=== PATIENT | female | born 1965 | race Caucasian/White ===

== ENCOUNTER 2017-04-07 06:19 | Day surgery (SDC) | payer OTHER ==
--- NOTE | 2017-03-18 07:30 | HP ---
HISTORY AND PHYSICAL: DATE OF PLANNED ADMISSION AND SURGERY: 04/07/17 HISTORY OF PRESENT ILLNESS: Ms. Bender is a 51-year-old white female who has a solitary right kidney with chronic right ureteral obstruction managed by chronic ureteral stent who is admitted for cystoscopy and right ureteral stent exchange. Ms. 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 This resulted in a stricture of her left ureter and she ended up having a chronically obstructed left kidney that became nonfunctioning and required a left nephrectomy. In September 2014, she was noted to have severe right hydronephrosis secondary to distal right ureteral obstruction. She had urgent placement of a right ureteral stent. 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 The patient has been managed with chronic right ureteral stent. The stent had been replaced every 5 to 6 months. The stent was last replaced in August 2016. PAST MEDICAL HISTORY AND SYSTEM REVIEW: She has past history of uterine carcinoma and treated with surgery and radiation therapy and has had no evidence of recurrent disease. She is hypothyroid, on levothyroxine 175 mcg daily. She has chronic back pain, on Cymbalta and gabapentin. She has history of gout, on allopurinol 100 mg daily and colchicine 0.6 mg daily. She has asthma, on Advair inhaler. She has GERD, on Prevacid 40 mg daily. She is a nonsmoker. ALLERGIES: She reports being allergic to PENICILLIN, CIPRO and LATEX. She has tolerated cephalosporin intravenously in the past without any reaction. PHYSICAL EXAMINATION GENERAL: Obese white female who looks her age. VITAL SIGNS: Blood pressure 120/80, pulse of 90. LUNGS: Clear. HEART: Regular and rhythmic. No murmurs. ABDOMEN: Soft. No masses, no tenderness, and no CVA tenderness. IMPRESSION: Chronically obstructed solitary right kidney, managed with right ureteral stent drainage. PLAN: Plan is for cystoscopy and right ureteral stent exchange (a 24 cm 7- Khmer black silicone stent). I discussed the above plans with the patient. All her questions were answered. CC: Dr. Tolliver * [id number]/[facility] #: [id number] [facility]ITALTima
[~2017-04-07 06:19] MED LIST: Buffered Lidocaine 0.9% SYRIN* 5 ML/SYR SYRINGE INTRADERM ONE; Sodium Citrate/Citric Acid* 15 ML UDC PO ONE
[2017-04-07] MEDS ORDERED: Sodium Citrate/Citric Acid* 15 ML UDC ONE (06:56)
[2017-04-07] MEDS ORDERED: cefTRIAXone(*) 2 GM ADDV.VIAL IVPB ONE (06:56)
[2017-04-07] MEDS ORDERED: Buffered Lidocaine 0.9% SYRIN* 5 ML/SYR SYRINGE ONE (06:57)
[2017-04-07] MEDS ORDERED: Iohexol 180 (CONTRAST) 10 ML SDV IV ONE (07:11)
[2017-04-07] MEDS ORDERED: fentaNYL* 50 MCG/ML 2 ML VIAL (100 MCG VIAL) ONE ×2 (07:38→09:35)
[2017-04-07] MEDS ORDERED: Propofol* 10 MG/ML 20 ML BTL IV PUSH ONE (07:40)
[2017-04-07] MEDS ORDERED: Lidocaine 2% PF * 5 ML VIAL ONE (07:40)
[2017-04-07] MEDS ORDERED: fentaNYL* 50 MCG/ML 2 ML VIAL (100 MCG VIAL) IV PRN (08:18)
[2017-04-07] MEDS ORDERED: HYDROcodone/ACETAMIN 5-325 MG* 1 TAB PO PRN (08:18)
[2017-04-07] MEDS ORDERED: Ondansetron INJ* 2 MG/ML VIAL ONE (08:55)
--- NOTE | 2017-04-07 09:19 | RAD ---
INDICATION: Retrograde RIGHT ureteral stent exchange. COMPARISON: September 25, 2016 TECHNIQUE: 35 seconds fluoroscopy. FINDINGS: RIGHT retrograde pyelogram demonstrates moderate calyceal blunting. Original catheter removed with fracture of the catheter and residual segment remaining at the renal pelvis. New RIGHT ureteral stent placed with subsequent decompression of contrast from the collecting system. IMPRESSION: Procedural fluoroscopy. CPT II Codes: 6045F
[2017-04-07 09:29] LABS: Hematocrit 36 % (35-47); Hemoglobin 11.9 g/dl (12.0-16.0); Mean Corpuscular HGB Conc 33 g/dl (31-36); Mean Corpuscular Hemoglobin 32 pg (27-31); Mean Corpuscular Volume 99 fL (80-97); Mean Platelet Volume 7 um3 (7.4-10.4); Red Blood Count 3.67 10^6/ul (4.0-5.4); Red Cell Distribution Width 14 % (10.5-15); White Blood Count 7.9 10^3/ul (3.5-10.8)
[2017-04-07] MEDS ORDERED: HYDROcodone/ACETAMIN 5-325 MG* 1 TAB ONE (09:35)
[2017-04-07] MEDS ORDERED: oxyCODONE/Acetamin 5/325 MG* TAB ONE (09:37)
[2017-04-07 10:50] LABS: BUN/Creatinine Ratio 11.5 (8-20); Calcium 8.7 mg/dL (8.6-10.3); EGFR African American 28.1 (>60); EGFR Non-African American 21.8 (>60); Potassium 4.3 mmol/L (3.5-5.0)
[2017-04-07 10:55] VITALS: BP 148/100
--- NOTE | 2017-04-07 22:30 | OP ---
DATE OF OPERATION: 04/07/17 [facility] DATE OF : 63 SURGEON: Yoandy Moise MD ANESTHESIOLOGIST: Yaniv Medellin MD ANESTHESIA: General. PRE-OP DIAGNOSES: 1. Solitary right kidney. 2. Right ureteral stricture. 3. Status post placement, right ureteral stent. POST-OP DIAGNOSES: 1. Bladder lesion. 2. Stricture and possible, mid to distal right ureter. 3. Right ureteral obstruction. 4. Retained segment of right ureteral stent. OPERATIVE PROCEDURE: 1. Cystoscopy. 2. Right retrograde pyelography. 3. Right ureteroscopy and washings from right ureter. 4. Right retrograde pyelography and placement of right ureteral stent (black silicone, 24 cm, 7-Nauruan). 5. Bladder biopsies. INDICATIONS FOR PROCEDURE: Ms. Bender is a 52-year-old white female who had received radiation therapy in the past for carcinoma of the uterus. She developed a stricture of the distal left ureter that resulted in severe left hydronephrosis and ended up requiring a left nephrectomy at the [facility] in [place], [place]. In September 2014, she was noted to have severe right hydronephrosis due to a mid to distal ureteral obstruction. At that time, she had placement of a right ureteral stent. Workup, including ureteroscopy, CT scans, showed the stricture to be extrinsic due to what was diagnosed as retroperitoneal fibrosis similar to the pathology that resulted in the loss of her left kidney. She had been managed with a right ureteral stent, which had been replaced periodically. She had required a right nephrostomy 2 years ago because of retained stent in her right kidney, and the retained stent was extracted. More recently, the patient has been having increasing urgency and frequency. She denied any gross hematuria. Non contrast CT of the abdomen and pelvis in Aug 2016 showed no new pathology. She is admitted for right ureteral stent exchange. At cystoscopy, the distal limb of the stent was seen coming from the right orifice. The stent was in good position in the right renal pelvis. Over the area of about 2 to 3 cm in the right anterior bladder wall, there was a mucoid material overlying a firm area in the bladder wall. The area felt rather fibrotic and gritty. Right retrograde pyelography showed no hydronephrosis. Upon right ureteroscopy, there was significant degree of edema and irregularity of the mucosa. In the distal third of the ureter, about 4 or 5 cm above the level of the orifice, there was tight stricture of the lumen, with mostly hyperemic fibrotic lining, and no normal mucosa. No papillary lesions seen. There was significant degree of narrowing of the ureteral lumen which prevented the semi rigid ureteroscope from going beyond that level. Retrograde pyelography of the whole length of the ureter was not performed because of concern about loosing the guidewire if it had been pulled out into the distal ureter. When the black silicone stent that was placed in August 2016 was being pulled out over a flexible tip guidewire, it broke in half, and the proximal half was retained in the renal pelvis. It could not be retrieved due to the inability to introduce the ureteroscope beyond the strictured segment of the ureter. DESCRIPTION OF PROCEDURE: After successful general anesthesia, the patient was placed in the lithotomy position and was prepped and draped in the usual manner. Cystoscopy was performed. The bladder was inspected and the findings were noted, namely the lesion in the right anterior bladder wall. The distal limb of the stent was noted in the ureter coming out from the Rt orifice. It was pulled out to the level of the urethral meatus. The guidewire was introduced into the lumen of the stent and the guidewire was successfully introduced all the way into the renal pelvis. The stent was then pulled out keeping the guidewire in place. As mentioned earlier, the stent broke and the proximal half of the stent was retained in the renal pelvis and proximal ureter. With the guidewire in place, ureteroscopy was performed. The ureteroscope was introduced into the distal right ureter. The pathology in the ureter was noted. The ureteroscope could not be introduced beyond the area of pathology to retrieve the retained portion of the stent Because of concern about a malignancy in the ureter, washings were obtained from the ureter at that level. Biopsies could not be obtained because of the fibrotic nature of the lesion. The ureteroscope was then removed keeping the guidewire in place. The guidewire was then fed over the cystoscope. A size 5-Nauruan open-ended catheter was fed on top of the guidewire and positioned in the area of the renal pelvis and the guidewire was removed. The pathology namely the retained portion of the stent was noted in the renal pelvis. Retrograde pyelography was then performed. The guidewire was reintroduced through the lumen of the open-ended catheter and positioned in the area of the renal pelvis. A black silicone stent, 24 cm long , 7- Nauruan was then fed on top of the guidewire and positioned with the proximal end coiling in the renal pelvis and the distal end coiling inside the bladder. There was good drainage of contrast from the kidney and no extravasation. Biopsy forceps was then introduced inside the bladder. Several biopsies were obtained from the lesion in the right anterior bladder wall. The biopsies were sent for pathology. The sites of the biopsies were then fulgurated with the Bugbee electrode. A size 16-Nauruan Nunn catheter was then placed. The patient tolerated the procedure well and left the operating room in good condition. There is concern about the appearance of the lesions in the bladder wall and in the ureter considering that the patient is a smoker. The plan is to obtain a CT of the abdomen and pelvis. Depending upon the result of that workup, we will decide on further evaluation of the pathology in the ureter and on the bladder and then plan for the extraction of the retained portion of the right ureteral stent through a neph. tube. [id number]/[facility] #: [id number] MTDD
== END 2017-04-07 12:39 | disposition home or self-care (01) ==
LOC: OR 06:19
PROVIDERS: ATTEND Urology
DX: N13.1 Hydronephrosis with ureteral stricture, not elsewhere classified (principal); D09.0 Carcinoma in situ of bladder; F17.210 Nicotine dependence, cigarettes, uncomplicated; J44.9 Chronic obstructive pulmonary disease, unspecified; N18.9 Chronic kidney disease, unspecified; E03.9 Hypothyroidism, unspecified; Z90.5 Acquired absence of kidney
CPT/HCPCS: 36415; 74420; 80048; 85025; 86703; 86803; 88112; 88305; 88341; 88342; A9270-GY; C2617; J0696; J2405; J2704; J3010

== ENCOUNTER 2017-04-15 14:35 | Inpatient (IN) | payer OTHER ==
[2017-04-15] MEDS ORDERED: Ondansetron INJ* 2 MG/ML VIAL IV ONE (16:32)
[2017-04-15] MEDS ORDERED: HYDROmorphone* 2 MG/ML 1 ML SYR IV SLOW PU ONE (16:32)
[2017-04-15] MEDS: NS 0.9% 1000 ML* 2,000 ML IV ONE ×2 (16:39→17:50)
[2017-04-15 16:45] LABS: Hematocrit 38 % (35-47); Hemoglobin 12.3 g/dl (12.0-16.0); Mean Corpuscular HGB Conc 33 g/dl (31-36); Mean Corpuscular Hemoglobin 32 pg (27-31); Mean Corpuscular Volume 98 fL (80-97); Mean Platelet Volume 7 um3 (7.4-10.4); Red Blood Count 3.84 10^6/ul (4.0-5.4); Red Cell Distribution Width 14 % (10.5-15); White Blood Count 10.2 10^3/ul (3.5-10.8)
[2017-04-15 17:05] LABS: Albumin 3.9 g/dL (3.2-5.2); BUN/Creatinine Ratio 12.1 (8-20); C Reactive Protein 42.59 mg/L (< 5.00); Calcium 9.5 mg/dL (8.6-10.3); EGFR African American 26.3 (>60); EGFR Non-African American 20.4 (>60); Globulin 4.8 g/dL (2-4); Potassium 4.4 mmol/L (3.5-5.0); Total Bilirubin 0.3 mg/dL (0.2-1.0); Total Protein 8.7 g/dL (6.4-8.9)
[2017-04-15 17:09] LABS: Urine Bacteria Absent (Absent); Urine Bilirubin Negative (Negative); Urine Glucose Negative (Negative); Urine Nitrite Negative (Negative)
[2017-04-15] MEDS ORDERED: cefTRIAXone(*) 1 GM in NS 0.9% 50 ML* 50 ML IVPB ONE (17:57)
--- NOTE | 2017-04-15 18:37 | ED ---
Antonieta Anderson Claudia, scribed for Jose Syed MD on 04/15/17 at 1645 . Complex/Multi-Sys Presentation - HPI Summary HPI Summary: 51 year old female presents to the ED with NV and diffuse abd pain. Pt notes pain starting 5 days ago. Pt notes the pain is an intermittent cycle of pain and no pain. She notes recent Dx of Bladder CA and receives cystoscopy every 3 months with her last one on 04/07. Her pain started after her surgery and then it stopped and then it reoccurred 2 days after her surgery. She notes during surgery the stent broke and it is stuck. She notes that this has happened before and they had to go in and extract it. Pt notes the pain radiates to her back and down her legs. She admits to loss of appetite and weight loss. She denies CP, SOB, but admits to some abdominal distended. Pt states PO intake is an aggravating factor. Pt had a nephrectomy of her left kidney. PMHx of Kidney Stones, Kidney Failure, Kidney Disease. - History Of Current Complaint Chief Complaint: EDGeneral Time Seen by Provider: 04/15/17 16:40 Hx Obtained From: Patient Onset/Duration: Sudden Onset Associated Signs And Symptoms: Positive: Nausea, Vomiting, Abdominal Pain. Negative: SOB, Chest Pain - Allergies/Home Medications Allergies/Adverse Reactions: Allergies Allergy/AdvReac Type Severity Reaction Status Date / Time Latex Allergy Severe ITCHY Rash Verified 04/07/17 07:03 Nitrofurantoin Allergy Severe Nausea And Verified 04/07/17 07:03 Vomiting Ciprofloxacin Allergy Intermediate Nausea And Verified 04/07/17 07:03 Vomiting Penicillins [PCN] Allergy Intermediate Hives Verified 04/07/17 07:03 Clindamycin Allergy Vomiting Verified 04/07/17 07:03 ENVIRONMENTAL Allergy Severe Unknown Uncoded 04/07/17 07:03 Reaction Details PMH/Surg Hx/FS Hx/Imm Hx Previously Healthy: Yes Endocrine/Hematology History: Reports: Hx Diabetes - diet controlled at this time, Hx Thyroid Disease - hypothyroidism Denies: Hx Anticoagulant Therapy Cardiovascular History: Reports: Hx Cardiomegaly, Hx Hypertension - on meds Denies: Hx Pacemaker/ICD, Other Cardiovascular Problems/Disorders Respiratory History: Reports: Hx Asthma - prn inhaler, Hx Sleep Apnea - HAS NOT HAD TESTING YET, Other Respiratory Problems/Disorders - uses nebulizer prn GI History: Reports: Hx Gastroesophageal Reflux Disease - on med, Hx Hiatal Hernia, Other GI Disorders - hiatal hernia, cervical ca History: Reports: Hx Kidney Infection, Hx Kidney Stones, Hx Renal Disease - LEFT KIDNEY REMOVED, Other Problems/Disorders - left nephrectomy 2007, cervical cancer 1999 Musculoskeletal History: Reports: Hx Arthritis - back, neck and knees, Hx Back Problems, Other Musculoskeletal History - gout, on meds Sensory History: Reports: Hx Contacts or Glasses - glasses, Other Sensory Impairments - Psorisis Denies: Hx Hearing Aid Opthamlomology History: Reports: Hx Contacts or Glasses - glasses, Other Sensory Impairments - Psorisis Neurological History: Reports: Hx Headaches - pcp following, Hx Nerve Disease - reports nerve damage in legs, Other Neuro Impairments/Disorders - cva in 1986 from ectopic - reports no residual effects Psychiatric History: Reports: Hx Anxiety - on meds, Hx Depression - on meds, Other Psychiatric Issues/Disorders - hx of etoh abuse Denies: Hx Panic Disorder - Cancer History Cancer Type, Location and Year: cervical Hx Chemotherapy: No Hx Radiation Therapy: Yes - CERVICAL CANCER, 1999 - Surgical History Surgery Procedure, Year, and Place: left nephrectomy 2007 [facility]. left cysto, stents x5 2007. total hysterectomy 1999. ectopic preg 1986- utica. ureteral stents x4 [facility] [place], last one aug 2016. 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 - [facility] [place] Hx Anesthesia Reactions: No - Immunization History Date of Tetanus Vaccine: Unk Date of Influenza Vaccine: None Infectious Disease History: No Infectious Disease History: Denies: History Other Infectious Disease, Traveled Outside the [place] in Last 30 Days - Family History Family History: No FHx of Breast CA - Social History Occupation: Unemployed Alcohol Use: None Substance Use Type: Reports: None Smoking Status (MU): Current Every Day Smoker Type: Cigarettes Amount Used/How Often: 1 ppd for 37 years Length of Time of Smoking/Using Tobacco: 30 yrs Have You Smoked in the Last Year: Yes Review of Systems Constitutional: Negative Eyes: Negative ENT: Negative Cardiovascular: Negative Negative: Chest Pain Negative: Shortness Of Breath Positive: Abdominal Pain, Vomiting, Nausea Genitourinary: Negative Musculoskeletal: Negative Skin: Negative Neurological: Negative Psychological: Normal All Other Systems Reviewed And Are Negative: Yes Physical Exam - Summary Physical Exam Summary: The patient is well-nourished in no acute distress and in no acute pain. The skin is warm and dry and skin color reflects adequate perfusion. HEENT: The head is normocephalic and atraumatic. The pupils are equal and reactive. The conjunctivae are clear and without drainage. Nares are patent and without drainage. Mouth reveals moist mucous membranes and the throat is without erythema and exudate. Neck is supple with full range of motion and non-tender. There are no carotid bruits. There is no neck vein distension. Respiratory: Chest is non-tender. Lungs are clear to auscultation and breath sounds are symmetrical and equal. Cardiovascular: Hear is regular rate and rhythm. There is no murmur or rub auscultated. There is no peripheral edema and pulses are symmetrical and equal. Abdomen: The abdomen is soft with mild diffuse tenderness palpable. No tenderness upon percussion. There are normal bowel sounds heard in all four quadrants and there is no organomegaly palpated. Musculoskeletal: Extremities are non-tender with full range of motion. There is good capillary refill. There is no peripheral edema or calf tenderness elicited. Neurological: Patient is alert and oriented to person, place and time. The patient has symmetrical motor strength in all four extremities. Cranial nerves are grossly intact. Deep tendon reflexes are symmetrical and equal in all four extremities. Psychiatric: The patient has an appropriate affect and does not exhibit any anxiety or depression. Triage Information Reviewed: Yes Vital Signs On Initial Exam: Initial Vitals Temp Pulse Resp BP Pulse Ox 98.2 F 96 22 145/87 96 04/15/17 15:09 04/15/17 15:09 04/15/17 15:09 04/15/17 15:09 04/15/17 15:09 Vital Signs Reviewed: Yes Diagnostics - Vital Signs Vital Signs Temp Pulse Resp BP Pulse Ox 04/15/17 15:29 98.2 F 98 22 145/87 96 04/15/17 15:09 98.2 F 96 22 145/87 96 - Laboratory Lab Results: Lab Results 04/15/17 04/15/17 04/15/17 Range/Units 16:35 16:35 16:35 WBC 10.2 (3.5-10.8) 10^3/ul RBC 3.84 L (4.0-5.4) 10^6/ul Hgb 12.3 (12.0-16.0) g/dl Hct 38 (35-47) % MCV 98 H (80-97) fL MCH 32 H (27-31) pg MCHC 33 (31-36) g/dl RDW 14 (10.5-15) % Plt Count 507 H D (150-450) 10^3/ul MPV 7 L (7.4-10.4) um3 Neut % (Auto) 79.9 (38-83) % Lymph % (Auto) 11.5 L (25-47) % Motley % (Auto) 5.4 (1-9) % Eos % (Auto) 2.5 (0-6) % Baso % (Auto) 0.7 (0-2) % Absolute Neuts (auto) 8.1 H (1.5-7.7) 10^3/ul Absolute Lymphs (auto) 1.2 (1.0-4.8) 10^3/ul Absolute Monos (auto) 0.6 (0-0.8) 10^3/ul Absolute Eos (auto) 0.3 (0-0.6) 10^3/ul Absolute Basos (auto) 0.1 (0-0.2) 10^3/ul Absolute Nucleated RBC 0 10^3/ul Nucleated RBC % 0 Sodium 134 (133-145) mmol/L Potassium 4.4 (3.5-5.0) mmol/L Chloride 105 (101-111) mmol/L Carbon Dioxide 21 L (22-32) mmol/L Anion Gap 8 (2-11) mmol/L BUN 30 H (6-24) mg/dL Creatinine 2.48 H (0.51-0.95) mg/dL Est GFR ( Amer) 26.3 (>60) Est GFR (Non-Af Amer) 20.4 (>60) BUN/Creatinine Ratio 12.1 (8-20) Glucose 110 H (70-100) mg/dL Lactic Acid 0.6 (0.5-2.0) mmol/L Calcium 9.5 (8.6-10.3) mg/dL Total Bilirubin 0.30 (0.2-1.0) mg/dL AST 10 L (13-39) U/L ALT 10 (7-52) U/L Alkaline Phosphatase 100 (34-104) U/L Total Creatine Kinase 78 (10-223) U/L C-Reactive Protein 42.59 H (< 5.00) mg/L Total Protein 8.7 (6.4-8.9) g/dL Albumin 3.9 (3.2-5.2) g/dL Globulin 4.8 H (2-4) g/dL Albumin/Globulin Ratio 0.8 L (1-3) Amylase 37 (29-103) U/L Lipase 32 (11.0-82.0) U/L Urine Color Urine Appearance Urine pH (5-9) Ur Specific [place] (1.010-1.030) Urine Protein (Negative) Urine Ketones (Negative) Urine Blood (Negative) Urine Nitrate (Negative) Urine Bilirubin (Negative) Urine Urobilinogen (Negative) Ur Leukocyte Esterase (Negative) Urine WBC (Auto) (Absent) Urine RBC (Auto) (Absent) Ur Squamous Epith Cells (Absent) Ur Renal Epithelial Cell (Absent) Urine Bacteria (Absent) Urine Glucose (Negative) 04/15/17 Range/Units 16:50 WBC (3.5-10.8) 10^3/ul RBC (4.0-5.4) 10^6/ul Hgb (12.0-16.0) g/dl Hct (35-47) % MCV (80-97) fL MCH (27-31) pg MCHC (31-36) g/dl RDW (10.5-15) % Plt Count (150-450) 10^3/ul MPV (7.4-10.4) um3 Neut % (Auto) (38-83) % Lymph % (Auto) (25-47) % Motley % (Auto) (1-9) % Eos % (Auto) (0-6) % Baso % (Auto) (0-2) % Absolute Neuts (auto) (1.5-7.7) 10^3/ul Absolute Lymphs (auto) (1.0-4.8) 10^3/ul Absolute Monos (auto) (0-0.8) 10^3/ul Absolute Eos (auto) (0-0.6) 10^3/ul Absolute Basos (auto) (0-0.2) 10^3/ul Absolute Nucleated RBC 10^3/ul Nucleated RBC % Sodium (133-145) mmol/L Potassium (3.5-5.0) mmol/L Chloride (101-111) mmol/L Carbon Dioxide (22-32) mmol/L Anion Gap (2-11) mmol/L BUN (6-24) mg/dL Creatinine (0.51-0.95) mg/dL Est GFR ( Amer) (>60) Est GFR (Non-Af Amer) (>60) BUN/Creatinine Ratio (8-20) Glucose (70-100) mg/dL Lactic Acid (0.5-2.0) mmol/L Calcium (8.6-10.3) mg/dL Total Bilirubin (0.2-1.0) mg/dL AST (13-39) U/L ALT (7-52) U/L Alkaline Phosphatase (34-104) U/L Total Creatine Kinase (10-223) U/L C-Reactive Protein (< 5.00) mg/L Total Protein (6.4-8.9) g/dL Albumin (3.2-5.2) g/dL Globulin (2-4) g/dL Albumin/Globulin Ratio (1-3) Amylase (29-103) U/L Lipase (11.0-82.0) U/L Urine Color Yellow Urine Appearance Cloudy Urine pH 6.0 (5-9) Ur Specific [place] 1.016 (1.010-1.030) Urine Protein 2+(100 mg/dl) H (Negative) Urine Ketones Negative (Negative) Urine Blood 2+ H (Negative) Urine Nitrate Negative (Negative) Urine Bilirubin Negative (Negative) Urine Urobilinogen Negative (Negative) Ur Leukocyte Esterase 3+ H (Negative) Urine WBC (Auto) 3+(>20/hpf) H (Absent) Urine RBC (Auto) 3+(>10/hpf) H (Absent) Ur Squamous Epith Cells Present H (Absent) Ur Renal Epithelial Cell Present H (Absent) Urine Bacteria Absent (Absent) Urine Glucose Negative (Negative) Result Diagrams: 04/15/17 16:35 04/15/17 16:35 Lab Statement: Any lab studies that have been ordered have been reviewed, and results considered in the medical decision making process. Re-Evaluation - Re-Evaluation 1 Re-Evaluation Time: 17:56 Comment: Pt is agreeable with the plan to be admitted for IV antibiotics. The hopsitalist has been called. Complex Multi-Symp Course/Dx Assessment/Plan: MDM: After lab work-up and consult with Dr. Moise the pt will be admitted to [facility] by Dr. Philippe. Dr. Moise recommends admit for hydration and UTI. - Diagnoses Differential Diagnoses/HQI/PQRI: Sepsis, Urinary Tract Infection, Other - acute renal failure, dehydration, abdominal pain, obstruction, stent pain Provider Diagnoses: Renal failure, Abdominal pain, UTI (urinary tract infection), Dehydration - Physician Notifications Discussed Care Of Patient With: Discussed care of pt with Dr. Moise whom recommends admit. - He recommends admit for UTI and hydration. Consulted with Dr. Vu Time Discussed With Above Provider: 17:39 - Dr. Vu will admit the pt. 180 Instructed by Provider To: Admit As Inpatient - 180 Discharge - Discharge Plan Condition: Good Disposition: ADMITTED TO [facility] Patient Education Materials: Urinary Tract Infection in Women (ED), Dehydration (ED) Referrals: Gladys Tolliver MD [Primary Care Provider] - The documentation as recorded by the Antonieta fontanez Claudia accurately reflects the service I personally performed and the decisions made by , Jose Syed MD.
[2017-04-15] MEDS ORDERED: Albuterol/Ipratropium NEB.SOL* Albuterol 2.5 MG/Ipratropium 0.5 MG 3 ML INH PRN (18:58)
[2017-04-15] MEDS ORDERED: Cyclobenzaprine TAB* 10 MG PO PRN (18:58)
[2017-04-15] MEDS ORDERED: Nystatin TOP POWDER* 15 GM BTL TOPICAL PRN (18:58)
[2017-04-15] MEDS ORDERED: Mometasone/Formoter 200/5 MDI INH PRN (18:58)
[2017-04-15] MEDS ORDERED: Nystatin CREAM* 15 GM TUBE TOPICAL PRN (18:58)
[2017-04-15] MEDS ORDERED: Morphine INJ* 4 MG/ML 1 ML SYRINGE IV ONE (19:00)
[2017-04-15] MEDS ORDERED: Levothyroxine TAB (NF) 175 MCG TAB (AUTOSUB 100 MCG + 75 MCG TAB) PO SCH (19:00)
--- NOTE | 2017-04-15 20:04 | RAD ---
INDICATION: Right-sided hydronephrosis COMPARISON: CT April 14, 2017 TECHNIQUE: Longitudinal and transverse scans of the right kidney were obtained. FINDINGS: Right kidney: There is mild fullness right renal collecting system appearing similar to the CT. No masses or calculi are seen. The right kidney measures 11.1 x 5.0 x 4.7 cm. IMPRESSION: MILD FULLNESS RIGHT RENAL COLLECTING SYSTEM, UNCHANGED.
[2017-04-15] MEDS: Morphine INJ* 4 MG/ML 1 ML SYRINGE IV PRN (20:40)
[2017-04-15] MEDS: NS 0.9% 1000 ML* 1,000 ML IV SCH (20:40)
[2017-04-15] MEDS: oxyCODONE TAB* 5 MG TAB PO PRN (22:36)
[2017-04-15] MEDS: Heparin VIAL(*) 5000 UNITS/ML VIAL (FIVE THOUSAND) SUBCUT SCH (22:41)
[2017-04-16] MEDS: Morphine INJ* 4 MG/ML 1 ML SYRINGE IV PRN ×5 (00:43→22:48)
[2017-04-16] MEDS: Nicotine Patch Removal NOTE FOLLOW UP SCH ×2 (00:55→23:05)
--- NOTE | 2017-04-16 01:05 | HP ---
SUPERVISING PHYSICIAN ADDENDUM NOW INCLUDED ON THIS REPORT CC: Dr. Tolliver; Dr. Moise* ADMISSION HISTORY AND PHYSICAL: DATE OF ADMISSION: 04/15/17 PRIMARY CARE PROVIDER: Dr. Tolliver. NEUROLOGIST: Dr. Moise. ADMITTING PROVIDER: FIDENCIO Khan. SUPERVISING PHYSICIAN: Dr. Vu.* (DICTATED BY FIDENCIO KHAN) CHIEF COMPLAINT: Abdominal pain. HISTORY OF PRESENT ILLNESS: This is a 51-year-old female with a solitary right kidney, status post left nephrectomy for recurrent hydronephrosis with retroperitoneal fibrosis, which started after radiation therapy for cervical cancer several years ago. She has been seen by Dr. Moise for the last several years for management of her right kidney, which has also been complicated by a distal ureteral stricture associated with retroperitoneal fibrosis and has been managed with ureteral stents replaced every few months. The patient underwent stent replacement with Dr. Moise on 04/07/17. Unfortunately, the stent broke on retrieval and the proximal end is still retained within the ureter. Also at the time of evaluation, cystoscopy demonstrated a thickened bladder wall segment, which biopsy was taken, which demonstrates carcinoma in situ. Ureteral wash does not demonstrate any further malignant cells. The patient states that 1 to 2 days following the procedure, she began to develop right flank pain that got progressively worse associated with occasional nausea and vomiting. She was seen by Dr. Moise with these complaints yesterday, who ordered a CT scan, which did not demonstrate significant obstruction. The patient was reevaluated today in his office with persistent abdominal pain and he referred her to the emergency department for further evaluation. Dr. Moise spoke with another urologist I believe in [place] who did not recommend transfer at this time. In addition to her abdominal pain, nausea, and vomiting, the patient has been complaining of intermittent fevers as high as 101.6 degrees Fahrenheit and associated hot flashes at home. No associated diarrhea. Her abdominal pain is now diffuse, but worse in the right flank area and seems to come in waves. HOME MEDICATIONS: 1. DuoNebs inhaled q.6 hours as needed for shortness of breath. 2. Allopurinol 200 mg p.o. daily. 3. Cetirizine 10 mg p.o. daily. 4. Colchicine 0.6 mg p.o. daily as needed for gout flare. 5. Flexeril 10 mg p.o. t.i.d. as needed for back pain and spasm. 6. Cymbalta 60 mg p.o. daily. 7. Advair 1 puff inhaled daily. 8. Levothyroxine 175 mcg daily with the exception of Sundays, when she takes 262.5 mcg. 9. Nicotine patch 21 mg transdermal daily. 10. Nystatin cream applied topically daily as needed. 11. Oxybutynin 5 mg p.o. daily. 12. Oxycodone 15 mg p.o. q.6 hours as needed for pain. 13. Protonix 40 mg p.o. daily. PAST MEDICAL HISTORY: 1. History of cervical cancer, status post radiation. 2. Hypothyroidism. 3. Chronic back pain. 4. Gout. 5. COPD. 6. GERD. PAST SURGICAL HISTORY: 1. Left nephrectomy for recurrent hydronephrosis and distal ureteral stent or distal ureteral stricture. 2. Hysterectomy. SOCIAL HISTORY: The patient lives at home with her fiance, her son, her sister and [id number]. She is disabled, receives [employer] income. She has a 15-pack- year smoking history. She continues to smoke half a pack of cigarettes daily and denies regular alcohol consumption. REVIEW OF SYSTEMS: As noted above in HPI. All other systems reviewed and considered negative. LABORATORY EVALUATION: CBC shows a white blood cell count of 10,200, hemoglobin of 12.3 g/dL, and a platelet count of 507,000. Comprehensive metabolic panel shows sodium of 134, potassium of 4.4, BUN 30, creatinine 2.48, random glucose of 110. Transaminases and total bilirubin within normal limits. Normal lactic acid at 0.6. CRP moderately elevated at 42.5. Lipase normal at 32. Urinalysis shows 2+ blood, 3+ leuk esterase, and 3+ white blood cells. IMAGING: CT completed yesterday, 04/14/17, shows no significant hydronephrosis. There is a double-J stent catheter present within the right kidney and collecting system and a retained portion of second catheter in the proximal right collecting system. There is mild dilatation of the right calyces , which is unchanged from prior and some mild thickening of the superior wall of the bladder. PHYSICAL EXAMINATION GENERAL: This is a morbidly obese, middle-aged female in no acute distress lying in the hospital stretcher. VITAL SIGNS: Temperature 98.2 degrees Fahrenheit, pulse 96 beats per minute, respiratory rate 22 per minute, oxygen saturation 96% on room air, and blood pressure 145/87 mmHg. HEENT: Head is normocephalic, atraumatic. Very poor dentition with no teeth present on the top, and mucous membranes are moderately dry. RESPIRATORY: Lungs are clear to auscultation without wheezes, crackles or rhonchi. CARDIOVASCULAR: Heart has a regular rate and rhythm without murmurs, rubs, or gallops. ABDOMEN: Abdomen is soft. There is tenderness to palpation in the right flank region. Bowel sounds are present, but quiet. EXTREMITIES: No significant lower extremity edema appreciated. ASSESSMENT AND PLAN: This is a 51-year-old female with a remote history of cervical cancer, status post radiation therapy resulting in retroperitoneal fibrosis causing distal ureteral strictures inducing recurrent hydronephrosis, now status post left nephrectomy with the right kidney being managed with chronic ureteral stents, as well as hypothyroidism, chronic back pain, gout, chronic obstructive pulmonary disease, gastroesophageal reflux disease, and morbid obesity. The patient presents with complaints of abdominal pain following stent replacement, which was complicated by a proximal portion of the stent being retained. 1. Flank pain - the patient's pain is likely due to pyelonephritis with evidence of urinary tract infection on . No significant fever or leukocytosis on initial presentation. CT scan from yesterday showed no hydronephrosis, but due to her high risk and elevated creatinine, we will repeat a renal ultrasound to evaluate for hydro. We will otherwise empirically treat with ceftriaxone with urine and blood cultures pending at this time. 2. Chronic right hydronephrosis - the patient to be managed with Dr. Moise. Stent replacement on 04/07/17 was complicated by retention of the proximal portion of stent as it broke during retrieval. As there is evidence of infection at this time, retrieval will certainly be postponed. Dr. Moise is consulting at this time. We will discuss with him further what his surgical plans are. Per CT yesterday, there was no evidence of obstruction. 3. Acute on chronic kidney injury - As there is no evidence of obstruction on CT yesterday, but with pending renal ultrasound, assume that her acute kidney injury is at least partially due to dehydration as she has been nauseous and vomiting without significant oral intake in several days now. We will plan to rehydrate her, monitor her renal function closely, and avoid nephrotoxic agents. 4. Hypothyroidism - plan to continue current doses of levothyroxine. 5. Chronic back pain - continue her hydrocodone. 6. Gout - without evidence of current exacerbation. 7. Chronic obstructive pulmonary disease - without current exacerbation with plans to continue her current inhaled medications. 8. Gastroesophageal reflux disease - we will continue her PPI. 9. Remote history of cervical cancer, status post radiation therapy complicated by retroperitoneal fibrosis. 10. Code status. The patient is a full code. 11. DVT prophylaxis with subcu heparin. 12. Healthcare proxy is her daughter Jeanie Reynolds. DISPOSITION: The patient is being admitted to inpatient status with anticipated length of stay to be greater than 2 midnights. FIDENCIO KHAN ADDENDUM: Mrs. Bender is a 51-year-old female status post nephrectomy due to recurrent ureteral obstruction with multiple stents placement in the past who has had very similar problem in the remaining kidney. Patient had just her stent replaced by Dr. Moise last week. Apparently, part of the previous stent is still present in her ureter. She presents complaining of abdominal pain. Her urinalysis is positive for most likely UTI. She is going to be admitted to the hospital for further urology management and antibiotic treatment of patient's UTI. RAQUEL VU MD [id number]/CPS #: [id number]/CPS #: [id number] CJ
--- NOTE | 2017-04-16 01:14 | HP ---
ADDENDUM:* HISTORY AND PHYSICAL: Mrs. Bender is a 51-year-old female status post nephrectomy due to recurrent ureteral obstruction with multiple stents placement in the past who has had very similar problem in the remaining kidney. Patient had just her stent replaced by Dr. Moise last week. Apparently, part of the previous stent is still present in her ureter. She presents complaining of abdominal pain. Her urinalysis is positive for most likely UTI. She is going to be admitted to the hospital for further urology management and antibiotic treatment of patient's UTI. [id number]/CPS #: [id number] CJ
[2017-04-16 05:36] LABS: Hematocrit 33 % (35-47); Hemoglobin 10.6 g/dl (12.0-16.0); Mean Corpuscular HGB Conc 32 g/dl (31-36); Mean Corpuscular Hemoglobin 32 pg (27-31); Mean Corpuscular Volume 101 fL (80-97); Mean Platelet Volume 7 um3 (7.4-10.4); Red Cell Distribution Width 14 % (10.5-15); White Blood Count 7.1 10^3/ul (3.5-10.8)
[2017-04-16 05:47] LABS: BUN/Creatinine Ratio 11.6 (8-20); Calcium 8.6 mg/dL (8.6-10.3); EGFR African American 28.2 (>60); EGFR Non-African American 21.9 (>60); Potassium 4.1 mmol/L (3.5-5.0)
[2017-04-16] MEDS: Omeprazole CAP* 20 MG PO SCH (05:51)
[2017-04-16] MEDS: Levothyroxine TAB* 100 MCG TAB PO SCH (05:52)
[2017-04-16] MEDS: Levothyroxine TAB* 75 MCG TAB PO SCH (05:52)
[2017-04-16] MEDS: Heparin VIAL(*) 5000 UNITS/ML VIAL (FIVE THOUSAND) SUBCUT SCH ×3 (05:59→21:39)
[2017-04-16] MEDS: Ondansetron INJ* 2 MG/ML VIAL IV PRN ×2 (06:38→18:38)
[2017-04-16] MEDS: NS 0.9% 1000 ML* 1,000 ML IV SCH (06:39)
[2017-04-16] MEDS: Nicotine PATCH 14 MG/24 HR* PATCH TRANSDERM SCH (08:22)
[2017-04-16] MEDS: DULoxetine DR CAP* 60 MG CAP.DR PO SCH (08:23)
[2017-04-16] MEDS: Cetirizine* 10 MG TAB PO SCH (08:23)
[2017-04-16] MEDS: Allopurinol TAB* 100 MG PO SCH (08:23)
[2017-04-16] MEDS: Oxybutynin XL TAB* 5 MG PO SCH (08:23)
[2017-04-16] MEDS: oxyCODONE TAB* 5 MG TAB PO PRN ×3 (08:35→21:34)
--- NOTE | 2017-04-16 11:10 | PN ---
Subjective Date of Service: 04/16/17 Interval History: This is 51 yo female with recurrent hydronephrosis due to ureteral stricture that has been managed by Dr Moise with chronic ureteral stents changed [id number]. She was admitted yesterday with complaints of abdominal pain following stent exchange that was complicated by a portion of the stent breaking during extraction with evidence of UTI. This am she reports that she is still having abd pain. Occasional nausea. No further vomiting. Objective Active Medications: Albuterol/Ipratropium (Duoneb (Albuterol 2.5 Mg/Ipratropium 0.5 Mg)) 1 neb INH Q6H PRN PRN Reason: SHORTNESS OF BREATH Allopurinol (Zyloprim Tab*) 200 mg PO DAILY [facility] Last Admin: 04/16/17 08:23 Dose: 200 mg Cetirizine HCl (Zyrtec*) 10 mg PO DAILY [facility] PRN Reason: Protocol Last Admin: 04/16/17 08:23 Dose: 10 mg Cyclobenzaprine HCl (Flexeril Tab*) 10 mg PO TID PRN PRN Reason: PAIN Duloxetine HCl (Cymbalta Cap*) 60 mg PO QAM [facility] Last Admin: 04/16/17 08:23 Dose: 60 mg Heparin Sodium (Porcine) (Heparin Vial(*)) 5,000 units SUBCUT Q8HR [facility] Last Admin: 04/16/17 05:59 Dose: 5,000 units Sodium Chloride (Ns 0.9% 1000 Ml*) 1,000 mls @ 100 mls/hr IV PER RATE [facility] Last Admin: 04/16/17 06:39 Dose: 100 mls/hr Ceftriaxone Sodium 1,000 mg/ (Sodium Chloride) 50 mls @ 200 mls/hr IVPB Q24H [facility] Levothyroxine Sodium (Synthroid Tab*) 100 mcg PO MoTuWeThFrSa@0600 [facility] Last Admin: 04/16/17 05:52 Dose: 100 mcg Levothyroxine Sodium (Synthroid Tab*) 75 mcg PO MoTuWeThFrSa@0600 [facility] Last Admin: 04/16/17 05:52 Dose: 75 mcg Mometasone Furoate/Formoterol Fumar (Dulera 200/5 Mdi*) 1 puff INH QAM PRN; Protocol PRN Reason: SOB/WHEEZING Morphine Sulfate (Morphine Inj (Syringe)*) 4 mg IV Q4H PRN PRN Reason: PAIN Last Admin: 04/16/17 06:25 Dose: 4 mg Nicotine (Nicotine Patch 14 Mg/24 Hr*) 1 patch TRANSDERM Q24HR [facility] Last Admin: 04/16/17 08:22 Dose: 1 patch Nystatin (Nystatin Cream*) 1 applic TOPICAL BID PRN PRN Reason: RASH Nystatin (Nystatin Top Powder*) 1 applic TOPICAL BID PRN PRN Reason: RASH Omeprazole (Prilosec Cap*) 20 mg PO DAILY@0730 [facility] Last Admin: 04/16/17 05:51 Dose: 20 mg Ondansetron HCl (Zofran Inj*) 4 mg IV Q4H PRN PRN Reason: NAUSEA/VOMITING Last Admin: 04/16/17 06:38 Dose: 4 mg Oxybutynin Chloride (Ditropan Xl Tab*) 5 mg PO DAILY [facility] Last Admin: 04/16/17 08:23 Dose: 5 mg Oxycodone HCl (Roxycodone Tab*) 15 mg PO Q6H PRN PRN Reason: PAIN Last Admin: 04/16/17 08:35 Dose: 15 mg Pharmacy Profile Note (Nicotine Patch Removal Note*) 1 note FOLLOW UP 2100 [facility] Last Admin: 04/16/17 00:55 Dose: Not Given Vital Signs: Temp Pulse Resp BP Pulse Ox 98.2 F 83 16 107/70 100 04/16/17 04:13 04/16/17 04:13 04/16/17 08:35 04/16/17 04:13 04/16/17 04:13 Appearance: Mildly ill appearing in NAD Respiratory: Symmetrical Chest Expansion and Respiratory Effort, Clear to Auscultation Cardiovascular: NL Sounds; No Murmurs; No JVD, RRR Abdominal: - - soft, BS present, TTP in epigastric and R lateral abdominal pain Extremities: No Edema Neurological: Alert and Oriented x 3 Result Diagrams: 04/16/17 04:50 04/16/17 04:50 Additional Lab and Data: . Diagnostic Imaging: Renal US - mild fullness of R collecting system, no change from prior Assess/Plan/Problems-Billing Assessment: This is a 51 yo female with remote h/o cervical CA s/p radiation treatment, hypothyroidism, chronic back pain, gout, COPD, GERD who presented with abdominal pain after ureteral stent replacement complicated by the stent breaking during retrieval. - Patient Problems (1) UTI (urinary tract infection) Comment: Cont ceftriaxone Urine and blood cultures pending Recent ureteral replacement, concern for possible infected stent/pyelonephritis Nunn in place, cont at this time (2) Abdominal pain Comment: Spoke in detail with Dr Moise He does not believe that her pain is related to her kidney or bladder but suggested that extravasation of urine along her ureter may be a cause of her pain, will plan on fluroscopic cystoscopy to eval further Gallstones also noted on CT, no transaminitis or elevated Tbili, will obtain GB US to eval further Consider surgery consult if studies are negative without improvement in symptoms (3) CKD (chronic kidney disease) stage 3, GFR 30-59 ml/min Comment: Worsening renal function recognized ~1 week ago No hydro noted on US May be atleast partially related to prerenal causes as patient reports poor oral intake and multiple episodes of vomiting recently (4) COPD (chronic obstructive pulmonary disease) Comment: No acute exacerbation Cont home inhaled therapy (5) Chronic back pain Comment: Cont home medications (6) Hypothyroidism Comment: Cont levothyroxine (7) GERD (gastroesophageal reflux disease) Comment: Cont PPI (8) Hx of gout (9) Full code status (10) DVT prophylaxis Comment: SQ heparin Status and Disposition: Inpatient. Anticipate dc in 1-2 days
--- NOTE | 2017-04-16 11:25 | CONS ---
CONSULTATION DATE OF CONSULT/DICTATION: 04/16/2017. HISTORY OF PRESENT ILLNESS: Ms. Bender is a 51-year-old, white female whom I have been following since September 2014 because of right ureteral obstruction. Ms. Bender's history goes back to about 15 years ago when she developed uterine carcinoma and had a hysterectomy followed by radiation therapy. She was treated then by Dr Cummnigs in [place]. She did well and there was no evidence of recurrent disease. She developed left ureteral obstruction and at that time she was followed and treated at [facility]. She was noted to have a stricture of her left ureter, and ultimately lost her left renal function and ended up having a left nephrectomy at [facility] in 2009. There was no evidence of any malignancy that was reported. I saw her in the emergency room in September 2014 with acute renal failure, severe right hydronephrosis, and distal ureteral obstruction. At that time she had an emergency cystoscopy which showed a normal bladder wall. She had a right ureteroscopy which showed a stricture of the distal right ureter. There was no evidence of any intrinsic ureteral lesions and the obstruction seemed to be extrinsic. She had an urgent placement of a right ureteral stent with significant improvement in her renal function. The patient was then extensively worked up for possible malignancy of her pelvis causing the ureteral obstruction. She was seen by Oncology and worked up by Dr. Elizondo and also was seen by Gynecology. No pathology was noted to explain the ureteral obstruction. The obstruction seemed to be similar to what she had on the left side and was felt to be secondary to pelvic retroperitoneal fibrosis, possibly induced by radiation therapy. She did very well with the stent drainage. The stent has been replaced periodically every 6 months. Exactly two years ago, while the stent was being replaced, it migrated into the renal pelvis. At that time I attempted to perform a ureteroscopy to retrieve the stent, but there was dense fibrosis and obstruction of the distal ureter about 5 cm above the UVJ. The ureteroscope could not be introduced beyond the level of the stricture to retrieve the stent. The patient ended up being referred to [facility] where she was evaluated by Dr. Mcghee. He placed a right nephrostomy tube and the migrated stent was retrieved. She has been doing well except for recurrent uti's and recently developed increasing urinary incontinence, having to wear protective pads. She continued to be maintained on a stent drainage. On 04/07/2017, she was taken to the operating room for elective right ureteral stent exchange. At cystoscopy, the right anterior bladder wall was noted to be markedly hyperemic and was suspicious for either a superficial tumor or an infection. She had several biopsies of the bladder lesion . While the stent was being replaced, and being pulled out over a guidewire, it broke in half at the level of the ureteral stricture, and the proximal half of the stent was retained in the renal pelvis and proximal ureter. I performed a semi rigid ureteroscopy to retrieve the retained stent. Again dense fibrosis of the ureteral lumen was encountered with obstruction and significant hyperemic changes of that segment of the ureter, about 4 or 5 cm above the level of the orifice. This is the same level where the obstruction was noted two years ago. Again, the ureteroscope could not be introduced due to the dense fibrosis. Because of the degree of reaction, I could not do a biopsy; however, washings were obtained from the right ureter at that level. A 7 [place] stent was then placed, draining her kidney. The patient did well afterwards and was discharged home. The cytology on the right ureteral washings were negative for malignancy. The biopsies from the bladder wall showed severe inflammation, mucosal changes consistent with carcinoma in situ. The dense gritty tissue in the bladder wall that was biopsied was not malignant and showed only fibrosis. Following her discharge, the patient has been complaining of on and off abdominal pain. It was, however, manageable. She had a non-contrast CT of the abdomen and pelvis on 04/15/2017. The study showed no right hydronephrosis , the retained stent was noted in the renal pelvis and proximal ureter, the other stent noted in good position. There seemed to be also reactive changes around the ureter and thickening of the anterior bladder wall. There was, however, no acute changes and no fluid collection to suggest urinoma. She had cholelithiasis. The appearance of this CT was very similar to what was noted on the CT of August 2016. Arrangements were being made for a consultation again with Dr. Mcghee at [facility] to perform placement of right nephrostomy tube to extract the retained stent and also to attempt a biopsy of the ureteral pathology going through an antegrade approach. There will also need to reevaluate the bladder pathology. The patient presented to my office yesterday complaining of severe anterior abdominal pain. There was no flank pain. No fever or chills. She was referred to the emergency room where she had a renal ultrasound which continued to show mild fullness of the right collecting system, but no obstruction. Her urine was positive for infection. She was not febrile and her white count was normal. She was a bit anemic. Her serum and creatinine, which has gone up to 2.9, went down to 2.4. The patient was admitted for IV fluids, IV antibiotics and pain control, and for re- evaluation. She had a Nunn catheter placed. She has been making a good amount of urine. I re-evaluated her this morning. She has remained afebrile. Her abdominal pain is persistent, but is improved. PHYSICAL EXAM: She has no CVA tenderness. She feels bloated. There is no guarding, no rigidity of her anterior abdomen. She described the pain as being anterior, periumbilical. She continues to have good urine output and her urine is clear. Her serum and creatinine this morning is down to 2.4. IMPRESSION: I am not sure if the abdominal pain is related to her renal pathology or related to retroperitoneal pathology that is causing the ureteral obstruction and the bladder findings. PLAN/RECOMMENDATIONS: 1- Will obtain a cystogram, to evaluate the bladder and with the presence of the stent, there would be reflux into the ureter, and can check for possible extravasation. 2- If the study does not show extravasation, and if she continues to be in pain , would obtain a General Surgery and or a GI consult to have their opinion regarding her diffuse abdominal pain. She would still need to be transferred to [facility] (Dr Mcghee, Urology Dep't) for the above described work-up and retrieval of the retained portion of the stent. I discussed her condition with her urologist at [facility], Dr. Mcghee. I will be following her with you. Thank you. [id number]/[facility] #: [id number] CJ
--- NOTE | 2017-04-16 14:55 | RAD ---
INDICATION: Back pain following recent RIGHT ureteral stent exchange with fracture of the previous stent with retention of the stent fragment at the renal collecting system. Request for retrograde pyelogram via cystogram and RIGHT ureteral stent due to chronic renal insufficiency precluding an antegrade pyelogram. COMPARISON: April 15, 2017 renal ultrasound and April 14, 2017 CT. April 07, 2017 retrograde pyelogram at time of stent exchange. TECHNIQUE: 0.3 minutes fluoroscopy. Procedure and findings: The urinary bladder was filled retrograde through a Nunn catheter with a total volume of 300 mL Cystografin contrast under gravity. Maximum distended volume of the urinary bladder estimated at only 100 mL with most of the contrast leaking out around the urinary catheter through the urethra. Contrast extending retrograde to the RIGHT intrarenal collecting system through the intact ureteral stent with the patient in Trendelenburg position. Fragment of previous stent noted looped at the intrarenal collecting system and pelvis. Only mild calyceal blunting demonstrated. Patient position change to reverse Trendelenburg. Subsequent decompression of the intrarenal collecting system through the ureteral stent. No definitive contrast visualized outside of the ureteral stent. No extravasation of contrast from the RIGHT ureter evident. IMPRESSION: Cystogram and RIGHT retrograde pyelogram performed through a RIGHT ureteral stent. No contrast extravasation from the RIGHT ureter demonstrated. Presence of the stent decreases sensitivity for detection of a ureteral perforation. Nonetheless the April 14, 2017 CT exam demonstrates only mild inflammatory stranding surrounding the ureteral stent containing RIGHT ureter without evidence for urinoma or infiltrative collection of fluid to suggest ureteral leak. CPT II Codes: 6045F
[2017-04-16] MEDS: cefTRIAXone VIAL(*) 1,000 MG in NS 0.9% 50 ML* 50 ML IVPB SCH (18:27)
[2017-04-16] MEDS: Al Hydrox/Mg Hydrox/Simet LIQ* 30 ML UDC PO PRN (18:38)
--- NOTE | 2017-04-16 18:59 | RAD ---
INDICATION: Abdominal pain. Cholelithiasis. COMPARISON: CT April 14, 2017 TECHNIQUE: Longitudinal and transverse scans of the right upper quadrant were obtained. Doppler interrogation of the hepatic and portal venous system was performed. FINDINGS: Liver: There is hepatomegaly with hepatic steatosis. There are no masses . The liver measures 19.3 cm in cephalocaudal dimension. Vessels: There is normal hepatic and portal venous flow. Bile ducts: There is no evidence of intrahepatic or extrahepatic ductal dilatation. The common duct measures 0.4 cm. Gallbladder: There is biliary sludge in addition to multiple small gallstones. Cholelithiasis. No thickening of the gallbladder wall or pericholecystic fluid. Pancreas: Not evaluated due to bowel gas. Right kidney: The right kidney is normal in size and echogenicity. There are no masses or calculi. There is minor fullness of the right renal collecting system as also identified on the CT.. The right kidney measures 12.1 x 4.8 x 5.1 cm. IVC and aorta: The aorta and superior vena cava appear normal. Fluid: There is no ascites. Other: None. IMPRESSION: Cholelithiasis. Caliectasis right kidney, unchanged Hepatic steatosis with hepatomegaly
[2017-04-17] MEDS: NS 0.9% 1000 ML* 1,000 ML IV SCH ×3 (02:44→21:12)
[2017-04-17] MEDS: Morphine INJ* 4 MG/ML 1 ML SYRINGE IV PRN ×5 (02:50→23:19)
[2017-04-17 05:38] LABS: Hematocrit 31 % (35-47); Mean Corpuscular HGB Conc 33 g/dl (31-36); Mean Corpuscular Hemoglobin 33 pg (27-31); Mean Corpuscular Volume 100 fL (80-97); Mean Platelet Volume 7 um3 (7.4-10.4); Red Blood Count 3.06 10^6/ul (4.0-5.4); Red Cell Distribution Width 14 % (10.5-15); White Blood Count 5.8 10^3/ul (3.5-10.8)
[2017-04-17] MEDS: Levothyroxine TAB* 100 MCG TAB PO SCH (05:45)
[2017-04-17] MEDS: Heparin VIAL(*) 5000 UNITS/ML VIAL (FIVE THOUSAND) SUBCUT SCH ×3 (05:45→21:15)
[2017-04-17] MEDS: Levothyroxine TAB* 75 MCG TAB PO SCH (05:45)
[2017-04-17 05:50] LABS: C Reactive Protein 85.78 mg/L (< 5.00); Calcium 8.3 mg/dL (8.6-10.3); EGFR African American 28.8 (>60); EGFR Non-African American 22.4 (>60); Globulin 3.8 g/dL (2-4); Potassium 4.3 mmol/L (3.5-5.0); Total Bilirubin 0.2 mg/dL (0.2-1.0); Total Protein 6.8 g/dL (6.4-8.9)
[2017-04-17] MEDS: oxyCODONE TAB* 5 MG TAB PO PRN (05:51)
[2017-04-17] MEDS: Omeprazole CAP* 20 MG PO SCH (05:51)
[2017-04-17 06:36] LABS: BUN/Creatinine Ratio 8.3 (8-20)
[2017-04-17] MEDS: Al Hydrox/Mg Hydrox/Simet LIQ* 30 ML UDC PO PRN (08:16)
[2017-04-17] MEDS: Ondansetron INJ* 2 MG/ML VIAL IV PRN ×2 (08:22→21:14)
[2017-04-17] MEDS: DULoxetine DR CAP* 60 MG CAP.DR PO SCH (08:23)
[2017-04-17] MEDS: Allopurinol TAB* 100 MG PO SCH (08:23)
[2017-04-17] MEDS: Oxybutynin XL TAB* 5 MG PO SCH (08:23)
[2017-04-17] MEDS: Nicotine PATCH 14 MG/24 HR* PATCH TRANSDERM SCH (08:23)
[2017-04-17] MEDS: Cetirizine* 10 MG TAB PO SCH (08:23)
[2017-04-17] MEDS ORDERED: Pantoprazole IV* 40 MG IV ONE (09:00)
--- NOTE | 2017-04-17 11:40 | RAD ---
INDICATION: Abdominal pain of uncertain etiology. Recent RIGHT ureteral stent exchange with fragment of previous stent remaining at the RIGHT renal pelvis. COMPARISON: April 16, 2017 RIGHT upper quadrant ultrasound, cystogram, April 14, 2017 CT. TECHNIQUE: Multidetector CT images were obtained from the lung bases to the ischial tuberosities. Oral contrast administered. Assessment of the visceral limited without IV contrast. REPORT: Mild bibasilar subsegmental atelectasis. Negative for cardiomegaly or pericardial effusion. 18 cm cephalocaudal liver is decreased in density consistent with fatty infiltration with focal sparing at the gallbladder fossa. No suspicious focal hepatic lesions or biliary dilatation. Cholelithiasis corresponding with the ultrasound finding without additional CT abnormality of the gallbladder. Moderately atrophic pancreas without suspicious finding. Unremarkable spleen. Enteric contrast extends to the proximal jejunum. There is dilatation of the jejunal bowel loops measuring up to 3.6 cm diameter with air-fluid levels. There is fecalization of the chyme within the distal ileum and a narrow transition zone is visualized at the far distal ileum along the RIGHT pelvic sidewall anterior and lateral to the recently instrumented ureter. The terminal ileum extending to the ileocecal valve is decompressed. Mild perienteric inflammatory stranding at the level of the distended ileal bowel loops. No perienteric abscess or free air evident. Minimal nonloculated free fluid greatest in the perihepatic region. Small fat-containing umbilical hernia without inflammatory change. Normal adrenal glands. RIGHT ureteral stent in place and additional stent fragment at the level of the renal pelvis. Negative for hydronephrosis or perinephric stranding. Negative for ureteral dilatation. Mild periureteral stranding. Post LEFT nephrectomy without suspicious finding at the post nephrectomy space. The urinary bladder is decompressed. No residual contrast evident at the RIGHT intrarenal collecting system or urinary bladder from the cystogram performed one day prior. Post hysterectomy. Unremarkable adnexal regions. Normal size range bilateral inguinal lymph nodes. 1.2 cm short axis diameter mildly enlarged anterior periaortic lymph node below level of the renal vessels is unchanged. Negative for aortoiliac aneurysm. Largely decompressed IVC indicating lower volume state. Polyarticular degenerative arthropathy. 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 No suspicious focal osseous lesions evident. No retroperitoneal or superficial soft tissue hematoma or other loculated fluid collection evident. Chang images saved on the [facility] PACS. IMPRESSION: High-grade partial versus complete distal small bowel obstruction likely due to adhesion along the RIGHT pelvic sidewall is new compared with the April 14, 2017 exam.
--- NOTE | 2017-04-17 11:46 | PN ---
Subjective Date of Service: 04/17/17 Interval History: Patient's abdominal pain has become progressively worse overnight and patient is severely nauseated with occasional vomiting. Her upper abdomen has become distended. No cough or SOB. Objective Active Medications: Al Hydrox/Mg Hydrox/Simethicone (Maalox Plus*) 30 ml PO Q6H PRN PRN Reason: HEARTBURN Last Admin: 04/17/17 08:16 Dose: 30 ml Albuterol/Ipratropium (Duoneb (Albuterol 2.5 Mg/Ipratropium 0.5 Mg)) 1 neb INH Q6H PRN PRN Reason: SHORTNESS OF BREATH Allopurinol (Zyloprim Tab*) 200 mg PO DAILY [facility] Last Admin: 04/17/17 08:23 Dose: 200 mg Cetirizine HCl (Zyrtec*) 10 mg PO DAILY [facility] PRN Reason: Protocol Last Admin: 04/17/17 08:23 Dose: 10 mg Cyclobenzaprine HCl (Flexeril Tab*) 10 mg PO TID PRN PRN Reason: PAIN Duloxetine HCl (Cymbalta Cap*) 60 mg PO QAM [facility] Last Admin: 04/17/17 08:23 Dose: 60 mg Heparin Sodium (Porcine) (Heparin Vial(*)) 5,000 units SUBCUT Q8HR [facility] Last Admin: 04/17/17 05:45 Dose: 5,000 units Sodium Chloride (Ns 0.9% 1000 Ml*) 1,000 mls @ 100 mls/hr IV PER RATE [facility] Last Admin: 04/17/17 02:44 Dose: 100 mls/hr Ceftriaxone Sodium 1,000 mg/ (Sodium Chloride) 50 mls @ 200 mls/hr IVPB Q24H [facility] Last Admin: 04/16/17 18:27 Dose: 200 mls/hr Levothyroxine Sodium (Synthroid Tab*) 100 mcg PO [id number] [facility] Last Admin: 04/17/17 05:45 Dose: 100 mcg Levothyroxine Sodium (Synthroid Tab*) 75 mcg PO [id number] [facility] Last Admin: 04/17/17 05:45 Dose: 75 mcg Mometasone Furoate/Formoterol Fumar (Dulera 200/5 Mdi*) 1 puff INH QAM PRN; Protocol PRN Reason: SOB/WHEEZING Morphine Sulfate (Morphine Inj (Syringe)*) 4 mg IV Q2H PRN PRN Reason: PAIN Nicotine (Nicotine Patch 14 Mg/24 Hr*) 1 patch TRANSDERM Q24HR [facility] Last Admin: 04/17/17 08:23 Dose: 1 patch Nystatin (Nystatin Cream*) 1 applic TOPICAL BID PRN PRN Reason: RASH Nystatin (Nystatin Top Powder*) 1 applic TOPICAL BID PRN PRN Reason: RASH Omeprazole (Prilosec Cap*) 20 mg PO DAILY@0730 [facility] Last Admin: 04/17/17 05:51 Dose: 20 mg Ondansetron HCl (Zofran Inj*) 4 mg IV Q4H PRN PRN Reason: NAUSEA/VOMITING Last Admin: 04/17/17 08:22 Dose: 4 mg Oxybutynin Chloride (Ditropan Xl Tab*) 5 mg PO DAILY [facility] Last Admin: 04/17/17 08:23 Dose: 5 mg Oxycodone HCl (Roxycodone Tab*) 15 mg PO Q6H PRN PRN Reason: PAIN Last Admin: 04/17/17 05:51 Dose: 15 mg Pharmacy Profile Note (Nicotine Patch Removal Note*) 1 note FOLLOW UP 2100 [facility] Last Admin: 04/16/17 23:05 Dose: 1 note Prochlorperazine Edisylate (Compazine Inj*) 5 mg IV Q6H PRN PRN Reason: NAUSEA/VOMITING Vital Signs: Temp Pulse Resp BP Pulse Ox 98.3 F 79 16 103/48 98 04/17/17 07:40 04/17/17 07:40 04/17/17 09:23 04/17/17 07:40 04/17/17 07:40 Oxygen Devices in Use Now: Nasal Cannula Appearance: Ill appearing female who is quite lethargic but in NAD Respiratory: Symmetrical Chest Expansion and Respiratory Effort, Clear to Auscultation Cardiovascular: NL Sounds; No Murmurs; No JVD, RRR Abdominal: - - distended, upper abd is firm, BS are present, TTP along upper abdomen Extremities: No Edema Skin: No Rash or Ulcers Result Diagrams: 04/17/17 05:03 04/17/17 05:03 Additional Lab and Data: . Microbiology and Other Data: Microbiology 04/15/17 19:04 Aerobic Blood Culture - Preliminary Blood Venous No Growth Day 1 Anaerobic Blood Culture - Preliminary No Growth Day 1 Diagnostic Imaging: Renal US - mild fullness of R collecting system, no change from prior GB US - sludge and multiple stones present, no wall thickening, CBD 4mm CT abd/pelvis - no formal reading yet, per my review it looks like the stomach and proximal small bowel is quite distended, no clear transition point, question partial proximal small bowel obstruction Assess/Plan/Problems-Billing Assessment: This is a 51 yo female with remote h/o cervical CA s/p radiation treatment, hypothyroidism, chronic back pain, gout, COPD, GERD who presented with abdominal pain after ureteral stent replacement complicated by the stent breaking during retrieval. - Patient Problems (1) Abdominal pain Comment: Possible partial SBO Patient's pain has gotten progressively worse, now with distention and severe nausea, CT has not been formally read but shows a distended stomach and proximal small bowel Requested NG placement and suction to decompress her stomach for symptomatic relief Requested surgery consultation and spoke with Dr Giordano about the case Urine cx shows little growth and XR cystogram shows no extravasation of urine making this less likely to be related to her recent ureteral stent exchange GB US shows cholelithiasis with sludge, but no cholelithiasis or CBD dilitation (2) UTI (urinary tract infection) Comment: Urine cx only growing 10K colonies of proteus making UTI, pyelo/infected stent much less likely Nunn still in place, cont at this time per urology (3) CKD (chronic kidney disease) stage 3, GFR 30-59 ml/min Comment: Improving with IVF Worsening renal function recognized ~1 week ago No hydro noted on US May be atleast partially related to prerenal causes as patient reports poor oral intake and multiple episodes of vomiting recently (4) COPD (chronic obstructive pulmonary disease) Comment: No acute exacerbation Cont home inhaled therapy (5) Chronic back pain Comment: Cont home medications (6) Hypothyroidism Comment: Cont levothyroxine (7) GERD (gastroesophageal reflux disease) Comment: Cont PPI (8) Hx of gout (9) Full code status (10) DVT prophylaxis Comment: SQ heparin Status and Disposition: Inpatient.
--- NOTE | 2017-04-17 13:05 | RAD ---
Indication: Pyelonephritis. High-grade partial versus complete small bowel obstruction. NG tube placement. Comparison: CT abdomen of the same date. October 11, 2015 chest radiograph. Technique: Upright AP 1220 hours Report: The nasogastric tube extends to the stomach reaching at least the gastric body with conspicuity of the tip limited due to body habitus. Mild bibasilar subsegmental atelectasis. Upper normal heart size. Unremarkable central pulmonary vasculature and mediastinal contours. Gallbladder fossa level surgical clips. IMPRESSION: The nasogastric tube extends to the stomach reaching at least the gastric body with conspicuity of the tip limited due to body habitus.
--- NOTE | 2017-04-17 14:24 | PN ---
Progress Note - Progress Note Date of Service: 04/17/17 SOAP: Subjective: [This is a 51 yo morbidly obese white female with likely small bowel obstruction , post left nephrectomy, Right kidney with retained ureter stent due to stricture associated with retroperitoneal fibrosis, GERD, COPD, History of cervical CA, hypothyroidism, gout, and chronic back pain with continued abdominal pain and nausea. Last BM was approx 4 days ago and patient reports her pain has lessoned since NG tube was placed but still having diffuse pain and nausea for which she is still vomiting a minimal amount of brown/green liquids even with NG in place. Per staff, 2000cc removed from NG tube with suction thus far. She admits to some SOB and cough but nothing increasingly out of the ordinary given her COPD. Denies chest pain, palpitations, dizziness, flank pain, or urinary sx. Active Medications: Al Hydrox/Mg Hydrox/Simethicone (Maalox Plus*) 30 ml PO Q6H PRN PRN Reason: HEARTBURN Last Admin: 04/17/17 08:16 Dose: 30 ml Albuterol/Ipratropium (Duoneb (Albuterol 2.5 Mg/Ipratropium 0.5 Mg)) 1 neb INH Q6H PRN PRN Reason: SHORTNESS OF BREATH Allopurinol (Zyloprim Tab*) 200 mg PO DAILY [facility] Last Admin: 04/17/17 08:23 Dose: 200 mg Cetirizine HCl (Zyrtec*) 10 mg PO DAILY [facility] PRN Reason: Protocol Last Admin: 04/17/17 08:23 Dose: 10 mg Cyclobenzaprine HCl (Flexeril Tab*) 10 mg PO TID PRN PRN Reason: PAIN Duloxetine HCl (Cymbalta Cap*) 60 mg PO QAM [facility] Last Admin: 04/17/17 08:23 Dose: 60 mg Heparin Sodium (Porcine) (Heparin Vial(*)) 5,000 units SUBCUT Q8HR [facility] Last Admin: 04/17/17 14:35 Dose: 5,000 units Sodium Chloride (Ns 0.9% 1000 Ml*) 1,000 mls @ 100 mls/hr IV PER RATE [facility] Last Admin: 04/17/17 02:44 Dose: 100 mls/hr Ceftriaxone Sodium 1,000 mg/ (Sodium Chloride) 50 mls @ 200 mls/hr IVPB Q24H [facility] Last Admin: 04/16/17 18:27 Dose: 200 mls/hr Levothyroxine Sodium (Synthroid Tab*) 100 mcg PO [id number]@0600 [facility] Last Admin: 04/17/17 05:45 Dose: 100 mcg Levothyroxine Sodium (Synthroid Tab*) 75 mcg PO [id number] [facility] Last Admin: 04/17/17 05:45 Dose: 75 mcg Mometasone Furoate/Formoterol Fumar (Dulera 200/5 Mdi*) 1 puff INH QAM PRN; Protocol PRN Reason: SOB/WHEEZING Morphine Sulfate (Morphine Inj (Syringe)*) 4 mg IV Q2H PRN PRN Reason: PAIN Last Admin: 04/17/17 14:33 Dose: 4 mg Nicotine (Nicotine Patch 14 Mg/24 Hr*) 1 patch TRANSDERM Q24HR [facility] Last Admin: 04/17/17 08:23 Dose: 1 patch Nystatin (Nystatin Cream*) 1 applic TOPICAL BID PRN PRN Reason: RASH Nystatin (Nystatin Top Powder*) 1 applic TOPICAL BID PRN PRN Reason: RASH Omeprazole (Prilosec Cap*) 20 mg PO DAILY@0730 [facility] Last Admin: 04/17/17 05:51 Dose: 20 mg Ondansetron HCl (Zofran Inj*) 4 mg IV Q4H PRN PRN Reason: NAUSEA/VOMITING Last Admin: 04/17/17 08:22 Dose: 4 mg Oxybutynin Chloride (Ditropan Xl Tab*) 5 mg PO DAILY [facility] Last Admin: 04/17/17 08:23 Dose: 5 mg Oxycodone HCl (Roxycodone Tab*) 15 mg PO Q6H PRN PRN Reason: PAIN Last Admin: 04/17/17 05:51 Dose: 15 mg Pharmacy Profile Note (Nicotine Patch Removal Note*) 1 note FOLLOW UP 2100 [facility] Last Admin: 04/16/17 23:05 Dose: 1 note Prochlorperazine Edisylate (Compazine Inj*) 5 mg IV Q6H PRN PRN Reason: NAUSEA/VOMITING Last Admin: 04/17/17 14:33 Dose: 5 mg Allergies Allergy/AdvReac Type Severity Reaction Status Date / Time Latex Allergy Severe ITCHY Rash Verified 04/07/17 07:03 Nitrofurantoin Allergy Severe Nausea And Verified 04/07/17 07:03 Vomiting Ciprofloxacin Allergy Intermediate Nausea And Verified 04/07/17 07:03 Vomiting Penicillins [PCN] Allergy Intermediate Hives Verified 04/07/17 07:03 Clindamycin Allergy Vomiting Verified 04/07/17 07:03 ENVIRONMENTAL Allergy Severe Unknown Uncoded 04/07/17 07:03 Reaction Details Objective: Vital Signs Temp Pulse Resp BP Pulse Ox 98.2 F 78 19 116/60 96 04/17/17 11:26 04/17/17 11:26 04/17/17 14:33 04/17/17 11:26 04/17/17 11:26 General: Patient is a morbidly obese white female laying on her back, dry heaving throughout exam, with NG in place in NAD. Heart: RRR no murmurs, rubs, or gallops Lungs: Chest is symmetric with no crackles, wheezes, or rhonchi appreciated. Abdomen: Abdomen is obese and moderately distended, Bowel sounds are hypoactive diffusely and light palpation illicits defuse pain. Deep palpation was not performed. Extremities: No edema. DP 2+ bilaterally, PT unable to be palpated. WBC 5.8 10^3/ul (3.5-10.8) 04/17/17 05:03 RBC 3.06 10^6/ul (4.0-5.4) L 04/17/17 05:03 Hgb 10.0 g/dl (12.0-16.0) L 04/17/17 05:03 Hct 31 % (35-47) L 04/17/17 05:03 MCV 100 fL (80-97) H 04/17/17 05:03 MCH 33 pg (27-31) H 04/17/17 05:03 MCHC 33 g/dl (31-36) 04/17/17 05:03 RDW 14 % (10.5-15) 04/17/17 05:03 Plt Count 371 10^3/ul (150-450) 04/17/17 05:03 MPV 7 um3 (7.4-10.4) L 04/17/17 05:03 Neut % (Auto) 72.4 % (38-83) 04/17/17 05:03 Lymph % (Auto) 15.0 % (25-47) L 04/17/17 05:03 [place] % (Auto) 9.9 % (1-9) H 04/17/17 05:03 Eos % (Auto) 2.4 % (0-6) 04/17/17 05:03 Baso % (Auto) 0.3 % (0-2) 04/17/17 05:03 Absolute Neuts (auto) 4.2 10^3/ul (1.5-7.7) 04/17/17 05:03 Absolute Lymphs (auto) 0.9 10^3/ul (1.0-4.8) L 04/17/17 05:03 Absolute Monos (auto) 0.6 10^3/ul (0-0.8) 04/17/17 05:03 Absolute Eos (auto) 0.1 10^3/ul (0-0.6) 04/17/17 05:03 Absolute Basos (auto) 0 10^3/ul (0-0.2) 04/17/17 05:03 Absolute Nucleated RBC 0 10^3/ul 04/17/17 05:03 Nucleated RBC % 0.1 04/17/17 05:03 Sodium 137 mmol/L (133-145) 04/17/17 05:03 Potassium 4.3 mmol/L (3.5-5.0) 04/17/17 05:03 Chloride 107 mmol/L (101-111) 04/17/17 05:03 Carbon Dioxide 26 mmol/L (22-32) 04/17/17 05:03 Anion Gap 4 mmol/L (2-11) 04/17/17 05:03 BUN 19 mg/dL (6-24) 04/17/17 05:03 Creatinine 2.29 mg/dL (0.51-0.95) H 04/17/17 05:03 Est GFR ( Amer) 28.8 (>60) 04/17/17 05:03 Est GFR (Non-Af Amer) 22.4 (>60) 04/17/17 05:03 BUN/Creatinine Ratio 8.3 (8-20) 04/17/17 05:03 Glucose 99 mg/dL (70-100) 04/17/17 05:03 Lactic Acid 0.9 mmol/L (0.5-2.0) 04/16/17 04:50 Calcium 8.3 mg/dL (8.6-10.3) L 04/17/17 05:03 Total Bilirubin 0.20 mg/dL (0.2-1.0) 04/17/17 05:03 AST 10 U/L (13-39) L 04/17/17 05:03 ALT 7 U/L (7-52) 04/17/17 05:03 Alkaline Phosphatase 84 U/L (34-104) 04/17/17 05:03 Total Creatine Kinase 78 U/L (10-223) 04/15/17 16:35 C-Reactive Protein 85.78 mg/L (< 5.00) H 04/17/17 05:03 Total Protein 6.8 g/dL (6.4-8.9) 04/17/17 05:03 Albumin 3.0 g/dL (3.2-5.2) L 04/17/17 05:03 Globulin 3.8 g/dL (2-4) 04/17/17 05:03 Albumin/Globulin Ratio 0.8 (1-3) L 04/17/17 05:03 Amylase 37 U/L (29-103) 04/15/17 16:35 Lipase 32 U/L (11.0-82.0) 04/15/17 16:35 Urine Color Yellow 04/15/17 16:50 Urine Appearance Cloudy 04/15/17 16:50 Urine pH 6.0 (5-9) 04/15/17 16:50 Ur Specific [place] 1.016 (1.010-1.030) 04/15/17 16:50 Urine Protein 2+(100 mg/dl) (Negative) H 04/15/17 16:50 Urine Ketones Negative (Negative) 04/15/17 16:50 Urine Blood 2+ (Negative) H 04/15/17 16:50 Urine Nitrate Negative (Negative) 04/15/17 16:50 Urine Bilirubin Negative (Negative) 04/15/17 16:50 Urine Urobilinogen Negative (Negative) 04/15/17 16:50 Ur Leukocyte Esterase 3+ (Negative) H 04/15/17 16:50 Urine WBC (Auto) 3+(>20/hpf) (Absent) H 04/15/17 16:50 Urine RBC (Auto) 3+(>10/hpf) (Absent) H 04/15/17 16:50 Ur Squamous Epith Cells Present (Absent) H 04/15/17 16:50 Ur Renal Epithelial Cell Present (Absent) H 04/15/17 16:50 Urine Bacteria Absent (Absent) 04/15/17 16:50 Urine Glucose Negative (Negative) 04/15/17 16:50 Diagnostics: CT abdomen/pelvis: Yields partial/complete distal small bowel obstruction likely due to adhesion along the right pelvic side wall. Assessment/Plan: This is a 51 yo morbidly obese white female with likely small bowel obstruction , post left nephrectomy, Right kidney with retained ureter stent due to stricture associated with retroperitoneal fibrosis, GERD, COPD, History of cervical CA, hypothyroidism, gout, and chronic back pain 1) Abdominal pain secondary to partial/complete distal SBO: CT results yield SBO and patient has been initially treated with NG tube with suction with consultation to surgery for possible intervention. It seems less likely that abdominal pain is due to most recent ureter stent and instead likely to her obstruction. Patient is to remain NPO at this time. Pain is managed with Morphine. 2) UTI: Urine culture shows little growth so maintain diaz in place. Diaz back demonstrated 200 cc clear yellow urine when examined patient. 3) CKD: Improving BUN and GFR, continue with IVF. It is likely a prerenal cause as patient likely dehydrate from vomiting and poor oral intake. Patient remains NPO at this time with continue clear fluids. 4) COPD: No acute exacerbation continue Dulera and Duonebs. 5) Chronic Back pain: Continue pain medications. 6) Hypothyroid: Cont Synthroid. 7) GERD: Cont Protonix. 8) Gout: cont allopurinol. 9) Code status: Full code 10) DVT Prophylaxis: Cont Heparin. Status: Patient is inpatient.
[2017-04-17] MEDS: PROCHLORPERAZINE INJ 5 MG/ML 2 ML VIAL IV PRN (14:33)
--- NOTE | 2017-04-17 15:51 | PN ---
Progress Note - Progress Note Date of Service: 04/17/17 Note: \ Brief Surgical Note (full consult dictated): S/O: hx reviewed as well as labs and both recent CT scans. Pt was examined. Pt somewhat improved at present after draining over 2 L since NG was placed. A/P: SBO, high grade. Bowel rest and NG decompression may help, but based on recent hx and today's CT, it seems most likely that patient will require surgery. No urgency at present. Will d/w Dr. Giordano, who will also see patient.
[2017-04-17] MEDS ORDERED: Furosemide IV* 10 MG/ML 2 ML VIAL (20 MG) IV SLOW PU ONE (15:54)
--- NOTE | 2017-04-17 16:02 | PN ---
Hospitalist Progress Note Called to patient's room as she had desaturated in to the 60s and appeared cyanotic. Patient had lowered the HOB flat. O2 applied, HOB elevated and saturation improved. Crackles noted at lung bases. Orders given to hold IV fluids, give 20mg of IV Lasix. CXR from this am performed to confirm NG placement had a mild congested appearance. Patient remains NPO with a high volume of outpt from her NG tube. Will plan to resume her IVF in ~3 hrs at a lower rate of 60ml/h. Instructions given to maintain HOB 30 deg or higher and incentive spirometer ordered. Patient denied known h/o MITCHEL, but it is suspected.
[2017-04-17] MEDS: cefTRIAXone VIAL(*) 1,000 MG in NS 0.9% 50 ML* 50 ML IVPB SCH (18:14)
[2017-04-17] MEDS: Nicotine Patch Removal NOTE FOLLOW UP SCH (20:56)
--- NOTE | 2017-04-17 20:56 | CONS ---
CC: Dr. Gladys Tolliver; Dr. Yoandy Moise * SURGICAL CONSULT NOTE: DATE OF CONSULT: 04/17/17 ATTENDING SURGEON: Dr. Ze Giordano (DICTATED BY FIDENCIO BRITTON) CHIEF COMPLAINT: Abdominal pain with vomiting. HISTORY OF PRESENT ILLNESS: This is a 51-year-old female admitted on 04/15/17 with abdominal pain. She has a history of right ureteral stenosis for which she has chronic indwelling ureteral stents. She had undergone a routine stent replacement on 04/07/17 which was somewhat complicated by the fact that the distal portion of the previous stent broke and remained the proximal portion of the stent in the ureter and renal pelvis. A new stent was placed and subsequent CT scan shows no evidence of obstruction. However beginning the day or two after the stent replacement, she began to notice abdominal pain and pressure. Initially, this seemed to be in the right flank but then moved to the right upper quadrant, pain persisted and she was sent for CT scan by Dr. Moise on 04/14/17 (see separate report); that report again indicates no obstruction of the right renal system nor any evidence of bowel obstruction. The patient is admitted for ongoing pain on 04/15/17 and since then pain has persisted, has been colicky in nature, located primarily in the right upper quadrant but at times diffuse. It has been associated with nausea and multiple episodes of vomiting. The patient also reports the following changes in bowel function. Initially after stent replacement, she had no stool activity for couple of days, then experienced severe diarrhea for few days, then back to a normal pattern. She states that she has passed neither bowel movement nor flatus since her admission on 04/15/17. She had also had associated fevers at home up to 101.6. She then relatively afebrile since admission. An NG tube was placed earlier today which has already drained in excessive to 2000 mL of bilious fluid. The patient has had previous surgery and radiation therapy to the pelvis (see below). At the present time, she has going complaints of pain, although the pressure in the abdomen is improved since the NG tube was placed. PAST MEDICAL HISTORY: Cervical cancer for which she underwent hysterectomy in 1999 followed by radiation therapy. 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 She underwent left nephrectomy for either or combination of the above reasons in 2007 at [facility]. This was done as laparoscopic assisted procedure. She is morbidly obese. She has COPD. She is treated for hypothyroidism. She has chronic back pain related to degenerative disk disease. She also has degenerative joint disease in multiple other joints. She is treated for gout, GERD and depression. She is noted on recent cystoscopy to have a biopsy showing carcinoma in situ, though it is felt that may be related to inflammatory changes. PAST SURGICAL HISTORY: Include laparoscopic-assisted left nephrectomy in 2007, hysterectomy in 1999. She also underwent surgery for an ectopic many years ago and excision of a benign left facial tumor. No reported surgical or anesthesia complications. CURRENT MEDICATIONS: List was reviewed and includes: 1. Advair p.r.n. 2. Colchicine p.r.n. 3. Pantoprazole once daily. 4. Duloxetine once daily. 5. Nystatin cream and/or powder p.r.n. 6. Oxycodone 15 mg every 6 hours p.r.n. (typically uses twice daily) for back pain. 7. Cetirizine 10 mg daily. 8. Levothyroxine daily. 9. Allopurinol daily. 10. Nicotine patch at present. 11. DuoNeb nebulizer p.r.n. 12. Cyclobenzaprine once daily. DRUG ALLERGIES: Include PENICILLIN (hives and GI side effects), ERYTHROMYCIN and CIPRO (each cause GI side effects only). The patient is currently receiving ceftriaxone without any problems. FAMILY HISTORY: As per the history and physical. SOCIAL HISTORY: The patient is a current smoker, one-half pack per day but is trying to quit. Remainder of social history per her admission history and physical. PHYSICAL EXAM: Height 5 feet 4 inches, weight 239 pounds, BMI 41, temperature 98.3, blood pressure 103/48, pulse 79, respirations 16, saturation 98% on 2 L. General: Well-nourished, morbidly obese female in no acute distress with an nasogastric tube in place as well as nasal oxygen. Skin is warm and dry. No suspicious rashes or lesions. HEENT: Pupils equal, round and reactive, EOMs intact. No conjunctival pallor. Oropharynx: Mucous membranes dry. Teeth in fair to poor repair. Neck: No lymphadenopathy, thyromegaly or masses. Heart: Regular rate and rhythm. No murmurs noted. Lungs: Clear to auscultation. Abdomen: Obese, distended, tympanitic. Bowel sounds absent, multiple well healed surgical scars particularly in the lower abdomen, soft, without guarding or rebound. Though she is diffusely tender with tenderness not well localized. No palpable masses or organomegaly, though exam is limited by body habitus and abdominal distention. She does have some yeast appearing rash under the abdominal pannus, but no open areas. Extremities: No edema. Neurological: Grossly intact. DIAGNOSTIC STUDIES/LAB DATA: Of note, white blood cell count is 5800, hemoglobin 10, hematocrit 31. Creatinine currently 2.3, down from peak during this admission 2.7 versus her usual baseline around 1.6. Most recent lactic acid was normal at 0.9. CRP is 86, up from previous of 43. Amylase and lipase are normal. CT scan on 04/17/17 was compared with that from 04/14/17. She does have gallstones. She has dilatation of the jejunum with apparent transition zone in the pelvis and notable segment of decompressed distal ileum. The right ureteral stent is apparent as well as the fragment of the previous stent. She is noted to have severe right hip arthritis. A previous ultrasound on 04/14/17 did confirm the presence of gallstones but without gallbladder wall thickening or pericholecystic fluid. IMPRESSION: Small bowel obstruction. This appears high-grade and they require surgical intervention. The patient understands this, though at the present time there is no urgency for surgical intervention. Until then, IV hydration, bowel rest and nasogastric tube decompression are recommended. The case was discussed with Dr. Giordano who will also see and examine the patient. FIDENCIO BRITTON [id number]/[facility] #: [id number] CJ
[2017-04-18] MEDS: Morphine INJ* 4 MG/ML 1 ML SYRINGE IV PRN ×5 (03:24→21:36)
[2017-04-18] MEDS: Ondansetron INJ* 2 MG/ML VIAL IV PRN ×2 (05:40→19:36)
[2017-04-18] MEDS: Levothyroxine TAB* 75 MCG TAB PO SCH (05:40)
[2017-04-18] MEDS: Levothyroxine TAB* 100 MCG TAB PO SCH (05:40)
[2017-04-18] MEDS: Heparin VIAL(*) 5000 UNITS/ML VIAL (FIVE THOUSAND) SUBCUT SCH ×3 (05:40→23:47)
[2017-04-18] MEDS ORDERED: Pantoprazole IV* 40 MG IV SCH (09:00)
--- NOTE | 2017-04-18 09:09 | PN ---
Progress Note - Progress Note Date of Service: 04/18/17 Note: Discusssed Ms. Bender's case with Dr. Moise who is familiar with her. Her complex urologic history may be contributing to her current SBO. Therefore the recommendation is to manage her high risk situation at a tertiary care center. Redd
[2017-04-18] MEDS: Allopurinol TAB* 100 MG PO SCH (10:26)
[2017-04-18] MEDS: Cetirizine* 10 MG TAB PO SCH (10:26)
[2017-04-18] MEDS: DULoxetine DR CAP* 60 MG CAP.DR PO SCH (10:26)
[2017-04-18] MEDS: Oxybutynin XL TAB* 5 MG PO SCH (10:27)
[2017-04-18] MEDS: Nicotine PATCH 14 MG/24 HR* PATCH TRANSDERM SCH (10:27)
[2017-04-18] MEDS: Omeprazole CAP* 20 MG PO SCH (10:28)
[2017-04-18 10:35] LABS: Hematocrit 31 % (35-47); Hemoglobin 10.1 g/dl (12.0-16.0); Mean Corpuscular HGB Conc 32 g/dl (31-36); Mean Corpuscular Hemoglobin 32 pg (27-31); Mean Corpuscular Volume 98 fL (80-97); Mean Platelet Volume 7 um3 (7.4-10.4); Red Blood Count 3.16 10^6/ul (4.0-5.4); Red Cell Distribution Width 14 % (10.5-15); White Blood Count 6.8 10^3/ul (3.5-10.8)
--- NOTE | 2017-04-18 10:44 | PN ---
Subjective Date of Service: 04/18/17 Interval History: Patient reports improved pain and nausea. Occasional cough and SOB associated with coughing fits. She is having some bleeding from her nose and is frustrated that she can't drink anything. No BM or flatus. Objective Active Medications: Al Hydrox/Mg Hydrox/Simethicone (Maalox Plus*) 30 ml PO Q6H PRN PRN Reason: HEARTBURN Last Admin: 04/17/17 08:16 Dose: 30 ml Albuterol/Ipratropium (Duoneb (Albuterol 2.5 Mg/Ipratropium 0.5 Mg)) 1 neb INH Q6H PRN PRN Reason: SHORTNESS OF BREATH Allopurinol (Zyloprim Tab*) 200 mg PO DAILY [facility] Last Admin: 04/18/17 10:26 Dose: Not Given Cetirizine HCl (Zyrtec*) 10 mg PO DAILY [facility] PRN Reason: Protocol Last Admin: 04/18/17 10:26 Dose: Not Given Cyclobenzaprine HCl (Flexeril Tab*) 10 mg PO TID PRN PRN Reason: PAIN Last Admin: 04/17/17 23:23 Dose: 10 mg Duloxetine HCl (Cymbalta Cap*) 60 mg PO QAM [facility] Last Admin: 04/18/17 10:26 Dose: Not Given Heparin Sodium (Porcine) (Heparin Vial(*)) 5,000 units SUBCUT Q8HR [facility] Last Admin: 04/18/17 05:40 Dose: 5,000 units Ceftriaxone Sodium 1,000 mg/ (Sodium Chloride) 50 mls @ 200 mls/hr IVPB Q24H [facility] Last Admin: 04/17/17 18:14 Dose: 200 mls/hr Sodium Chloride (Ns 0.9% 1000 Ml*) 1,000 mls @ 60 mls/hr IV PER RATE [facility] Last Admin: 04/17/17 21:12 Dose: 60 mls/hr Levothyroxine Sodium (Synthroid Tab*) 100 mcg PO [id number]@0600 [facility] Levothyroxine Sodium (Synthroid Tab*) 75 mcg PO [id number]@0600 [facility] Mometasone Furoate/Formoterol Fumar (Dulera 200/5 Mdi*) 1 puff INH QAM PRN; Protocol PRN Reason: SOB/WHEEZING Morphine Sulfate (Morphine Inj (Syringe)*) 4 mg IV Q2H PRN PRN Reason: PAIN Last Admin: 04/18/17 10:07 Dose: 4 mg Nicotine (Nicotine Patch 14 Mg/24 Hr*) 1 patch TRANSDERM Q24HR [facility] Last Admin: 04/18/17 10:27 Dose: 1 patch Nystatin (Nystatin Cream*) 1 applic TOPICAL BID PRN PRN Reason: RASH Nystatin (Nystatin Top Powder*) 1 applic TOPICAL BID PRN PRN Reason: RASH Last Admin: 04/17/17 22:00 Dose: 1 applic Ondansetron HCl (Zofran Inj*) 4 mg IV Q4H PRN PRN Reason: NAUSEA/VOMITING Last Admin: 04/18/17 05:40 Dose: 4 mg Oxybutynin Chloride (Ditropan Xl Tab*) 5 mg PO DAILY [facility] Last Admin: 04/18/17 10:27 Dose: Not Given Oxycodone HCl (Roxycodone Tab*) 15 mg PO Q6H PRN PRN Reason: PAIN Last Admin: 04/17/17 05:51 Dose: 15 mg Pantoprazole Sodium (Protonix Iv*) 40 mg IV DAILY [facility] Last Admin: 04/18/17 10:27 Dose: 40 mg Pharmacy Profile Note (Nicotine Patch Removal Note*) 1 note FOLLOW UP 2100 [facility] Last Admin: 04/17/17 20:56 Dose: 1 note Prochlorperazine Edisylate (Compazine Inj*) 5 mg IV Q6H PRN PRN Reason: NAUSEA/VOMITING Last Admin: 04/17/17 14:33 Dose: 5 mg Vital Signs: Temp Pulse Resp BP Pulse Ox 97.9 F 91 12 149/69 97 04/18/17 03:25 04/18/17 03:25 04/18/17 10:07 04/18/17 03:25 04/18/17 03:25 Appearance: Patient appears much improved, in NAD. Accompanied by family Ears/Nose/Mouth/Throat: - - NG tube in place Respiratory: Symmetrical Chest Expansion and Respiratory Effort, Clear to Auscultation Cardiovascular: NL Sounds; No Murmurs; No JVD, RRR Abdominal: - - slightly distended and mild TTP, bowel sounds present but quiet Extremities: No Edema Skin: No Rash or Ulcers Neurological: Alert and Oriented x 3 Result Diagrams: 04/18/17 10:15 04/17/17 05:03 Additional Lab and Data: . Microbiology and Other Data: Microbiology 04/15/17 19:04 Aerobic Blood Culture - Preliminary Blood Venous No Growth Day 1 Anaerobic Blood Culture - Preliminary No Growth Day 1 Diagnostic Imaging: Renal US - mild fullness of R collecting system, no change from prior GB US - sludge and multiple stones present, no wall thickening, CBD 4mm CT abd/pelvis - no formal reading yet, per my review it looks like the stomach and proximal small bowel is quite distended, no clear transition point, question partial proximal small bowel obstruction Assess/Plan/Problems-Billing Assessment: This is a 51 yo female with remote h/o cervical CA s/p radiation treatment, hypothyroidism, chronic back pain, gout, COPD, GERD who presented with abdominal pain after ureteral stent replacement complicated by the stent breaking during retrieval. - Patient Problems (1) Abdominal pain Comment: High grade distal SBO with transition point near the R lateral pelvis Symptomatic improvement with NG tube in place and a large volume of output Surgery team feels that this will not resolve without intervention and due to multiple complicating factors would be better managed at a tertiary care center She has previously received care at [email or web address]] and is familiar with urologist, Dr Mcghee, there Patient is in agreement with plan for transfer, will work to find an accepting physician (2) UTI (urinary tract infection) Comment: Urine cx only growing 10K colonies of proteus making UTI, pyelo/infected stent much less likely Nunn still in place, cont at this time per urology (3) CKD (chronic kidney disease) stage 3, GFR 30-59 ml/min Comment: Improving with IVF Worsening renal function recognized ~1 week ago No hydro noted on US Patient became slightly fluid overloaded yesterday and fluid was interrupted, received dose of Lasix and fluid eventually resumed at lower rate (4) COPD (chronic obstructive pulmonary disease) Comment: No acute exacerbation Cont home inhaled therapy (5) Chronic back pain Comment: Cont home medications (6) Hypothyroidism Comment: Cont levothyroxine (7) GERD (gastroesophageal reflux disease) Comment: Cont PPI (8) Hx of gout (9) Full code status (10) DVT prophylaxis Comment: SQ heparin Status and Disposition: Inpatient. Pending possible transfer to [facility]
[2017-04-18 10:48] LABS: BUN/Creatinine Ratio 7.2 (8-20); Calcium 8.6 mg/dL (8.6-10.3); EGFR African American 27.7 (>60); EGFR Non-African American 21.5 (>60)
--- NOTE | 2017-04-18 10:55 | PN ---
Progress Note - Progress Note Date of Service: 04/18/17 SOAP: Subjective: This is a 51 yo morbidly obese white female with likely small bowel obstruction and Right kidney with retained ureter stent due to stricture associated with retroperitoneal fibrosis currently in need of surgery pending transfer to [facility]. She is receiving bowel rest with NG tube in place with total of 4L off tube, 1400 mL during the overnight. 100 mL currently off tube this morning that appears to be slowing. Patient still reports she is spitting up acid that is refluxing. She feels nauseas like she needs to vomit. She reports cramps and pain in the abdomen and persistent [place]. Denies SOB, flank pain, dizziness, chest pain, palpitations, cough, and reports not sleeping well overnight. VS remain WNL without additional oxygen desaturation with HOB elevated and nasal cannula. Active medications: Al Hydrox/Mg Hydrox/Simethicone (Maalox Plus*) 30 ml PO Q6H PRN PRN Reason: HEARTBURN Last Admin: 04/17/17 08:16 Dose: 30 ml Albuterol/Ipratropium (Duoneb (Albuterol 2.5 Mg/Ipratropium 0.5 Mg)) 1 neb INH Q6H PRN PRN Reason: SHORTNESS OF BREATH Allopurinol (Zyloprim Tab*) 200 mg PO DAILY [facility] Last Admin: 04/18/17 10:26 Dose: Not Given Cetirizine HCl (Zyrtec*) 10 mg PO DAILY [facility] PRN Reason: Protocol Last Admin: 04/18/17 10:26 Dose: Not Given Cyclobenzaprine HCl (Flexeril Tab*) 10 mg PO TID PRN PRN Reason: PAIN Last Admin: 04/17/17 23:23 Dose: 10 mg Duloxetine HCl (Cymbalta Cap*) 60 mg PO QAM [facility] Last Admin: 04/18/17 10:26 Dose: Not Given Heparin Sodium (Porcine) (Heparin Vial(*)) 5,000 units SUBCUT Q8HR [facility] Last Admin: 04/18/17 05:40 Dose: 5,000 units Ceftriaxone Sodium 1,000 mg/ (Sodium Chloride) 50 mls @ 200 mls/hr IVPB Q24H [facility] Last Admin: 04/17/17 18:14 Dose: 200 mls/hr Sodium Chloride (Ns 0.9% 1000 Ml*) 1,000 mls @ 60 mls/hr IV PER RATE [facility] Last Admin: 04/17/17 21:12 Dose: 60 mls/hr Levothyroxine Sodium (Synthroid Tab*) 100 mcg PO [id number]@0600 [facility] Levothyroxine Sodium (Synthroid Tab*) 75 mcg PO MoTuWeThFrSa@0600 [facility] Mometasone Furoate/Formoterol Fumar (Dulera 200/5 Mdi*) 1 puff INH QAM PRN; Protocol PRN Reason: SOB/WHEEZING Morphine Sulfate (Morphine Inj (Syringe)*) 4 mg IV Q2H PRN PRN Reason: PAIN Last Admin: 04/18/17 10:07 Dose: 4 mg Nicotine (Nicotine Patch 14 Mg/24 Hr*) 1 patch TRANSDERM Q24HR [facility] Last Admin: 04/18/17 10:27 Dose: 1 patch Nystatin (Nystatin Cream*) 1 applic TOPICAL BID PRN PRN Reason: RASH Nystatin (Nystatin Top Powder*) 1 applic TOPICAL BID PRN PRN Reason: RASH Last Admin: 04/17/17 22:00 Dose: 1 applic Ondansetron HCl (Zofran Inj*) 4 mg IV Q4H PRN PRN Reason: NAUSEA/VOMITING Last Admin: 04/18/17 05:40 Dose: 4 mg Oxybutynin Chloride (Ditropan Xl Tab*) 5 mg PO DAILY [facility] Last Admin: 04/18/17 10:27 Dose: Not Given Oxycodone HCl (Roxycodone Tab*) 15 mg PO Q6H PRN PRN Reason: PAIN Last Admin: 04/17/17 05:51 Dose: 15 mg Pantoprazole Sodium (Protonix Iv*) 40 mg IV DAILY [facility] Last Admin: 04/18/17 10:27 Dose: 40 mg Pharmacy Profile Note (Nicotine Patch Removal Note*) 1 note FOLLOW UP 2100 [facility] Last Admin: 04/17/17 20:56 Dose: 1 note Prochlorperazine Edisylate (Compazine Inj*) 5 mg IV Q6H PRN PRN Reason: NAUSEA/VOMITING Last Admin: 04/17/17 14:33 Dose: 5 mg Allergies Allergy/AdvReac Type Severity Reaction Status Date / Time Latex Allergy Severe ITCHY Rash Verified 04/07/17 07:03 Nitrofurantoin Allergy Severe Nausea And Verified 04/07/17 07:03 Vomiting Ciprofloxacin Allergy Intermediate Nausea And Verified 04/07/17 07:03 Vomiting Penicillins [PCN] Allergy Intermediate Hives Verified 04/07/17 07:03 Clindamycin Allergy Vomiting Verified 04/07/17 07:03 ENVIRONMENTAL Allergy Severe Unknown Uncoded 04/07/17 07:03 Reaction Details Objective: Vital Signs Temp Pulse Resp BP Pulse Ox 97.9 F 91 12 149/69 97 04/18/17 03:25 04/18/17 03:25 04/18/17 10:07 04/18/17 03:25 04/18/17 03:25 General: Patient is a morbidly obese white female laying on her back with NG in place in NAD. Heart: RRR no murmurs, rubs, or gallops Lungs: Chest is symmetric with no crackles, wheezes, or rhonchi appreciated. Abdomen: Abdomen is obese and moderately distended, Bowel sounds are hypoactive diffusely. Palpation not performed due to nausea and abdominal pain. Extremities: No edema. DP 2+ bilaterally, PT unable to be palpated. Lab Values: WBC 6.8 10^3/ul (3.5-10.8) 04/18/17 10:15 RBC 3.16 10^6/ul (4.0-5.4) L 04/18/17 10:15 Hgb 10.1 g/dl (12.0-16.0) L 04/18/17 10:15 Hct 31 % (35-47) L 04/18/17 10:15 MCV 98 fL (80-97) H 04/18/17 10:15 MCH 32 pg (27-31) H 04/18/17 10:15 MCHC 32 g/dl (31-36) 04/18/17 10:15 RDW 14 % (10.5-15) 04/18/17 10:15 Plt Count 383 10^3/ul (150-450) 04/18/17 10:15 MPV 7 um3 (7.4-10.4) L 04/18/17 10:15 Neut % (Auto) 79.8 % (38-83) 04/18/17 10:15 Lymph % (Auto) 8.6 % (25-47) L 04/18/17 10:15 Brooke % (Auto) 10.7 % (1-9) H 04/18/17 10:15 Eos % (Auto) 0.6 % (0-6) 04/18/17 10:15 Baso % (Auto) 0.3 % (0-2) 04/18/17 10:15 Absolute Neuts (auto) 5.4 10^3/ul (1.5-7.7) 04/18/17 10:15 Absolute Lymphs (auto) 0.6 10^3/ul (1.0-4.8) L 04/18/17 10:15 Absolute Monos (auto) 0.7 10^3/ul (0-0.8) 04/18/17 10:15 Absolute Eos (auto) 0 10^3/ul (0-0.6) 04/18/17 10:15 Absolute Basos (auto) 0 10^3/ul (0-0.2) 04/18/17 10:15 Absolute Nucleated RBC 0 10^3/ul 04/18/17 10:15 Nucleated RBC % 0 04/18/17 10:15 Sodium 136 mmol/L (133-145) 04/18/17 10:15 Potassium 4.0 mmol/L (3.5-5.0) 04/18/17 10:15 Chloride 102 mmol/L (101-111) 04/18/17 10:15 Carbon Dioxide 29 mmol/L (22-32) 04/18/17 10:15 Anion Gap 5 mmol/L (2-11) 04/18/17 10:15 BUN 17 mg/dL (6-24) 04/18/17 10:15 Creatinine 2.37 mg/dL (0.51-0.95) H 04/18/17 10:15 Est GFR ( Amer) 27.7 (>60) 04/18/17 10:15 Est GFR (Non-Af Amer) 21.5 (>60) 04/18/17 10:15 BUN/Creatinine Ratio 7.2 (8-20) L 04/18/17 10:15 Glucose 109 mg/dL (70-100) H 04/18/17 10:15 Lactic Acid 0.9 mmol/L (0.5-2.0) 04/16/17 04:50 Calcium 8.6 mg/dL (8.6-10.3) 04/18/17 10:15 Total Bilirubin 0.20 mg/dL (0.2-1.0) 04/17/17 05:03 AST 10 U/L (13-39) L 04/17/17 05:03 ALT 7 U/L (7-52) 04/17/17 05:03 Alkaline Phosphatase 84 U/L (34-104) 04/17/17 05:03 Total Creatine Kinase 78 U/L (10-223) 04/15/17 16:35 C-Reactive Protein 85.78 mg/L (< 5.00) H 04/17/17 05:03 Total Protein 6.8 g/dL (6.4-8.9) 04/17/17 05:03 Albumin 3.0 g/dL (3.2-5.2) L 04/17/17 05:03 Globulin 3.8 g/dL (2-4) 04/17/17 05:03 Albumin/Globulin Ratio 0.8 (1-3) L 04/17/17 05:03 Amylase 37 U/L (29-103) 04/15/17 16:35 Lipase 32 U/L (11.0-82.0) 04/15/17 16:35 Urine Color Yellow 04/15/17 16:50 Urine Appearance Cloudy 04/15/17 16:50 Urine pH 6.0 (5-9) 04/15/17 16:50 Ur Specific [place] 1.016 (1.010-1.030) 04/15/17 16:50 Urine Protein 2+(100 mg/dl) (Negative) H 04/15/17 16:50 Urine Ketones Negative (Negative) 04/15/17 16:50 Urine Blood 2+ (Negative) H 04/15/17 16:50 Urine Nitrate Negative (Negative) 04/15/17 16:50 Urine Bilirubin Negative (Negative) 04/15/17 16:50 Urine Urobilinogen Negative (Negative) 04/15/17 16:50 Ur Leukocyte Esterase 3+ (Negative) H 04/15/17 16:50 Urine WBC (Auto) 3+(>20/hpf) (Absent) H 04/15/17 16:50 Urine RBC (Auto) 3+(>10/hpf) (Absent) H 04/15/17 16:50 Ur Squamous Epith Cells Present (Absent) H 04/15/17 16:50 Ur Renal Epithelial Cell Present (Absent) H 04/15/17 16:50 Urine Bacteria Absent (Absent) 04/15/17 16:50 Urine Glucose Negative (Negative) 04/15/17 16:50 Diagnostics: CT abdomen/pelvis: Yields partial/complete distal small bowel obstruction likely due to adhesion along the right pelvic side wall. Assessment/Plan: This is a 51 yo morbidly obese white female with likely small bowel obstruction , post left nephrectomy, Right kidney with retained ureter stent due to stricture associated with retroperitoneal fibrosis, GERD, COPD, History of cervical CA, hypothyroidism, gout, and chronic back pain 1) Abdominal pain secondary to partial/complete distal SBO: CT results yield SBO and patient has been initially treated with continued NG tube with suction. It seems less likely that abdominal pain is due to most recent ureter stent and instead likely to her obstruction but given complications of her urinary surgical history, patient in pending transfer to [facility] for [facility]. Patient is to remain NPO at this time. Pain is managed with Morphine. 2) UTI: Urine culture shows little growth so maintain diaz in place. 3) CKD: Improving BUN and GFR, continue with IVF. It is likely a prerenal cause as patient likely dehydrate from vomiting and poor oral intake. Patient remains NPO at this time. She received lasix yesterday after fluid overload but SOB has since improved. 4) COPD: No acute exacerbation continue Dulera and Duonebs. 5) Chronic Back pain: Continue pain medications. 6) Hypothyroid: Cont Synthroid. 7) GERD: Cont Protonix. 8) Gout: cont allopurinol. 9) Code status: Full code 10) DVT Prophylaxis: Cont Heparin. Status: Patient is inpatient.
[2017-04-18 12:51] LABS: Magnesium 1.8 mg/dL (1.9-2.7)
[2017-04-18] MEDS ORDERED: Magnesium Sulfate 2 GM IV* 2 GM/50 ML BAG IVPB ONE (14:00)
[2017-04-18] MEDS: cefTRIAXone VIAL(*) 1,000 MG in NS 0.9% 50 ML* 50 ML IVPB SCH (18:05)
--- NOTE | 2017-04-18 19:44 | DS ---
CC: Dr. Tolliver; Dr. Moise * DISCHARGE SUMMARY: DATE OF ADMISSION: 04/15/17 DATE OF DISCHARGE: 04/18/17 LOCATION OF TRANSFER: [facility]. ACCEPTING PHYSICIAN: General surgeon, Dr. Melendez. PRIMARY CARE PROVIDER: Dr. Tolliver. PRIMARY UROLOGIST: Dr. Moise. CONSULTING SURGEONS: Dr. Giordano and Dr. Dennise Garduno. TRANSFERRING PROVIDER: FIDENCIO Khan. SUPERVISING PHYSICIAN: Dr. Kavon Pinto.* (DICTATED BY FIDENCIO KAHN) PRIMARY TRANSFER DIAGNOSES: 1. High-grade small bowel obstruction with transition point in the right lateral pelvis. 2. Suspected urinary tract infection, but less than 10,000 colonies of proteus growing on culture, so less likely. SECONDARY DISCHARGE DIAGNOSES: 1. Solitary right kidney, status post left nephrectomy. 2. Chronic kidney disease, stage 3 to 4, with GFR of 21 at that time of transfer. 3. Chronic obstructive pulmonary disease, without acute exacerbation. 4. Morbid obesity, with a BMI of 41. 5. Chronic back pain with opiate tolerance. 6. Hypothyroidism. 7. Gastroesophageal reflux disease. 8. History of gout. MEDICATIONS: Active medications at that time of transfer: 1. DuoNeb, 1 neb inhaled q.6 hours as needed for shortness of breath. 2. Heparin 5000 units subcu q.8 hours. 3. Dulera 200/5, one puff inhaled daily. 4. Morphine 4 mg IV q.2 hours as needed for pain. 5. Normal saline at 60 mL per hour. 6. Nicotine patch 14 mg daily. 7. Nystatin cream applied topically twice daily as needed for rash. 8. Zofran 4 mg IV q.4 hours as needed for nausea. 9. Protonix 40 mg IV daily. 10. Compazine 5 mg IV q.6 hours as needed for nausea and vomiting. 11. Ceftriaxone 1 g IV daily. Home medications: 1. DuoNeb, 1 neb inhaled q.6 hours as needed for shortness of breath. 2. Allopurinol 200 mg p.o. daily. 3. Zyrtec 10 mg p.o. daily. 4. Colchicine 0.6 mg p.o. daily. 5. Flexeril 10 mg p.o. t.i.d. as needed for back pain or spasm. 6 Cymbalta 60 mg p.o. daily. 7. Advair 115/21 HFA, 1 puff inhaled daily. 8. Levothyroxine 175 mcg p.o. daily, with the exception of Sundays when she takes 262 mcg. 9. Nicotine patch 20 mg applied transdermally daily. 10. Nystatin cream applied topically twice daily as needed. 11. Oxybutynin extended release 5 mg p.o. daily. 12. Oxycodone 15 mg p.o. q.6 hours as needed for back pain. 13. Protonix 40 mg p.o. daily. HOSPITAL IMAGIN. Renal ultrasound shows mild fullness of the right renal collecting system, but unchanged from prior exam. 2. Cystogram and right retrograde pyelogram demonstrates no extravasation of contrast from the right collecting systems. 3. Gallbladder ultrasound shows cholelithiasis without thickening of the gallbladder wall and a normal appearing common bile duct measuring at [address] of the abdomen and pelvis from 04/17/17 shows a high-grade partial versus complete distal small bowel obstruction likely due to adhesion along the right pelvic right side wall, which is new when compared to CT from 04/14/17. 5. Chest x-ray, 04/17/17, shows NG tube extending into the stomach. LABORATORY DATA: Most recent lab results: CBC from 04/18/17, shows a white blood cell count of 6800, hemoglobin of 10.1 g /dL, and a platelet count of 383,000. Basic metabolic panel shows sodium of 136 mmol/L, potassium 4.0, BUN of 17, creatinine of 2.37, estimated GFR of 21.5, magnesium of 1.8. HOSPITAL COURSE: This is a 51-year-old female with morbid obesity, hypothyroidism, chronic back pain, COPD, GERD, history of gout, and a remote history of cervical cancer with a solitary right kidney, as well as stage 3 to 4 chronic kidney disease, who presented with complaints of abdominal pain. The patient has a chronic ureteral obstruction which has been managed by Dr. Moise for the last several years, with replacement of termite control servicer ureteral stents about every 6 months. She underwent stent replacement on 04/07/17, which was complicated by a portion of the stent breaking during the retrieval process. Unfortunately, the proximal end of the stent was unable to be retrieved at that time and was left in place and a new stent was placed. The patient reports that about 2 days after the procedure she began to develop right flank pain. The right flank pain slowly progressed to a more generalized pain, with occasional nausea and vomiting, but no associated diarrhea. She was seen by Dr. Moise in his office on 04/13/17, at which point a CT scan was ordered and demonstrated no acute pathology, specifically no evidence of bowel obstruction or hydronephrosis. The patient was reexamined the following day and reported increasing abdominal pain at which point she was referred to the emergency department for further evaluation. In regards to the patient's history of a solitary kidney, she has history of cervical cancer for which she had a hysterectomy several years ago, followed by radiation to her pelvis. 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 The patient eventually lost function of the left kidney and subsequently underwent a left nephrectomy. About 3 to 4 years ago, she was seen in the hospital with kidney failure and was noted to have right hydronephrosis at that time due to ureteral obstruction. The patient underwent extensive workup at that time under the care of Dr. Moise and it seemed that the obstruction was external and related to her retroperitoneal fibrosis. The patient has been managed since that time with recurrent ureteral stents that are replaced about every [address] Moise. When patient reached the emergency department, she was afebrile, but certainly appeared uncomfortable. She had no leukocytosis, but a thrombocytosis, with a platelet count of 507,000. Her renal function was noted to be worse than usual , but slightly improved compared to labs from about a week ago. As of a year ago, her baseline creatinine was about 1.5, and when checked on 04/07/17, her creatinine was 2.3. At that time of the admission it was at 2.48, with an estimated GFR of 20.4. CRP was also moderately elevated at 42.5. Her urinalysis was suggestive of possible infection, with positive leuk esterase and white blood cells, as well as the presence of blood. Renal ultrasound was done at the time of admission and reference was made to the CT scan that was performed on 04/14/17, which showed no pathology. Her renal ultrasound at that time of admission showed no hydro. The patient was subsequently admitted with concern for a right pyelonephritis and subsequent infected ureteral stent. She was empirically started on ceftriaxone. She continued to have significant abdominal pain, which unfortunately became worse rather than improving following admission and she subsequently developed worsening nausea and vomiting, with associated abdominal distention. A repeat CT scan of the abdomen and pelvis was performed, which demonstrated a small bowel obstruction, which was thought to be very high-grade partial obstruction or a complete obstruction with a transition point in the distal small bowel along the right pelvic margin, near the area recently manipulated with the right ureteral stent. The patient had an NG tube placed for symptomatic relief and there was a large volume of return. The patient put out almost 4 L in the first 24 hours of the NG tube in place. After approximately 24 to 36 hours of the NG tube in place, the patient felt better in terms of abdominal pain and nausea, but did not pass any flatus or have a bowel movement. The patient was evaluated by our general surgical team who suggested monitoring for a period of 24 hours, but after which if she did not improve, surgical intervention was recommended. Because of the complexity of her recent surgical course as well as her known retroperitoneal fibrosis and solitary kidney, recommendation was to consider transfer to a tertiary center. The patient has previously received care with Dr. Mcghee at [facility] when she required retrieval of a broken stent in the past. Dr. Moise has been in touch with Dr. Mcghee in regards to this case, who was prepared to be involved for urological support. DISPOSITION AND FOLLOWUP PLAN: The patient is being transferred to [facility] with accepting general surgeon, Dr. Melendez. The patient is in agreement with the current plan and is stable at the time of transfer. FIDENCIO KHAN [id number]/[facility] #: [id number] [facility]
[2017-04-18] MEDS: NS 0.9% 1000 ML* 1,000 ML IV SCH (19:48)
[2017-04-18 21:27] VITALS: BP 117/57
[2017-04-18] MEDS: PROCHLORPERAZINE INJ 5 MG/ML 2 ML VIAL IV PRN (21:36)
[2017-04-18] MEDS: Nicotine Patch Removal NOTE FOLLOW UP SCH (23:47)
[2017-04-19] MEDS ORDERED: Levothyroxine TAB* 75 MCG TAB PO SCH (06:00)
[2017-04-19] MEDS ORDERED: Levothyroxine TAB* 100 MCG TAB PO SCH (06:00)
== END 2017-04-18 21:16 | disposition short-term general hospital (02) | DRG 247 ==
LOC: ED 14:35 → MED 18:25
PROVIDERS: ADMIT Internal Medicine; ATTEND Internal Medicine
PROC: BT1D1ZZ Fluoroscopy of Right Kidney, Ureter and Bladder using Low Osmolar Contrast (ICD-10-PCS; principal; 2017-04-16)
PROC: 0D9670Z Drainage of Stomach with Drainage Device, Via Natural or Artificial Opening (ICD-10-PCS; 2017-04-17)
DX: K56.69 Other intestinal obstruction (principal); N17.9 Acute kidney failure, unspecified; E11.22 Type 2 diabetes mellitus with diabetic chronic kidney disease; N18.4 Chronic kidney disease, stage 4 (severe); Z68.41 Body mass index [BMI] 40.0-44.9, adult; I12.9 Hypertensive chronic kidney disease with stage 1 through stage 4 chronic kidney disease, or unspecified chronic kidney disease; D47.3 Essential (hemorrhagic) thrombocythemia; T19.8XXA Foreign body in other parts of genitourinary tract, initial encounter; F32.9 Major depressive disorder, single episode, unspecified; J44.9 Chronic obstructive pulmonary disease, unspecified; K21.9 Gastro-esophageal reflux disease without esophagitis; E03.9 Hypothyroidism, unspecified; G47.30 Sleep apnea, unspecified; M47.9 Spondylosis, unspecified; M17.0 Bilateral primary osteoarthritis of knee; F41.9 Anxiety disorder, unspecified; F17.210 Nicotine dependence, cigarettes, uncomplicated; E86.0 Dehydration; D09.0 Carcinoma in situ of bladder; E66.01 Morbid (severe) obesity due to excess calories; K80.20 Calculus of gallbladder without cholecystitis without obstruction; M16.11 Unilateral primary osteoarthritis, right hip; N13.5 Crossing vessel and stricture of ureter without hydronephrosis; R04.0 Epistaxis; G89.29 Other chronic pain; Z96.0 Presence of urogenital implants; D64.9 Anemia, unspecified; Z90.5 Acquired absence of kidney; Z88.1 Allergy status to other antibiotic agents; Z88.8 Allergy status to other drugs, medicaments and biological substances; Z85.820 Personal history of malignant melanoma of skin; Z85.41 Personal history of malignant neoplasm of cervix uteri; Z92.3 Personal history of irradiation; Z87.442 Personal history of urinary calculi; Z91.09 Other allergy status, other than to drugs and biological substances; Z88.0 Allergy status to penicillin; Z91.040 Latex allergy status; Z56.0 Unemployment, unspecified; Z18.89 Other specified retained foreign body fragments
CPT/HCPCS: 36415; 51600; 71010; 74176; 74430; 76705; 76775; 80048; 80053; 81003; 81015; 82150; 82550; 83605; 83690; 83735; 85025; 86140; 87040; 87077; 87086; 87186; A9270-GY; J0696; J0780; J1170; J1644; J1940; J2270; J2405

== ENCOUNTER 2017-09-08 09:33 | Inpatient (IN) | payer OTHER ==
--- NOTE | 2017-09-06 09:59 | HP ---
CC: Dr. Gladys Tolliver HISTORY AND PHYSICAL: DATE OF PLANNED ADMISSION AND SURGERY: 09/08/17 HISTORY OF PRESENT ILLNESS: Ms. Bender is a 52-year-old white female who is admitted for cystoscopy and right ureteral stent exchange. Ms. Bender has a complicated urological history. In 2009, she had undergone a left nephrectomy at the [facility] because of a severe hydronephrosis, non functioning kidney caused by stricture of the left ureter. 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 Patient then developed a stricture of the right ureter and I have been managing it with ureteral stent drainage and periodic ureteral stent exchange. She was extensively worked up for the cause of the stricture and no pathology was noted , except retroperitoneal fibrosis which is most likely secondary to the radiation therapy of the pelvis. In March 2017, she underwent a cystoscopy for her stent exchange. The stent broke when being pulled it out over a guidewire and she had a retained proximal portion of the stent in the right kidney. Cystoscopy showed a suspicious lesion in the right anterior bladder wall. . Right ureteroscopy could not go beyond the level of the stricture and patient was managed with placement of another stent achieving good drainage of the kidney. Biopsies of the bladder lesion were suspicious for malignancy. Following the procedure patient was admitted with abdominal pain, partial bowel obstruction or delayed ileus, that ended up resolving spontaneously. Patient was then referred to [facility] to retrieve the retained stent. She underwent placement of a right percutaneous nephrostomy tube, had removal of the retained stent with replacement of her draining stent. Antegrade uteroscopy was performed and there was no evidence of any tumor in the strictured portion of the ureter. She then underwent transurethral resection of the bladder lesion, which showed it to be a high-grade transitional cell carcinoma with squamous metaplasia, but no evidence of invasion of the tumor in the muscle. Patient has been followed in my office and she has been treated with instillations of intravesical BCG. The treatments could not be completed because of urinary incontinence and failure to retain the BCG treatments. To help complete the treatments, the patient was placed on Vesicare, a diaz catheter was placed, BCG treatment were given and the patient kept supine for 2 hours in the office to help retain the treatments. In spite of that, she would leak around the Diaz and only retain a portion of the instilled BCG solution. Only 3 or 4 of the BCG treatments could be given, and only incompletely. She also has been having recurrent episodes of urinary tract infections and her most recent urine culture grew 3 organisms, E. coli, proteus, and VRE enterococcus that is resistant to most antibiotics with the exception of linezolid. Recent blood work showed a serum creatinine of 2.9. Renal ultrasound in the office showed [id number] right hydronephrosis. Past medical history: She is a chronic smoker. She has a history of COPD and asthma on inhalers. She has chronic back pain on flexeril, Cymbalta, and PRN oxycodone. She has history of hyperuricemia, on allopurinol and PRN Colchicine. She is hypothyroid on replacement, and has GERD on Protonix. Doses are in medications reconciliation sheet. ALLERGIES: She reports being allergic to PENICILLIN, CIPRO, and LATEX. PHYSICAL EXAMINATION GENERAL: She is moderately overweight white female, who is not febrile and who is otherwise healthy looking. VITAL SIGNS: Blood pressure 150/90, pulse of 100. LUNGS: Clear. HEART: Regular and rhythmic. No murmurs. ABDOMEN: Moderately obese. She has mild right CVA tenderness. The rest of the abdominal exam is normal. Pelvic exam deferred to be done under anesthesia.. IMPRESSION: 1. Solitary right kidney, status post left nephrectomy due to ureteral stricture, with poor renal function, and a Cr of 2.9. 2. Right ureteral stricture, managed by chronic stent drainage. 3. 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 4. Resistant urinary tract infections. PLAN: 1. The plan is for cystoscopy and replacement of the right ureteral stent, which is probably colonized with bacteria and has been in place for 4 months. Hopefully the new stent will improve her renal drainage and improve her renal function. 2. Possible bladder biopsies to evaluate her response to the treatment. 3. Treatment of the urinary tract infection. I will be consulting the hospitalist to decide on additional antibiotic treatment for her VRE. 4. The patient will be given IV linezolid and Rocephin preoperatively for prophylaxis. [id number]/[facility] #: [id number] [facility]
[~2017-09-08 09:33] MED LIST changes: +Famotidine IV* 10 MG/ML 2 ML (20 mg) IV ONE; +Linezolid 600 MG IVPREMIX(*) 600 MG/300 ML BAG IVPB ONE; +Metoclopramide TAB* 10 MG PO ONE; -Sodium Citrate/Citric Acid* 15 ML UDC PO ONE
[2017-09-08] MEDS ORDERED: Famotidine IV* 10 MG/ML 2 ML (20 mg) ONE (09:41)
[2017-09-08] MEDS ORDERED: Buffered Lidocaine 0.9% SYRIN* 5 ML/SYR SYRINGE ONE (09:41)
[2017-09-08] MEDS ORDERED: Metoclopramide TAB* 10 MG ONE (09:41)
[2017-09-08] MEDS ORDERED: cefTRIAXone(*) 1 GM ADVAN ONE (09:42)
[2017-09-08] MEDS ORDERED: Lidocaine 2% PF * 5 ML VIAL ONE (10:18)
[2017-09-08] MEDS ORDERED: Dexamethasone IV* 4 MG/ML 1 ML (4 MG) ONE (10:18)
[2017-09-08] MEDS ORDERED: Ondansetron INJ* 2 MG/ML VIAL ONE (10:18)
[2017-09-08] MEDS ORDERED: fentaNYL* 50 MCG/ML 2 ML VIAL (100 MCG VIAL) ONE ×3 (10:18→13:52)
[2017-09-08] MEDS ORDERED: Propofol* 10 MG/ML 20 ML BTL IV PUSH ONE (10:18)
[2017-09-08] MEDS ORDERED: Midazolam* 1 MG/ML 5 ML VIAL (5 MG) ONE (10:19)
[2017-09-08] MEDS ORDERED: KETAMINE HCL* 50 MG/ML 10 ML VIAL ONE (10:19)
[2017-09-08] MEDS ORDERED: Iohexol 180 (CONTRAST) 10 ML SDV IV ONE (11:02)
[2017-09-08] MEDS ORDERED: Ondansetron INJ* 2 MG/ML VIAL IV PRN ×2 (11:58→12:59)
[2017-09-08] MEDS ORDERED: Labetalol IV* 5 MG/ML 20 ML VIAL ONE (12:31)
[2017-09-08] MEDS ORDERED: Acetaminophen TAB* 325 MG PO PRN (12:59)
[2017-09-08] MEDS ORDERED: Albuterol/Ipratropium NEB.SOL* Albuterol 2.5 MG/Ipratropium 0.5 MG 3 ML INH PRN (12:59)
[2017-09-08] MEDS ORDERED: oxyCODONE/Acetamin 5/325 MG* TAB ONE (13:07)
[2017-09-08] MEDS: fentaNYL* 50 MCG/ML 2 ML VIAL (100 MCG VIAL) IV PRN ×4 (13:12→14:19)
[2017-09-08] MEDS: oxyCODONE/Acetamin 5/325 MG* TAB PO PRN ×2 (13:15→13:16)
[2017-09-08 13:21] LABS: Hematocrit 35 % (35-47); Hemoglobin 11.5 g/dl (12.0-16.0); Mean Corpuscular HGB Conc 33 g/dl (31-36); Mean Corpuscular Hemoglobin 33 pg (27-31); Mean Corpuscular Volume 100 fL (80-97); Mean Platelet Volume 7 um3 (7.4-10.4); Red Blood Count 3.54 10^6/ul (4.0-5.4); Red Cell Distribution Width 14 % (10.5-15); White Blood Count 5.4 10^3/ul (3.5-10.8)
--- NOTE | 2017-09-08 13:24 | RAD ---
INDICATION: Right retrograde examination with stent insertion COMPARISON: None FINDINGS: 14 seconds of fluoroscopy were provided for the urology department. Fluoroscopic spot imaging of the abdomen were obtained for operative control and show a retrograde examination the right, and placement of a right ureteral stent in expected position. The final image shows drainage of contrast in the collecting system . CPT II Codes: 6045F (fluoro time doc)
[2017-09-08 13:26] LABS: Add Diff/Slide Review? Slide Review Added; Comments Flag Yes
[2017-09-08 13:36] LABS: BUN/Creatinine Ratio 11.4 (8-20); C Reactive Protein 43.16 mg/L (< 5.00); Calcium 8.9 mg/dL (8.6-10.3); EGFR African American 27.7 (>60); EGFR Non-African American 21.5 (>60)
[2017-09-08 13:37] LABS: Potassium 5.6 mmol/L (3.5-5.0)
[2017-09-08] MEDS ORDERED: Heparin VIAL(*) 5000 UNITS/ML VIAL (FIVE THOUSAND) SUBCUT SCH ×2 (14:00→16:16)
[2017-09-08] MEDS ORDERED: Sodium Polystyrene ORAL.SOL* 15 GM/60 ML BTL PO ONE (15:27)
[2017-09-08] MEDS: Mometasone/Formoter 200/5 MDI INH SCH (16:16)
[2017-09-08] MEDS: Heparin VIAL(*) 5000 UNITS/ML VIAL (FIVE THOUSAND) SUBCUT SCH (16:27)
[2017-09-08] MEDS: NS 0.9% 1000 ML* 1,000 ML IV SCH (17:57)
--- NOTE | 2017-09-08 19:43 | CONS ---
CC: Dr. Moise; Dr. Tolliver * CONSULTATION REPORT: DATE OF CONSULTATION: 09/08/17 REQUESTING PHYSICIAN: Dr. Moise. PRIMARY CARE PROVIDER: Dr. Tolliver. REASON FOR CONSULTATION: Input regarding antibiotic therapy for multidrug resistant urinary tract infection. HISTORY OF PRESENT ILLNESS: Ms. Bender is a 52-year-old female who is here today for cystoscopy and right ureteral stent exchange with Dr. Moise. The patient has a complex urological history that includes a left nephrectomy secondary to a nonfunctioning kidney that was caused by a left ureteral stricture. Subsequently, she developed stricture on the right ureter and Dr. Moise has been managing it with ureteral stent drainage and periodic stent exchange. This past March, when she was undergoing a stent exchange, the stent broke off and the patient retained a proximal part of the stent in the right kidney. Cystoscopy showed a suspicious lesion and an additional stent was placed and good drainage was achieved. Biopsy of the bladder was suspicious for malignancy. After that procedure, the patient was admitted for an ileus that resolved on its own. Subsequently, the patient was transferred to [facility] to retrieve the retained stent. She had a nephrostomy tube placed and the retained stent removed with replacement of the draining stent. There, she had transurethral resection of the bladder lesion which showed to be high-grade transitional cell carcinoma. She has continued to be followed by Dr. Moise and has been getting instillations of intravesical BCG. Unfortunately, it has been difficult for her to complete the treatments because of urinary incontinence. Her creatinine has been gradually rising and recent renal ultrasound shows mild to moderate right hydronephrosis. Baseline creatinine is now 2.5 to 2.9. The patient has had recurrent episodes of urinary tract infections. Her most recent urine culture was from 08/29/17, which grew E. coli, proteus mirabilis and VRE. At that time, the patient was placed on Keflex. This past week, starting on Friday, the patient developed high fevers up to 103 , these were accompanied by chills, sweats, as well as vomiting. At this time, Dr. Moise extended the patient's course of Keflex. The patient does not have a chronic indwelling catheter. The patient also was complaining of burning while urinating and frequency. She denies any presence of blood, but she continues to have urinary incontinence. Today, the patient is here for cystoscopy and right ureteral stent exchange. Hospitalists were asked to assist with recommendations for antibiotic coverage. PAST MEDICAL HISTORY: Complex urological history as outlined above: 1. Left nephrectomy. 2. Right ureteral stricture. 3. Multiple urinary tract infections. Other past medical history: 1. COPD. 2. Asthma. 3. Back pain. 4. Hyperuricemia, on allopurinol. 5. Hypothyroidism. 6. GERD. HOME MEDICATIONS: Include: 1. Senna 2 tablets oral daily. 2. Protonix 40 mg oral in the morning. 3. Oxycodone 15 mg oral every 6 hours as needed. 4. Dulera 1 puff inhaled every morning daily. 5. Synthroid 170 mcg daily except for 188 mcg oral on Sundays. 6. Toviaz 8 mg oral daily. 7. Cymbalta 60 mg oral daily. 8. Flexeril 10 mg oral twice daily. 9. Zyrtec 20 mg oral daily. 10. Keflex 500 mg oral 4 times daily. 11. Allopurinol 200 mg oral daily. 12. DuoNeb, 1 neb inhaled every 6 hours as needed. ALLERGIES: Include PENICILLIN, CIPRO, LATEX, CLINDAMYCIN, and MACRODANTIN. FAMILY HISTORY: The patient's sister has a history of diabetes. Mother has a history of ovarian cancer. SOCIAL HISTORY: The patient continues to smoke half a pack a day. Denies any alcohol or drug use. She is not working. Her sister, Em Diallo, would be the surrogate decision maker in the event the patient cannot make decisions for herself. The patient does state that she is and has children. REVIEW OF SYSTEMS: I performed a 14-point review of systems; all the pertinent positives and negatives are mentioned in the history of present illness. The remaining review of systems are negative. PHYSICAL EXAM: Vital Signs: Temperature 97.3, heart rate 85, respiratory rate 18, blood pressure , oxygen saturation 94%. Appearance: The patient is alert, pleasant, appeared to be in no apparent distress. Head, Eyes, Ears, Nose and Throat: Normocephalic/atraumatic. Pupils were equal and reactive to light. Extraocular movements are intact. Neck: Supple. There was no lymphadenopathy noted. Respiratory: There was no accessory muscle. Lungs were clear to auscultation. Cardiovascular: S1 and S2 were crisp. There were no murmurs, rubs, or gallops heard. Abdomen was soft, nontender, and nondistended. There were bowel sounds x4. Extremities: There was no lower extremity edema. DP and PT pulses were 2+ and symmetric. Musculoskeletal: No clubbing or cyanosis noted. The patient exhibited equal strength in all extremities. Skin: There were no rashes or abnormalities seen. Neuro: Cranial nerves II through XII are intact. The patient moves all extremities. Lower extremities were intact to light touch. Psych: The patient is alert and oriented x3. LABORATORY DATA: From 09/05/17, sodium 135, potassium 4.1, chloride 105, CO2 22 , BUN 30, creatinine 1.1, glucose 82. White blood cell count 5.2, hemoglobin 11.8, hematocrit 35, platelet count 341,000. Last urinalysis was from March 2017. Urine culture from 08/29/17 shows greater than 100,000 E. coli sensitive to all cephalosporins, 10,000 to 25,000 proteus mirabilis sensitive to Keflex, 75,000 to 100,000 of VRE sensitive to linezolid. IMPRESSION: This is a 52-year-old female with past medical history significant for right ureteral stricture and history of multiple urinary tract infections who is here today for right ureteral stent exchange. Hospitalists were asked to assist with antibiotic therapy. ASSESSMENT AND PLAN: 1. Multidrug resistant urinary tract infection, possibly secondary to infected ureteral stent. The patient is going to the operative room for cystoscopy with stent exchange. The patient has been on Keflex and E. coli and the proteus mirabilis are sensitive to the Keflex. She does have 100,000 VRE and is receiving IV linezolid in the PACU. Plan is to review antibiotic therapy with Infectious Disease to tailor further antibiotic therapy. Labs are pending for today including CRP. This will help us determine whether or not this is VRE colonization of her stent or an active VRE urinary tract infection. Most likely , the patient will be able to be discharged home on continued Keflex and oral linezolid. Repeat creatinine is also pending. Repeat urinalysis and urine culture is being sent. 2. Chronic obstructive pulmonary disease. Home inhalers and bronchodilators will continue. 3. Gastroesophageal reflux disease. Protonix will continue. 4. Gout. Allopurinol will continue. 5. Hypothyroidism. Synthroid will continue. 6. DVT prophylaxis. The patient has SCDs. 7. Code status is full. Further recommendations pending clinical course. Reviewed by YOKASTA VAIL NP 09/09/2017 [id number]/[facility] #: [id number] [facility]
[2017-09-08] MEDS: Docusate CAP* 100 MG PO SCH (21:50)
[2017-09-08] MEDS: Cyclobenzaprine TAB* 10 MG PO SCH (21:50)
[2017-09-08] MEDS: Cephalexin CAP* 500 MG PO SCH (21:50)
[2017-09-08] MEDS: oxyCODONE TAB* 5 MG TAB PO PRN (21:51)
[2017-09-08] MEDS: Linezolid 600 MG IVPREMIX(*) 600 MG/300 ML BAG IVPB SCH (21:59)
[2017-09-09] MEDS: Heparin VIAL(*) 5000 UNITS/ML VIAL (FIVE THOUSAND) SUBCUT SCH ×3 (00:46→16:42)
[2017-09-09] MEDS: NS 0.9% 1000 ML* 1,000 ML IV SCH (04:59)
[2017-09-09 05:10] LABS: Hematocrit 29 % (35-47); Hemoglobin 9.6 g/dl (12.0-16.0); Mean Corpuscular HGB Conc 33 g/dl (31-36); Mean Corpuscular Hemoglobin 33 pg (27-31); Mean Corpuscular Volume 99 fL (80-97); Mean Platelet Volume 8 um3 (7.4-10.4); Red Blood Count 2.89 10^6/ul (4.0-5.4); Red Cell Distribution Width 15 % (10.5-15); White Blood Count 9.4 10^3/ul (3.5-10.8)
[2017-09-09 05:32] LABS: BUN/Creatinine Ratio 9.3 (8-20); Calcium 7.7 mg/dL (8.6-10.3); EGFR African American 25.1 (>60); EGFR Non-African American 19.5 (>60); Potassium 4.8 mmol/L (3.5-5.0)
[2017-09-09] MEDS: Levothyroxine TAB* 175 MCG TAB PO SCH (06:37)
--- NOTE | 2017-09-09 08:21 | OP ---
CC: Dr. Gladys Tolliver * DATE OF OPERATION: 09/08/17 - ROOM #340 DATE OF : 63 SURGEON: Yoandy Moise MD. ANESTHESIOLOGIST: Dr. Hasmukh Kim. ANESTHESIA: General. PRE-OP DIAGNOSES: 1. Solitary right kidney. 2. Right ureteral stricture. 3. Status post placement, right ureteral stent. 4. Urinary tract infection. 5. Bladder tumor. POST-OP DIAGNOSES: 1. Solitary right kidney. 2. Right ureteral stricture. 3. Status post placement, right ureteral stent. 4. Urinary tract infection. 5. Bladder tumor. OPERATIVE PROCEDURE: 1. Cystoscopy. 2. Right retrograde pyelography. 3. Right ureteral stent exchange (Black silicone, 24 cm, 7-Ethiopian). 4. Bladder biopsy (right anterior bladder wall). INDICATION FOR PROCEDURE: Mrs. Bender is a 52-year-old white female who has a solitary right kidney with a right ureteral stricture, managed by chronic stent drainage. 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 She had her stent replaced 4 months ago. She has been treated with intravesical BCG for her bladder tumor; however, the treatments have been suboptimal as she keeps on leaking the treatment around her Nunn catheter even when she is in the supine position and on anticholinergics. She was recently noted to have urinary tract infection and one of the organism she grew is a VRE with resistance to almost all antibiotics, with the exception of linezolid. Her serum creatinine was recently elevated at 2.7. Patient is taken to the operating room for the above procedure and to change the stent to try to improve the renal function. PATHOLOGY: At cystoscopy, the bladder mucosa showed hyperemia consistent with cystitis. There was a suspicious mass in the right anterior bladder wall at the site of her original tumor. The lesion was firm and gritty. It measured about 2 cm in diameter. The distal limb of the stent was coming from the left orifice. Upon left retrograde pyelography, there was no hydronephrosis noted. Upon replacement of the stent, there was significant degree of resistance in the distal ureter about 6 cm above the level of the orifice at the site of the stricture. DESCRIPTION OF PROCEDURE: After successful general anesthesia, the patient was placed in the lithotomy position and was prepped and draped for cystoscopy. Pelvic examination was performed and there were no masses felt in the base of the bladder. Cystoscopy was then performed and the bladder was carefully inspected and the above findings were noted. Because of the previous problems we had replacing her stent, the stent exchange technique was modified. A Glidewire was introduced into the right ureteral orifice alongside of the ureteral stent and positioned by fluoroscopy into the renal pelvis. Keeping the Glidewire in place, the distal limb of the stent was pulled to the level of the urethral meatus. A flexible tip guidewire was then introduced through the lumen of the stent; however, it could not be introduced beyond its mid length due to obstruction of the lumen of the stent. The stent was then removed with the guidewire, keeping the Glidewire in place. An open-ended catheter was then fed on top of the Glidewire and positioned in the renal pelvis. Retrograde pyelography was performed. A guidewire was then introduced through the lumen of the open-ended catheter and positioned in the renal pelvis. A black silicone stent, 24 cm long, 7-Ethiopian, was then fed on top of the guidewire and positioned with the proximal end coiling in the renal pelvis and the distal end coiling inside the bladder. There was good drainage of contrast from the kidney and no extravasation. Attention was then directed to the bladder lesion. Using the rigid biopsy forceps, the above-described lesion was partially excised. Excision included the muscle. Minimal degree of fat was noted at the site of the biopsy, but no gross perforation seen. The site of the biopsy was then fulgurated with coagulation current. There was good hemostasis achieved. The cystoscope was removed and size 18- Ethiopian Nunn catheter was passed inside the bladder and the balloon inflated with 15 cc of water. Patient tolerated the procedure well and left the operating room in good condition. I had discussed the patient's condition with the hospitalist service for management of her resistant urinary tract infection. She will be admitted for IV antibiotics treatment. She will also be kept on catheter drainage to help the healing of the site of the biopsy. Decision on additional treatment regarding her bladder tumor will depend upon the pathology report. [id number] #: [id number] MTDD
[2017-09-09] MEDS: FESOTERODINE 8 MG PO SCH (08:35)
[2017-09-09] MEDS: Mometasone/Formoter 200/5 MDI INH SCH (08:59)
[2017-09-09] MEDS ORDERED: Influenza VAC *QUAD* 2017-18* 0.5 ML SYRINGE IM ONE (09:00)
--- NOTE | 2017-09-09 09:00 | PN ---
Subjective Date of Service: 09/09/17 Interval History: Pt feels well. Co chronic u. bladder spasms. Objective Active Medications: Acetaminophen (Tylenol Tab*) 650 mg PO Q4H PRN PRN Reason: PAIN Albuterol/Ipratropium (Duoneb (Albuterol 2.5 Mg/Ipratropium 0.5 Mg)) 1 neb INH Q6H PRN PRN Reason: SHORTNESS OF BREATH Allopurinol (Zyloprim Tab*) 200 mg PO DAILY [facility] Cephalexin HCl (Keflex Cap*) 500 mg PO QID [facility] Last Admin: 09/08/17 21:50 Dose: 500 mg Cetirizine HCl (Zyrtec*) 20 mg PO DAILY [facility] Cyclobenzaprine HCl (Flexeril Tab*) 10 mg PO BID [facility] Last Admin: 09/08/17 21:50 Dose: 10 mg Docusate Sodium (Colace Cap*) 100 mg PO BID [facility] Last Admin: 09/08/17 21:50 Dose: 100 mg Duloxetine HCl (Cymbalta Cap*) 60 mg PO QAM [facility] Fesoterodine Fumarate (Toviaz (Nf)) 8 mg PO DAILY [facility] Last Admin: 09/09/17 08:35 Dose: Not Given Heparin Sodium (Porcine) (Heparin Vial(*)) 5,000 units SUBCUT 0000,0800,1600 [facility] Last Admin: 09/09/17 00:46 Dose: 5,000 units Linezolid (Zyvox 600 Mg Ivpremix(*)) 600 mg in 300 mls @ 300 mls/hr IVPB Q12H [facility] Last Admin: 09/08/17 21:59 Dose: 300 mls/hr Influenza Virus Vaccine (Fluarix *Quad* 2017-18*) 0.5 ml IM .ONCE ONE Stop: 09/09/17 09:01 Levothyroxine Sodium (Synthroid Tab*) 175 mcg PO MoTuWeThFrSa@0600 [facility] Last Admin: 09/09/17 06:37 Dose: 175 mcg Levothyroxine Sodium (Synthroid Tab*) 88 mcg PO Nunez@0600 [facility] Levothyroxine Sodium (Synthroid Tab*) 100 mcg PO Nunez@0600 [facility] Mometasone Furoate/Formoterol Fumar (Dulera 200/5 Mdi*) 1 puff INH QAM [facility] Last Admin: 09/08/17 16:16 Dose: 1 puff Omeprazole (Prilosec Cap*) 20 mg PO QAM@0730 [facility] Ondansetron HCl (Zofran Inj*) 4 mg IV Q6H PRN PRN Reason: NAUSEA Oxycodone HCl (Roxycodone Tab*) 15 mg PO Q6H PRN PRN Reason: PAIN Last Admin: 09/08/17 21:51 Dose: 15 mg Senna (Senokot Tab*) 2 tab PO DAILY [facility] Vital Signs 09/08/17 09/08/17 09/08/17 09:46 12:47 12:55 Temperature 97.3 F 99.1 F Pulse Rate 85 93 78 Respiratory 18 12 13 Rate Blood Pressure 117/49 145/100 140/83 (mmHg) O2 Sat by Pulse 94 99 99 Oximetry 09/08/17 09/08/17 09/08/17 13:00 13:12 13:15 Temperature Pulse Rate 76 73 Respiratory 14 18 13 Rate Blood Pressure 114/78 124/74 (mmHg) O2 Sat by Pulse 97 97 Oximetry 09/08/17 09/08/17 09/08/17 13:16 13:26 13:40 Temperature Pulse Rate 72 Respiratory 18 17 13 Rate Blood Pressure 104/61 (mmHg) O2 Sat by Pulse 97 Oximetry 09/08/17 09/08/17 09/08/17 13:55 13:58 14:17 Temperature 99.0 F Pulse Rate 79 79 Respiratory 20 15 15 Rate Blood Pressure 107/61 109/94 (mmHg) O2 Sat by Pulse 98 95 Oximetry 09/08/17 09/08/17 09/08/17 14:19 14:52 15:19 Temperature 98.2 F 98.2 F Pulse Rate 73 73 Respiratory 18 14 14 Rate Blood Pressure 106/56 106/56 (mmHg) O2 Sat by Pulse 97 97 Oximetry 09/08/17 09/08/17 09/08/17 15:28 15:39 16:00 Temperature 97.9 F Pulse Rate 72 Respiratory 16 20 Rate Blood Pressure 116/62 (mmHg) O2 Sat by Pulse 92 96 Oximetry 09/08/17 09/08/17 09/08/17 16:51 19:03 19:37 Temperature 97.7 F 98.0 F Pulse Rate 83 71 Respiratory 16 18 18 Rate Blood Pressure 110/58 107/54 (mmHg) O2 Sat by Pulse 96 94 Oximetry 09/08/17 09/08/17 09/08/17 20:48 21:50 21:51 Temperature 97.9 F Pulse Rate 72 Respiratory 20 18 18 Rate Blood Pressure 110/59 (mmHg) O2 Sat by Pulse 96 Oximetry 09/09/17 09/09/17 09/09/17 00:00 02:11 03:56 Temperature 97.6 F 97.7 F Pulse Rate 73 67 Respiratory 20 18 Rate Blood Pressure 102/57 98/39 (mmHg) O2 Sat by Pulse 96 96 98 Oximetry 09/09/17 08:30 Temperature Pulse Rate Respiratory 18 Rate Blood Pressure (mmHg) O2 Sat by Pulse Oximetry Oxygen Devices in Use Now: None Appearance: 52 yo F in nAD, AAOx3 Eyes: No Scleral Icterus, PERRLA Ears/Nose/Mouth/Throat: NL Teeth, Lips, Gums, Mucous Membranes Moist Neck: NL Appearance and Movements; NL JVP, Trachea Midline Respiratory: Symmetrical Chest Expansion and Respiratory Effort, Clear to Auscultation Cardiovascular: NL Sounds; No Murmurs; No JVD, RRR Abdominal: No Hepatosplenomegaly, - - mild suprapubic tenderness Lymphatic: No Cervical Adenopathy Extremities: No Edema, No Clubbing, Cyanosis Skin: No Rash or Ulcers, No Nodules or Sclerosis Neurological: Alert and Oriented x 3, NL Muscle Strength and Tone Result Diagrams: 09/09/17 04:53 09/09/17 04:53 Assess/Plan/Problems-Billing Assessment: his is a 51 yo morbidly obese white female s/p post left nephrectomy, Right kidney with ureter stent due to stricture associated with retroperitoneal fibrosis, GERD, COPD, History of cervical CA, hypothyroidism, gout, and chronic back pain, now with recent dx with invasive transitional bladder cell ca (with unsuccessful BCG tx) with E.coli/VRE UTI presents s/p stent replacement by Dr. Moise - Patient Problems (1) Ureteral Stent Exchange Comment: doing well, willl monitor one more day. Nunn to be left in place at d/ c (2) UTI (urinary tract infection) Comment: Urine cx from 08/29/17 reviewed: E. coli/VRE/proteus. Pt's symptoms resolved after tx with Keflex only making colonization with VRE likely. D/w DR. Luz who recommended f/u on 09/08/17 cx, but for now to tx with Keflex only Pt should go home on at least 10 days of Ceftin (will try to arrrnage meds to bed due to h/o poor compliance) (3) CKD (chronic kidney disease) stage 3, GFR 30-59 ml/min Comment: with worsening of rorsening renal function cont to monitor , recheck BMP in AM (4) COPD (chronic obstructive pulmonary disease) Status: Acute Comment: No acute exacerbation Cont home inhaled therapy (5) Hypothyroidism Current Visit: No Comment: Cont levothyroxine, will recheck TSH (6) DVT prophylaxis Comment: SQ heparin (7) Anemia Comment: mild worsening of chronic, suspect due to hemodliution Status and Disposition: OBV will changed to inpatient, pt will require at least one more day of hospital stay
[2017-09-09] MEDS: oxyCODONE TAB* 5 MG TAB PO PRN ×2 (09:08→16:41)
[2017-09-09] MEDS: DULoxetine DR CAP* 60 MG CAP.DR PO SCH (09:08)
[2017-09-09] MEDS: Allopurinol TAB* 100 MG PO SCH (09:08)
[2017-09-09] MEDS: Cetirizine* 10 MG TAB PO SCH (09:08)
[2017-09-09] MEDS: Cephalexin CAP* 500 MG PO SCH ×4 (09:08→22:16)
[2017-09-09] MEDS: Docusate CAP* 100 MG PO SCH ×2 (09:08→21:13)
[2017-09-09] MEDS: Cyclobenzaprine TAB* 10 MG PO SCH ×2 (09:08→22:15)
[2017-09-09] MEDS: Omeprazole CAP* 20 MG PO SCH (09:22)
[2017-09-09] MEDS: Senna TAB PO SCH (09:22)
[2017-09-09] MEDS: Linezolid 600 MG IVPREMIX(*) 600 MG/300 ML BAG IVPB SCH ×2 (09:23→22:15)
[2017-09-10] MEDS: Heparin VIAL(*) 5000 UNITS/ML VIAL (FIVE THOUSAND) SUBCUT SCH ×2 (00:13→07:51)
[2017-09-10] MEDS: oxyCODONE TAB* 5 MG TAB PO PRN (00:13)
[2017-09-10 05:31] LABS: Hematocrit 31 % (35-47); Hemoglobin 9.7 g/dl (12.0-16.0); Mean Corpuscular HGB Conc 32 g/dl (31-36); Mean Corpuscular Hemoglobin 32 pg (27-31); Mean Corpuscular Volume 100 fL (80-97); Mean Platelet Volume 7 um3 (7.4-10.4); Red Blood Count 3.05 10^6/ul (4.0-5.4); Red Cell Distribution Width 14 % (10.5-15); White Blood Count 6.5 10^3/ul (3.5-10.8)
[2017-09-10 05:44] LABS: BUN/Creatinine Ratio 8.5 (8-20); Calcium 7.8 mg/dL (8.6-10.3); EGFR African American 23.5 (>60); EGFR Non-African American 18.3 (>60); Potassium 4.8 mmol/L (3.5-5.0)
[2017-09-10 06:00] LABS: TSH (Thyroid Stimulating Horm) 17.58 mcIU/mL (0.34-5.60)
[2017-09-10] MEDS: Levothyroxine TAB* 175 MCG TAB PO SCH (06:26)
[2017-09-10] MEDS: Omeprazole CAP* 20 MG PO SCH (07:48)
--- NOTE | 2017-09-10 08:57 | PN ---
Subjective Date of Service: 09/10/17 Interval History: Pt feels well, badder spasm resolved. Objective Active Medications: Acetaminophen (Tylenol Tab*) 650 mg PO Q4H PRN PRN Reason: PAIN Albuterol/Ipratropium (Duoneb (Albuterol 2.5 Mg/Ipratropium 0.5 Mg)) 1 neb INH Q6H PRN PRN Reason: SHORTNESS OF BREATH Allopurinol (Zyloprim Tab*) 200 mg PO DAILY [facility] Last Admin: 09/09/17 09:08 Dose: 200 mg Cephalexin HCl (Keflex Cap*) 500 mg PO BID [facility] Cetirizine HCl (Zyrtec*) 20 mg PO DAILY [facility] Last Admin: 09/09/17 09:08 Dose: 20 mg Cyclobenzaprine HCl (Flexeril Tab*) 10 mg PO BID [facility] Last Admin: 09/09/17 22:15 Dose: 10 mg Docusate Sodium (Colace Cap*) 100 mg PO BID [facility] Last Admin: 09/09/17 21:13 Dose: Not Given Duloxetine HCl (Cymbalta Cap*) 60 mg PO QAM [facility] Last Admin: 09/09/17 09:08 Dose: 60 mg Fesoterodine Fumarate (Toviaz (Nf)) 8 mg PO DAILY [facility] Last Admin: 09/09/17 08:35 Dose: Not Given Heparin Sodium (Porcine) (Heparin Vial(*)) 5,000 units SUBCUT 0000,0800,1600 [facility] Last Admin: 09/10/17 07:51 Dose: 5,000 units Levothyroxine Sodium (Synthroid Tab*) 175 mcg PO MoTuWeThFrSa@0600 [facility] Last Admin: 09/10/17 06:26 Dose: 175 mcg Levothyroxine Sodium (Synthroid Tab*) 88 mcg PO Nunez@0600 [facility] Levothyroxine Sodium (Synthroid Tab*) 100 mcg PO Nunez@0600 [facility] Mometasone Furoate/Formoterol Fumar (Dulera 200/5 Mdi*) 1 puff INH QAM [facility] Last Admin: 09/09/17 08:59 Dose: 1 puff Nystatin (Nystatin Top Powder*) 1 applic TOPICAL BID [facility] Omeprazole (Prilosec Cap*) 20 mg PO QAM@0730 [facility] Last Admin: 09/10/17 07:48 Dose: 20 mg Ondansetron HCl (Zofran Inj*) 4 mg IV Q6H PRN PRN Reason: NAUSEA Oxycodone HCl (Roxycodone Tab*) 15 mg PO Q6H PRN PRN Reason: PAIN Last Admin: 09/10/17 00:13 Dose: 15 mg Pneumococcal Polyvalent Vaccine (Pneumococcal Vac 23-Polyvalent*) 0.5 ml IM .ONCE ONE Stop: 09/10/17 09:01 Senna (Senokot Tab*) 2 tab PO DAILY [facility] Last Admin: 09/09/17 09:22 Dose: 2 tab Vital Signs 09/09/17 09/09/17 09/09/17 09:00 09:08 11:22 Temperature Pulse Rate Respiratory 16 16 16 Rate Blood Pressure (mmHg) O2 Sat by Pulse Oximetry 09/09/17 09/09/17 09/09/17 14:19 15:32 16:41 Temperature 98.2 F 97.9 F Pulse Rate 75 73 Respiratory 16 18 16 Rate Blood Pressure 137/75 117/64 (mmHg) O2 Sat by Pulse 96 92 Oximetry 09/09/17 09/09/17 09/09/17 19:17 20:00 22:15 Temperature 97.7 F Pulse Rate 79 Respiratory 18 18 18 Rate Blood Pressure 126/64 (mmHg) O2 Sat by Pulse 96 Oximetry 09/09/17 09/10/17 09/10/17 23:32 00:13 00:16 Temperature 98.6 F Pulse Rate 73 Respiratory 16 18 16 Rate Blood Pressure 97/56 (mmHg) O2 Sat by Pulse 96 Oximetry 09/10/17 09/10/17 09/10/17 03:35 04:18 07:44 Temperature 98.1 F 98.5 F Pulse Rate 79 68 Respiratory 17 18 16 Rate Blood Pressure 104/63 106/51 (mmHg) O2 Sat by Pulse 100 99 Oximetry 09/10/17 08:00 Temperature Pulse Rate 66 Respiratory 16 Rate Blood Pressure 110/70 (mmHg) O2 Sat by Pulse Oximetry Oxygen Devices in Use Now: None Appearance: 52 yo f in nAD, aAOx3 Eyes: No Scleral Icterus, PERRLA Ears/Nose/Mouth/Throat: NL Teeth, Lips, Gums, Mucous Membranes Moist Neck: NL Appearance and Movements; NL JVP, Trachea Midline Respiratory: Symmetrical Chest Expansion and Respiratory Effort, Clear to Auscultation Cardiovascular: NL Sounds; No Murmurs; No JVD, RRR Abdominal: NL Sounds; No Tenderness; No Distention Lymphatic: No Cervical Adenopathy Extremities: No Edema, No Clubbing, Cyanosis Skin: No Rash or Ulcers, No Nodules or Sclerosis Neurological: Alert and Oriented x 3, NL Muscle Strength and Tone Result Diagrams: 09/10/17 05:03 09/10/17 05:03 Microbiology and Other Data: Microbiology 09/08/17 14:20 Urine Culture - Final Urine Assess/Plan/Problems-Billing Assessment: his is a 51 yo morbidly obese white female s/p post left nephrectomy, Right kidney with ureter stent due to stricture associated with retroperitoneal fibrosis, GERD, COPD, History of cervical CA, hypothyroidism, gout, and chronic back pain, now with recent dx with invasive transitional bladder cell ca (with unsuccessful BCG tx) with E.coli/VRE UTI presents s/p stent replacement by Dr. Moise - Patient Problems (1) Ureteral Stent Exchange Comment: doing well,may be able to go home today. Nunn to be left in place at d /c (2) UTI (urinary tract infection) Comment: Urine cx from 08/29/17 reviewed: E. coli/VRE/proteus. Urine cx from 09/08/17 shows no pathogens growing Pt's symptoms resolved after tx with Keflex only making colonization with VRE likely. Pt should go home on at least 10 days of Ceftin (will try to arrrnage meds to bed due to h/o poor compliance) (3) CKD (chronic kidney disease) stage 3, GFR 30-59 ml/min Comment: with worsening of rorsening renal function check FeNa, needs close f/u after discharge since creat is still raising (4) COPD (chronic obstructive pulmonary disease) Status: Acute Comment: No acute exacerbation Cont home inhaled therapy (5) Hypothyroidism Current Visit: No Comment: Cont levothyroxine, TSH at 17, will d/c one time a week dose of 88 mcq and stay with 175 mcg daily (6) DVT prophylaxis Comment: SQ heparin (7) Anemia Comment: mild worsening of chronic, suspect due to hemodliution Status and Disposition: likely home today, will d/w urology
[2017-09-10] MEDS ORDERED: Cephalexin CAP* 500 MG PO SCH (09:00)
[2017-09-10] MEDS ORDERED: Pneumococcal *Vac Polyvalent 0.5 ML VIAL IM ONE (09:00)
[2017-09-10] MEDS ORDERED: Nystatin TOP POWDER* 15 GM BTL TOPICAL SCH (09:00)
[2017-09-10] MEDS: Docusate CAP* 100 MG PO SCH (10:10)
[2017-09-10] MEDS: Mometasone/Formoter 200/5 MDI INH SCH (10:17)
[2017-09-10] MEDS: Allopurinol TAB* 100 MG PO SCH (10:22)
[2017-09-10] MEDS: Senna TAB PO SCH (10:23)
[2017-09-10] MEDS: Cetirizine* 10 MG TAB PO SCH (10:23)
[2017-09-10] MEDS: DULoxetine DR CAP* 60 MG CAP.DR PO SCH (10:23)
[2017-09-10] MEDS: Cyclobenzaprine TAB* 10 MG PO SCH (10:24)
[2017-09-10] MEDS: FESOTERODINE 8 MG PO SCH (10:38)
[2017-09-10 12:45] VITALS: BP 114/63
--- NOTE | 2017-09-11 03:55 | DS ---
ADDENDUM NOW INCLUDED ON THIS REPORT CC: Dr. Moise; Dr. Tolliver * DISCHARGE SUMMARY: DATE OF ADMISSION: 09/08/17 DATE OF DISCHARGE: 09/10/17 DISCHARGE DIAGNOSES: 1. Acute renal failure and chronic renal insufficiency, stage 3, likely due to acute tubular necrosis. It is possible that it occurred due to infection and urinary tract infection. 2. Status post ureteral stent exchange by Dr. Moise, on 09/08/17. 3. Likely urinary tract infection. SECONDARY DIAGNOSES: 1. History of left nephrectomy at [facility] due to severe hydronephrosis and non-functioning kidney caused by stricture of the left ureter. The stricture was benign, and was felt due to retroperitoneal fibrosis and radiation therapy for carcinoma of the uterus several years earlier. 2. History of uterine cancer. 3. History of multiple problems with strictures of the right ureter, status post stent exchange multiple times in the past. The patient has most recent stent exchange performed by Dr. Moise during this hospital stay on 09/08/17. 4. History of high-grade transitional cell carcinoma of the bladder current BCG treatment. 5. History of multiple recent urinary tract infections. 6. History of chronic obstructive pulmonary disease. 7. History of chronic kidney disease, stage 3. 8. History of chronic back pain. 9. History of hyperuricemia, on allopurinol. 10. Hypothyroidism. 11. History of gastroesophageal reflux disease. 12. History of medical noncompliance. MEDICATIONS: At discharge include: 1. DuoNeb nebulizers on a p.r.n. basis. 2. Allopurinol 200 mg daily. 3. Ceftin 500 mg b.i.d. for 10 days total. 4. Cetirizine 20 mg daily. 5. Flexeril 10 mg b.i.d. p.r.n. 6. Cymbalta 60 mg daily. 7. Toviaz 8 mg daily. 8. Synthroid 175 mcg daily. Please note that the dose was changed and increased from 175 mcg daily, and apart from 1 day of the week when the patient was on 88 mcg daily changed to even 175 mcg daily, every day. 9. Dulera 200/5 one inhalation b.i.d. 10. Oxycodone 15 mg on a p.r.n. basis. 11. Protonix 40 mg daily. 12. Senna 2 tablets daily. At discharge, the patient is recommended to follow up with Dr. Moise, on Friday, which is 09/16/17 at 8 a.m. at his office. The patient is also recommended to follow up with Dr. Gladys Tolliver in 4 to 7 days. The patient has scheduled basic metabolic panel to be drawn, on 09/12/17 , with the report to be sent to Dr. Weinberg and Dr. Tolliver for further evaluation. HOSPITALIZATION COURSE: Arjun Bender is a 52-year-old female with history of status post one-sided nephrectomy and recurrent strictures of the remaining left ureter with multiple ureteral stents placed and replaced, who was noted to have UTI with 3 different bacteria on 08/29/17. One of them was VRE. The patient was treated with Keflex only and recommended to come to the hospital when she became febrile a week prior to her current admission. She did not come to the hospital for evaluation, but stayed at home and actually her fever defervesced and she got better. On 09/08/17, she came in for a scheduled stent replacement with Dr. Moise. Post stent replacement, she stayed for a couple of days for observation. She was treated with cephalosporins and linezolid. It was noted that the patient's repeat urine culture did not show any significant pathogens, but it was recommended for the patient to continue Ceftin for another 10 days. The case was comanaged with Dr. Moise from Urology. Despite the patient being on no nephrotoxic agents, her creatinine slowly continued to worsen from 2.36 prior to the stent replacement to 2.72 on the day of discharge. Nevertheless, the increase is very slow and the patient does have history of creatinine up to 3 in the past. Due to that, the patient was recommended to have a basic metabolic panel drawn in a couple of days after discharge. Please also note that fractional excretion of sodium was calculated and indicated at the value of 2.8, which is indicative of possibility of ATN. Once again, it is possible that the patient had suffered from ATN a week prior to her admission when she had urinary tract infection and reported fever of 103. Please note, the patient's TSH level was 17. The patient has a history of medical noncompliance. The patient's Synthroid dose was increased and recommended TSH to be reevaluated in 4 to 6 weeks. Meds-to-Bed are going to be arranged for this patient for Ceftin and Synthroid so she can take them at home. It was also stressed to the patient to continue following up with the urologist in regards to her renal insufficiency as well as bladder cancer and follow up with her primary care provider. Please also note, the patient is being discharged with Nunn catheter in place and that will likely be discontinued at Dr. Moise's office on 09/16/17. Please note that this is a short summary of the patient's hospital stay. Please refer to further medical records for details. TIME SPENT: Approximately 45 minutes was spent on the patient's discharge. ADDENDUM: Please note that the patient's outpatient doses of Synthroid were incorrect and in fact patient used to take 175 mcg of Synthroid daily all the days of the week apart from one when she was at 188 mcg. Due to that her TSH was above 17, detected during her hospital stay. Her Synthroid dose is going to be increased to 200 mcg daily. Her Synthroid prescription is going to be filled by the hospital pharmacy. [id number]/CPS #: [id number]/CPS #: [id number] CJ
--- NOTE | 2017-09-11 04:55 | DS ---
*ADDENDUM: Please note that the patient's outpatient doses of Synthroid were incorrect and in fact patient used to take 175 mcg of Synthroid daily all the days of the week apart from one when she was at 188 mcg. Due to that her TSH was above 17, detected during her hospital stay. Her Synthroid dose is going to be increased to 200 mcg daily. Her Synthroid prescription is going to be filled by the hospital pharmacy. [id number]/[facility] #: [id number] MTDD
[2017-09-14] MEDS ORDERED: Levothyroxine TAB* 100 MCG TAB PO SCH (06:00)
[2017-09-14] MEDS ORDERED: Levothyroxine TAB* 88 MCG TAB PO SCH (06:00)
== END 2017-09-10 13:15 | disposition home or self-care (01) | DRG 443 ==
LOC: OR 09:33 → SSU 14:50 → OBSVTOIN 09-09 09:03
PROVIDERS: ADMIT Urology; ATTEND Internal Medicine
PROC: 0TP98DZ Removal of Intraluminal Device from Ureter, Via Natural or Artificial Opening Endoscopic (ICD-10-PCS; 2017-09-08)
PROC: 0T768DZ Dilation of Right Ureter with Intraluminal Device, Via Natural or Artificial Opening Endoscopic (ICD-10-PCS; 2017-09-08)
PROC: 0TBB8ZX Excision of Bladder, Via Natural or Artificial Opening Endoscopic, Diagnostic (ICD-10-PCS; 2017-09-08)
PROC: BT1DYZZ Fluoroscopy of Right Kidney, Ureter and Bladder using Other Contrast (ICD-10-PCS; principal; 2017-09-08 10:45)
DX: N17.0 Acute kidney failure with tubular necrosis (principal); N39.0 Urinary tract infection, site not specified; C67.9 Malignant neoplasm of bladder, unspecified; N13.5 Crossing vessel and stricture of ureter without hydronephrosis; B96.20 Unspecified Escherichia coli [E. coli] as the cause of diseases classified elsewhere; B96.4 Proteus (mirabilis) (morganii) as the cause of diseases classified elsewhere; B95.2 Enterococcus as the cause of diseases classified elsewhere; N18.3 Chronic kidney disease, stage 3 (moderate); J44.9 Chronic obstructive pulmonary disease, unspecified; M54.9 Dorsalgia, unspecified; E79.0 Hyperuricemia without signs of inflammatory arthritis and tophaceous disease; E03.9 Hypothyroidism, unspecified; K21.9 Gastro-esophageal reflux disease without esophagitis; F17.210 Nicotine dependence, cigarettes, uncomplicated; R32 Unspecified urinary incontinence; D64.89 Other specified anemias; Z16.24 Resistance to multiple antibiotics; Z87.440 Personal history of urinary (tract) infections; Z85.42 Personal history of malignant neoplasm of other parts of uterus; Z91.14 Patient's other noncompliance with medication regimen; Z90.5 Acquired absence of kidney; Z91.040 Latex allergy status; Z79.891 Long term (current) use of opiate analgesic; Z79.899 Other long term (current) drug therapy; Z88.1 Allergy status to other antibiotic agents; Z88.0 Allergy status to penicillin; Z83.3 Family history of diabetes mellitus; Z80.41 Family history of malignant neoplasm of ovary
CPT/HCPCS: 36415; 74420; 80048; 82570; 84300; 84443; 85025; 86140; 87086; 88305; 90686; 90732; 94640; A9270-GY; C1876; G0378; J0696; J1100; J1644; J2020; J2250; J2405; J2704; J3010

== ENCOUNTER 2018-04-21 19:07 | Emergency (ER) | payer OTHER ==
[2018-04-21] MEDS ORDERED: NS 0.9% 1000 ML* 1,000 ML IV ONE ×2 (22:50→23:57)
[2018-04-21] MEDS ORDERED: Metoclopramide IV* 5 MG/ML 2 ML VIAL IV SLOW PU ONE (22:52)
[2018-04-21] MEDS: HYDROmorphone INJ* 2 MG/ML CARPUJECT SYRINGE IV SLOW PU PRN (23:07)
[2018-04-21 23:27] LABS: INR 1.38 (0.77-1.02)
[2018-04-21 23:34] LABS: ABS Basophils 0.1 10^3/ul (0-0.2); ABS Eosinophils 0 10^3/ul (0-0.6); ABS Lymphocytes 0.9 10^3/ul (1.0-4.8); ABS Monocytes 1.1 10^3/ul (0-0.8); ABS Nucleated RBC 0 10^3/ul; Eosinophil % 0.3 % (0-6); Hematocrit 25 % (35-47); Hemoglobin 8.2 g/dl (12.0-16.0); Mean Corpuscular HGB Conc 32 g/dl (31-36); Mean Corpuscular Hemoglobin 29 pg (27-31); Mean Corpuscular Volume 91 fL (80-97); Mean Platelet Volume 7.1 um3 (7.4-10.4); Nucleated Red Blood Cells % 0.1; Platelet Count 787 10^3/ul (150-450); Red Blood Count 2.78 10^6/ul (4.00-5.40); Red Cell Distribution Width 18 % (10.5-15); White Blood Count 15.2 10^3/ul (3.5-10.8)
[2018-04-21 23:37] LABS: EGFR Non-African American 13.8 (>60)
[2018-04-21] MEDS ORDERED: Vancomycin(*) 1,000 MG in NS 0.9% 250 ML* 250 ML IVPB ONE (23:58)
[2018-04-21] MEDS ORDERED: cefTRIAXone(*) 1 GM in NS 0.9% 50 ML* 50 ML IVPB ONE (23:58)
[2018-04-22] LABS: Urine Appearance Turbid; Urine Blood 2+ (Negative); Urine Color Amber; Urine Ketones Negative (Negative); Urine Protein 2+(100 mg/dL) (Negative); Urine Specific Gravity 1.015 (1.010-1.030); Urine Urobilinogen Positive (Negative)
[2018-04-22] MEDS ORDERED: NS 0.9% 250 ML* 250 ML ONE (01:56)
[2018-04-22] MEDS ORDERED: Vancomycin(*) 1,000 MG in NS 0.9% 250 ML* 250 ML IVPB ONE (02:00)
[2018-04-22] MEDS ORDERED: metroNIDAZOLE IV 500 MG/100ML* 500 MG/100 ML BAG IVPB ONE (02:15)
--- NOTE | 2018-04-22 04:42 | HP ---
H&P (Free Text) History and Physical: PCP: Preethi Tolliver MD Date/Time: 04/22/2018 0340 CC: "infection in my back" HPI: Mrs Bender is a 52YO obese female HX cervical CA s/p radioTX complicated by retroperitoneal fibrosis compromising the L kidney resulting in nephrectomy and dysfunction of the L kidney managed by Alexander Moise MD urology via recurrent stenting - one of which broke during retrieval with the proximal tip retained in the L renal pelvis, COPD, hypothyroidism, gout, chronic LBP, & GERD. 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 Of note, she is an extremely unreliable historian, as in I asked her if she had any symptoms now not present 6 weeks ago and she was insistent that she only had back and BLE pain, but later stated she has been unable to walk for the past 5-6 days 2nd BLE weakness and pain. She had family present, but they were no better informed. Records from [facility] will be requested. Despite admitting that her operative surgeon called repetitively attempting to have her come for follow up , she stated that she, "didn't feel like it or think it necessary" and only followed up with her PCP now, being informed promptly she needed to come to the ED for admission. PMedHx cervical CA s/p radioTX complicated by : retroperitoneal fibrosis resulting in : compromised L kidney & L nephrectomy : L ureteral stricture & hydronephrosis managed by Alexander Moise w/ stenting - one of which broke during extraction leaving a tip in the R renal pelvis COPD hypothyroidism gout chronic LBP GERD Ambulatory Orders DULoxetine DR CAP* [Cymbalta CAP*] 60 mg PO QAM 10/03/14 Pantoprazole TAB (NF) [Protonix TAB (NF)] 40 mg PO QAM 10/03/14 Albuterol/Ipratropium NEB.GREGORY* [Duoneb (Albuterol 2.5 MG/Ipratropium 0.5 MG)] 1 neb INH Q6H PRN 04/15/17 Allopurinol TAB* [Zyloprim 100 MG TAB*] 200 mg PO DAILY 04/15/17 Cetirizine* [ZyrTEC 10 MG TAB*] 20 mg PO DAILY 04/15/17 Cyclobenzaprine TAB* [Flexeril 10 MG TAB*] 10 mg PO BID 04/15/17 Oxycodone TAB(NF) [Oxycodone HCl 10 MG] 15 mg PO Q6H PRN MDD 60 mg 04/15/17 Mometasone/Formoter 200/5 MDI* [Dulera 200/5 MDI*] 1 puff INH QAM PRN #0 ea Senna TAB* [Senokot TAB*] 2 tab PO DAILY 09/05/17 Levothyroxine TAB* [Synthroid TAB*] 175 mcg PO DAILY #30 tab 09/10/17 Ascorbic Acid [Vitamin C] 500 mg PO DAILY 04/22/18 Colchicine [Mitigare] 0.3 mg PO DAILY 04/22/18 Docusate Sodium [Col-Rite] 200 mg PO DAILY 04/22/18 Ergocalciferol (Vitamin D2) [Vitamin D2] 50,000 unit PO WEEKLY 04/22/18 Ferrous Sulfate 325 mg PO DAILY 04/22/18 Fluticasone/Vilanterol MDI(NF) [Breo Ellipta MDI 100/25(NF)] 1 puff INH DAILY Ondansetron [Zofran Odt] 4 - 8 mg PO Q8HR PRN 04/22/18 Vitamin B-12 1,000 mcg PO DAILY 04/22/18 Allergies latex Allergy (Verified 04/21/18 19:17) Rash Penicillins Allergy (Verified 04/21/18 19:17) Hives ciprofloxacin Adverse Reaction (Verified 04/21/18 23:15) Nausea And Vomiting clindamycin Adverse Reaction (Verified 04/21/18 23:15) Vomiting nitrofurantoin Adverse Reaction (Verified 04/21/18 23:15) Nausea And Vomiting ENVIRONMENTAL Allergy (Uncoded 04/21/18 23:15) Unknown Reaction Details SWELLING OF EYES -SPRING TIME POLLEN, FRESH GRASS PSurgHx unknown bladder surgery leaving her with a urostomy in february of this year L nephrectomy 2nd retropertoneal fibrosis & failure recurrent R ureteral stenting 2nd stricture hysterectomy SocHx: 1/2 PPD w/ ~15PYHX, no alcohol or recreational drugs; disabled; lives with family; full code status FamHx: Mother: passed at 53 2nd ovarian CA w/ HX SLE; Father: passed at 57 2nd unknown cause ROS: as above, otherwise reviewed and all were negative vitals: Vital Signs Temp 37.6 C 04/21/18 21:12 Pulse 97 04/22/18 03:00 Resp 15 04/21/18 23:07 BP 103/58 04/22/18 02:54 Pulse Ox 96 04/22/18 03:00 Constitutional: NAD, normally developed, obese white female HEENM: atraumatic; sclera/conjunctiva: anicteric/clear; hearing: clinically intact; oropharynx: clear, mucosa moist Neck: soft tissue: non-tender; thyroid: normal Pulmonary: end-expiratory upper airway wheeze, fair to good aeration, no accessory muscle use CV: RR/RR, normal S1S2, no carotid bruit, no jugular venous distention, 2+ B DP/ PT, no edema Abdominal: soft, non-distended, non-tender, no rebound/guarding/rigidity, normoactive bowel sounds, no hepatosplenomegaly or masses, no costovertebral angle tenderness Musculoskeletal: general: tenderness palpating the pelvis, no midline spinal tenderness; can wiggle toes B, cannot lift either leg from the bed appearing to be mainly 2nd pain Integumental: normal appearance and texture of exposed skin Psychiatric orientation: AA&O to PP, only loosely to situation due to baseline cognitive ability affect: calm mood: cooperative eye contact: fair content: unreliable primarily 2nd a paucity of informational details regarding her history responses: mildly slowed insight: poor Testing: Lab Results 04/21/18 04/21/18 04/21/18 Range/Units 23:06 23:06 23:07 WBC 15.2 H (3.5-10.8) 10^3/ul RBC 2.78 L (4.00-5.40) 10^6/ul Hgb 8.2 L (12.0-16.0) g/dl Hct 25 L (35-47) % MCV 91 (80-97) fL MCH 29 (27-31) pg MCHC 32 (31-36) g/dl RDW 18 H (10.5-15) % Plt Count 787 H (150-450) 10^3/ul MPV 7.1 L (7.4-10.4) um3 Neut % (Auto) 85.4 H (38-83) % Lymph % (Auto) 6.0 L (25-47) % [place] % (Auto) 7.5 H (0-7) % Eos % (Auto) 0.3 (0-6) % Baso % (Auto) 0.8 (0-2) % Absolute Neuts (auto) 13.0 H (1.5-7.7) 10^3/ul Absolute Lymphs (auto) 0.9 L (1.0-4.8) 10^3/ul Absolute Monos (auto) 1.1 H (0-0.8) 10^3/ul Absolute Eos (auto) 0 (0-0.6) 10^3/ul Absolute Basos (auto) 0.1 (0-0.2) 10^3/ul Absolute Nucleated RBC 0 10^3/ul Nucleated RBC % 0.1 INR (Anticoag Therapy) (0.77-1.02) APTT (26.0-36.3) seconds Sodium 126 L (135-145) mmol/L Potassium 3.6 (3.5-5.0) mmol/L Chloride 98 L (101-111) mmol/L Carbon Dioxide 18 L (22-32) mmol/L Anion Gap 10 (2-11) mmol/L BUN 43 H (6-24) mg/dL Creatinine 3.48 H (0.51-0.95) mg/dL Est GFR ( Amer) 16.6 (>60) Est GFR (Non-Af Amer) 13.8 (>60) BUN/Creatinine Ratio 12.4 (8-20) Glucose 104 H (70-100) mg/dL Lactic Acid 0.5 (0.5-2.0) mmol/L Calcium 9.6 (8.6-10.3) mg/dL Magnesium 2.0 (1.9-2.7) mg/dL Total Bilirubin 1.00 (0.2-1.0) mg/dL AST 18 (13-39) U/L ALT 14 (7-52) U/L Alkaline Phosphatase 188 H (34-104) U/L C-Reactive Protein 384.93 H (<8.01) mg/L Total Protein 8.9 (6.4-8.9) g/dL Albumin 3.0 L (3.2-5.2) g/dL Globulin 5.9 H (2-4) g/dL Albumin/Globulin Ratio 0.5 L (1-3) Amylase 24 L (29-103) U/L Lipase 22 (11.0-82.0) U/L Urine Color Urine Appearance Urine pH (5-9) Ur Specific [place] (1.010-1.030) Urine Protein (Negative) Urine Ketones (Negative) Urine Blood (Negative) Urine Nitrate (Negative) Urine Bilirubin (Negative) Urine Urobilinogen (Negative) Ur Leukocyte Esterase (Negative) Urine WBC (Auto) (Absent) Urine RBC (Auto) (Absent) Urine Bacteria (Absent) Urine Glucose (Negative) 04/21/18 04/21/18 04/22/18 Range/Units 23:07 23:30 02:32 WBC (3.5-10.8) 10^3/ul RBC (4.00-5.40) 10^6/ul Hgb (12.0-16.0) g/dl Hct (35-47) % MCV (80-97) fL MCH (27-31) pg MCHC (31-36) g/dl RDW (10.5-15) % Plt Count (150-450) 10^3/ul MPV (7.4-10.4) um3 Neut % (Auto) (38-83) % Lymph % (Auto) (25-47) % [place] % (Auto) (0-7) % Eos % (Auto) (0-6) % Baso % (Auto) (0-2) % Absolute Neuts (auto) (1.5-7.7) 10^3/ul Absolute Lymphs (auto) (1.0-4.8) 10^3/ul Absolute Monos (auto) (0-0.8) 10^3/ul Absolute Eos (auto) (0-0.6) 10^3/ul Absolute Basos (auto) (0-0.2) 10^3/ul Absolute Nucleated RBC 10^3/ul Nucleated RBC % INR (Anticoag Therapy) 1.38 H (0.77-1.02) APTT 29.0 (26.0-36.3) seconds Sodium (135-145) mmol/L Potassium (3.5-5.0) mmol/L Chloride (101-111) mmol/L Carbon Dioxide (22-32) mmol/L Anion Gap (2-11) mmol/L BUN (6-24) mg/dL Creatinine (0.51-0.95) mg/dL Est GFR ( Amer) (>60) Est GFR (Non-Af Amer) (>60) BUN/Creatinine Ratio (8-20) Glucose (70-100) mg/dL Lactic Acid 0.5 (0.5-2.0) mmol/L Calcium (8.6-10.3) mg/dL Magnesium (1.9-2.7) mg/dL Total Bilirubin (0.2-1.0) mg/dL AST (13-39) U/L ALT (7-52) U/L Alkaline Phosphatase (34-104) U/L C-Reactive Protein (<8.01) mg/L Total Protein (6.4-8.9) g/dL Albumin (3.2-5.2) g/dL Globulin (2-4) g/dL Albumin/Globulin Ratio (1-3) Amylase (29-103) U/L Lipase (11.0-82.0) U/L Urine Color Carly Urine Appearance Turbid Urine pH 7.0 (5-9) Ur Specific [place] 1.015 (1.010-1.030) Urine Protein 2+(100 mg/dl) A (Negative) Urine Ketones Negative (Negative) Urine Blood 2+ A (Negative) Urine Nitrate Negative (Negative) Urine Bilirubin Negative (Negative) Urine Urobilinogen Positive A (Negative) Ur Leukocyte Esterase 3+ A (Negative) Urine WBC (Auto) 3+(>20/hpf) A (Absent) Urine RBC (Auto) 3+(>10/hpf) A (Absent) Urine Bacteria 1+ A (Absent) Urine Glucose Negative (Negative) CT abd/pel, personally reviewed: FINDINGS: Patient has had left nephrectomy, cystectomy, and ileal conduit for the right kidney. There are erosive/ destructive changes of the symphysis pubis associated with edematous adjacent soft tissue containing gas bubbles. This is highly suspicious for osteomyelitis with associated soft tissue infection. (The possibility of underlying or associated bony metastatic disease should be considered as well) The gas bubbles and inflammation are both anterior and posterior to the pubis and stent slightly into the left peritoneum Impression: DIAGNOSIS & PLAN Primary Secondary Admission Rational: DVTp: Code Status: HCP:
--- NOTE | 2018-04-22 04:54 | CONSULT ---
Consult Consult: PCP: Preethi Tolliver MD Date/Time: 04/22/2018 3384 CC: "infection in my back" HPI: Mrs Bender is a 52YO obese female HX cervical CA s/p radioTX complicated by retroperitoneal fibrosis compromising the L kidney resulting in nephrectomy and dysfunction of the L kidney managed by Alexander Moise MD urology via recurrent stenting - one of which broke during retrieval with the proximal tip retained in the L renal pelvis, COPD, hypothyroidism, gout, chronic LBP, & GERD. 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 Of note, she is an extremely unreliable historian, as in I asked her if she had any symptoms now not present 6 weeks ago and she was insistent that she only had back and BLE pain, but later stated she has been unable to walk for the past 5-6 days 2nd BLE weakness and pain. She had family present, but they were no better informed. Records from [facility] will be requested. Despite admitting that her operative surgeon called repetitively attempting to have her come for follow up , she stated that she, "didn't feel like it or think it necessary" and only followed up with her PCP now, being informed promptly she needed to come to the ED for admission. PMedHx cervical CA s/p radioTX complicated by : retroperitoneal fibrosis resulting in : compromised L kidney & L nephrectomy : R ureteral stricture & hydronephrosis managed by Alexander Moise w/ stenting - one of which broke during extraction leaving a tip in the R renal pelvis transitional cell CA of bladder, high grade COPD hypothyroidism gout chronic LBP GERD Ambulatory Orders DULoxetine DR CAP* [Cymbalta CAP*] 60 mg PO QAM 10/03/14 Pantoprazole TAB (NF) [Protonix TAB (NF)] 40 mg PO QAM 10/03/14 Albuterol/Ipratropium NEB.GREGORY* [Duoneb (Albuterol 2.5 MG/Ipratropium 0.5 MG)] 1 neb INH Q6H PRN 04/15/17 Allopurinol TAB* [Zyloprim 100 MG TAB*] 200 mg PO DAILY 04/15/17 Cetirizine* [ZyrTEC 10 MG TAB*] 20 mg PO DAILY 04/15/17 Cyclobenzaprine TAB* [Flexeril 10 MG TAB*] 10 mg PO BID 04/15/17 Oxycodone TAB(NF) [Oxycodone HCl 10 MG] 15 mg PO Q6H PRN MDD 60 mg 04/15/17 Mometasone/Formoter 200/5 MDI* [Dulera 200/5 MDI*] 1 puff INH QAM PRN #0 ea Senna TAB* [Senokot TAB*] 2 tab PO DAILY 09/05/17 Levothyroxine TAB* [Synthroid TAB*] 175 mcg PO DAILY #30 tab 09/10/17 Ascorbic Acid [Vitamin C] 500 mg PO DAILY 04/22/18 Colchicine [Mitigare] 0.3 mg PO DAILY 04/22/18 Docusate Sodium [Col-Rite] 200 mg PO DAILY 04/22/18 Ergocalciferol (Vitamin D2) [Vitamin D2] 50,000 unit PO WEEKLY 04/22/18 Ferrous Sulfate 325 mg PO DAILY 04/22/18 Fluticasone/Vilanterol MDI(NF) [Breo Ellipta MDI 100/25(NF)] 1 puff INH DAILY Ondansetron [Zofran Odt] 4 - 8 mg PO Q8HR PRN 04/22/18 Vitamin B-12 1,000 mcg PO DAILY 04/22/18 Allergies latex Allergy (Verified 04/21/18 19:17) Rash Penicillins Allergy (Verified 04/21/18 19:17) Hives ciprofloxacin Adverse Reaction (Verified 04/21/18 23:15) Nausea And Vomiting clindamycin Adverse Reaction (Verified 04/21/18 23:15) Vomiting nitrofurantoin Adverse Reaction (Verified 04/21/18 23:15) Nausea And Vomiting ENVIRONMENTAL Allergy (Uncoded 04/21/18 23:15) Unknown Reaction Details SWELLING OF EYES -SPRING TIME POLLEN, FRESH GRASS PSurgHx unknown bladder surgery leaving her with a urostomy in february of this year L nephrectomy 2nd retropertoneal fibrosis & failure recurrent R ureteral stenting 2nd stricture hysterectomy cystectomy ileal conduit SocHx: 1/2 PPD w/ ~15PYHX, no alcohol or recreational drugs; disabled; lives with family; full code status FamHx: Mother: passed at 53 2nd ovarian CA w/ HX SLE; Father: passed at 57 2nd unknown cause ROS: as above, otherwise reviewed and all were negative vitals: Vital Signs Temp 37.6 C 04/21/18 21:12 Pulse 97 04/22/18 03:00 Resp 15 04/21/18 23:07 BP 103/58 04/22/18 02:54 Pulse Ox 96 04/22/18 03:00 Constitutional: NAD, normally developed, obese white female HEENM: atraumatic; sclera/conjunctiva: anicteric/clear; hearing: clinically intact; oropharynx: clear, mucosa moist Neck: soft tissue: non-tender; thyroid: normal Pulmonary: end-expiratory upper airway wheeze, fair to good aeration, no accessory muscle use CV: RR/RR, normal S1S2, no carotid bruit, no jugular venous distention, 2+ B DP/ PT, no edema Abdominal: soft, non-distended, non-tender, no rebound/guarding/rigidity, normoactive bowel sounds, no hepatosplenomegaly or masses, no costovertebral angle tenderness Musculoskeletal: general: tenderness palpating the pelvis, no midline spinal tenderness; can wiggle toes B, cannot lift either leg from the bed appearing to be mainly 2nd pain Integumental: normal appearance and texture of exposed skin Psychiatric orientation: AA&O to PP, only loosely to situation due to baseline cognitive ability affect: calm mood: cooperative eye contact: fair content: unreliable primarily 2nd a paucity of informational details regarding her history responses: mildly slowed insight: poor Testing: Lab Results 04/21/18 04/21/18 04/21/18 Range/Units 23:06 23:06 23:07 WBC 15.2 H (3.5-10.8) 10^3/ul RBC 2.78 L (4.00-5.40) 10^6/ul Hgb 8.2 L (12.0-16.0) g/dl Hct 25 L (35-47) % MCV 91 (80-97) fL MCH 29 (27-31) pg MCHC 32 (31-36) g/dl RDW 18 H (10.5-15) % Plt Count 787 H (150-450) 10^3/ul MPV 7.1 L (7.4-10.4) um3 Neut % (Auto) 85.4 H (38-83) % Lymph % (Auto) 6.0 L (25-47) % [place] % (Auto) 7.5 H (0-7) % Eos % (Auto) 0.3 (0-6) % Baso % (Auto) 0.8 (0-2) % Absolute Neuts (auto) 13.0 H (1.5-7.7) 10^3/ul Absolute Lymphs (auto) 0.9 L (1.0-4.8) 10^3/ul Absolute Monos (auto) 1.1 H (0-0.8) 10^3/ul Absolute Eos (auto) 0 (0-0.6) 10^3/ul Absolute Basos (auto) 0.1 (0-0.2) 10^3/ul Absolute Nucleated RBC 0 10^3/ul Nucleated RBC % 0.1 INR (Anticoag Therapy) (0.77-1.02) APTT (26.0-36.3) seconds Sodium 126 L (135-145) mmol/L Potassium 3.6 (3.5-5.0) mmol/L Chloride 98 L (101-111) mmol/L Carbon Dioxide 18 L (22-32) mmol/L Anion Gap 10 (2-11) mmol/L BUN 43 H (6-24) mg/dL Creatinine 3.48 H (0.51-0.95) mg/dL Est GFR ( Amer) 16.6 (>60) Est GFR (Non-Af Amer) 13.8 (>60) BUN/Creatinine Ratio 12.4 (8-20) Glucose 104 H (70-100) mg/dL Lactic Acid 0.5 (0.5-2.0) mmol/L Calcium 9.6 (8.6-10.3) mg/dL Magnesium 2.0 (1.9-2.7) mg/dL Total Bilirubin 1.00 (0.2-1.0) mg/dL AST 18 (13-39) U/L ALT 14 (7-52) U/L Alkaline Phosphatase 188 H (34-104) U/L C-Reactive Protein 384.93 H (<8.01) mg/L Total Protein 8.9 (6.4-8.9) g/dL Albumin 3.0 L (3.2-5.2) g/dL Globulin 5.9 H (2-4) g/dL Albumin/Globulin Ratio 0.5 L (1-3) Amylase 24 L (29-103) U/L Lipase 22 (11.0-82.0) U/L Urine Color Urine Appearance Urine pH (5-9) Ur Specific [place] (1.010-1.030) Urine Protein (Negative) Urine Ketones (Negative) Urine Blood (Negative) Urine Nitrate (Negative) Urine Bilirubin (Negative) Urine Urobilinogen (Negative) Ur Leukocyte Esterase (Negative) Urine WBC (Auto) (Absent) Urine RBC (Auto) (Absent) Urine Bacteria (Absent) Urine Glucose (Negative) 04/21/18 04/21/18 04/22/18 Range/Units 23:07 23:30 02:32 WBC (3.5-10.8) 10^3/ul RBC (4.00-5.40) 10^6/ul Hgb (12.0-16.0) g/dl Hct (35-47) % MCV (80-97) fL MCH (27-31) pg MCHC (31-36) g/dl RDW (10.5-15) % Plt Count (150-450) 10^3/ul MPV (7.4-10.4) um3 Neut % (Auto) (38-83) % Lymph % (Auto) (25-47) % [place] % (Auto) (0-7) % Eos % (Auto) (0-6) % Baso % (Auto) (0-2) % Absolute Neuts (auto) (1.5-7.7) 10^3/ul Absolute Lymphs (auto) (1.0-4.8) 10^3/ul Absolute Monos (auto) (0-0.8) 10^3/ul Absolute Eos (auto) (0-0.6) 10^3/ul Absolute Basos (auto) (0-0.2) 10^3/ul Absolute Nucleated RBC 10^3/ul Nucleated RBC % INR (Anticoag Therapy) 1.38 H (0.77-1.02) APTT 29.0 (26.0-36.3) seconds Sodium (135-145) mmol/L Potassium (3.5-5.0) mmol/L Chloride (101-111) mmol/L Carbon Dioxide (22-32) mmol/L Anion Gap (2-11) mmol/L BUN (6-24) mg/dL Creatinine (0.51-0.95) mg/dL Est GFR ( Amer) (>60) Est GFR (Non-Af Amer) (>60) BUN/Creatinine Ratio (8-20) Glucose (70-100) mg/dL Lactic Acid 0.5 (0.5-2.0) mmol/L Calcium (8.6-10.3) mg/dL Magnesium (1.9-2.7) mg/dL Total Bilirubin (0.2-1.0) mg/dL AST (13-39) U/L ALT (7-52) U/L Alkaline Phosphatase (34-104) U/L C-Reactive Protein (<8.01) mg/L Total Protein (6.4-8.9) g/dL Albumin (3.2-5.2) g/dL Globulin (2-4) g/dL Albumin/Globulin Ratio (1-3) Amylase (29-103) U/L Lipase (11.0-82.0) U/L Urine Color Carly Urine Appearance Turbid Urine pH 7.0 (5-9) Ur Specific [place] 1.015 (1.010-1.030) Urine Protein 2+(100 mg/dl) A (Negative) Urine Ketones Negative (Negative) Urine Blood 2+ A (Negative) Urine Nitrate Negative (Negative) Urine Bilirubin Negative (Negative) Urine Urobilinogen Positive A (Negative) Ur Leukocyte Esterase 3+ A (Negative) Urine WBC (Auto) 3+(>20/hpf) A (Absent) Urine RBC (Auto) 3+(>10/hpf) A (Absent) Urine Bacteria 1+ A (Absent) Urine Glucose Negative (Negative) CT abd/pel, personally reviewed: FINDINGS: Patient has had left nephrectomy, cystectomy, and ileal conduit for the right kidney. There are erosive/ destructive changes of the symphysis pubis associated with edematous adjacent soft tissue containing gas bubbles. This is highly suspicious for osteomyelitis with associated soft tissue infection. (The possibility of underlying or associated bony metastatic disease should be considered as well) The gas bubbles and inflammation are both anterior and posterior to the pubis and stent slightly into the left peritoneum. 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 There is also some wall thickening fo the right renal pelvis and proximal ureter with mild fatty stranding. There could be associated urinary tract infection as well. No bowel obstruction. Borderline fatty liver. Spleen is borderline enlarged. Previously as well. Normal pancreas. Normal adrenal glands. No obvious gallbladder abnormalities. No free fluid. MRI L-spine, personally reviewed: FINDINGS: The lumbar vertebrae are normally aligned. No fracture or destructive bone lesion. Degenerative changes. At L2-3, there is disc bulging slightly indenting the canal. At L3-4, there is a disc bulging and posterior element hypertrophy resulting in moderate to moderately severe canal stenosis. At L5-S1, there is disc bulging and posterior element hypertrophy mildly narrowing the foramina, but not narrowing the canal. Fatty filum terminale incidentally noted. Please note that the degenerative changes described have increased to some degree compared to the 2013 scans. MRI T-spine, personally reviewed: FINDINGS: The thoracic vertebrae are normally aligned. No fracture or destructive bone lesion. No significant disc, bony, or ligamentous abnormality seen in any thoracic level. No thoracic canal or foraminal stenosis. No abnormalities of the thoracic cord are identified. Limited sagittal localizers of the cervical spine demonstrate slight reversal of the cervical lordosis and mild C3-4, C4-5, and C5-6 disc protrusions. This indents the canal. No obvious abnormalities of the cervical cord although the cervical portion of the scan is low resolution and for localization purposes only. 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 The case was reviewed with Alexander Weinberg MD urology who advised NO admission until an MRI of the pelvis can be obtained and her primary urologist, Alexander Moise MD, is able to evaluate her in the AM and determine her final dispositions. In the interval she will be kept in the ED, given appropriate IVFs & IV ABX with corresponding microbiological work up. 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 : IV vancomycin, ceftriaxone, & metronidazole : IVFs : blood & urine CXs : pain control : MRI pelvis in AM : Alexander Moise MD urology to be called in AM to evaluate in ED and determine disposition : consider general surgery & infectious disease consults in AM, pending disposition : supportive care TUNDE : IVFs, trend hypoNatremia : IVFS, trend Secondary HX cervical CA s/p radioTX complicated by - retroperitoneal fibrosis resulting in - L nephrectomy - R ureteral stricture & chronic hydronephrosis managed via recurrent stenting - retained fractured R ureteral stent in R renal pelvis : no acute issues COPD : continue albuterol/ipratropium & mometasone/formoterol hypothyroidism : continue levothyroxine gout : continue allopurinol & colchicine chronic LBP : continue duloxetine, cyclobenzaprine, oxycodone GERD : continue pantoprazole Admission Rational: will need inpatient, here vs higher level of care to be determined by Alexander Moise MD urology DVTp: SCDs & heparin SQ Code Status: full HCP: sisterEm
[2018-04-22] MEDS ORDERED: NS 0.9% 1000 ML* 1,000 ML IV SCH ×2 (05:00→05:45)
[2018-04-22] MEDS: HYDROmorphone INJ* 2 MG/ML CARPUJECT SYRINGE IV SLOW PU PRN (05:03)
[2018-04-22] MEDS ORDERED: Acetaminophen TAB* 325 MG PO PRN (05:28)
[2018-04-22] MEDS ORDERED: HYDROmorphone INJ* 2 MG/ML CARPUJECT SYRINGE IV PRN (05:28)
[2018-04-22] MEDS ORDERED: Albuterol/Ipratropium NEB.SOL* Albuterol 2.5 MG/Ipratropium 0.5 MG 3 ML INH PRN (05:42)
[2018-04-22] MEDS ORDERED: Ondansetron ODT TAB* 4 MG PO PRN (05:42)
[2018-04-22] MEDS ORDERED: Mometasone/Formoter 200/5 MDI INH PRN (05:42)
[2018-04-22] MEDS ORDERED: oxyCODONE TAB* 5 MG TAB PO PRN (05:42)
[2018-04-22] MEDS ORDERED: Vancomycin per Pharmacy* NOTE FOLLOW UP SCH (06:00)
[2018-04-22 06:37] LABS: Hematocrit 23 % (35-47); Hemoglobin 7.1 g/dl (12.0-16.0); Mean Corpuscular HGB Conc 31 g/dl (31-36); Mean Corpuscular Hemoglobin 29 pg (27-31); Mean Corpuscular Volume 92 fL (80-97); Mean Platelet Volume 7.1 um3 (7.4-10.4); Platelet Count 695 10^3/ul (150-450); Red Blood Count 2.47 10^6/ul (4.00-5.40); Red Cell Distribution Width 18 % (10.5-15); White Blood Count 13.5 10^3/ul (3.5-10.8)
[2018-04-22 06:39] LABS: INR 1.36 (0.77-1.02)
--- NOTE | 2018-04-22 06:54 | ED ---
Lowell Anderson Jacob, scribed for Keith Skinner MD on 04/22/18 at 0452 . Lower Extremity - HPI Summary HPI Summary: Pt is a 52 y/o female w/ c/o BLE pain onsetting 3 weeks ago, notedly in the hip and pelvis. Pt states that she was seen by her PCP 5 days ago and was referred to ED. She also notes acute on chronic back pain with symptoms worsening since onset. Reports taking 30 mg of prescribed oxycodone which has not improved sx. Pt reports green vaginal discharge w/ itching and burning. She claims that she has not been able to walk for five days whereas previously she used a walker. Notes that her last bowel movement was six days ago and that has been eating very little. She notes a Hx of back pain and states she had a cystectomy and left nephrectomy in 2007 d/t bladder cancer. Pt also reports having a surgery in [place] for her cancer on 01/22/18 and discharged on 01/26. She was meant to follow up w/ surgeon but, "Did not feel like it". - History of Current Complaint Chief Complaint: DANIELAExtreSofia Stated Complaint: BILAT LEG PAIN Time Seen by Provider: 04/21/18 22:10 Hx Obtained From: Patient Hx Last Menstrual Period: 1999 Onset/Duration: Worse Since - 3 weeks ago Severity Currently: Severe Pain Intensity: 8 Pain Scale Used: 0-10 Numeric - 8/10 Location: Is Discrete @ - Bilateral LE (notedly hips and pelvis) and back Associated Signs And Symptoms: Positive: Other - back, pelvic and hip pain, green vaginal discharge Aggravating Factor(s): Nothing Alleviating Factor(s): Nothing Able to Bear Weight: No - pt states she has not walked in 5 days - Allergies/Home Medications Allergies/Adverse Reactions: Allergies Allergy/AdvReac Type Severity Reaction Status Date / Time latex Allergy Rash Verified 04/21/18 19:17 Penicillins Allergy Hives Verified 04/21/18 19:17 ciprofloxacin AdvReac Nausea And Verified 04/21/18 23:15 Vomiting clindamycin AdvReac Vomiting Verified 04/21/18 23:15 nitrofurantoin AdvReac Nausea And Verified 04/21/18 23:15 Vomiting ENVIRONMENTAL Allergy Unknown Uncoded 04/21/18 23:15 Reaction Details Home Medications: Home Medications Ascorbic Acid [Vitamin C] 500 mg PO DAILY 04/22/18 [History Confirmed 04/22/18] Colchicine [Mitigare] 0.3 mg PO DAILY 04/22/18 [History Confirmed 04/22/18] Docusate Sodium [Col-Rite] 200 mg PO DAILY 04/22/18 [History Confirmed 04/22/18] Ergocalciferol (Vitamin D2) [Vitamin D2] 50,000 unit PO WEEKLY 04/22/18 [ History Confirmed 04/22/18] Ferrous Sulfate 325 mg PO DAILY 04/22/18 [History Confirmed 04/22/18] Fluticasone/Vilanterol MDI(NF) [Breo Ellipta MDI 100/25(NF)] 1 puff INH DAILY [History Confirmed 04/22/18] Ondansetron [Zofran Odt] 4 - 8 mg PO Q8HR PRN 04/22/18 [History Confirmed ] Vitamin B-12 1,000 mcg PO DAILY 04/22/18 [History Confirmed 04/22/18] PMH/Surg Hx/FS Hx/Imm Hx Endocrine/Hematology History: Reports: Hx Diabetes - diet controlled at this time, Hx Thyroid Disease - hypothyroidism Denies: Hx Anticoagulant Therapy Cardiovascular History: Reports: Hx Cardiomegaly, Hx Hypertension - AT TIMES USUALLY WHEN ANXIOUS NOT ON MEDS Denies: Hx Pacemaker/ICD, Other Cardiovascular Problems/Disorders Respiratory History: Reports: Hx Asthma - prn inhaler, Hx Sleep Apnea - suspected, not confirmed, Other Respiratory Problems/Disorders - uses nebulizer prn GI History: Reports: Hx Gastroesophageal Reflux Disease, Hx Hiatal Hernia, Hx Obstructive Bowel - 04/18/17, Other GI Disorders - hiatal hernia, cervical ca History: Reports: Hx Kidney Infection, Hx Kidney Stones, Hx Renal Disease - LEFT KIDNEY REMOVED, Other Problems/Disorders - Nephrectomy, stents Musculoskeletal History: Reports: Hx Arthritis - back, neck and knees, Hx Back Problems, Other Musculoskeletal History - gout, on meds, disc disease, spinal stenosis Sensory History: Reports: Hx Contacts or Glasses - glasses, Other Sensory Impairments - Psorisis Denies: Hx Hearing Aid Opthamlomology History: Reports: Hx Contacts or Glasses - glasses, Other Sensory Impairments - Psorisis Neurological History: Reports: Hx Headaches - pcp following, Hx Nerve Disease - reports nerve damage in legs, Other Neuro Impairments/Disorders - 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 left cysto, stents x5 2007. [place]. ectopic preg 1986- [facility]. ureteral stents x4 [facility] [place], last one aug 2016. [place] [facility] 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 - [facility] [place] Hx Anesthesia Reactions: No - Immunization History Date of Tetanus Vaccine: Unk Date of Influenza Vaccine: None Infectious Disease History: No Infectious Disease History: Denies: History Other Infectious Disease, Traveled Outside the [place] in Last 30 Days - Family History Known Family History: Negative: Other - breast cancer Family History: No FHx of Breast CA - Social History Alcohol Use: None Substance Use Type: Reports: None Smoking Status (MU): Current Every Day Smoker Type: Cigarettes Amount Used/How Often: 1 ppd for 37 years; 1/4PPD Length of Time of Smoking/Using Tobacco: 30+ yrs Have You Smoked in the Last Year: Yes Review of Systems Negative: Fever Positive: burning, discharge - green discharge, other - Pruritis Positive: Other - back pain, bilateral LE (hip and pelvis) All Other Systems Reviewed And Are Negative: Yes Physical Exam - Summary Physical Exam Summary: VITAL SIGNS: Reviewed. GENERAL: Patient is a well-developed and nourished female who is lying comfortable in the stretcher. Patient is not in any acute respiratory distress. HEAD AND FACE: No signs of trauma. No ecchymosis, hematomas or skull depressions. No sinus tenderness. EYES: PERRLA, EOMI x 2, No injected conjunctiva, no nystagmus. EARS: Hearing grossly intact. Ear canals and tympanic membranes are within normal limits. MOUTH: Oropharynx within normal limits. NECK: Supple, trachea is midline, no adenopathy, no JVD, no carotid bruit, no c- spine tenderness, neck with full ROM. CHEST: Symmetric, no tenderness at palpation LUNGS: Clear to auscultation bilaterally. No wheezing or crackles. CVS: Regular rate and rhythm, S1 and S2 present, no murmurs or gallops appreciated. ABDOMEN: Soft. No signs of distention. No rebound no guarding, and no masses palpated. Bowel sounds are normal. Atrial conduit on right side w/ urine in bag. Tenderness, erythema, and small edema over pelvic area and around vaginal area w/ no open sores, no gangrene. EXTREMITIES: No cyanosis or clubbing. NEURO: Alert and oriented x 3. No acute neurological deficits. Speech is normal and follows commands. Lower extremity neuro/motor exam has 0/5 strength, cannot move lower extremities. Senses intact. SKIN: Dry and warm Triage Information Reviewed: Yes Vital Signs On Initial Exam: Initial Vitals Temp Pulse Resp BP Pulse Ox 99.1 F 106 18 104/57 94 04/21/18 19:11 04/21/18 19:11 04/21/18 19:11 04/21/18 19:11 04/21/18 19:11 Vital Signs Reviewed: Yes Diagnostics - Vital Signs Vital Signs Temp Pulse Resp BP Pulse Ox 04/21/18 23:23 100 102/66 90 04/21/18 23:13 100 92 04/21/18 23:07 15 04/21/18 22:55 100 93 04/21/18 22:53 101 107/64 93 04/21/18 21:12 99.7 F 107 18 130/59 97 04/21/18 19:11 99.1 F 106 18 104/57 94 - Laboratory Lab Results: Lab Results 04/21/18 04/21/18 04/21/18 Range/Units 23:06 23:06 23:07 WBC 15.2 H (3.5-10.8) 10^3/ul RBC 2.78 L (4.00-5.40) 10^6/ul Hgb 8.2 L (12.0-16.0) g/dl Hct 25 L (35-47) % MCV 91 (80-97) fL MCH 29 (27-31) pg MCHC 32 (31-36) g/dl RDW 18 H (10.5-15) % Plt Count 787 H (150-450) 10^3/ul MPV 7.1 L (7.4-10.4) um3 Neut % (Auto) 85.4 H (38-83) % Lymph % (Auto) 6.0 L (25-47) % Pennington % (Auto) 7.5 H (0-7) % Eos % (Auto) 0.3 (0-6) % Baso % (Auto) 0.8 (0-2) % Absolute Neuts (auto) 13.0 H (1.5-7.7) 10^3/ul Absolute Lymphs (auto) 0.9 L (1.0-4.8) 10^3/ul Absolute Monos (auto) 1.1 H (0-0.8) 10^3/ul Absolute Eos (auto) 0 (0-0.6) 10^3/ul Absolute Basos (auto) 0.1 (0-0.2) 10^3/ul Absolute Nucleated RBC 0 10^3/ul Nucleated RBC % 0.1 INR (Anticoag Therapy) (0.77-1.02) APTT (26.0-36.3) seconds Sodium 126 L (135-145) mmol/L Potassium 3.6 (3.5-5.0) mmol/L Chloride 98 L (101-111) mmol/L Carbon Dioxide 18 L (22-32) mmol/L Anion Gap 10 (2-11) mmol/L BUN 43 H (6-24) mg/dL Creatinine 3.48 H (0.51-0.95) mg/dL Est GFR ( Amer) 16.6 (>60) Est GFR (Non-Af Amer) 13.8 (>60) BUN/Creatinine Ratio 12.4 (8-20) Glucose 104 H (70-100) mg/dL Lactic Acid 0.5 (0.5-2.0) mmol/L Calcium 9.6 (8.6-10.3) mg/dL Magnesium 2.0 (1.9-2.7) mg/dL Total Bilirubin 1.00 (0.2-1.0) mg/dL AST 18 (13-39) U/L ALT 14 (7-52) U/L Alkaline Phosphatase 188 H (34-104) U/L C-Reactive Protein 384.93 H (<8.01) mg/L Total Protein 8.9 (6.4-8.9) g/dL Albumin 3.0 L (3.2-5.2) g/dL Globulin 5.9 H (2-4) g/dL Albumin/Globulin Ratio 0.5 L (1-3) Amylase 24 L (29-103) U/L Lipase 22 (11.0-82.0) U/L 06//18 Range/Units 23:07 WBC (3.5-10.8) 10^3/ul RBC (4.00-5.40) 10^6/ul Hgb (12.0-16.0) g/dl Hct (35-47) % MCV (80-97) fL MCH (27-31) pg MCHC (31-36) g/dl RDW (10.5-15) % Plt Count (150-450) 10^3/ul MPV (7.4-10.4) um3 Neut % (Auto) (38-83) % Lymph % (Auto) (25-47) % Pennington % (Auto) (0-7) % Eos % (Auto) (0-6) % Baso % (Auto) (0-2) % Absolute Neuts (auto) (1.5-7.7) 10^3/ul Absolute Lymphs (auto) (1.0-4.8) 10^3/ul Absolute Monos (auto) (0-0.8) 10^3/ul Absolute Eos (auto) (0-0.6) 10^3/ul Absolute Basos (auto) (0-0.2) 10^3/ul Absolute Nucleated RBC 10^3/ul Nucleated RBC % INR (Anticoag Therapy) 1.38 H (0.77-1.02) APTT 29.0 (26.0-36.3) seconds Sodium (135-145) mmol/L Potassium (3.5-5.0) mmol/L Chloride (101-111) mmol/L Carbon Dioxide (22-32) mmol/L Anion Gap (2-11) mmol/L BUN (6-24) mg/dL Creatinine (0.51-0.95) mg/dL Est GFR ( Amer) (>60) Est GFR (Non-Af Amer) (>60) BUN/Creatinine Ratio (8-20) Glucose (70-100) mg/dL Lactic Acid (0.5-2.0) mmol/L Calcium (8.6-10.3) mg/dL Magnesium (1.9-2.7) mg/dL Total Bilirubin (0.2-1.0) mg/dL AST (13-39) U/L ALT (7-52) U/L Alkaline Phosphatase (34-104) U/L C-Reactive Protein (<8.01) mg/L Total Protein (6.4-8.9) g/dL Albumin (3.2-5.2) g/dL Globulin (2-4) g/dL Albumin/Globulin Ratio (1-3) Amylase (29-103) U/L Lipase (11.0-82.0) U/L Result Diagrams: 04/21/18 23:07 04/21/18 23:06 Lab Statement: Any lab studies that have been ordered have been reviewed, and results considered in the medical decision making process. - Radiology MRI Lumbar Spine Xray Interpretation: Positive (See Comments) Radiology Interpretation Completed By: Radiologist - The lumbar vertebrae are normally aligned. No fracture or destructive bone lesions. Degenerative changes : at L2-3, there is disc bulging slightly indenting the canal. At L3-4, there is disc bulging and posterior element hypertrophy moderately narrowing the canal. At L4-5, there is disc bulging and posterior element hypertrophy resulting in moderate to moderately severe canal stenosis. At L5-S1, there is disc bulging and posterior element hypertrophy mildly narrowing the foramina but not narrowing the canal. Fatty filum terminale incidentally noted. The degenerative changes described have increased to some degree compared to the 2013 scans. ED physician reviewed this report. Pending official report. MRI Thoracic Spine Xray Interpretation: No Acute Changes - The thoracic vertebrae are normally aligned. No fracture or destructive bone lesion. No significant disc bony or ligamentous abnormality seen in any thoracic level. No thoracic canal or foraminal stenosis. No abnormalities of the thoracic cord are identified. Limited sagittal localizers of the cervical spine demonstrate slight reversal of the cervical lordosis and mild C3-4, C4-5, C5-6 disc protrusions. This indents the canal. No obvious abnormalities of the cervical cord although the cervical portion of the scan is low resolution and for localization purposes only. ED physician reviewed this report. Pending official report. Radiology Interpretation Completed By: Radiologist - CT CT Abd/Pel CT Interpretation: Positive (See Comments) - Patient has had left nephrectomy, cystectomy, and ileal conduit for the right kidney. There are erosive/ destructive changes of the symphysis pubis associated with edematous adjacent soft tissue containing gas bubbles. This is highly suspcious for osteomyelitis with associated soft tissue infection. (The possibility of underlying or associated bony metastatic disease should be considered as well). The gas bubbles and inflammation are both anterior and psoterior to the pubis and stent slightly into the left perineum. Therefore, this needs to be monitored for the developmnent of Fernanda's gangrene. There is also some wall thickening of the right renal pelvis and proximal ureter with mild fatty stranding. There could be associated urinary tract infection as well. No bowel obstruction. Borderline fatty liver. Spleen is borderline enlarged. Previously as well. Normal pancreas. Normal adrenal glands. No obvious gallbaldder abnormalities. No free fluid. ED phsyicain reviewed this report. Pending official report. CT Interpretation Completed By: Radiologist Re-Evaluation - Re-Evaluation Second Eval Re-Evaluation Time: 02:06 Comment: Examination of pelvic and vaginal area. Diffuse erythema over both regions. Lower Extremity Course/Dx - Course Assessment/Plan: Pt is a 52 y/o female w/ c/o BLE pain onsetting 3 weeks ago, notedly in the hip and pelvis. Pt states that she was seen by her PCP 5 days ago and was referred to ED. She also notes acute on chronic back pain with symptoms worsening since onset. Reports taking 30 mg of prescribed oxycodone which has not improved sx. Pt reports green vaginal discharge w/ itching and burning. She claims that she has not been able to walk for five days whereas previously she used a walker. Notes that her last bowel movement was six days ago and that has been eating very little. She notes a Hx of back pain and states she had a cystectomy and left nephrectomy in 2007 d/t bladder cancer. Pt also reports having a surgery in [place] for her cancer on 01/22/18 and discharged on 01/26. She was meant to follow up w/ surgeon but, "Did not feel like it". PE motor/neuro was 0/5 on the lower extremities, sensory intact. MRI L-spine, T-spine, and CT abd/pel received w/ impressions above. Bloodwork and UA received, WBC 15.2, INR 1.38, Lactic Acid 0.5, CRP 384.93. Urine and blood cultures were sent. During a re-evaluation, pt was re-examined. PE revealed diffuse erythema over pelvic and vaginal area. Jia (nurse) was present. During ED course, she received 1 dose of hydromorphone 1 mg IV slow push, metronidazole iv 500 mg/100 ml (flagyl 500 mg ivpb), and vancomycin, 1000 mg, metoclopramide 10 mg iv slow push, ceftriaxone, [address] Baxter was consulted at 0230 and accepts pt for admission. Pt was diagnosed w/ pelvic cellulitis/osteomyelitis. [place] [facility] [place] - Diagnoses Provider Diagnoses: Pelvic cellulitis in female, Osteomyelitis - Physician Notifications Discussed Care Of Patient With: Cal Pinedo Time Discussed With Above Provider: 02:30 Instructed by Provider To: Other - accepts pt for admission - Critical Care Time Critical Care Time: 30-74 min - 50 minutes Discharge - Sign-Out/Discharge Documenting (check all that apply): Discharge/Admit/Transfer - admit - Discharge Plan Condition: Critical Disposition: ADMITTED TO [facility] Referrals: Gladys Tolliver MD [Primary Care Provider] - The documentation as recorded by the Lowell fontanez Jacob accurately reflects the service I personally performed and the decisions made by , Keith Skinner MD.
[2018-04-22 07:09] LABS: EGFR Non-African American 13.7 (>60)
--- NOTE | 2018-04-22 07:58 | RAD ---
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 FINDINGS: Unless otherwise specified comparisons below reference the September 08, 2013 MRI of the lumbar spine. The spinal cord terminates at the L1 level. There are no intrinsic abnormalities of the visualized cord. The lower thoracic and lumbar vertebrae are normally aligned. Vertebral body height is adequately maintained. There is bright T1 and T2 weighted signal at the articulating endplates of L5 and S1 consistent with type II Modic change. At the lower lumbar spine there is loss of T2 bright fluid signal as well as loss of intervertebral disc height. Axial view images: Less otherwise specified below there is no significant central canal stenosis or neural foraminal stenosis. T12-L1:There is no significant central canal or neural foraminal stenoses. L1-L2: There is no significant central canal or neural foraminal stenoses. L2-L3: There is broad-based disc protrusion combining with facet arthropathy and thickening of the ligamentum flavum to cause a mild degree of central canal stenosis and very mild bilateral neural foraminal stenosis. L3-L4: Broad-based disc protrusion extending into the left more than right neural foramen combines with facet arthropathy and thickening of ligamentum flavum to cause moderate central canal stenosis and mild bilateral neural foraminal stenosis L4-L5: Broad-based disc protrusion combining with facet arthropathy and thickening of ligamentum flavum to cause moderate central canal stenosis and moderate bilateral neural foraminal stenosis. The appearance looks worse when compared to the previous MRI of the lumbar spine. L5-S1: Right base disc protrusion combining with facet arthropathy and thickening of ligamentum flavum combine to cause moderate central canal stenosis and mild bilateral neural foraminal stenosis. This appearance is similar to the previous MRI. IMPRESSION: Multilevel degenerative disc disease as described above causing various degrees of central canal or neural foraminal stenoses. At some levels the appearance is worse when compared to the September 08, 2013 MRI of the lumbar spine.
--- NOTE | 2018-04-22 08:07 | RAD ---
INDICATION: Chronic leg pain and back spasm. 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 FINDINGS: The localizer images depict straightening of the normal cervical lordosis with disc protrusion at C3/C4, C4/C5 and C5/C6 that appears to be abutting and compressing the cervical spinal cord. The spinal cord terminates at the L1 level. There are no intrinsic abnormalities of the visualized cord. The thoracic are normally aligned. Vertebral body height is adequately maintained and bony signal is within normal limits. On the sagittal view images there is mild loss of fluid signal at the mid-level thoracic spine and mild multilevel intervertebral disc height loss. Axial view images: Less otherwise specified below there is no significant central canal stenosis or neural foraminal stenosis. There is no pathologic appearing central canal or neural foraminal stenosis at any level. IMPRESSION: 1. On the localizer images there are degenerative changes of the cervical spine including straightening of the normal cervical lordosis and intervertebral disc protrusion from C3 to C6 abutting the ventral spinal cord. 2. There are mild degenerative changes of the thoracic spine intervertebral discs.
--- NOTE | 2018-04-22 08:16 | RAD ---
Indication: Abdominal pain. CT of the abdomen and pelvis was performed without oral or IV contrast administration. Coronal and sagittal reconstructed images were obtained. Comparison is made with previous exam dated April 17, 2017. The lung bases demonstrate no pleural fluid, nodules or masses. Heart is of normal size without evidence of pericardial effusion. Liver is normal in size. No focal lesions or intrahepatic duct dilatation is noted. The gallbladder demonstrates no calcified gallstones. No pericholecystic fluid or wall thickening is identified. The spleen is normal in size. No adrenal masses are noted. Right hydronephrosis and hydroureter is noted likely due to reflux. Presumed ileal conduit is noted. Ileal pouch is noted in the right lower quadrant. The patient status post cystectomy. There is erosive and destructive changes of the pubic symphysis with adjacent flocculent air. This is suspicious for osteomyelitis at the pubic symphysis. The air appears to extend into the left perineum suspicion for Fourniers gangrene should BE considered. IMPRESSION: Patient is status post left nephrectomy with cystectomy. There is destructive and erosive changes at the pubic symphysis with flocculent air anteriorly extending into the left perineum. 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 Mild right hydronephrosis which may be a function of reflux from ileal conduit.
[2018-04-22] MEDS ORDERED: Senna TAB PO SCH (09:00)
[2018-04-22] MEDS ORDERED: Allopurinol TAB* 100 MG PO SCH (09:00)
[2018-04-22] MEDS ORDERED: COLCHICINE 0.3 MG PO SCH (09:00)
[2018-04-22] MEDS ORDERED: Omeprazole CAP* 20 MG PO SCH (09:00)
[2018-04-22] MEDS ORDERED: Cyclobenzaprine TAB* 10 MG PO SCH (09:00)
[2018-04-22] MEDS ORDERED: Docusate CAP* 100 MG PO SCH ×2 (09:00)
[2018-04-22] MEDS ORDERED: Levothyroxine TAB* 175 MCG TAB PO SCH (09:00)
[2018-04-22] MEDS ORDERED: DULoxetine DR CAP* 60 MG CAP.DR PO SCH (09:00)
--- NOTE | 2018-04-22 10:26 | ED ---
Vipin Anderson Tiffany, scribed for Marco Russo on 04/22/18 at 1007 . Course/Dx - Course Course Of Treatment: 52 y/o F presenting to [facility] complains of BLE pain that began three weeks ago. Original disposition plan was to admit patient to Dr. Pinedo, hospitalist, at [facility]. Upon consultation with Dr. Moise, urology, Dr. Pinedo advised that patient should be admitted to facility with higher level of care. At 09:54, spoke to [facility] and requested an ICU bed. Transfer Center will call back with Dr. Mcghee. At 10:13, patient was accepted to Dr. Sierra at [facility]. 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
[2018-04-22 11:38] VITALS: BP 98/59
[2018-04-22] MEDS ORDERED: metroNIDAZOLE IV 500 MG/100ML* 100 ML IVPB SCH (12:00)
[2018-04-22] MEDS ORDERED: cefTRIAXone VIAL(*) 1,000 MG in NS 0.9% 50 ML* 50 ML IVPB SCH (12:00)
[2018-04-22] MEDS ORDERED: Heparin VIAL(*) 5000 UNITS/ML VIAL (FIVE THOUSAND) SUBCUT SCH (14:00)
[2018-04-23] MEDS ORDERED: Vancomycin Random Level* NOTE FOLLOW UP ONE (06:00)
== END 2018-04-22 11:20 | disposition short-term general hospital (02) ==
LOC: ED 19:07
DX: N76.89 Other specified inflammation of vagina and vulva (principal); N73.2 Unspecified parametritis and pelvic cellulitis; M86.9 Osteomyelitis, unspecified; M25.552 Pain in left hip; M25.551 Pain in right hip; Z88.0 Allergy status to penicillin; E11.9 Type 2 diabetes mellitus without complications; F17.210 Nicotine dependence, cigarettes, uncomplicated
CPT/HCPCS: 36415; 72146; 72148; 74176; 80048; 80053; 81003; 81015; 82150; 83605; 83690; 83735; 84134; 85025; 85027; 85610; 85730; 86140; 87040; 87086; 96374; 99285; J0696; J1170; J2765; J3370; J3490

== ENCOUNTER 2018-06-15 00:17 | Inpatient (IN) | payer OTHER ==
[2018-06-15] MEDS ORDERED: Lactated Ringers 1000 ml Bag*IV.FLUID IV ONE (00:49)
[2018-06-15] MEDS ORDERED: Acetaminophen TAB* 325 MG PO ONE (00:50)
[2018-06-15 01:11] LABS: ABS Basophils 0 10^3/ul (0-0.2); ABS Eosinophils 0 10^3/ul (0-0.6); ABS Lymphocytes 0.3 10^3/ul (1.0-4.8); ABS Monocytes 0.7 10^3/ul (0-0.8); ABS Neutrophils 9.9 10^3/ul (1.5-7.7); ABS Nucleated RBC 0 10^3/ul; Eosinophil % 0.3 % (0-6); Hematocrit 29 % (35-47); Hemoglobin 9.4 g/dl (12.0-16.0); Lymphocyte % 3.1 % (25-47); Mean Corpuscular HGB Conc 33 g/dl (31-36); Mean Corpuscular Hemoglobin 32 pg (27-31); Mean Corpuscular Volume 97 fL (80-97); Mean Platelet Volume 6.7 um3 (7.4-10.4); Nucleated Red Blood Cells % 0; Platelet Count 359 10^3/ul (150-450); Red Blood Count 2.99 10^6/ul (4.00-5.40); Red Cell Distribution Width 18 % (10.5-15)
--- NOTE | 2018-06-15 01:11 | ED ---
HPI Febrile Illness - HPI Summary HPI Summary: This is Elvin fontanez documenting for attending physician Jas Abrams MD. This patient is a 53 year old F BIBA to [facility] with a chief complaint of a fever of 102 F that began earlier today. The patient rates the pain 8/10 in severity. Patient reports vomiting, blood in her catheter bag, and diarrhea. Patient denies cough, SOB, and ABD pain. She is on IV abx currently and just received a dose tonight for a infection in the stomach. She has been on this and living in a fdc for 7 weeks. Hx of bladder cancer and sees urology in [place]. Pt is not on chemo. - History of Current Complaint Chief Complaint: EDFever Time Seen by Provider: 06/15/18 00:51 Hx Obtained From: Patient Hx Last Menstrual Period: 1999 Onset/Duration: Started Hours Ago, Still Present Timing: Constant Temperature: 102 F Initial Severity: Moderate Current Severity: Moderate Pain Intensity: 8 Pain Scale Used: 0-10 Numeric Associated Signs and Symptoms: Other: - vomiting and blood in catheter bag - Additional Pertinent History Primary Care Physician: LOLITA - Allergy/Home Medications Allergies/Adverse Reactions: Allergies Allergy/AdvReac Type Severity Reaction Status Date / Time latex Allergy Rash Verified 04/21/18 19:17 Penicillins Allergy Hives Verified 04/21/18 19:17 ciprofloxacin AdvReac Nausea And Verified 04/21/18 23:15 Vomiting clindamycin AdvReac Vomiting Verified 04/21/18 23:15 nitrofurantoin AdvReac Nausea And Verified 04/21/18 23:15 Vomiting ENVIRONMENTAL Allergy Unknown Uncoded 04/21/18 23:15 Reaction Details Home Medications: Home Medications Albuterol HFA INHALER* [Ventolin HFA Inhaler*] 2 puff INH Q6H PRN 06/15/18 [ History Confirmed 06/15/18] Calcium Carbonate [Calcium] 500 mg PO DAILY PRN 06/15/18 [History Confirmed ] Fluticasone-Salmeterol 100-50* [Advair Diskus 100-50*] 2 puff INH DAILY [History Confirmed 06/15/18] Gabapentin 300 mg PO TID 06/15/18 [History Confirmed 06/15/18] Heparin FLUSH(*) 1 ml IV SEE INSTRUCTIONS 06/15/18 [History Confirmed 06/15/18] Levothyroxine TAB* [Synthroid TAB*] 200 mcg PO DAILY 06/15/18 [History Confirmed 06/15/18] Loratadine 10 mg PO DAILY 06/15/18 [History Confirmed 06/15/18] Nicotine PATCH 21 MG/24 HR* 21 mg TRANSDERM DAILY 06/15/18 [History Confirmed ] Phenytoin Sodium Extended 100 mg PO TID 06/15/18 [History Confirmed 06/15/18] Vnphmwcumfuv-Diju-Gblnsvze,Iso [Zosyn 2.25 gm/50 ml Galaxy Bag] 2.25 gm IV TID 06/15/18 [History Confirmed 06/15/18] PMH/Surg Hx/FS Hx/Imm Hx Endocrine/Hematology History: Reports: Hx Diabetes - diet controlled at this time, Hx Thyroid Disease - hypothyroidism Denies: Hx Anticoagulant Therapy Cardiovascular History: Reports: Hx Cardiomegaly, Hx Hypertension - AT TIMES USUALLY WHEN ANXIOUS NOT ON MEDS Denies: Hx Pacemaker/ICD, Other Cardiovascular Problems/Disorders Respiratory History: Reports: Hx Asthma - prn inhaler, Hx Sleep Apnea - suspected, not confirmed, Other Respiratory Problems/Disorders - uses nebulizer prn GI History: Reports: Hx Gastroesophageal Reflux Disease, Hx Hiatal Hernia, Hx Obstructive Bowel - 04/18/17, Other GI Disorders - hiatal hernia, cervical ca History: Reports: Hx Kidney Infection, Hx Kidney Stones, Hx Renal Disease - LEFT KIDNEY REMOVED, Other Problems/Disorders - Nephrectomy, stents Musculoskeletal History: Reports: Hx Arthritis - back, neck and knees, Hx Back Problems, Other Musculoskeletal History - gout, on meds, disc disease, spinal stenosis Sensory History: Reports: Hx Contacts or Glasses - glasses, Other Sensory Impairments - Psorisis Denies: Hx Hearing Aid Opthamlomology History: Reports: Hx Contacts or Glasses - glasses, Other Sensory Impairments - Psorisis Neurological History: Reports: Hx Headaches - pcp following, Hx Nerve Disease - reports nerve damage in legs, Other Neuro Impairments/Disorders - 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 left cysto, stents x5 2007. [place]. ectopic preg 1986- [facility]. [place]4 [facility] [place] aug 2016. 2017 URETERAL STENT [facility] [place]. 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 [facility] [place]x Anesthesia Reactions: No - Immunization History Date of Tetanus Vaccine: Unk Date of Influenza Vaccine: None Infectious Disease History: No Infectious Disease History: Denies: History Other Infectious Disease, Traveled Outside the [place] in Last 30 Days - Family History Known Family History: Negative: Seizure Disorder, Other - breast cancer Family History: No FHx of Breast CA - Social History Alcohol Use: None Substance Use Type: Reports: None Smoking Status (MU): Current Every Day Smoker Type: Cigarettes Amount Used/How Often: 1 ppd for 37 years; 1/4PPD Length of Time of Smoking/Using Tobacco: 30+ yrs Have You Smoked in the Last Year: Yes Review of Systems Positive: Fever Negative: Shortness Of Breath, Cough Positive: Vomiting, Diarrhea. Negative: Abdominal Pain Genitourinary: Other - blood in cath bag All Other Systems Reviewed And Are Negative: Yes Physical Exam - Summary Physical Exam Summary: Appearance: ill appearing Skin: hot and diaphoretic, PICC line in the upper right chest, graph scars on bilateral anterior thighs Head/face: normal Eyes: EOMI, BRENDA ENT: normal Neck: supple, non-tender Respiratory: CTA, breath sounds present Cardiovascular: tachy but regular, pulses symmetrical, good radial pulses Abdomen: non-tender, soft Bowel Sounds: present Musculoskeletal: normal, strength/ROM intact, no LE edema Neuro: normal, sensory motor intact, A&Ox3 Triage Information Reviewed: Yes Vital Signs On Initial Exam: Initial Vitals Temp Pulse Resp BP Pulse Ox 104.3 F 105 24 78/48 96 06/15/18 00:36 06/15/18 00:36 06/15/18 00:36 06/15/18 00:36 06/15/18 00:36 Vital Signs Reviewed: Yes Diagnostics - Vital Signs Vital Signs Temp Pulse Resp BP Pulse Ox 06/15/18 00:36 104.3 F 105 24 78/48 96 - Laboratory Result Diagrams: 06/15/18 01:01 06/15/18 01:01 Lab Statement: Any lab studies that have been ordered have been reviewed, and results considered in the medical decision making process. - Radiology CXR Radiology Interpretation Completed By: ED Physician - infiltrate in the right base. Pending official report - EKG 0118 Cardiac Rate: NL EKG Rhythm: Sinus Rhythm - at [address] Segment: Normal EKG Interpretation: normal axis. PAC's Re-Evaluation - Re-Evaluation First Eval Re-Evaluation Time: 01:39 Change: Unchanged Comment: Pt declined transfer. Second Eval Re-Evaluation Time: 03:06 Change: Improved Comment: Post IV fluid assessment: strong pulses, brisk capillary refill, HR is in the 80s, BP is 96 systolic Course/Dx - Course Course Of Treatment: Patient presents with high fever and multiple comorbidities to include complicated postoperative course from bladder cancer. She is currently on IV Zosyn for an intra-abdominal infection. She has developed fever on top of that with new infiltrate in the right base. Her urine is also dirty appearing but this is from ileal conduit and likely always looks like this. Her blood pressures have maintained over 90 systolic. Her mental status is normal and her capillary refill has been normal throughout her stay. She did receive cefepime and vancomycin given her nosocomial exposure. A stool sent for C. difficile though she has not had increased stooling lately. Discussed the case with the hospitalist who will admit for further. - Febrile Illness Differential Diagnoses: Abscess, Bacteremia, Endocarditis, Neoplasm, Pneumonia, Other: - Infected central line, urinary tract infection - Diagnoses Provider Diagnoses: Severe sepsis, Right lower lobe pneumonia, History of bladder cancer, CKD ( chronic kidney disease) stage 3, GFR 30-59 ml/min - Provider Notifications Discussed Care Of Patient With: Cal Pinedo Time Discussed With Above Provider: 01:42 Instructed by Provider To: Admit As Inpatient - Critical Care Time Critical Care Time: 30-74 min - CCT is EXCLUSIVE of separately billable procedures Discharge - Sign-Out/Discharge Documenting (check all that apply): Patient Departure - admitted - Discharge Plan Condition: Guarded Disposition: ADMITTED TO [facility] Referrals: Debbie rodgers,[place] [facility] [Primary Care Provider] - - Billing Disposition and Condition Condition: GUARDED Disposition: Admitted to [facility] Attestation Statement Scribe Attestation: This is Elvin fontanez documenting for attending physician Jas Abrams MD. User Type: Provider with Scribe Provider Attestation: The documentation recorded by the scribe accurately reflects the service I personally performed and the decisions made by me.
[2018-06-15] MEDS ORDERED: Cefepime(*) 2 GM in NS 0.9% 50 ML* 50 ML IVPB ONE (01:16)
[2018-06-15 01:20] LABS: INR 1.07 (0.77-1.02)
[2018-06-15 01:29] LABS: EGFR Non-African American 19.1 (>60)
[2018-06-15] MEDS ORDERED: NS 0.9% 50 ML* 50 ML ONE (01:30)
[2018-06-15] MEDS ORDERED: HYDROmorphone INJ* 2 MG/ML CARPUJECT SYRINGE IV SLOW PU ONE (01:55)
[2018-06-15] MEDS ORDERED: Vancomycin(*) 1,250 MG IV x ONCE IVPB ONE ×2 (02:00)
[2018-06-15] MEDS ORDERED: Vancomycin(*) 1,000 MG VIAL IVPB SCH (02:00)
[2018-06-15 03:48] LABS: Urine Appearance Cloudy; Urine Blood 3+ (Negative); Urine Color Yellow; Urine Ketones Negative (Negative); Urine Protein 1+(30 mg/dL) (Negative); Urine Red Blood Cell 3+(>10/hpf) (Absent); Urine Specific Gravity 1.011 (1.010-1.030); Urine Urobilinogen Negative (Negative); Urine White Blood Cell 3+(>20/hpf) (Absent)
[2018-06-15] MEDS ORDERED: Acetaminophen SUPP* 650 MG SUPP PR PRN (05:11)
[2018-06-15] MEDS ORDERED: LORazepam INJ* 2 MG/ML 1 ML VIAL IV PRN (05:11)
[2018-06-15] MEDS ORDERED: HYDROmorphone INJ* 1 MG/ML CARPUJECT SYRINGE IV PRN (05:12)
[2018-06-15] MEDS ORDERED: Albuterol HFA INHALER* 8 gm MDI INH PRN (05:14)
--- NOTE | 2018-06-15 05:14 | HP ---
H&P (Free Text) History and Physical: PCP: NAZARIO Lewis MD Date/Time: 06/15/2018 0415 CC: fever, malaise HPI: Mrs Bender is a 53YO female poor historian HX bladder CA s/p cystectomy, DM2, hypothyroidism, asthma, GERD, L nephrectomy who reports a 1 month history of intermittent rapid onset chills, malaise, N/V, rigors, and fever which recurred again last night prompting her presentation for evaluation. 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 She has seen a small amount of blood from her urostomy over the past couple of days and has had some dark green diarrhea. She initially denies any abdominal pain, but was found to be diffusely moderately tender upon exam. She has had a cough productive of scant phlegm over the past few days. When asked how much she smokes, stated she quit. When asked when she quit she was very evasive, but ultimately stated her last cigarette was 2 days ago. PMedHx bladder CA s/p cystectomy w/ urostomy (Aug 2017) DM2 hypothyroidism HTN asthma GERD hiatal hernia SBO cervical CA (1999) urolithiasis L nephrectomy 2nd recurrent hydronephrosis ? ureteral stricture generalized OA gout psoriasis anxiety/depression Ambulatory Orders DULoxetine CAP* [Cymbalta CAP*] 60 mg PO QAM 10/03/14 Pantoprazole TAB (NF) [Protonix TAB (NF)] 40 mg PO QAM 10/03/14 Allopurinol TAB* [Zyloprim 100 MG TAB*] 200 mg PO DAILY 04/15/17 Oxycodone TAB(NF) [Oxycodone HCl 10 MG] 5 mg PO Q4H PRN MDD 60 mg 04/15/17 Senna TAB* [Senokot TAB*] 2 tab PO DAILY 09/05/17 Colchicine [Mitigare] 0.3 mg PO DAILY PRN 04/22/18 Docusate Sodium [Col-Rite] 200 mg PO DAILY 04/22/18 Ergocalciferol (Vitamin D2) [Vitamin D2] 50,000 unit PO WEEKLY 04/22/18 Ferrous Sulfate 325 mg PO DAILY 04/22/18 Ondansetron [Zofran Odt] 4 - 8 mg PO Q8HR PRN 04/22/18 Vitamin B-12 1,000 mcg PO DAILY 04/22/18 Albuterol HFA INHALER* [Ventolin HFA Inhaler*] 2 puff INH Q6H PRN 06/15/18 Calcium Carbonate [Calcium] 500 mg PO DAILY PRN 06/15/18 Fluticasone-Salmeterol 100-50* [Advair Diskus 100-50*] 2 puff INH DAILY Gabapentin 300 mg PO TID 06/15/18 Heparin FLUSH(*) 1 ml IV SEE INSTRUCTIONS 06/15/18 Levothyroxine TAB* [Synthroid TAB*] 200 mcg PO DAILY 06/15/18 Loratadine 10 mg PO DAILY 06/15/18 Nicotine PATCH 21 MG/24 HR* 21 mg TRANSDERM DAILY 06/15/18 Phenytoin Sodium Extended 100 mg PO TID 06/15/18 Yravfdetcjpm-Dtgv-Ufgvkrna,Iso [Zosyn 2.25 gm/50 ml Galaxy Bag] 2.25 gm IV TID 06/15/18 Allergies latex Allergy (Verified 04/21/18 19:17) Rash Penicillins Allergy (Verified 04/21/18 19:17) Hives ciprofloxacin Adverse Reaction (Verified 04/21/18 23:15) Nausea And Vomiting clindamycin Adverse Reaction (Verified 04/21/18 23:15) Vomiting nitrofurantoin Adverse Reaction (Verified 04/21/18 23:15) Nausea And Vomiting ENVIRONMENTAL Allergy (Uncoded 04/21/18 23:15) Unknown Reaction Details SWELLING OF EYES -SPRING TIME POLLEN, FRESH [place]ASS PSurgHx cystectomy w/ urostomy L nephrectomy numerous ureteral stents hysterectomy ectopic excision L salivary gland mass excision SocHx: 1/2PPD quit 2 days ago with ~35PYHX, rare alcohol, denies recreational drugs; currently at [employer], on SSI disability; full code status FamHx: Mother: passed at age 53 2nd ovarian CA; Father passed in his 60s 2nd CAD ROS: as above, otherwise reviewed and all were negative vitals: Vital Signs Temp 40.2 C 06/15/18 00:36 Pulse 85 06/15/18 04:24 Resp 24 06/15/18 04:24 BP 84/50 06/15/18 04:24 Pulse Ox 98 06/15/18 04:24 Intake & Output 06/14/18 06/14/18 06/15/18 11:59 23:59 11:59 Intake Total 5080 Balance 5080 Weight 84.822 kg Intake: IV Fluids 2540 IVPB 2540 Constitutional: NAD, normally developed, obese white female HEENM: atraumatic; sclera/conjunctiva: anicteric/clear; hearing: clinically intact; oropharynx: clear, mucosa tacky Neck: soft tissue: non-tender, no nuchal rigidity; thyroid: normal Pulmonary: mildly coarse R basilar crackle, clear L, good aeration, no accessory muscle use CV: RR/RR, normal S1S2, no carotid bruit, no jugular venous distention, 2+ B DP/ PT, no edema Abdominal: RLQ urostomy draining yellow urine; soft, non-distended, diffusely moderately tender, no rebound/guarding/rigidity, normoactive bowel sounds, no hepatosplenomegaly or masses, no costovertebral angle tenderness Musculoskeletal: general: grossly intact, non-tender Integumental: no rash or open wounds Psychiatric orientation: AA&O to PPS affect: calm mood: cooperative eye contact: fair to good content: unreliable 2nd poor understanding of her medical conditions responses: timely insight: fair to poor Testing: Lab Results 06/15/18 06/15/18 06/15/18 Range/Units 01:01 01:01 01:01 WBC 11.0 H (3.5-10.8) 10^3/ul RBC 2.99 L (4.00-5.40) 10^6/ul Hgb 9.4 L (12.0-16.0) g/dl Hct 29 L (35-47) % MCV 97 (80-97) fL MCH 32 H (27-31) pg MCHC 33 (31-36) g/dl RDW 18 H (10.5-15) % Plt Count 359 (150-450) 10^3/ul MPV 6.7 L (7.4-10.4) um3 Neut % (Auto) 90.0 H (38-83) % Lymph % (Auto) 3.1 L (25-47) % [place] % (Auto) 6.4 (0-7) % Eos % (Auto) 0.3 (0-6) % Baso % (Auto) 0.2 (0-2) % Absolute Neuts (auto) 9.9 H (1.5-7.7) 10^3/ul Absolute Lymphs (auto) 0.3 L (1.0-4.8) 10^3/ul Absolute Monos (auto) 0.7 (0-0.8) 10^3/ul Absolute Eos (auto) 0 (0-0.6) 10^3/ul Absolute Basos (auto) 0 (0-0.2) 10^3/ul Absolute Nucleated RBC 0 10^3/ul Nucleated RBC % 0 INR (Anticoag Therapy) 1.07 H (0.77-1.02) APTT 30.3 (26.0-36.3) seconds Sodium 131 L (135-145) mmol/L Potassium 4.6 (3.5-5.0) mmol/L Chloride 107 (101-111) mmol/L Carbon Dioxide 15 L (22-32) mmol/L Anion Gap 9 (2-11) mmol/L BUN 39 H (6-24) mg/dL Creatinine 2.61 H (0.51-0.95) mg/dL Est GFR ( Amer) 23.1 (>60) Est GFR (Non-Af Amer) 19.1 (>60) BUN/Creatinine Ratio 14.9 (8-20) Glucose 102 H (70-100) mg/dL Lactic Acid (0.5-2.0) mmol/L Calcium 8.3 L (8.6-10.3) mg/dL Total Bilirubin 0.40 (0.2-1.0) mg/dL AST 29 (13-39) U/L ALT 16 (7-52) U/L Alkaline Phosphatase 234 H (34-104) U/L Troponin I 0.02 (<0.04) ng/mL Total Protein 7.3 (6.4-8.9) g/dL Albumin 3.0 L (3.2-5.2) g/dL Globulin 4.3 H (2-4) g/dL Albumin/Globulin Ratio 0.7 L (1-3) Lipase 49 (11.0-82.0) U/L Urine Color Urine Appearance Urine pH (5-9) Ur Specific [place] (1.010-1.030) Urine Protein (Negative) Urine Ketones (Negative) Urine Blood (Negative) Urine Nitrate (Negative) Urine Bilirubin (Negative) Urine Urobilinogen (Negative) Ur Leukocyte Esterase (Negative) Urine WBC (Auto) (Absent) Urine RBC (Auto) (Absent) Urine Bacteria (Absent) Urine Yeast (Absent) Urine Glucose (Negative) 06/15/18 06/15/18 Range/Units 01:01 03:32 WBC (3.5-10.8) 10^3/ul RBC (4.00-5.40) 10^6/ul Hgb (12.0-16.0) g/dl Hct (35-47) % MCV (80-97) fL MCH (27-31) pg MCHC (31-36) g/dl RDW (10.5-15) % Plt Count (150-450) 10^3/ul MPV (7.4-10.4) um3 Neut % (Auto) (38-83) % Lymph % (Auto) (25-47) % [place] % (Auto) (0-7) % Eos % (Auto) (0-6) % Baso % (Auto) (0-2) % Absolute Neuts (auto) (1.5-7.7) 10^3/ul Absolute Lymphs (auto) (1.0-4.8) 10^3/ul Absolute Monos (auto) (0-0.8) 10^3/ul Absolute Eos (auto) (0-0.6) 10^3/ul Absolute Basos (auto) (0-0.2) 10^3/ul Absolute Nucleated RBC 10^3/ul Nucleated RBC % INR (Anticoag Therapy) (0.77-1.02) APTT (26.0-36.3) seconds Sodium (135-145) mmol/L Potassium (3.5-5.0) mmol/L Chloride (101-111) mmol/L Carbon Dioxide (22-32) mmol/L Anion Gap (2-11) mmol/L BUN (6-24) mg/dL Creatinine (0.51-0.95) mg/dL Est GFR ( Amer) (>60) Est GFR (Non-Af Amer) (>60) BUN/Creatinine Ratio (8-20) Glucose (70-100) mg/dL Lactic Acid 2.2 H* (0.5-2.0) mmol/L Calcium (8.6-10.3) mg/dL Total Bilirubin (0.2-1.0) mg/dL AST (13-39) U/L ALT (7-52) U/L Alkaline Phosphatase (34-104) U/L Troponin I (<0.04) ng/mL Total Protein (6.4-8.9) g/dL Albumin (3.2-5.2) g/dL Globulin (2-4) g/dL Albumin/Globulin Ratio (1-3) Lipase (11.0-82.0) U/L Urine Color Yellow Urine Appearance Cloudy Urine pH 6.0 (5-9) Ur Specific [place] 1.011 (1.010-1.030) Urine Protein 1+(30 mg/dl) A (Negative) Urine Ketones Negative (Negative) Urine Blood 3+ A (Negative) Urine Nitrate Negative (Negative) Urine Bilirubin Negative (Negative) Urine Urobilinogen Negative (Negative) Ur Leukocyte Esterase Negative (Negative) Urine WBC (Auto) 3+(>20/hpf) A (Absent) Urine RBC (Auto) 3+(>10/hpf) A (Absent) Urine Bacteria Absent (Absent) Urine Yeast Present A (Absent) Urine Glucose Negative (Negative) ECG, personally reviewed: NSR rate 98, no ischemia CXR, personally reviewed: small R basilar infiltrate vs atelectasis CT abd/pel WO: IMPRESSION: 1. No acute findings. The patient is status post right-sided ureteral ileostomy. There were loops of bowel located in the peristomal hernia and these loops of bowel do not appear to be incarcerated. No bowel obstruction. 2. The left adrenal nodule was noted on the prior CT study of 04/22/2018 and does not appear to have significantly changed. 3. Enlarging lymph nodes located in the left periaortic area adjacent to the surgical clips. This is worrisome for the possibility of recurrent tumor. Workup and followup per institutional guidelines. Impression: 53F with complex HX outlined above presents with severe sepsis 2nd RLL pneumonia vs intra-abdominal process DIAGNOSIS & PLAN Primary severe sepsis 2nd RLL pneumonia vs intra-abdominal process : 30cc/kg IVF resuscitation : IV vancomycin & cefepime initiated in ED : blood, sputum, & urine CXs : obtain CTA abd/pel WO (renal FX prohibits use of contrast) : ICU monitoring, admission on hold until CT abd/pel WO reported : supportive care bladder CA s/p cystectomy w/ urostomy (Aug 2017) : new lymphademopathy requiring further work up as per CT Secondary DM2 : A1c 5.01 April 2018 : Q4H glucometry & correctional lispro until cleared for PO intake hypothyroidism : IV levothyroxine at 1/2 PO dose until cleared for PO intake HTN : currently hypotensive, not on anti-hypertensives asthma : continue albuterol & fluticasone/salmeterol GERD : IV pantoprazole LBP w/ L sciatic : hold gabapentin until cleared for PO intake s/p L nephrectomy CKD stg 4 : avoid nephrotoxic agents, periodic monitoring gout : hold allopurinol until cleared for PO intake anxiety/depression : hold duloxetine until cleared for PO intake Admission Rational: Inpatient as without the above interventions the risk of impending adverse outcome is unacceptably high; inappropriate for the outpatient setting DVTp: SCDs & heparin SQ Code Status: full HCP: Em beasley [place] Critical Care time: 115minutes with >50% spent at the bedside obtaining a history, performing the examination, advising of diagnosis & treatment options along with risks/benefits/reasoning; remainder spent discussing with ER MD, reviewing labs and radiology exams
[2018-06-15] MEDS ORDERED: NS 0.9% 1000 ML* 1,000 ML IV SCH (05:15)
[2018-06-15] MEDS ORDERED: Levothyroxine INJ* 100 MCG in D5W 250 ML BAG* 250 ML IV SCH (06:00)
[2018-06-15] MEDS ORDERED: Vancomycin per Pharmacy* NOTE FOLLOW UP SCH (06:00)
--- NOTE | 2018-06-15 06:34 | RAD ---
EXAM: CT Abdomen and Pelvis Without Intravenous Contrast CLINICAL HISTORY: 53 years old, female; Pain; Abdominal pain; Generalized; Additional info: Abdominal pain, fever TECHNIQUE: Axial computed tomography images of the abdomen and pelvis without intravenous contrast. Coronal and sagittal reformatted images were created and reviewed. COMPARISON: A/P WO CT ABD/PEL W/O 2018-04-22 01:31 FINDINGS: Lung bases: Lung bases are slightly degraded by motion artifact. Linear opacities in the lung bases which may rep some areas of atelectasis and/or scarring. Mediastinum: Small hiatal hernia. ABDOMEN: Liver: The liver is of normal size. No focal hepatic lesion. Gallbladder and bile ducts: Gallbladder is distended. No calcified gallstone. No ductal dilation. Pancreas: The pancreas is normal in appearance. No dilatation pancreatic duct. Spleen: The spleen is of normal size and appearance. Adrenals: Left adrenal nodule. This measures 1.4 cm in AP length and width. It has a central density of 26 Hounsfield units. The right adrenal gland is normal in appearance. Kidneys and ureters:The right kidney is normal in size. Moderate dilatation of the right pyelocalyceal system. The patient is status post ureteral ileostomy. The left kidney has been resected. Since the prior CT study of 04/22/2018 the degree of right-sided hydronephrosis has not significantly changed. The stoma is located in the right lower quadrant. Peristomal hernia in which loops of bowel is seen within the hernia. No evidence of incarceration. No bowel destruction. On the prior CT study there were loops of small bowel within the peristomal hernia which were not dilated. Stomach and bowel: No bowel obstruction. No mucosal thickening. PELVIS: Appendix: No findings to suggest acute appendicitis. Bladder: The bladder has been resected. Postsurgical changes in the area of the symphysis pubis. No stones. Reproductive: Unremarkable as visualized. ABDOMEN and PELVIS: Intraperitoneal space: Unremarkable. No free air. No significant fluid collection. Bones/joints: No acute fracture. No dislocation. Soft tissues: See above. Vasculature: Atheromatous changes involving the abdominal aorta and iliac arteries. No aneurysmal dilatation. Lymph nodes: Lymph node next to the right adrenal gland. This lymph node measures 1.2 cm in AP length and 1.4 cm in width. Other smaller lymph nodes are noted in the periaortic and pericaval region. Enlarging lymph node located next to a surgical clip best seen on series 2 image 32. On the previous exam no lymph node measures 4 mm in AP length and 3 mm in width. In today's exam the nodule measures 1 cm in AP length and 8 mm in width. IMPRESSION: 1. No acute findings. The patient is status post right-sided ureteral ileostomy. There were loops of bowel located in the peristomal hernia and these loops of bowel do not appear to be incarcerated. No bowel obstruction. 2. The left adrenal nodule was noted on the prior CT study of 04/22/2018 and does not appear to have significantly changed. 3. Enlarging lymph nodes located in the left periaortic area adjacent to the surgical clips. This is worrisome for the possibility of recurrent tumor. Workup and followup per institutional guidelines. Final read addendum: There is hepatomegaly. The liver measures 21 cm in long axis. R2
[2018-06-15] MEDS ORDERED: HYDROmorphone INJ* 1 MG/ML CARPUJECT SYRINGE ONE (06:35)
--- NOTE | 2018-06-15 07:25 | RAD ---
HISTORY: sepsis COMPARISONS: April 17, 2017 VIEWS: 1: frontal portable view of the chest at 12:56 AM FINDINGS: LINES AND TUBES: A right-sided venous catheter is noted with the tip overlying the cavoatrial junction. CARDIOMEDIASTINAL SILHOUETTE: The cardiomediastinal silhouette is normal for portable technique. PLEURA: The costophrenic angles are sharp. No pleural abnormalities are noted. LUNG PARENCHYMA: There is mild vascular crowding with patchy alveolar opacification of the right lung base. ABDOMEN: The upper abdomen is clear. There is no subphrenic gas. BONES AND SOFT TISSUES: No bone or soft tissue abnormalities are noted. IMPRESSION: RIGHT BASILAR ATELECTASIS. R0
[2018-06-15 07:27] LABS: ABS Basophils 0 10^3/ul (0-0.2); ABS Eosinophils 0.1 10^3/ul (0-0.6); ABS Lymphocytes 0.6 10^3/ul (1.0-4.8); ABS Monocytes 0.8 10^3/ul (0-0.8); ABS Neutrophils 9.8 10^3/ul (1.5-7.7); ABS Nucleated RBC 0 10^3/ul; Eosinophil % 0.5 % (0-6); Hematocrit 25 % (35-47); Hemoglobin 8.3 g/dl (12.0-16.0); Lymphocyte % 5.7 % (25-47); Mean Corpuscular HGB Conc 33 g/dl (31-36); Mean Corpuscular Hemoglobin 32 pg (27-31); Mean Corpuscular Volume 98 fL (80-97); Nucleated Red Blood Cells % 0; Platelet Count 298 10^3/ul (150-450); Red Blood Count 2.58 10^6/ul (4.00-5.40); Red Cell Distribution Width 19 % (10.5-15); White Blood Count 11.3 10^3/ul (3.5-10.8)
[2018-06-15 07:37] LABS: EGFR Non-African American 19.4 (>60)
[2018-06-15] MEDS: Ondansetron ODT TAB* 4 MG PO PRN (08:46)
[2018-06-15] MEDS ORDERED: Nicotine PATCH 21 MG/24 HR* PATCH TRANSDERM SCH (09:00)
[2018-06-15] MEDS: Insulin LISPRO* 1 UNITS UNIT SUBCUT SCH ×5 (09:05→21:10)
[2018-06-15] MEDS ORDERED: Fosphenytoin(*) 100 MG/2 ML VIAL IV SLOW PU SCH (10:00)
[2018-06-15] MEDS: Levothyroxine INJ* 100 MCG/5 ML VIAL IV SCH (10:03)
[2018-06-15] MEDS: Pantoprazole IV* 40 MG IV SCH (10:05)
[2018-06-15] MEDS: HYDROmorphone INJ* 0.5 MG/0.5 ML SYRINGE IV PRN (10:13)
[2018-06-15] MEDS: Mometasone/Formoter 100/5 MDI INH SCH ×2 (10:44→20:57)
--- NOTE | 2018-06-15 13:27 | PN ---
Progress Note - Progress Note Date of Service: 06/15/18 Note: Blood cultures growing a gram-negative khushi from one bottle (out of 4) -Patient is currently afebrile, and there is no evience of septic shock. ? contaminant vs low-level bacteremia. Patient is currently on cefepime Is PCN-allergic), which should be adequate for most gram-negatives.
--- NOTE | 2018-06-15 14:06 | PN ---
Date of Service: 06/15/18 Critical Care Services: 53 y/o female with Hx bladder CA (s/p bladder removal with ureteroileostomy) admitted with fever but no evidence of septic shock - Rx vancomycin, levofloxacin, and cefepime. One blood culture positive for gram-negative rods. Vital Signs: Temp Pulse Resp BP SpO2 FiO2 97.9 F 88 16 86/52 95 94 Physical Exam: Gen:Alert, oriented, appears comfortable HEENT:No facial asymmetry Lungs:clear Extremities:warm. No cyanosis or edema. Fluid Balance (Past 24 Hours): 06/15/18 06/16/18 06:59 06:59 Intake Total 5080 250 Output Total 375 Balance 5080 -125 Weight 200 lb 9.93 oz 200 lb 9.93 oz Intake: IV Fluids 2540 IVPB 2540 Oral 250 Output: Urine 250 Urostomy 125 Labs: 06/15/18 06/15/18 06/15/18 01:01 01:01 01:01 WBC 11.0 H RBC 2.99 L Hgb 9.4 L Hct 29 L MCV 97 MCH 32 H MCHC 33 RDW 18 H Plt Count 359 MPV 6.7 L Neut % (Auto) 90.0 H Lymph % (Auto) 3.1 L [place] % (Auto) 6.4 Eos % (Auto) 0.3 Baso % (Auto) 0.2 Absolute Neuts (auto) 9.9 H Absolute Lymphs (auto) 0.3 L Absolute Monos (auto) 0.7 Absolute Eos (auto) 0 Absolute Basos (auto) 0 Absolute Nucleated RBC 0 Nucleated RBC % 0 INR (Anticoag Therapy) 1.07 H APTT 30.3 Sodium 131 L Potassium 4.6 Chloride 107 Carbon Dioxide 15 L Anion Gap 9 BUN 39 H Creatinine 2.61 H Est GFR ( Amer) 23.1 Est GFR (Non-Af Amer) 19.1 BUN/Creatinine Ratio 14.9 Glucose 102 H POC Glucose (mg/dL) Lactic Acid Calcium 8.3 L Total Bilirubin 0.40 AST 29 ALT 16 Alkaline Phosphatase 234 H Troponin I 0.02 Total Protein 7.3 Albumin 3.0 L Globulin 4.3 H Albumin/Globulin Ratio 0.7 L Lipase 49 Urine Color Urine Appearance Urine pH Ur Specific [place] Urine Protein Urine Ketones Urine Blood Urine Nitrate Urine Bilirubin Urine Urobilinogen Ur Leukocyte Esterase Urine WBC (Auto) Urine RBC (Auto) Urine Bacteria Urine Yeast Urine Glucose 06/15/18 06/15/18 06/15/18 01:01 03:32 04:42 WBC RBC Hgb Hct MCV MCH MCHC RDW Plt Count MPV Neut % (Auto) Lymph % (Auto) [place] % (Auto) Eos % (Auto) Baso % (Auto) Absolute Neuts (auto) Absolute Lymphs (auto) Absolute Monos (auto) Absolute Eos (auto) Absolute Basos (auto) Absolute Nucleated RBC Nucleated RBC % INR (Anticoag Therapy) APTT Sodium Potassium Chloride Carbon Dioxide Anion Gap BUN Creatinine Est GFR ( Amer) Est GFR (Non-Af Amer) BUN/Creatinine Ratio Glucose POC Glucose (mg/dL) Lactic Acid 2.2 H* 1.6 Calcium Total Bilirubin AST ALT Alkaline Phosphatase Troponin I Total Protein Albumin Globulin Albumin/Globulin Ratio Lipase Urine Color Yellow Urine Appearance Cloudy Urine pH 6.0 Ur Specific [place] 1.011 Urine Protein 1+(30 mg/dl) A Urine Ketones Negative Urine Blood 3+ A Urine Nitrate Negative Urine Bilirubin Negative Urine Urobilinogen Negative Ur Leukocyte Esterase Negative Urine WBC (Auto) 3+(>20/hpf) A Urine RBC (Auto) 3+(>10/hpf) A Urine Bacteria Absent Urine Yeast Present A Urine Glucose Negative 06/15/18 06/15/18 06/15/18 07:12 07:12 07:12 WBC 11.3 H RBC 2.58 L Hgb 8.3 L Hct 25 L MCV 98 H MCH 32 H MCHC 33 RDW 19 H Plt Count 298 MPV 7.0 L Neut % (Auto) 86.7 H Lymph % (Auto) 5.7 L [place] % (Auto) 6.7 Eos % (Auto) 0.5 Baso % (Auto) 0.4 Absolute Neuts (auto) 9.8 H Absolute Lymphs (auto) 0.6 L Absolute Monos (auto) 0.8 Absolute Eos (auto) 0.1 Absolute Basos (auto) 0 Absolute Nucleated RBC 0 Nucleated RBC % 0 INR (Anticoag Therapy) APTT Sodium 133 L Potassium 5.2 H Chloride 108 Carbon Dioxide 20 L Anion Gap 5 BUN 40 H Creatinine 2.57 H Est GFR ( Amer) 23.5 Est GFR (Non-Af Amer) 19.4 BUN/Creatinine Ratio 15.6 Glucose 91 POC Glucose (mg/dL) Lactic Acid 1.1 Calcium 7.8 L Total Bilirubin AST ALT Alkaline Phosphatase Troponin I Total Protein Albumin Globulin Albumin/Globulin Ratio Lipase Urine Color Urine Appearance Urine pH Ur Specific [place] Urine Protein Urine Ketones Urine Blood Urine Nitrate Urine Bilirubin Urine Urobilinogen Ur Leukocyte Esterase Urine WBC (Auto) Urine RBC (Auto) Urine Bacteria Urine Yeast Urine Glucose Studies: CXR: No infiltrates Nutrition: Oral diet (consistent carb diet) Impression: Fever - Probably from a urinary tract infection (upper tract) although positive blood culture could be a contaminant. Patient has low BP but is mentating normally, is warm peripherally, and lactate is normal - therefore no evidence for septic shock. Patient has renal dysfunction, but this is apparently a chronic problem. Plan: Continue all antibiotics for now pending final culture results (can probably d/ c the vancomycin if no evidence for gram-positive infection). Pressors not necessary.
[2018-06-15] MEDS: Fosphenytoin(*) 100 MG in NS 0.9% 50 ML* 50 ML IVPB SCH (18:00)
[2018-06-15] MEDS ORDERED: Nicotine Patch Removal NOTE PATCH OFF SCH (21:00)
[2018-06-16] MEDS ORDERED: Cefepime(*) 1 GM in NS 0.9% 50 ML* 50 ML IVPB ONE (02:00)
[2018-06-16] MEDS: Insulin LISPRO* 1 UNITS UNIT SUBCUT SCH ×6 (02:07→22:05)
[2018-06-16] MEDS: HYDROmorphone INJ* 0.5 MG/0.5 ML SYRINGE IV PRN (02:46)
[2018-06-16] MEDS ORDERED: Cefepime 1 GM in Dextrose(*) 1 GM/50 ML BAG IV ONE (03:00)
[2018-06-16] MEDS: Acetaminophen TAB* 325 MG PO PRN (03:00)
[2018-06-16] MEDS: Fosphenytoin(*) 100 MG in NS 0.9% 50 ML* 50 ML IVPB SCH ×3 (03:28→18:06)
[2018-06-16 05:36] LABS: Hematocrit 25 % (35-47); Mean Corpuscular HGB Conc 33 g/dl (31-36); Mean Corpuscular Hemoglobin 32 pg (27-31); Mean Corpuscular Volume 99 fL (80-97); Mean Platelet Volume 7.3 um3 (7.4-10.4); Platelet Count 295 10^3/ul (150-450); Red Blood Count 2.49 10^6/ul (4.00-5.40); Red Cell Distribution Width 19 % (10.5-15); White Blood Count 7.8 10^3/ul (3.5-10.8)
[2018-06-16] MEDS ORDERED: NS 0.9% 1000 ML* 1,000 ML IV ONE (05:45)
[2018-06-16 05:54] LABS: EGFR Non-African American 20.4 (>60)
[2018-06-16] MEDS ORDERED: Vancomycin(*) 1,000 MG in NS 0.9% 250 ML* 250 ML IVPB SCH (06:00)
[2018-06-16] MEDS ORDERED: NS 0.9% 500 ML* 500 ML IV ONE (06:45)
--- NOTE | 2018-06-16 06:51 | PN ---
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 Pt reported to be lethargic, hypotensive with SBPs in 70s, and appeared symptomatic despite initial impression gram neg bacteremia is just contamination given only 1 culture bottle was positive for gram neg bacteremia. However, pt appears to be clinically septic at this time. Will give another 500 cc bolus NS and start Levophed at 5 mics/min to titrate to MAP >/= 65. Objective Active Medications: Acetaminophen (Tylenol Tab*) 650 mg PO Q6H PRN PRN Reason: FEVER/PAIN Last Admin: 06/16/18 03:00 Dose: 650 mg Albuterol (Ventolin Hfa Inhaler*) 2 puff INH Q6H PRN PRN Reason: SOB/WHEEZING Heparin Sodium (Porcine) (Heparin Vial(*)) 5,000 units SUBCUT Q8HR [facility] Heparin Sodium (Porcine) (Heparin Flush Picc/Ml/Cvc(*)) 1 - 3 ml FLUSH 0600, 1800 [facility]; Protocol Last Admin: 06/15/18 19:15 Dose: 2 ml Hydromorphone HCl (Dilaudid Inj*) 0.5 mg IV Q2H PRN PRN Reason: PAIN Last Admin: 06/15/18 10:13 Dose: 0.5 mg Vancomycin HCl 1,000 mg/ (Sodium Chloride) 250 mls @ 166.667 mls/hr IVPB Q24H [facility] Fosphenytoin Sodium 100 mg/ (Sodium Chloride) 52 mls @ 104 mls/hr IVPB Q8H [facility] Last Admin: 06/16/18 03:28 Dose: 104 mls/hr Sodium Chloride (Ns 0.9% 500 Ml*) 500 mls @ 0 mls/hr IV ONCE ONE Stop: 06/16/18 06:46 Norepinephrine Bitartrate (Levophed 16 Mcg/Ml Premix Bag*) 4,000 mcg in 250 mls @ 18.75 mls/hr IV .INITIAL RATE [facility]IN; Protocol Insulin Human Lispro (Humalog*) 0 units SUBCUT Q4H [facility]; Protocol Last Admin: 06/16/18 05:26 Dose: 3 unit Levothyroxine Sodium (Synthroid Inj*) 100 mcg IV Q24H [facility] Last Admin: 06/15/18 10:03 Dose: 100 mcg Lorazepam (Ativan Inj*) 0.5 mg IV BEDTIME PRN PRN Reason: SLEEP Mometasone Furoate/Formoterol Fumar (Dulera 100/5 Mdi*) 2 puff INH BID [facility] Last Admin: 06/15/18 20:57 Dose: 2 puff Ondansetron HCl (Zofran Odt Tab*) 4 mg PO Q6H PRN PRN Reason: n/v Last Admin: 06/15/18 08:46 Dose: 4 mg Pantoprazole Sodium (Protonix Iv*) 40 mg IV DAILY [facility] Last Admin: 06/15/18 10:05 Dose: 40 mg Pharmacy Consult (Vancomycin Per Pharmacy*) 1 note FOLLOW UP .VANC PER PHARMACY [facility] Pharmacy Profile Note (Vancomycin Trough Check) 1 note FOLLOW UP 0600 ONE Stop: 06/18/18 06:01 Vital Signs - 8 hr 06/15/18 06/15/18 06/16/18 23:00 23:15 01:01 Temperature 96.9 F Pulse Rate 72 Respiratory 14 18 Rate Blood Pressure 85/47 90/40 (mmHg) O2 Sat by Pulse 98 Oximetry 06/16/18 03:06 Temperature 97.8 F Pulse Rate 72 Respiratory 14 Rate Blood Pressure 91/50 (mmHg) O2 Sat by Pulse 96 Oximetry Oxygen Devices in Use Now: None Result Diagrams: 06/16/18 05:30 06/16/18 05:30 Microbiology and Other Data: Microbiology 06/15/18 02:10 Aerobic Blood Culture - Preliminary Blood Venous No Growth Day 1 Anaerobic Blood Culture - Preliminary 06/15/18 01:01 Aerobic Blood Culture - Preliminary Blood Venous No Growth Day 1 Anaerobic Blood Culture - Preliminary No Growth Day 1 06/15/18 13:15 Legionella Urinary Antigen - Final Urine Negative Legionella Antigen Streptococcus pneumoniae Ag Screen - Final Negative S. pneumo Antigen 06/15/18 08:45 Nasal Screen MRSA (PCR) - Final Nasal Mrsa Not Detected 06/15/18 02:30 Stool Gross Appearance - Final Stool C. difficile DNA Amplification - Final 027 Presumptive NEGATIVE Toxigenic C.diff NEGATIVE Assess/Plan/Problems-Billing Assessment:
[2018-06-16] MEDS ORDERED: Norepinephrine 16MCG/ML IVPRE* 4,000 MCG/250 ML BAG IV SCH (07:00)
[2018-06-16] MEDS ORDERED: Norepinephrine VIAL* 1 MG/ML 4 ML VIAL ONE (07:03)
[2018-06-16] MEDS: Heparin VIAL(*) 5000 UNITS/ML VIAL (FIVE THOUSAND) SUBCUT SCH ×3 (07:59→22:05)
[2018-06-16] MEDS: Pantoprazole IV* 40 MG IV SCH (07:59)
[2018-06-16] MEDS: Mometasone/Formoter 100/5 MDI INH SCH ×2 (09:12→19:44)
[2018-06-16] MEDS: Levothyroxine INJ* 100 MCG/5 ML VIAL IV SCH (10:46)
[2018-06-16] MEDS: NOREPINEPHRINE IV SCH ×2 (12:23→23:29)
[2018-06-16] MEDS: NS IV SCH ×2 (12:23→23:29)
--- NOTE | 2018-06-16 20:19 | PN ---
Date of Service: 06/16/18 Critical Care Services: Patient admitted here yestreday with fever, thought secondary to urinary tract infection - had low BP but no evidence of circulatory shock. Sent to floor but returned this AM because of low BP, which was apparently symptomatic. On arrival to ICU, patient was alert, afebrile, and in no distress. Vital Signs: Temp Pulse Resp BP SpO2 FiO2 99.0 F 70 14 127/68 94 94 Physical Exam: Gen:Alert, oriented, appears comfortable. Lungs:Clear Abdomen:No tenderness Extremities:No cyanosis or edema. Fluid Balance (Past 24 Hours): 06/16/18 06:59 Intake Total 610 Output Total 2625 Balance -2014 Weight 195 lb Intake: IV Fluids NS (0.9%) IVPB ABX - VANCOMYCIN Medicated IV Fosphenytoin Oral 610 Output: Urine 1450 Urostomy 1175 Other: # Bowel Movements 0 Estimated Stool Amount Labs: 06/15/18 06/16/18 06/16/18 21:08 01:10 05:26 WBC RBC Hgb Hct MCV MCH MCHC RDW Plt Count MPV Sodium Potassium Chloride Carbon Dioxide Anion Gap BUN Creatinine Est GFR ( Amer) Est GFR (Non-Af Amer) BUN/Creatinine Ratio Glucose POC Glucose (mg/dL) 145 H 99 184 H Lactic Acid Calcium Cortisol 06/16/18 06/16/18 06/16/18 05:30 05:30 09:13 WBC 7.8 RBC 2.49 L Hgb 8.0 L Hct 25 L MCV 99 H MCH 32 H MCHC 33 RDW 19 H Plt Count 295 MPV 7.3 L Sodium 137 Potassium 4.1 Chloride 113 H Carbon Dioxide 18 L Anion Gap 6 BUN 40 H Creatinine 2.46 H Est GFR ( Amer) 24.7 Est GFR (Non-Af Amer) 20.4 BUN/Creatinine Ratio 16.3 Glucose 189 H POC Glucose (mg/dL) 100 Lactic Acid Calcium 8.1 L Cortisol 06/16/18 06/16/18 06/16/18 09:20 12:47 15:10 WBC RBC Hgb Hct MCV MCH MCHC RDW Plt Count MPV Sodium Potassium Chloride Carbon Dioxide Anion Gap BUN Creatinine Est GFR ( Amer) Est GFR (Non-Af Amer) BUN/Creatinine Ratio Glucose POC Glucose (mg/dL) 148 H Lactic Acid 1.0 Calcium Cortisol 8.97 06/16/18 16:54 WBC RBC Hgb Hct MCV MCH MCHC RDW Plt Count MPV Sodium Potassium Chloride Carbon Dioxide Anion Gap BUN Creatinine Est GFR ( Amer) Est GFR (Non-Af Amer) BUN/Creatinine Ratio Glucose POC Glucose (mg/dL) 142 H Lactic Acid Calcium Cortisol Studies: Blood Culutures (x 2) growing Enterobacter cloacae Nutrition: Oral diet Impression: 1. Gram-negative septicemia - should be adequately covered with cefepime. Urinary tract is most likely origin. 2. Low cortisol in setting of stress is highly suggestive of adrenal insufficiency (as a cause of the labile BP). Plan: 1. Continue cefepime 2. Repeat random serum cortisol.
[2018-06-17] MEDS: Cefepime 1 GM in Dextrose(*) 1 GM/50 ML BAG IV SCH (01:18)
[2018-06-17] MEDS: Insulin LISPRO* 1 UNITS UNIT SUBCUT SCH ×5 (01:42→20:16)
[2018-06-17] MEDS: Fosphenytoin(*) 100 MG in NS 0.9% 50 ML* 50 ML IVPB SCH ×3 (02:03→18:33)
[2018-06-17] MEDS: Heparin VIAL(*) 5000 UNITS/ML VIAL (FIVE THOUSAND) SUBCUT SCH ×3 (06:13→21:31)
[2018-06-17 06:44] LABS: Hematocrit 25 % (35-47); Mean Corpuscular HGB Conc 33 g/dl (31-36); Mean Corpuscular Hemoglobin 32 pg (27-31); Mean Corpuscular Volume 98 fL (80-97); Mean Platelet Volume 7.5 um3 (7.4-10.4); Platelet Count 288 10^3/ul (150-450); Red Cell Distribution Width 19 % (10.5-15); White Blood Count 5.8 10^3/ul (3.5-10.8)
[2018-06-17 07:07] LABS: EGFR Non-African American 27.4 (>60)
[2018-06-17] MEDS: HYDROmorphone INJ* 0.5 MG/0.5 ML SYRINGE IV PRN ×5 (08:04→23:27)
[2018-06-17] MEDS: Mometasone/Formoter 100/5 MDI INH SCH ×2 (09:02→19:49)
[2018-06-17] MEDS: Levothyroxine INJ* 100 MCG/5 ML VIAL IV SCH (09:46)
[2018-06-17] MEDS: Pantoprazole IV* 40 MG IV SCH (09:46)
[2018-06-17] MEDS: Nystatin TOP POWDER* 15 GM BTL TOPICAL SCH ×2 (11:26→21:31)
[2018-06-17] MEDS: NOREPINEPHRINE IV SCH ×2 (11:55→21:31)
[2018-06-17] MEDS: NS IV SCH ×2 (11:55→21:31)
[2018-06-17] MEDS: Ondansetron ODT TAB* 4 MG PO PRN (11:56)
--- NOTE | 2018-06-17 13:45 | PN ---
Date of Service: 06/17/18 Critical Care Services: Doing well clinically - has been afebrile (on cefepime) but BP remains labile - repeat cortisol is low (< 10) indicating probable adrenal insufficiency. Vital Signs: Temp Pulse Resp BP SpO2 FiO2 98.7 F 62 15 106/52 97 94 Physical Exam: Gen:Alert, oriented, comfortable Lungs:Clear Abdomen:Soft, nontender Extremities: No cyanosis or edema. Fluid Balance (Past 24 Hours): 06/17/18 06:59 Intake Total 2288 Output Total 2850 Balance -562 Weight 197 lb Intake: IV Fluids 373 NS (0.9%) 373 IVPB 188 ABX - VANCOMYCIN 188 Medicated IV 167 Fosphenytoin 167 Oral 1560 Output: Urine [place] 1000 Urostomy 1850 Emesis Other: # Bowel Movements Estimated Stool Amount Medium Labs: 06/16/18 06/16/18 06/16/18 15:10 16:54 21:49 WBC RBC Hgb Hct MCV MCH MCHC RDW Plt Count MPV Sodium Potassium Chloride Carbon Dioxide Anion Gap BUN Creatinine Est GFR ( Amer) Est GFR (Non-Af Amer) BUN/Creatinine Ratio Glucose POC Glucose (mg/dL) 142 H 132 H Calcium Cortisol 8.97 06/17/18 06/17/18 06/17/18 01:40 06:20 06:20 WBC 5.8 RBC 2.50 L Hgb 8.0 L Hct 25 L MCV 98 H MCH 32 H MCHC 33 RDW 19 H Plt Count 288 MPV 7.5 Sodium 139 Potassium 4.6 Chloride 117 H Carbon Dioxide 19 L Anion Gap 3 BUN 29 H Creatinine 1.91 H Est GFR ( Amer) 33.1 Est GFR (Non-Af Amer) 27.4 BUN/Creatinine Ratio 15.2 Glucose 87 POC Glucose (mg/dL) 120 H Calcium 8.4 L Cortisol 9.60 06/17/18 06/17/18 06:23 12:27 WBC RBC Hgb Hct MCV MCH MCHC RDW Plt Count MPV Sodium Potassium Chloride Carbon Dioxide Anion Gap BUN Creatinine Est GFR ( Amer) Est GFR (Non-Af Amer) BUN/Creatinine Ratio Glucose POC Glucose (mg/dL) 89 91 Calcium Cortisol Studies: None Nutrition: Oral diet Impression: Gram-negative septicemia appears under control. Patient probably has adrenal insufficiency as cause of labile BP Plan: 1. Hydrocortisone - 100 mg iV q8h 2. Continue the cefepime.
[2018-06-17] MEDS: Hydrocortisone INJ* 100 MG VIAL IV SCH ×2 (14:24→21:31)
[2018-06-17] MEDS: Acetaminophen TAB* 325 MG PO PRN (16:11)
[2018-06-18] MEDS: Fosphenytoin(*) 100 MG in NS 0.9% 50 ML* 50 ML IVPB SCH (05:18)
[2018-06-18] MEDS: Cefepime 1 GM in Dextrose(*) 1 GM/50 ML BAG IV SCH (05:18)
[2018-06-18] MEDS: Heparin VIAL(*) 5000 UNITS/ML VIAL (FIVE THOUSAND) SUBCUT SCH ×3 (05:42→21:22)
[2018-06-18] MEDS: HYDROmorphone INJ* 0.5 MG/0.5 ML SYRINGE IV PRN ×2 (05:43→07:36)
[2018-06-18] MEDS: Hydrocortisone INJ* 100 MG VIAL IV SCH ×2 (05:43→17:30)
[2018-06-18] MEDS ORDERED: Vancomycin Trough Check NOTE FOLLOW UP ONE (06:00)
[2018-06-18 06:26] LABS: Hematocrit 27 % (35-47); Hemoglobin 8.7 g/dl (12.0-16.0); Mean Corpuscular HGB Conc 33 g/dl (31-36); Mean Corpuscular Hemoglobin 32 pg (27-31); Mean Corpuscular Volume 98 fL (80-97); Mean Platelet Volume 7.5 um3 (7.4-10.4); Platelet Count 323 10^3/ul (150-450); Red Cell Distribution Width 19 % (10.5-15)
[2018-06-18 06:42] LABS: EGFR Non-African American 26.9 (>60)
[2018-06-18] MEDS: Mometasone/Formoter 100/5 MDI INH SCH ×2 (07:34→19:57)
[2018-06-18] MEDS: Ondansetron ODT TAB* 4 MG PO PRN (07:35)
[2018-06-18] MEDS: Nystatin TOP POWDER* 15 GM BTL TOPICAL SCH ×2 (08:35→21:25)
[2018-06-18] MEDS: Insulin LISPRO* 1 UNITS UNIT SUBCUT SCH ×4 (08:37→21:22)
[2018-06-18] MEDS ORDERED: Ergocalciferol CAP* 50000 UNIT PO SCH (09:00)
[2018-06-18] MEDS: DULoxetine DR CAP* 60 MG CAP.DR PO SCH (10:44)
[2018-06-18] MEDS: Allopurinol TAB* 100 MG PO SCH (10:44)
[2018-06-18] MEDS: Phenytoin CAP(*) 100 MG CAP.ER PO SCH ×3 (10:45→21:20)
[2018-06-18] MEDS: Gabapentin CAP(*) 300 MG PO SCH ×3 (10:45→21:21)
[2018-06-18] MEDS: Levothyroxine TAB* 100 MCG TAB PO SCH (10:45)
--- NOTE | 2018-06-18 11:19 | PN ---
Date of Service: 06/18/18 Critical Care Services: Overall is doing well. No specific complaints this AM. Major problems include: 1. Enterobacter septicemia - presumably from urinary tract - is on cefepime ( which organism is sensitive to). 2. Renal insufficiency - has one kidney. Creatinine has dropped from mid 2s to 1.9. 3. Adrenal insufficiency - two random cortisols were low, so started hydrocortisone yesterday (stress doses of 100 mg TID) 4. Low BP - Has had systolic blood pressures of 90-110 while awake and down to 50 when asleep, but patient tolerates these pressures, and there has been no evidence of circulatory shock. Adrenal insufficiency may be partly responsible for the low BPs. 5. Pelvic osteomyelitis (?) - was on Zosyn in [place] for Rx of pelvic osteomyelitis (possible d/c in early June), but this was temporarily stopped here (has Hx of PCN allergy - reported as a rash). The Enterobacter is resistant to penicillins (but pipericillin not tested) Vital Signs: Temp Pulse Resp BP SpO2 FiO2 98.2 F 55 16 100/53 95 94 Physical Exam: Gen:Alert, oriented, and appears comfortable Lungs:Clear Abdomen:Nontender. Ureteroileostomy draining appropriately. Extremities:No cyanosis or edema. Fluid Balance (Past 24 Hours): 06/17/18 06/18/18 06:59 06:59 Intake Total 2288 2278.7 Output Total 2850 2700 Balance -562 -421.3 Weight 197 lb 195 lb Intake: IV Fluids 373 174.2 NS (0.9%) 373 109.7 fosphenytoin 64.5 IVPB 188 50 ABX - VANCOMYCIN 188 NS (0.9%) 50 Medicated IV 167 174.5 Fosphenytoin 167 174.5 Oral 1560 1880 Output: Urine [place] 1000 Urostomy 1850 1900 Emesis 800 Other: # Bowel Movements 0 Estimated Stool Amount Medium Labs: 06/17/18 06/17/18 06/17/18 09:46 12:27 16:58 WBC RBC Hgb Hct MCV MCH MCHC RDW Plt Count MPV Sodium Potassium Chloride Carbon Dioxide Anion Gap BUN Creatinine Est GFR ( Amer) Est GFR (Non-Af Amer) BUN/Creatinine Ratio Glucose POC Glucose (mg/dL) 134 H 91 134 H Calcium 06/17/18 06/18/18 06/18/18 20:08 06:02 06:02 WBC 7.0 Hgb 8.7 Hct 27 MCV 98 Plt Count 323 Sodium 136 Potassium 5.5 H Chloride 111 Carbon Dioxide 21 L Anion Gap 4 BUN 27 Creatinine 1.94 Glucose 112 POC Glucose (mg/dL) 160 H Calcium 8.8 NOTE: Will repeat the potassium. Studies: None Nutrition: Diabetic diet Impression: 1. Septicemia responding to antibiotic Rx (with cefepime) 2. Renal function improving 3. Adrenal insufficiency - Rx IV hydrocortisone 4. Continues with low BP, but this is a chronic problem, and is not indicative of circulatory shock. Plan: 1. Seven days of IV antibiotic for gram-negative septicemia. 2. Reduce hydrocortisone dose to 200 mg daily. 3. Check ESR as an indication of activity of the osteomyelitis. ?? May not have to restart Zosyn if ESR is normal. 4. Repeat serum potassium. 5. Transfer out of ICU, and emphasize the benign nature of the low BP in this patient.
[2018-06-18] MEDS: CMCS Pantoprazole TAB (NF) 40 MG TAB PO SCH (11:31)
[2018-06-18] MEDS: NS IV SCH (11:53)
[2018-06-18] MEDS: NOREPINEPHRINE IV SCH (11:53)
[2018-06-18] MEDS ORDERED: Sodium Polystyrene ORAL.SOL* 15 GM/60 ML BTL PO SCH (12:00)
[2018-06-18 12:36] LABS: EGFR Non-African American 28.9 (>60)
[2018-06-18 14:27] LABS: EGFR Non-African American 29.3 (>60)
[2018-06-19] MEDS: Cefepime 1 GM in Dextrose(*) 1 GM/50 ML BAG IV SCH (01:36)
[2018-06-19] MEDS: Levothyroxine TAB* 100 MCG TAB PO SCH (05:21)
[2018-06-19] MEDS: Hydrocortisone INJ* 100 MG VIAL IV SCH (05:25)
[2018-06-19] MEDS: Heparin VIAL(*) 5000 UNITS/ML VIAL (FIVE THOUSAND) SUBCUT SCH ×3 (05:25→22:10)
[2018-06-19 06:04] LABS: Hematocrit 27 % (35-47); Hemoglobin 8.8 g/dl (12.0-16.0); Mean Corpuscular HGB Conc 33 g/dl (31-36); Mean Corpuscular Hemoglobin 32 pg (27-31); Mean Corpuscular Volume 97 fL (80-97); Mean Platelet Volume 7.5 um3 (7.4-10.4); Platelet Count 349 10^3/ul (150-450); Red Cell Distribution Width 19 % (10.5-15); White Blood Count 6.8 10^3/ul (3.5-10.8)
[2018-06-19 06:21] LABS: EGFR Non-African American 29.3 (>60)
[2018-06-19] MEDS: Mometasone/Formoter 100/5 MDI INH SCH ×2 (07:58→19:53)
[2018-06-19] MEDS: Insulin LISPRO* 1 UNITS UNIT SUBCUT SCH ×4 (08:32→22:10)
[2018-06-19] MEDS: CMCS Pantoprazole TAB (NF) 40 MG TAB PO SCH (10:21)
[2018-06-19] MEDS: Nystatin TOP POWDER* 15 GM BTL TOPICAL SCH ×2 (10:21→22:10)
[2018-06-19] MEDS: Phenytoin CAP(*) 100 MG CAP.ER PO SCH ×3 (10:22→22:08)
[2018-06-19] MEDS: Gabapentin CAP(*) 300 MG PO SCH ×3 (10:22→22:09)
[2018-06-19] MEDS: Allopurinol TAB* 100 MG PO SCH (10:23)
[2018-06-19] MEDS: DULoxetine DR CAP* 60 MG CAP.DR PO SCH (11:01)
--- NOTE | 2018-06-19 11:43 | PN ---
Subjective Date of Service: 06/19/18 Interval History: Pt feels fine, no pain, no fevers, showered today Objective Active Medications: Albuterol (Ventolin Hfa Inhaler*) 2 puff INH Q6H PRN PRN Reason: SOB/WHEEZING Allopurinol (Zyloprim Tab*) 200 mg PO DAILY [facility] Last Admin: 06/19/18 10:23 Dose: 200 mg Duloxetine HCl (Cymbalta Cap*) 60 mg PO QAM [facility] Last Admin: 06/19/18 11:01 Dose: 60 mg Ergocalciferol (Drisdol Cap*) 50,000 unit PO WEEKLY [facility] Last Admin: 06/19/18 10:21 Dose: 50,000 unit Gabapentin (Neurontin Cap(*)) 300 mg PO TID [facility] Last Admin: 06/19/18 10:22 Dose: 300 mg Heparin Sodium (Porcine) (Heparin Vial(*)) 5,000 units SUBCUT Q8HR [facility] Last Admin: 06/19/18 05:25 Dose: 5,000 units Heparin Sodium (Porcine) (Heparin Flush Picc/Ml/Cvc(*)) 1 - 3 ml FLUSH 0600, 1800 [facility]; Protocol Last Admin: 06/19/18 05:25 Dose: 2 ml Hydrocortisone Sodium Succinate (Solu-Cortef*) 100 mg IV Q12H [facility] Last Admin: 06/19/18 05:25 Dose: 100 mg Hydromorphone HCl (Dilaudid Inj*) 0.5 mg IV Q2H PRN PRN Reason: PAIN Last Admin: 06/18/18 07:36 Dose: 0.5 mg Cefepime HCl (Maxipime 1 Gm In Dextrose Duplex (*)) 1 gm in 50 mls @ 100 mls/ hr IV Q24H [facility] Last Admin: 06/19/18 01:36 Dose: 100 mls/hr Insulin Human Lispro (Humalog*) 0 units SUBCUT ACHS [facility]; Protocol Last Admin: 06/19/18 08:32 Dose: Not Given Levothyroxine Sodium (Synthroid Tab*) 200 mcg PO 0600 [facility] Last Admin: 06/19/18 05:21 Dose: 200 mcg Lorazepam (Ativan Inj*) 0.5 mg IV BEDTIME PRN PRN Reason: SLEEP Mometasone Furoate/Formoterol Fumar (Dulera 100/5 Mdi*) 2 puff INH BID [facility] Last Admin: 06/19/18 07:58 Dose: 2 puff Nystatin (Nystatin Top Powder*) 1 applic TOPICAL BID [facility] Last Admin: 06/19/18 10:21 Dose: 1 applic Ondansetron HCl (Zofran Odt Tab*) 4 mg PO Q6H PRN PRN Reason: n/v Last Admin: 06/18/18 07:35 Dose: 4 mg Pantoprazole Sodium (Protonix Tab (Nf)) 40 mg PO QAM [facility] Last Admin: 06/19/18 10:21 Dose: 40 mg Phenytoin Sodium (Dilantin Cap(*)) 100 mg PO TID [facility] Last Admin: 06/19/18 10:22 Dose: 100 mg Vital Signs - 8 hr 06/19/18 06/19/18 06/19/18 03:36 07:58 10:22 Temperature 97.6 F Pulse Rate 51 54 Respiratory 16 16 16 Rate Blood Pressure 107/64 (mmHg) O2 Sat by Pulse 97 98 Oximetry Oxygen Devices in Use Now: None Appearance: 53 yo f in nAD, aAOx3 Eyes: No Scleral Icterus, PERRLA Ears/Nose/Mouth/Throat: NL Teeth, Lips, Gums, Mucous Membranes Moist Neck: NL Appearance and Movements; NL JVP, Trachea Midline Respiratory: Symmetrical Chest Expansion and Respiratory Effort, Clear to Auscultation Cardiovascular: NL Sounds; No Murmurs; No JVD, RRR Abdominal: NL Sounds; No Tenderness; No Distention, - - R urostomy in place draining straw urine Lymphatic: No Cervical Adenopathy Extremities: No Clubbing, Cyanosis Skin: No Rash or Ulcers, No Nodules or Sclerosis, - - suprapubic incision healed , no evidence of infection Neurological: Alert and Oriented x 3, NL Muscle Strength and Tone Result Diagrams: 06/19/18 05:40 06/19/18 05:40 Microbiology and Other Data: Microbiology 06/15/18 02:10 Aerobic Blood Culture - Preliminary Blood Venous No Growth Day 1 Anaerobic Blood Culture - Preliminary 06/15/18 01:01 Aerobic Blood Culture - Preliminary Blood Venous No Growth Day 1 Anaerobic Blood Culture - Preliminary No Growth Day 1 06/15/18 13:15 Legionella Urinary Antigen - Final Urine Negative Legionella Antigen Streptococcus pneumoniae Ag Screen - Final Negative S. pneumo Antigen 06/15/18 08:45 Nasal Screen MRSA (PCR) - Final Nasal Mrsa Not Detected 06/15/18 02:30 Stool Gross Appearance - Final Stool C. 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) , s/p cystectomy and ileal conduit and urostomy placement in 02/2018,who had severe sepsis and enterobacter bacteremia, off pressors, transferred out of ICU on 06/18/18 Hospitalized at [facility]: Pt was hospitalized from 04/22/18 to 05/11/18 at [facility] for Fernanda's gangrene, 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 D/c to [facility] STR CX from wound at [facility] : E. Faecium, Citrobacter Koseri, Pseudomonas , coag + Staph - Patient Problems (1) Sepsis Comment: severe, with septic shock requiring pressors. s/p transfer out of ICU. Blood cx + Enterobacter cloacae. cont Cefepime. ID consult pending. Pt has h/o Fernanda's gangrene and symphysis pubis osteomyelitis-will obtain MRI pelvis (2) CKD (chronic kidney disease) stage 3, GFR 30-59 ml/min Comment: TUNDE due to sepsis resolved, creat back to baseline (3) Hypothyroidism Comment: Cont home dose levothyroxine (4) History of COPD Comment: not in exacerbation (5) History of nephrectomy Comment: on Left (6) Hx of gout Comment: cont allopurinol (7) Adrenal insufficiency Comment: dx with low cortisol levels when in hypotension in ICU, cont tapering down, switch from Solu cortef IV to PO Prednisone today (8) H/O tonic-clonic seizures Comment: on chronic dilantin-cont (9) Anemia Comment: mild worsening of chronic, suspect due to hemodliution ho vit B12 deff.Cont supplementation (10) DVT prophylaxis Comment: SQ heparin
--- NOTE | 2018-06-19 15:51 | RAD ---
Indication: Osteomyelitis of the pubic symphysis. Image Sequences: Axial T1, T2 fat sat, coronal T1, T2 fat sat, STIR, and axial STIR images were obtained. No dilated loops of bowel are noted. There is some minimal presacral edema noted. There is increased signal at the pubic symphysis with bone marrow edema in the inferior pubic rami and superior pubic rami bilaterally. There is diastases of the pubic symphysis with soft tissue edema noted. No drainable fluid collection is identified. There is fragmentation of the pubic symphysis. IMPRESSION: There is diastases of the pubic symphysis with bone marrow edema. Underlying osteomyelitis is not excluded.
--- NOTE | 2018-06-19 23:39 | CONS ---
CONSULTATION REPORT: DATE OF CONSULT: 06/19/18 REQUESTING PHYSICIAN: Dr. Vu. CONSULTING SERVICE: Infectious Disease. REASON FOR CONSULT: Enterobacter bacteremia. IMPRESSION: 1. Admitted with fever and rigors, found to have sepsis, and Enterobacter cloacae in 2 of 4 blood culture bottles. This is in the setting of a Groshong catheter, which I believe is infected. 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 Enterobacter was not isolated according to the records we have from [facility] in the pelvis. That area has been less and less painful and the surgical incisions related to repair that injury and infection are intact. Her urinalysis in the setting of an ileal conduit showed some blood and white cells, no leukocyte esterase or nitrites, and the urine culture was negative. She does not have other prosthetic material present. 2. Pelvic osteomyelitis, status post resection of component of the pelvis and cartilage, on Zosyn therapy for what looks to be coag-negative Staph and Pseudomonas infection. 3. History of bladder cancer, status post cystectomy and urostomy in August 2017. 4. Fernanda's gangrene, status post flap reconstruction of the abdominal musculature. 5. Type 2 diabetes. 6. History of cervical cancer. 7. History of small bowel obstruction. 8. Allergy to PENICILLIN that caused hives, had been tolerating Zosyn while at [facility] [place]. RECOMMENDATIONS: Continue cefepime. We will increase that to 2 g IV every 24 hours, which is dosed for her GFR of approximately 25. I discussed with her that the options for her Groshong catheter are to treat through it, which is an option given that the gram-negative is not particularly resistant at this point. There is some risk that after finishing antibiotics, the infection may relapse and the alternative would be to remove the catheter and see if we could place the PICC or midline for the duration of the IV antibiotics here and while we will try to work out what her long-term needs are for central access. She prefers to keep her current catheter to try to treat through it. HISTORY OF PRESENT ILLNESS: This is a 53-year-old woman who has had multiple surgeries and hospitalizations in the last few months including cystectomy and urostomy in August 2017, subsequent Fernanda's gangrene of the abdomen requiring debridement and reconstruction of the abdominal musculature from bilateral thigh flaps. She was then found to have a pelvic osteomyelitis and treated at [facility] with debridement of the pelvis and was discharged on long course of Zosyn which she had been tolerating well and having it half-way here. On the 06/14/18, she was unable to stay warm and was having drenching sweats and came to hospital later that afternoon. She was febrile to 40.2 degrees. She had blood pressure in the 70s requiring pressors and IV fluid resuscitation. She has a baseline creatinine in the high 1s. The creatinine was 2.5 when she arrived, down to 1.8 now, she is on pressors. She is subsequently found to have Enterobacter in 2 of 4 initial blood culture bottles. Urinalysis showed blood and white cells, but urine culture was negative. CT of the abdomen and pelvis showed no acute finding. The chest x- ray showed no infiltrates. She is continued on cefepime. She is feeling like her usual self. Again, the fevers are resolved. She is up and around the unit. She had an MRI of her pelvis, which is pending. She does not have any particular pain in that area and all of her surgical incisions are intact without redness or drainage she notes. She has a right chest Groshong catheter placed for her home IV antibiotics. A PICC line had been avoided that sounds like in the setting of future needs for AV fistula and/or difficulty placing a PICC. She does note that the last time the fever came on was shortly after an an infusion through the Groshong catheter. PAST MEDICAL HISTORY: 1. Bladder cancer, status post cystectomy and urostomy in August 2017. 2. 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 3. History of chronic kidney disease. 4. Left nephrectomy for severe hydronephrosis due to left ureteral stricture. 5. Uterine cancer, treated with radiation, complicated by retroperitoneal fibrosis. 6. Right ureteral stricture with a history of ureteral stent, apparently gone now. 7. COPD. 8. Chronic low back pain. 9. Hyperuricemia. 10. Hypothyroidism. 11. Gastroesophageal reflux disease. 12. Hypertension. 13. Hiatal hernia. 14. Small bowel obstruction with cervical cancer in 1999. 15. Psoriasis. 16. Anxiety. 17. Depression. 18. Status post treatment for ectopic . 19. Status post hysterectomy. 20. Status post left salivary mass excision. MEDICATIONS: 1. Albuterol. 2. Allopurinol. 3. Cefepime 1 g IV every 24 hours. 4. Vitamin B12. 5. Docusate. 6. Duloxetine. 7. Ergocalciferol. 8. Ferrous sulfate. 9. Gabapentin. 10. Heparin flush through her Groshong catheter. 11. Heparin subcutaneous injection. 12. Dilaudid. 13. Levothyroxine. 14. Nystatin topical. 15. Pantoprazole. 16. Oxycodone as needed. 17. Phenytoin. 18. Prednisone 60 mg a day. ALLERGIES: LATEX, PENICILLIN caused hives, CIPRO caused nausea and vomiting, CLINDAMYCIN caused vomiting, and MACRODANTIN caused nausea. FAMILY HISTORY: No recurrent infections. SOCIAL HISTORY: She has been in nursing facility, otherwise lives in [place]. Has spent some time in hospital in [place]. No sick contacts. REVIEW OF SYSTEMS: All negative except as noted above in the history of present illness. PHYSICAL EXAM: Vital Signs: Temperature 36.6, heart rate 58, respiratory rate 18, blood pressure 109/69, oxygen saturation 99% on room air. In general, she is awake, not in distress. Neurologic: She is oriented x3. Follows all commands. Moves all of her extremities. HEENT: There is no conjunctival hemorrhage. Oropharynx without lesions. Neck is supple without mass. Lymph Nodes: There is no cervical, supraclavicular, inguinal, axillary, or epitrochlear lymphadenopathy. Heart is regular rate and rhythm without murmurs, rubs, or gallops. Lungs are clear to auscultation bilaterally. Abdomen: Soft , nontender, and nondistended. There are bowel sounds present. There is a right lower quadrant ostomy with clear urine. The surgical incisions on her abdomen are well healed as it does on her bilateral thighs. Skin: There is no rash or splinter hemorrhage. Musculoskeletal: No spine tenderness. There is a right chest tunneled catheter. LABORATORY DATA: White blood cell count 6.8, hemoglobin 8.8, platelets 349. Creatinine 1.8. Please see impressions and recommendations as outlined above, which I have discussed with Dr. Vu. Thanks for asking me to see Ms. Bender in consultation. [id number] #: [id number] [facility]
[2018-06-20] MEDS: Levothyroxine TAB* 100 MCG TAB PO SCH (06:02)
[2018-06-20] MEDS: Heparin VIAL(*) 5000 UNITS/ML VIAL (FIVE THOUSAND) SUBCUT SCH ×3 (06:03→22:10)
[2018-06-20] MEDS: Cefepime 2 GM in Dextrose(*) 2 GM/50 ML BAG IV SCH (06:17)
[2018-06-20] MEDS: Mometasone/Formoter 100/5 MDI INH SCH ×2 (07:57→20:41)
[2018-06-20] MEDS ORDERED: predniSONE TAB* 20 MG PO SCH (09:00)
[2018-06-20] MEDS: Insulin LISPRO* 1 UNITS UNIT SUBCUT SCH ×4 (09:23→20:55)
[2018-06-20] MEDS: Allopurinol TAB* 100 MG PO SCH (09:35)
[2018-06-20] MEDS: Cyanocobalamin TAB* 500 MCG PO SCH (09:36)
[2018-06-20] MEDS: Ferrous Sulfate TAB* 325 MG PO SCH (09:36)
[2018-06-20] MEDS: Docusate CAP* 100 MG PO SCH (09:36)
[2018-06-20] MEDS: DULoxetine DR CAP* 60 MG CAP.DR PO SCH (09:36)
[2018-06-20] MEDS: Gabapentin CAP(*) 300 MG PO SCH ×3 (09:36→20:55)
[2018-06-20] MEDS: Nystatin TOP POWDER* 15 GM BTL TOPICAL SCH ×2 (09:37→20:56)
[2018-06-20] MEDS: Phenytoin CAP(*) 100 MG CAP.ER PO SCH ×3 (09:37→20:55)
[2018-06-20] MEDS: CMCS Pantoprazole TAB (NF) 40 MG TAB PO SCH (09:37)
--- NOTE | 2018-06-20 13:18 | PN ---
Subjective Date of Service: 06/20/18 Interval History: Pt has no news complaints. feels stronger every day. Urine out of urostomy bag clear, straw colored Objective Active Medications: Albuterol (Ventolin Hfa Inhaler*) 2 puff INH Q6H PRN PRN Reason: SOB/WHEEZING Allopurinol (Zyloprim Tab*) 200 mg PO DAILY [facility] Last Admin: 06/20/18 09:35 Dose: 200 mg Cyanocobalamin (Vitamin B12 Tab*) 1,000 mcg PO DAILY [facility] Last Admin: 06/20/18 09:36 Dose: 1,000 mcg Docusate Sodium (Colace Cap*) 200 mg PO DAILY [facility] Last Admin: 06/20/18 09:36 Dose: Not Given Duloxetine HCl (Cymbalta Cap*) 60 mg PO QAM [facility] Last Admin: 06/20/18 09:36 Dose: 60 mg Ergocalciferol (Drisdol Cap*) 50,000 unit PO WEEKLY [facility] Last Admin: 06/19/18 10:21 Dose: 50,000 unit Ferrous Sulfate (Ferrous Sulfate Tab*) 325 mg PO DAILY [facility] Last Admin: 06/20/18 09:36 Dose: 325 mg Gabapentin (Neurontin Cap(*)) 300 mg PO TID [facility] Last Admin: 06/20/18 09:36 Dose: 300 mg Heparin Sodium (Porcine) (Heparin Vial(*)) 5,000 units SUBCUT Q8HR [facility] Last Admin: 06/20/18 06:03 Dose: 5,000 units Heparin Sodium (Porcine) (Heparin Flush Picc/Ml/Cvc(*)) 1 - 3 ml FLUSH 0600, 1800 [facility]; Protocol Last Admin: 06/20/18 07:13 Dose: 2 ml Hydromorphone HCl (Dilaudid Inj*) 0.5 mg IV Q2H PRN PRN Reason: PAIN Last Admin: 06/18/18 07:36 Dose: 0.5 mg Cefepime HCl (Maxipime 2 Gm In Dextrose Duplex (*)) 2 gm in 50 mls @ 100 mls/ hr IV Q24H [facility] Last Admin: 06/20/18 06:17 Dose: 100 mls/hr Insulin Human Lispro (Humalog*) 0 units SUBCUT ACHS [facility]; Protocol Last Admin: 06/20/18 12:05 Dose: 2 unit Levothyroxine Sodium (Synthroid Tab*) 200 mcg PO 0600 [facility] Last Admin: 06/20/18 06:02 Dose: 200 mcg Lorazepam (Ativan Inj*) 0.5 mg IV BEDTIME PRN PRN Reason: SLEEP Mometasone Furoate/Formoterol Fumar (Dulera 100/5 Mdi*) 2 puff INH BID [facility] Last Admin: 06/20/18 07:57 Dose: 2 puff Nystatin (Nystatin Top Powder*) 1 applic TOPICAL BID [facility] Last Admin: 06/20/18 09:37 Dose: 1 applic Ondansetron HCl (Zofran Odt Tab*) 4 mg PO Q6H PRN PRN Reason: n/v Last Admin: 06/18/18 07:35 Dose: 4 mg Oxycodone HCl (Roxycodone Tab*) 5 mg PO Q4H PRN PRN Reason: PAIN Pantoprazole Sodium (Protonix Tab (Nf)) 40 mg PO QAM [facility] Last Admin: 06/20/18 09:37 Dose: 40 mg Phenytoin Sodium (Dilantin Cap(*)) 100 mg PO TID [facility] Last Admin: 06/20/18 09:37 Dose: 100 mg Prednisone (Deltasone Tab*) 60 mg PO DAILY [facility] Last Admin: 06/20/18 09:37 Dose: 60 mg Vital Signs - 8 hr 06/20/18 06/20/18 06/20/18 07:36 07:57 08:00 Temperature 98.1 F Pulse Rate 62 61 Respiratory 20 16 20 Rate Blood Pressure 126/69 (mmHg) O2 Sat by Pulse 99 98 99 Oximetry 06/20/18 06/20/18 06/20/18 09:36 11:43 12:19 Temperature 98.3 F Pulse Rate 71 Respiratory 16 16 Rate Blood Pressure 124/67 (mmHg) O2 Sat by Pulse 97 Oximetry Oxygen Devices in Use Now: None Appearance: 53 yo F in nAD, aAOx3 Eyes: No Scleral Icterus, PERRLA Ears/Nose/Mouth/Throat: NL Teeth, Lips, Gums, Mucous Membranes Moist Neck: NL Appearance and Movements; NL JVP, Trachea Midline Respiratory: Symmetrical Chest Expansion and Respiratory Effort, Clear to Auscultation Cardiovascular: NL Sounds; No Murmurs; No JVD Abdominal: NL Sounds; No Tenderness; No Distention, - - urostomy in RLQ, abd soft, NT Lymphatic: No Cervical Adenopathy Extremities: No Edema Skin: No Nodules or Sclerosis, - - suprapubic incision healed well, no evidence of skin infection Neurological: Alert and Oriented x 3, NL Muscle Strength and Tone Result Diagrams: 06/19/18 05:40 06/19/18 05:40 Microbiology and Other Data: Microbiology 06/15/18 02:10 Aerobic Blood Culture - Preliminary Blood Venous No Growth Day 1 Anaerobic Blood Culture - Preliminary 06/15/18 01:01 Aerobic Blood Culture - Preliminary Blood Venous No Growth Day 1 Anaerobic Blood Culture - Preliminary No Growth Day 1 06/15/18 13:15 Legionella Urinary Antigen - Final Urine Negative Legionella Antigen Streptococcus pneumoniae Ag Screen - Final Negative S. pneumo Antigen 06/15/18 08:45 Nasal Screen MRSA (PCR) - Final Nasal Mrsa Not Detected 06/15/18 02:30 Stool Gross Appearance - Final Stool C. 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) , s/p cystectomy and ileal conduit and urostomy placement in 02/2018,who had severe sepsis and enterobacter bacteremia, off pressors, transferred out of ICU on 06/18/18 Hospitalized at [facility]: Pt was hospitalized from 04/22/18 to 05/11/18 at [facility] for Fernanda's gangrene, 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 D/c to [facility] STR CX from wound at [facility] : E. Faecium, Citrobacter Koseri, Pseudomonas , coag + Staph - Patient Problems (1) Sepsis Comment: severe, with septic shock requiring pressors. s/p transfer out of ICU. Blood cx + Enterobacter cloacae. cont Cefepime. Appreciate ID consult. Susanne subcu IV port infection will require longer IV antibiotic tx. Pt has h/o Fernanda's gangrene and symphysis pubis osteomyelitis-MRI pelvis shows BM edema (post surgery in 05/13- possibly related) (2) CKD (chronic kidney disease) stage 3, GFR 30-59 ml/min Comment: TUNDE due to sepsis resolved, creat back to baseline (3) Hypothyroidism Comment: Cont home dose levothyroxine (4) History of COPD Comment: not in exacerbation (5) History of nephrectomy Comment: on Left (6) Hx of gout Comment: cont allopurinol (7) Adrenal insufficiency Comment: dx with low cortisol levels when in hypotension in ICU, cont tapering down prednisone (8) H/O tonic-clonic seizures Comment: on chronic dilantin-cont (9) Anemia Comment: mild worsening of chronic, suspect due to hemodliution ho vit B12 deff.Cont supplementation (10) DVT prophylaxis Comment: SQ heparin
[2018-06-21] MEDS: Heparin VIAL(*) 5000 UNITS/ML VIAL (FIVE THOUSAND) SUBCUT SCH ×3 (06:35→21:43)
[2018-06-21] MEDS: Cefepime 2 GM in Dextrose(*) 2 GM/50 ML BAG IV SCH (06:35)
[2018-06-21] MEDS: Levothyroxine TAB* 100 MCG TAB PO SCH (06:35)
[2018-06-21] MEDS: Nystatin TOP POWDER* 15 GM BTL TOPICAL SCH ×2 (07:31→21:45)
[2018-06-21] MEDS: Insulin LISPRO* 1 UNITS UNIT SUBCUT SCH ×4 (07:54→21:44)
[2018-06-21] MEDS: DULoxetine DR CAP* 60 MG CAP.DR PO SCH (07:55)
[2018-06-21] MEDS: Allopurinol TAB* 100 MG PO SCH (07:55)
[2018-06-21] MEDS: CMCS Pantoprazole TAB (NF) 40 MG TAB PO SCH (07:56)
[2018-06-21] MEDS: Gabapentin CAP(*) 300 MG PO SCH ×3 (07:56→21:44)
[2018-06-21] MEDS: Cyanocobalamin TAB* 500 MCG PO SCH (07:56)
[2018-06-21] MEDS: predniSONE TAB* 20 MG PO SCH (07:56)
[2018-06-21] MEDS: Ferrous Sulfate TAB* 325 MG PO SCH (07:57)
[2018-06-21] MEDS: Docusate CAP* 100 MG PO SCH (07:57)
[2018-06-21] MEDS: Phenytoin CAP(*) 100 MG CAP.ER PO SCH ×3 (07:57→21:45)
[2018-06-21] MEDS: Mometasone/Formoter 100/5 MDI INH SCH ×2 (08:36→19:42)
--- NOTE | 2018-06-21 13:15 | PN ---
Subjective Date of Service: 06/21/18 Interval History: Pt seen and examined. Meds and labs reviewed. CC: N/A ROS: Denied SULLIVAN/dizziness, F/C, N/V, CP, SOB, increased cough, sputum production , abd pain, diarrhea, constipation, dysuria, myalgias, arthralgias, throat pain , and new skin lesions. The rest of the 14 point ROS are unremarkable. PHYSICAL EXAM: GEN APPEARANCE: Awake, not in acute distress HEENT: NC/AT, PERRLA, moist oral mucosa, (-) throat erythema NECK: Soft, supple, (-) cervical LAD, (-)JVD HEART: S1S2 WNL, RRR, No MRG CHEST: CTA, BL, GAE, No W/R/R ABD: Soft, ND/NT, NABS 4x Q EXT: No C/C/E SKIN: Warm to touch PSYCH: No active psychosis, hallucinations, depression, SI/HI Objective Active Medications: Albuterol (Ventolin Hfa Inhaler*) 2 puff INH Q6H PRN PRN Reason: SOB/WHEEZING Allopurinol (Zyloprim Tab*) 200 mg PO DAILY [facility] Last Admin: 06/21/18 07:55 Dose: 200 mg Cyanocobalamin (Vitamin B12 Tab*) 1,000 mcg PO DAILY [facility] Last Admin: 06/21/18 07:56 Dose: 1,000 mcg Docusate Sodium (Colace Cap*) 200 mg PO DAILY [facility] Last Admin: 06/21/18 07:57 Dose: Not Given Duloxetine HCl (Cymbalta Cap*) 60 mg PO QAM [facility] Last Admin: 06/21/18 07:55 Dose: 60 mg Ergocalciferol (Drisdol Cap*) 50,000 unit PO WEEKLY [facility] Last Admin: 06/19/18 10:21 Dose: 50,000 unit Ferrous Sulfate (Ferrous Sulfate Tab*) 325 mg PO DAILY [facility] Last Admin: 06/21/18 07:57 Dose: 325 mg Gabapentin (Neurontin Cap(*)) 300 mg PO TID [facility] Last Admin: 06/21/18 07:56 Dose: 300 mg Heparin Sodium (Porcine) (Heparin Vial(*)) 5,000 units SUBCUT Q8HR [facility] Last Admin: 06/21/18 06:35 Dose: 5,000 units Heparin Sodium (Porcine) (Heparin Flush Picc/Ml/Cvc(*)) 1 - 3 ml FLUSH 0600, 1800 [facility]; Protocol Last Admin: 06/21/18 12:17 Dose: 2 ml Hydromorphone HCl (Dilaudid Inj*) 0.5 mg IV Q2H PRN PRN Reason: PAIN Last Admin: 06/18/18 07:36 Dose: 0.5 mg Cefepime HCl (Maxipime 2 Gm In Dextrose Duplex (*)) 2 gm in 50 mls @ 100 mls/ hr IV Q24H [facility] Last Admin: 06/21/18 06:35 Dose: 100 mls/hr Insulin Human Lispro (Humalog*) 0 units SUBCUT ACHS [facility]; Protocol Last Admin: 06/21/18 12:10 Dose: 3 unit Levothyroxine Sodium (Synthroid Tab*) 200 mcg PO 0600 [facility] Last Admin: 06/21/18 06:35 Dose: 200 mcg Lorazepam (Ativan Inj*) 0.5 mg IV BEDTIME PRN PRN Reason: SLEEP Mometasone Furoate/Formoterol Fumar (Dulera 100/5 Mdi*) 2 puff INH BID [facility] Last Admin: 06/21/18 08:36 Dose: 2 puff Nystatin (Nystatin Top Powder*) 1 applic TOPICAL BID [facility] Last Admin: 06/21/18 07:31 Dose: 1 applic Ondansetron HCl (Zofran Odt Tab*) 4 mg PO Q6H PRN PRN Reason: n/v Last Admin: 06/18/18 07:35 Dose: 4 mg Oxycodone HCl (Roxycodone Tab*) 5 mg PO Q4H PRN PRN Reason: PAIN Pantoprazole Sodium (Protonix Tab (Nf)) 40 mg PO QAM [facility] Last Admin: 06/21/18 07:56 Dose: 40 mg Phenytoin Sodium (Dilantin Cap(*)) 100 mg PO TID [facility] Last Admin: 06/21/18 07:57 Dose: 100 mg Prednisone (Deltasone Tab*) 40 mg PO DAILY [facility] Last Admin: 06/21/18 07:56 Dose: 40 mg Vital Signs - 8 hr 06/21/18 06/21/18 06/21/18 07:42 07:56 08:00 Temperature 97.8 F Pulse Rate 66 Respiratory 14 14 14 Rate Blood Pressure 119/67 (mmHg) O2 Sat by Pulse 99 97 Oximetry 06/21/18 06/21/18 10:35 11:42 Temperature 98.6 F Pulse Rate 70 Respiratory 14 18 Rate Blood Pressure 123/66 (mmHg) O2 Sat by Pulse 97 Oximetry Oxygen Devices in Use Now: None Result Diagrams: 06/19/18 05:40 06/19/18 05:40 Microbiology and Other Data: Microbiology 06/15/18 02:10 Aerobic Blood Culture - Preliminary Blood Venous No Growth Day 1 Anaerobic Blood Culture - Preliminary 06/15/18 01:01 Aerobic Blood Culture - Preliminary Blood Venous No Growth Day 1 Anaerobic Blood Culture - Preliminary No Growth Day 1 06/15/18 13:15 Legionella Urinary Antigen - Final Urine Negative Legionella Antigen Streptococcus pneumoniae Ag Screen - Final Negative S. pneumo Antigen 06/15/18 08:45 Nasal Screen MRSA (PCR) - Final Nasal Mrsa Not Detected 06/15/18 02:30 Stool Gross Appearance - Final Stool C. 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) , s/p cystectomy and ileal conduit and urostomy placement in 02/2018,who had severe sepsis and enterobacter bacteremia, off pressors, transferred out of ICU on 06/18/18 Hospitalized at [facility]: Pt was hospitalized from 04/22/18 to 05/11/18 at [facility] for Fernanda's gangrene, 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 D/c to [facility] STR CX from wound at [facility] : E. Faecium, Citrobacter Koseri, Pseudomonas , coag + Staph - Patient Problems (1) Sepsis Current Visit: Yes Status: Acute Comment: -Severe, with septic shock requiring pressors -Blood cx + Enterobacter cloacae. cont Cefepime for now, although E. cloacae strain not particularly resisistant from sensitivity data---Will continue Cefepime for now until re-evaluated/re-discussed with Dr. Luz in AM -Pt has h/o Fernanda's gangrene and symphysis pubis osteomyelitis-MRI pelvis shows BM edema (post surgery in 05/13- possibly related) -Repeat MRI of pelvis on 06/19 reveals: Diastesis of pubic symphyses, however, osteomyelitis not excluded -There has also been some discussion with her regarding her options for removing her Groshong catheter which is suspected to be infected given her bacteremia above, however, she does not remember the specifics of this convo--- will re-discuss with Dr. Luz in AM if it would be better to remove it and place a PICC line given above (2) Adrenal insufficiency Current Visit: Yes Status: Acute Code(s): E27.40 - UNSPECIFIED ADRENOCORTICAL INSUFFICIENCY SNOMED Code(s): 104919702 Comment: dx with low cortisol levels when in hypotension in ICU, cont tapering down prednisone (3) CKD (chronic kidney disease) stage 3, GFR 30-59 ml/min Current Visit: No Status: Acute Code(s): N18.3 - CHRONIC KIDNEY DISEASE, STAGE 3 (MODERATE) SNOMED Code(s): 029605839 Comment: TUNDE due to sepsis resolved, creat back to baseline (4) Hypothyroidism Current Visit: No Status: Acute Code(s): E03.9 - HYPOTHYROIDISM, UNSPECIFIED SNOMED Code(s): 69246844 Comment: Cont home dose levothyroxine (5) History of COPD Current Visit: No Status: Chronic Priority: Medium Code(s): Z87.09 - PERSONAL HISTORY OF OTHER DISEASES OF THE RESPIRATORY SYSTEM SNOMED Code(s): 433941967 Comment: not in exacerbation (6) History of nephrectomy Current Visit: No Status: Chronic Priority: Medium Code(s): Z90.5 - ACQUIRED ABSENCE OF KIDNEY SNOMED Code(s): 69598897809025 Comment: on Left (7) Hx of gout Current Visit: No Status: Chronic Priority: Medium Code(s): Z87.39 - PERSONAL HISTORY OF DISEASES OF THE MS SYS AND CONN TISS SNOMED Code(s): 910893822 Comment: cont allopurinol (8) H/O tonic-clonic seizures Current Visit: Yes Status: Acute Code(s): Z86.69 - PERSONAL HISTORY OF DIS OF THE NERVOUS SYS AND SENSE ORGANS SNOMED Code(s): 241176012 Comment: on chronic dilantin-cont (9) Anemia Current Visit: No Status: Acute Code(s): D64.9 - ANEMIA, UNSPECIFIED SNOMED Code(s): 737496560 Comment: mild worsening of chronic, suspect due to hemodliution ho vit B12 deff.Cont supplementation (10) DVT prophylaxis Current Visit: No Status: Acute Code(s): VWM4918 - SNOMED Code(s): 526745976 Comment: SQ heparin Status and Disposition: -As above -D/C home vs STR for IVF?? Will clarify plan with ID in AM
[2018-06-22] MEDS: oxyCODONE TAB* 5 MG TAB PO PRN ×2 (03:41→21:50)
[2018-06-22 05:38] LABS: Hematocrit 29 % (35-47); Hemoglobin 9.5 g/dl (12.0-16.0); Mean Corpuscular HGB Conc 32 g/dl (31-36); Mean Corpuscular Hemoglobin 32 pg (27-31); Mean Corpuscular Volume 99 fL (80-97); Mean Platelet Volume 7.2 um3 (7.4-10.4); Platelet Count 516 10^3/ul (150-450); Red Blood Count 2.96 10^6/ul (4.00-5.40); Red Cell Distribution Width 20 % (10.5-15); White Blood Count 10.9 10^3/ul (3.5-10.8)
[2018-06-22] MEDS: Cefepime 2 GM in Dextrose(*) 2 GM/50 ML BAG IV SCH (05:45)
[2018-06-22 05:48] LABS: ABS Basophils 0.1 10^3/ul (0-0.2); ABS Eosinophils 0.1 10^3/ul (0-0.6); ABS Lymphocytes 2.5 10^3/ul (1.0-4.8); ABS Monocytes 1.1 10^3/ul (0-0.8); ABS Nucleated RBC 0 10^3/ul
[2018-06-22] MEDS: Levothyroxine TAB* 100 MCG TAB PO SCH (05:49)
[2018-06-22] MEDS: Heparin VIAL(*) 5000 UNITS/ML VIAL (FIVE THOUSAND) SUBCUT SCH ×3 (05:49→21:51)
[2018-06-22 05:54] LABS: EGFR Non-African American 28.2 (>60)
[2018-06-22 06:09] LABS: Eosinophil % 1.4 % (0-6); Lymphocyte % 23.1 % (25-47); Nucleated Red Blood Cells % 0.1
[2018-06-22] MEDS: Mometasone/Formoter 100/5 MDI INH SCH ×2 (07:52→19:52)
[2018-06-22] MEDS ORDERED: Magnesium Sulfate 2 GM IV* 2 GM/50 ML BAG IV ONE (08:05)
[2018-06-22] MEDS: Insulin LISPRO* 1 UNITS UNIT SUBCUT SCH ×4 (08:08→21:50)
[2018-06-22] MEDS ORDERED: NS 0.9% 1000 ML* 400 ML IV SCH (08:15)
--- NOTE | 2018-06-22 09:35 | PN ---
Progress Note - Progress Note Date of Service: 06/22/18 SOAP: Subjective: CC: bacteremia HPI: 53 year old woman being treated with zosyn for pelvic osteomyelitis, admitted with sepsis. Feels much better, no pain, fever, rash, or diarrhea. Objective: Vital Signs Temp 36.6 C 06/22/18 03:17 Pulse 78 06/22/18 07:57 Resp 16 06/22/18 07:57 BP 99/52 06/22/18 03:17 Pulse Ox 98 06/22/18 07:57 Intake & Output 06/21/18 06/22/18 06/22/18 18:59 06:59 18:59 Intake Total 1020 Output Total 1275 1500 Balance -255 -1500 Weight 197 lb 4.8 oz Intake: Oral 1020 Output: Urine 1275 1500 Other: # Bowel Movements 4 Estimated Stool Amount Medium Gen:awake, no distress HEENT: no thrush Heart:RRR no murmur Lungs:CTA BL Abd:+BS NTND soft; R sided ostomy with clear urine Skin: no rash MSK: R chest catheter Laboratory Results - last 24 hr 06/21/18 06/21/18 06/21/18 11:37 16:39 21:30 WBC RBC Hgb Hct MCV MCH MCHC RDW Plt Count MPV Neut % (Auto) Lymph % (Auto) [place] % (Auto) Eos % (Auto) Baso % (Auto) Absolute Neuts (auto) Absolute Lymphs (auto) Absolute Monos (auto) Absolute Eos (auto) Absolute Basos (auto) Absolute Nucleated RBC Nucleated RBC % Sodium Potassium Chloride Carbon Dioxide Anion Gap BUN Creatinine Est GFR ( Amer) Est GFR (Non-Af Amer) BUN/Creatinine Ratio Glucose POC Glucose (mg/dL) 158 H 151 H 152 H Calcium Phosphorus Magnesium Total Bilirubin AST ALT Alkaline Phosphatase Total Protein Albumin Globulin Albumin/Globulin Ratio 06/22/18 06/22/18 06/22/18 05:03 05:03 07:59 WBC 10.9 H RBC 2.96 L Hgb 9.5 L Hct 29 L MCV 99 H MCH 32 H MCHC 32 RDW 20 H Plt Count 516 H D MPV 7.2 L Neut % (Auto) 64.3 Lymph % (Auto) 23.1 L [place] % (Auto) 10.4 H Eos % (Auto) 1.4 Baso % (Auto) 0.8 Absolute Neuts (auto) 7.0 Absolute Lymphs (auto) 2.5 Absolute Monos (auto) 1.1 H Absolute Eos (auto) 0.1 Absolute Basos (auto) 0.1 Absolute Nucleated RBC 0 Nucleated RBC % 0.1 Sodium 139 Potassium 4.8 Chloride 111 Carbon Dioxide 24 Anion Gap 4 BUN 35 H Creatinine 1.86 H Est GFR ( Amer) 34.2 Est GFR (Non-Af Amer) 28.2 BUN/Creatinine Ratio 18.8 Glucose 100 POC Glucose (mg/dL) 101 H Calcium 8.5 L Phosphorus 3.8 Magnesium 1.8 L Total Bilirubin 0.20 AST 11 L ALT 13 Alkaline Phosphatase 118 H Total Protein 7.2 Albumin 3.3 Globulin 3.9 Albumin/Globulin Ratio 0.8 L Assessment: 1. Enterobacter bacteremia due to port infection 2. sepsis, present on admission, resolved 3. s/p debridement pubic symphisis for osteomyelitis due to Citrobacter and Pseudomonas 4. s/p cystectomy, ileal conduit 5. allergy to pcn, intolerance to cipro (N/V) Plan: 1. continue cefepime 2 gm IV Q12hrs day 7, will plan on levaquin 500 mg IV daily for 14 more days to attempt to keep her catheter which is her preference. Present now due to difficulty with access and need for outpatient abx; which are nearly done. I placed a call to her ID Dr in [place] to find out if any plans to keep past the time of her zosyn treatment. 35 minutes floor time >50% face to face in counseling regarding abx plans and coordinating care
[2018-06-22] MEDS: Phenytoin CAP(*) 100 MG CAP.ER PO SCH ×3 (09:39→21:50)
[2018-06-22] MEDS: CMCS Pantoprazole TAB (NF) 40 MG TAB PO SCH (09:39)
[2018-06-22] MEDS: NS 0.9% 500 ML* 400 ML IV SCH ×2 (09:39→21:48)
[2018-06-22] MEDS: Allopurinol TAB* 100 MG PO SCH (09:40)
[2018-06-22] MEDS: Docusate CAP* 100 MG PO SCH (09:40)
[2018-06-22] MEDS: Gabapentin CAP(*) 300 MG PO SCH ×3 (09:40→21:50)
[2018-06-22] MEDS: Cyanocobalamin TAB* 500 MCG PO SCH (09:40)
[2018-06-22] MEDS: Ferrous Sulfate TAB* 325 MG PO SCH (09:40)
[2018-06-22] MEDS: predniSONE TAB* 20 MG PO SCH (09:41)
[2018-06-22] MEDS: DULoxetine DR CAP* 60 MG CAP.DR PO SCH (09:41)
[2018-06-22] MEDS: Nystatin TOP POWDER* 15 GM BTL TOPICAL SCH (09:42)
--- NOTE | 2018-06-22 16:21 | PN ---
Subjective Date of Service: 06/22/18 Interval History: Pt seen and examined. Meds and labs reviewed. CC: N/A ROS: Denied [place]/dizziness, F/C, N/V, CP, SOB, increased cough, sputum production , abd pain, diarrhea, constipation, dysuria, myalgias, arthralgias, throat pain , and new skin lesions. The rest of the 14 point ROS are unremarkable. PHYSICAL EXAM: GEN APPEARANCE: Awake, not in acute distress HEENT: NC/AT, PERRLA, moist oral mucosa, (-) throat erythema NECK: Soft, supple, (-) cervical LAD, (-)JVD HEART: S1S2 WNL, RRR, No MRG CHEST: CTA, BL, GAE, No W/R/R ABD: Soft, ND/NT, NABS 4x Q EXT: No C/C/E SKIN: Warm to touch PSYCH: No active psychosis, hallucinations, depression, SI/HI Objective Active Medications: Albuterol (Ventolin Hfa Inhaler*) 2 puff INH Q6H PRN PRN Reason: SOB/WHEEZING Allopurinol (Zyloprim Tab*) 200 mg PO DAILY [facility] Last Admin: 06/22/18 09:40 Dose: 200 mg Cyanocobalamin (Vitamin B12 Tab*) 1,000 mcg PO DAILY [facility] Last Admin: 06/22/18 09:40 Dose: 1,000 mcg Docusate Sodium (Colace Cap*) 200 mg PO DAILY [facility] Last Admin: 06/22/18 09:40 Dose: Not Given Duloxetine HCl (Cymbalta Cap*) 60 mg PO QAM [facility] Last Admin: 06/22/18 09:41 Dose: 60 mg Ergocalciferol (Drisdol Cap*) 50,000 unit PO WEEKLY [facility] Last Admin: 06/19/18 10:21 Dose: 50,000 unit Ferrous Sulfate (Ferrous Sulfate Tab*) 325 mg PO DAILY [facility] Last Admin: 06/22/18 09:40 Dose: 325 mg Gabapentin (Neurontin Cap(*)) 300 mg PO TID [facility] Last Admin: 06/22/18 15:28 Dose: 300 mg Heparin Sodium (Porcine) (Heparin Vial(*)) 5,000 units SUBCUT Q8HR [facility] Last Admin: 06/22/18 15:28 Dose: 5,000 units Heparin Sodium (Porcine) (Heparin Flush Picc/Ml/Cvc(*)) 1 - 3 ml FLUSH 0600, 1800 [facility]; Protocol Last Admin: 06/22/18 06:37 Dose: 2 ml Cefepime HCl (Maxipime 2 Gm In Dextrose Duplex (*)) 2 gm in 50 mls @ 100 mls/ hr IV Q24H [facility] Last Admin: 06/22/18 05:45 Dose: 100 mls/hr Sodium Chloride (Ns 0.9% 500 Ml*) 400 mls @ 100 mls/hr IV .FOR 4 HOURS [facility] Last Admin: 06/22/18 09:39 Dose: 100 mls/hr Insulin Human Lispro (Humalog*) 0 units SUBCUT ACHS [facility]; Protocol Last Admin: 06/22/18 11:48 Dose: Not Given Levothyroxine Sodium (Synthroid Tab*) 200 mcg PO 0600 [facility] Last Admin: 06/22/18 05:49 Dose: 200 mcg Mometasone Furoate/Formoterol Fumar (Dulera 100/5 Mdi*) 2 puff INH BID [facility] Last Admin: 06/22/18 07:52 Dose: 2 puff Nystatin (Nystatin Top Powder*) 1 applic TOPICAL BID [facility] Last Admin: 06/22/18 09:42 Dose: 1 applic Ondansetron HCl (Zofran Odt Tab*) 4 mg PO Q6H PRN PRN Reason: n/v Last Admin: 06/18/18 07:35 Dose: 4 mg Oxycodone HCl (Roxycodone Tab*) 5 mg PO Q4H PRN PRN Reason: PAIN Last Admin: 06/22/18 03:41 Dose: 5 mg Pantoprazole Sodium (Protonix Tab (Nf)) 40 mg PO QAM [facility] Last Admin: 06/22/18 09:39 Dose: 40 mg Phenytoin Sodium (Dilantin Cap(*)) 100 mg PO TID [facility] Last Admin: 06/22/18 15:28 Dose: 100 mg Prednisone (Deltasone Tab*) 40 mg PO DAILY [facility] Last Admin: 06/22/18 09:41 Dose: 40 mg Vital Signs - 8 hr 06/22/18 06/22/18 06/22/18 09:40 10:39 11:27 Temperature 97.8 F Pulse Rate 63 Respiratory 18 16 16 Rate Blood Pressure 106/61 (mmHg) O2 Sat by Pulse 98 100 Oximetry 06/22/18 06/22/18 11:48 15:28 Temperature Pulse Rate Respiratory 16 16 Rate Blood Pressure (mmHg) O2 Sat by Pulse Oximetry Oxygen Devices in Use Now: None Result Diagrams: 06/22/18 05:03 06/22/18 05:03 Microbiology and Other Data: Microbiology 06/15/18 02:10 Aerobic Blood Culture - Preliminary Blood Venous No Growth Day 1 Anaerobic Blood Culture - Preliminary 06/15/18 01:01 Aerobic Blood Culture - Preliminary Blood Venous No Growth Day 1 Anaerobic Blood Culture - Preliminary No Growth Day 1 06/15/18 13:15 Legionella Urinary Antigen - Final Urine Negative Legionella Antigen Streptococcus pneumoniae Ag Screen - Final Negative S. pneumo Antigen 06/15/18 08:45 Nasal Screen MRSA (PCR) - Final Nasal Mrsa Not Detected 06/15/18 02:30 Stool Gross Appearance - Final Stool C. 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) , s/p cystectomy and ileal conduit and urostomy placement in 02/2018,who had severe sepsis and enterobacter bacteremia, off pressors, transferred out of ICU on 06/18/18 Hospitalized at [facility]: Pt was hospitalized from 04/22/18 to 05/11/18 at [facility] for Fernanda's gangrene, 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 D/c to [facility] STR CX from wound at [facility] : E. Faecium, Citrobacter Koseri, Pseudomonas , coag + Staph - Patient Problems (1) Sepsis Current Visit: Yes Status: Acute Comment: -Due to E. cloacae bacteremia due to infected Groshong catheter -Severe, with septic shock requiring pressors, now resolved -Continue Cefepime 2g IMV q12H day 7, then plan on Levaquin 500 mg IV daily for 14 more days into the infected catheter in an attempt to keep it per pts preference -Catheter placed due to difficulty with access and need for outpatient abx; which are nearly done. Appreciate Dr. Prakash initiative by placing a call to her ID Dr in [place] to find out if any plans to keep past the time of her zosyn treatment. -Pt has h/o Fernanda's gangrene and symphysis pubis osteomyelitis-MRI pelvis shows BM edema (post surgery in 05/13- possibly related) -Repeat MRI of pelvis on 06/19 reveals: Diastesis of pubic symphyses, however, osteomyelitis not excluded (2) Adrenal insufficiency Current Visit: Yes Status: Acute Code(s): E27.40 - UNSPECIFIED ADRENOCORTICAL INSUFFICIENCY SNOMED Code(s): 533540074 Comment: dx with low cortisol levels when in hypotension in ICU, cont tapering down prednisone (3) CKD (chronic kidney disease) stage 3, GFR 30-59 ml/min Current Visit: No Status: Acute Code(s): N18.3 - CHRONIC KIDNEY DISEASE, STAGE 3 (MODERATE) SNOMED Code(s): 474082342 Comment: TUNDE due to sepsis resolved, creat back to baseline (4) Hypothyroidism Current Visit: No Status: Acute Code(s): E03.9 - HYPOTHYROIDISM, UNSPECIFIED SNOMED Code(s): 83580675 Comment: Cont home dose levothyroxine (5) History of COPD Current Visit: No Status: Chronic Priority: Medium Code(s): Z87.09 - PERSONAL HISTORY OF OTHER DISEASES OF THE RESPIRATORY SYSTEM SNOMED Code(s): 344084509 Comment: not in exacerbation (6) History of nephrectomy Current Visit: No Status: Chronic Priority: Medium Code(s): Z90.5 - ACQUIRED ABSENCE OF KIDNEY SNOMED Code(s): 17242621568031 Comment: on Left (7) Hx of gout Current Visit: No Status: Chronic Priority: Medium Code(s): Z87.39 - PERSONAL HISTORY OF DISEASES OF THE MS SYS AND CONN TISS SNOMED Code(s): 692228609 Comment: cont allopurinol (8) H/O tonic-clonic seizures Current Visit: Yes Status: Acute Code(s): Z86.69 - PERSONAL HISTORY OF DIS OF THE NERVOUS SYS AND SENSE ORGANS SNOMED Code(s): 089464724 Comment: on chronic dilantin-cont (9) Anemia Current Visit: No Status: Acute Code(s): D64.9 - ANEMIA, UNSPECIFIED SNOMED Code(s): 686603304 Comment: mild worsening of chronic, suspect due to hemodliution ho vit B12 deff.Cont supplementation (10) DVT prophylaxis Current Visit: No Status: Acute Code(s): WDF9022 - SNOMED Code(s): 609482169 Comment: SQ heparin Status and Disposition: -As above -D/C home with F/U To hospital for IV therapy with Levaquin for 2 weeks possibly in AM
[2018-06-23] MEDS: Cefepime 2 GM in Dextrose(*) 2 GM/50 ML BAG IV SCH (05:33)
[2018-06-23] MEDS: Nystatin TOP POWDER* 15 GM BTL TOPICAL SCH ×2 (05:40→09:05)
[2018-06-23] MEDS: Heparin VIAL(*) 5000 UNITS/ML VIAL (FIVE THOUSAND) SUBCUT SCH ×2 (05:42→14:35)
[2018-06-23] MEDS: Levothyroxine TAB* 100 MCG TAB PO SCH (05:42)
[2018-06-23 06:07] LABS: Hematocrit 28 % (35-47); Hemoglobin 9.1 g/dl (12.0-16.0); Mean Corpuscular HGB Conc 32 g/dl (31-36); Mean Corpuscular Hemoglobin 32 pg (27-31); Mean Corpuscular Volume 100 fL (80-97); Platelet Count 480 10^3/ul (150-450); Red Blood Count 2.85 10^6/ul (4.00-5.40); Red Cell Distribution Width 19 % (10.5-15); White Blood Count 8.6 10^3/ul (3.5-10.8)
[2018-06-23 06:23] LABS: EGFR Non-African American 30.7 (>60)
[2018-06-23 06:39] LABS: ABS Basophils 0 10^3/ul (0-0.2); ABS Neutrophils 5.3 10^3/ul (1.5-7.7); ABS Neutrophils 5.6 10^3/ul (1.5-7.7); Monocytes % 3 % (0-7)
[2018-06-23] MEDS: Mometasone/Formoter 100/5 MDI INH SCH (08:01)
[2018-06-23] MEDS: Insulin LISPRO* 1 UNITS UNIT SUBCUT SCH ×2 (08:03→12:04)
[2018-06-23] MEDS: Ferrous Sulfate TAB* 325 MG PO SCH (09:02)
[2018-06-23] MEDS: Phenytoin CAP(*) 100 MG CAP.ER PO SCH ×2 (09:03→14:34)
[2018-06-23] MEDS: Allopurinol TAB* 100 MG PO SCH (09:03)
[2018-06-23] MEDS: Gabapentin CAP(*) 300 MG PO SCH ×2 (09:03→14:35)
[2018-06-23] MEDS: Cyanocobalamin TAB* 500 MCG PO SCH (09:03)
[2018-06-23] MEDS: DULoxetine DR CAP* 60 MG CAP.DR PO SCH (09:03)
[2018-06-23] MEDS: predniSONE TAB* 20 MG PO SCH (09:03)
[2018-06-23] MEDS: Docusate CAP* 100 MG PO SCH (09:03)
[2018-06-23] MEDS: CMCS Pantoprazole TAB (NF) 40 MG TAB PO SCH (09:17)
--- NOTE | 2018-06-23 13:09 | PN ---
Progress Note - Progress Note Date of Service: 06/23/18 Note: Surgery PICC removed without difficulty. Cath tip sent for cx. Redd
--- NOTE | 2018-06-23 14:08 | PN ---
Progress Note - Progress Note Date of Service: 06/23/18 SOAP: Subjective: CC: bacteremia HPI: 53 year old woman being treated with zosyn for pelvic osteomyelitis, admitted with sepsis. No pelvic pain, no rash or diarrhea. Objective: Vital Signs Temp 36.6 C 06/23/18 12:29 Pulse 70 06/23/18 12:29 Resp 16 06/23/18 12:29 BP 119/50 06/23/18 12:29 Pulse Ox 100 06/23/18 12:29 Intake & Output 06/22/18 06/23/18 06/23/18 18:59 06:59 18:59 Intake Total 600 480 240 Output Total 2725 Balance 600 -2245 240 Weight 198 lb 9.6 oz Intake: Oral 600 480 240 Output: [place] 1375 Urostomy 1350 Gen:awake, no distress HEENT: no thrush Heart:RRR no murmur Lungs:CTA BL Abd:+BS NTND soft; R sided ostomy with clear urine Skin: no rash MSK: R chest catheter Laboratory Results - last 24 hr 06/22/18 06/22/18 06/23/18 17:16 21:23 05:40 WBC RBC Hgb Hct MCV MCH MCHC RDW Plt Count MPV Neut % (Auto) Lymph % (Auto) [place] % (Auto) Eos % (Auto) Baso % (Auto) Absolute Neuts (auto) Absolute Lymphs (auto) Absolute Monos (auto) Absolute Eos (auto) Absolute Basos (auto) Absolute Nucleated RBC Immature Gran % Neutrophils % Band Neutrophils % Lymphocytes % Monocytes % Eosinophils % Basophils % Metamyelocytes % Nucleated RBC % Abs Neuts (Manual) Abs Lymphs (Manual) Abs Monocytes (Manual) Absolute Eos (Manual) Abs Basophils (Manual) Normal RBC Morphology Sodium 137 Potassium 5.3 H Chloride 110 Carbon Dioxide 22 Anion Gap 5 BUN 40 H Creatinine 1.73 H Est GFR ( Amer) 37.1 Est GFR (Non-Af Amer) 30.7 BUN/Creatinine Ratio 23.1 H Glucose 101 H POC Glucose (mg/dL) 181 H 148 H Calcium 8.4 L Magnesium 2.1 06/23/18 06/23/18 06/23/18 05:40 07:32 11:59 WBC 8.6 RBC 2.85 L Hgb 9.1 L Hct 28 L MCV 100 H MCH 32 H MCHC 32 RDW 19 H Plt Count 480 H MPV 7.0 L Neut % (Auto) Not Reportable Lymph % (Auto) Not Reportable [place] % (Auto) Not Reportable Eos % (Auto) Not Reportable Baso % (Auto) Not Reportable Absolute Neuts (auto) 5.6 Absolute Lymphs (auto) Not Reportable Absolute Monos (auto) Not Reportable Absolute Eos (auto) Not Reportable Absolute Basos (auto) Not Reportable Absolute Nucleated RBC Not Reportable Immature Gran % 3 Neutrophils % 62 Band Neutrophils % 1 Lymphocytes % 32 Monocytes % 3 Eosinophils % 0 Basophils % 0 Metamyelocytes % 2 Nucleated RBC % Not Reportable Abs Neuts (Manual) 5.3 Abs Lymphs (Manual) 2.8 Abs Monocytes (Manual) 0.3 Absolute Eos (Manual) 0 Abs Basophils (Manual) 0 Normal RBC Morphology Normal Sodium Potassium Chloride Carbon Dioxide Anion Gap BUN Creatinine Est GFR ( Amer) Est GFR (Non-Af Amer) BUN/Creatinine Ratio Glucose POC Glucose (mg/dL) 97 120 H Calcium Magnesium Assessment: 1. Enterobacter bacteremia due to port infection 2. sepsis, present on admission, resolved 3. s/p debridement pubic symphisis for osteomyelitis due to Citrobacter and Pseudomonas 4. s/p cystectomy, ileal conduit 5. allergy to pcn, intolerance to cipro (N/V) Plan: 1. I discussed the case with her ID Dr at [facility], Dr Harrison, he was planning to remove port after abx were done so we will arrange that here and switch to levaquin 500 mg daily. 2. FU with next week, will plan on PO abx course for what may be left of pelvic osteomyelitis 25 minutes floor time >50% face to face in counseling regarding abx plans and coordinating care
[2018-06-23 15:34] VITALS: BP 128/71
--- NOTE | 2018-06-24 01:42 | DS ---
CC: Dr. Luz; Dr. Vu; Dr. Jas Abrams; Dr. Garduno; Dr. Braeden Lewis; Dr. Dennise Garduno * DISCHARGE SUMMARY: DATE OF ADMISSION: DATE OF DISCHARGE: 06/23/18 DISCHARGE DIAGNOSES: 1. Sepsis secondary to Enterobacter cloacae bacteremia, likely due to infected Groshong catheter, catheter has been removed. 2. Adrenal insufficiency, on a tapered dose of steroids, likely secondary to above, improving. 3. Chronic kidney disease, stage 3. 4. History of hypothyroidism. 5. History of chronic obstructive pulmonary disease. 6. History of nephrectomy on the left. 7. History of gout. 8. History of tonic-clonic seizures. 9. Anemia. DISCHARGE MEDICATIONS: 1. Albuterol HFA inhaler 2 puffs inhalation q.6 hours p.r.n. 2. Allopurinol 200 mg p.o. daily. 3. Calcium carbonate 500 mg p.o. daily. 4. Colchicine 0.3 mg p.o. daily. 5. Colace 200 mg p.o. daily. 6. Duloxetine DR 60 mg p.o. q.a.m. 7. Ergocalciferol 50,000 units p.o. weekly. 8. Ferrous sulfate 325 mg p.o. daily. 9. Advair Diskus 100/50 two puffs inhalation daily. 10. Gabapentin 300 mg p.o. t.i.d. 11. Floranex 2 chew tabs p.o. daily for 14 days. 12. Levaquin 500 mg p.o. daily for 10 more days. 13. Synthroid 200 mg p.o. daily. 14. Loratadine 10 mg p.o. daily. 15. Nicotine patch 21 mg patch transdermal daily. 16. Ondansetron 4 to 8 mg p.o. q.8 p.r.n. 17. Oxycodone 5 mg p.o. q.4 p.r.n. 18. Pantoprazole 40 mg p.o. q.a.m. 19. Phenytoin 100 mg p.o. t.i.d. 20. Prednisone rapid taper for 12 more days as prescribed. 21. Senna 2 tabs p.o. daily. 22. Vitamin D 12 of 1000 mcg p.o. daily. HISTORY OF PRESENT ILLNESS/HOSPITAL COURSE: The patient is a 53-year-old lady with history of bladder cancer, status post cystectomy, diabetes , and hypothyroidism, who was admitted on 06/15/18 with a chief complaint of fever and malaise and after subsequent evaluation, was thought to be septic initially due to pneumonia and was initially transferred to the ICU. After a few hours in the ICU, she was transferred to the floors by Dr. Craven thinking that the patient was not septic and has blood pressure usually in the 80s or 90s. However, subsequent evaluation and subsequent observation of the patient suggested that the patient is in fact septic, and she was transferred back to the ICU. She was then transferred back again with a belief again of Dr. Craven that she was not septic and was subsequently transferred back to the ICU second time, which then subsequently suggested that the patient is in fact septic and in fact adrenally insufficient due to her sepsis as well as her history of left nephrectomy. She was then started on steroids and stayed in the ICU for 3 more days prior to her transfer back to the floors when she had become hemodynamically stable maintaining blood pressures in the 120 systolic and the patient is no longer symptomatic. The patient was also seen by Dr. Luz who believes that the pneumonia found is likely due to aspiration due to sepsis and bacteremia due to Enterobacter cloacae due to an infected Groshong catheter. He has spoken with the ID team in [place] who mentioned that there is no longer a need for this catheter, more specifically he spoke with Dr. Harrison of [facility] and therefore this was then subsequently removed by the surgical team, thanks to Dr. Dennise Garduno, prior to her discharge. She was then switched to p.o. Levaquin for 10 more days as described above. She had been advised to follow up and/or call her PCP within 3 days post- discharge and to have her PCP followup on tip catheter culture that was sent when her Groshong catheter was removed. She was asked to follow up with Dr. Luz in 1 week and to call [phone] to make an appointment if she does not have one already. She was advised that if she is having any problems and/or if her symptoms worsen to call her PCP first to see if her concerns can be addressed in a timely manner, if not or if she has been advised to go to the ER primarily because of scheduling issues to once again clarify with her PCP whether an outpatient followup is appropriate and if so to call [facility]/if unable to touch base with her PCP whenever she has any concerns given recurring symptoms. She was advised to call my office regarding any questions, concerns, or further clarifications regarding her discharge plans and/or prescriptions and to take her medications as prescribed. PHYSICAL EXAMINATION: Shows a recent vital signs off records with blood pressure of 128/71, 97.8 degrees Fahrenheit, 77 beats per minute, 17 per minute respiratory rate, saturating at 99% room air. General Appearance: The patient is awake, alert, and oriented x3, not in acute distress. HEENT: Normocephalic , atraumatic, PERRLA, extraocular muscles intact. Negative for icterus. Moist oral mucosa. Negative throat erythema. Necks is soft, supple with no cervical lymphadenopathy. No JVD. Heart: S1, S2 within normal limits, regular rate and rhythm. No murmurs, rubs, and gallops. Chest clear to auscultation bilaterally. Good air entry. No wheezes, rales, no rhonchi. Abdomen is soft, nondistended, nontender. Normoactive bowel sounds 4x Q. Extremities: No cyanosis, clubbing, or edema. Psychiatric: No active psychosis, hallucinations , depression, suicidal nor homicidal ideations. Skin is warm to touch. TIME SPENT: The total time spent evaluating, reviewing pertinent data, and appropriate documentation is greater than 30 minutes. [id number]/[facility] #: [id number] MTDD
== END 2018-06-23 15:35 | disposition home or self-care (01) | DRG 721 ==
LOC: ED 00:17 → ICU 08:00 → MED 16:20 → ICU 06-16 07:12 → MED 06-18 16:17
PROVIDERS: ADMIT Hospitalist; ATTEND Student in an Organized Health Care Education/Training Program
PROC: 3E033XZ Introduction of Vasopressor into Peripheral Vein, Percutaneous Approach (ICD-10-PCS; principal; 2018-06-15)
DX: T80.211A Bloodstream infection due to central venous catheter, initial encounter (principal); A41.59 Other Gram-negative sepsis; R65.21 Severe sepsis with septic shock; J69.0 Pneumonitis due to inhalation of food and vomit; N18.4 Chronic kidney disease, stage 4 (severe); E27.40 Unspecified adrenocortical insufficiency; N17.9 Acute kidney failure, unspecified; G40.89 Other seizures; M86.8X8 Other osteomyelitis, other site; E11.9 Type 2 diabetes mellitus without complications; J45.909 Unspecified asthma, uncomplicated; G47.30 Sleep apnea, unspecified; K21.9 Gastro-esophageal reflux disease without esophagitis; M17.0 Bilateral primary osteoarthritis of knee; M46.90 Unspecified inflammatory spondylopathy, site unspecified; M10.9 Gout, unspecified; L40.9 Psoriasis, unspecified; F41.9 Anxiety disorder, unspecified; F32.9 Major depressive disorder, single episode, unspecified; E03.9 Hypothyroidism, unspecified; E66.9 Obesity, unspecified; R59.1 Generalized enlarged lymph nodes; M54.32 Sciatica, left side; I12.9 Hypertensive chronic kidney disease with stage 1 through stage 4 chronic kidney disease, or unspecified chronic kidney disease; D63.1 Anemia in chronic kidney disease; J44.9 Chronic obstructive pulmonary disease, unspecified; G89.29 Other chronic pain; M54.9 Dorsalgia, unspecified; Z88.0 Allergy status to penicillin; Z91.040 Latex allergy status; Z87.442 Personal history of urinary calculi; Z90.710 Acquired absence of both cervix and uterus; Z88.1 Allergy status to other antibiotic agents; Z87.891 Personal history of nicotine dependence; Z82.49 Family history of ischemic heart disease and other diseases of the circulatory system; Z80.41 Family history of malignant neoplasm of ovary; Z85.51 Personal history of malignant neoplasm of bladder; Z90.5 Acquired absence of kidney; Z86.73 Personal history of transient ischemic attack (TIA), and cerebral infarction without residual deficits
CPT/HCPCS: 36415; 71045; 72195; 74176; 80048; 80053; 81003; 81015; 82533; 83605; 83690; 83735; 84100; 84484; 85025; 85027; 85610; 85652; 85730; 87040; 87071; 87077; 87086; 87186; 87205; 87493; 87641; 87899; 93005; 94640; 99284; 99406; A9270-GY; G8978-GP-CI; G8979-GP-CI; G8980-GP-CI; G8987-GO-CI; G8988-GO-CI; G8989-GO-CI; J0692; J1170; J1644; J1720; J3370; J3475; J7512

== ENCOUNTER 2019-07-13 16:49 | Inpatient (IN) | payer OTHER ==
[2019-07-13 20:14] LABS: ABS Basophils 0.1 10^3/ul (0-0.2); ABS Eosinophils 0.3 10^3/ul (0-0.6); ABS Lymphocytes 1.7 10^3/ul (1.0-4.8); ABS Monocytes 0.6 10^3/ul (0-0.8); ABS Neutrophils 6.1 10^3/ul (1.5-7.7); Eosinophil % 3.3 %; Hematocrit 34 % (35-47); Hemoglobin 11.2 g/dL (12.0-16.0); Lymphocyte % 19.6 %; Mean Corpuscular HGB Conc 33 g/dL (31-36); Mean Corpuscular Hemoglobin 33 pg (27-31); Mean Corpuscular Volume 98 fL (80-97); Mean Platelet Volume 7.5 fL (7.4-10.4); Nucleated Red Blood Cells % 0.1; Platelet Count 497 10^3/uL (150-450); Red Blood Count 3.45 10^6 /uL (3.70-4.87); Red Cell Distribution Width 16 % (10-15); White Blood Count 8.8 10^3/uL (3.5-10.8)
--- NOTE | 2019-07-13 20:14 | ED ---
Abdominal Pain/Female - HPI Summary HPI Summary: This pt is a 54 Y/O F presenting to [facility] accompanied by her family with a CC of right flank abdominal pain since 07/11/19 last week. She states that she has been having N/V, chills, and sweats. She also states that she has been having green and yellow thick drainage from her bladder stoma. She states that the drainage had an odor which occurred on the onset. She currently rates her pain a 7/10 in severity. She also states that on Friday she was drinking fluids consistently and had a production of 600. On Friday she had a production of 700. On Friday she had a urine output of 1200 and today she has a urine output of 1300. She denies any aggravating or alleviating factors. She states that she was supposed to see Dr. Mcghee at [facility] since her kidney got worse from her baseline of 3.9% and her deferred her to another doctor but she is unsure who it is. She has a PMHx of bladder cancer, a nephrostomy tube connected to her R kidney and a bladder stoma. - History of Current Complaint Chief Complaint: Barry Stated Complaint: VOMITING/POSS INFECTED STOMA PER EMS Time Seen by Provider: 07/13/19 19:09 Hx Obtained From: Patient Hx Last Menstrual Period: 1999 ?: No Onset/Duration: Sudden Onset, Lasting Days - 07/11/19, Still Present, Worse Since Timing: Constant Severity Initially: Moderate Severity Currently: Severe Pain Intensity: 7 Pain Scale Used: 0-10 Numeric Location: Flank - R Radiates: No Aggravating Factor(s): Nothing Alleviating Factor(s): Nothing Associated Signs and Symptoms: Positive: Diaphoresis, Urinary Symptoms - decreased urine output since 07/10/19 which has thus resolved., Decreased Appetite, Nausea, Vomiting, Other: - POSITIVE: chills, green and yellow drainage from her stoma and nephrostomy tubings Allergies/Adverse Reactions: Allergies Allergy/AdvReac Type Severity Reaction Status Date / Time latex Allergy Rash Verified 08/19/18 12:38 Penicillins Allergy Hives Verified 08/19/18 12:38 ciprofloxacin AdvReac Nausea And Verified 08/19/18 12:38 Vomiting clindamycin AdvReac Vomiting Verified 08/19/18 12:38 nitrofurantoin AdvReac Nausea And Verified 08/19/18 12:38 Vomiting ENVIRONMENTAL Allergy Unknown Uncoded 08/19/18 12:38 Reaction Details Home Medications: Home Medications Acetaminophen TAB* [Tylenol TAB*] 650 mg PO Q6H PRN 07/13/19 [History Confirmed 07/13/19] Certa Plus 1 cap PO DAILY 07/13/19 [History Confirmed 07/13/19] Cetirizine* [ZyrTEC 10 MG TAB*] 10 mg PO DAILY 07/13/19 [History Confirmed 07/13] Colchicine* [Colcrys*] 0.3 mg PO DAILY PRN 07/13/19 [History Confirmed 07/13/19] Cyanocobalamin TAB* [Vitamin B12 TAB*] 1,000 mcg PO DAILY 07/13/19 [History Confirmed 07/13/19] Cyclobenzaprine TAB* [Flexeril 10 MG TAB*] 10 mg PO TID PRN 07/13/19 [History Confirmed 07/13/19] Ferrous Sulfate TAB* 325 mg PO DAILY 07/13/19 [History Confirmed 07/13/19] Heparin FLUSH(*) 5 ml INTRACATH DAILY PRN 07/13/19 [History Confirmed 07/13/19] Levothyroxine TAB* [Synthroid TAB*] 175 mcg PO QAM 07/13/19 [History Confirmed 07/13/19] LoraTADine TAB(NF) [Claritin 10 MG TAB(NF)] 10 mg PO DAILY 07/13/19 [History Confirmed 07/13/19] Ondansetron TAB* [Zofran 4 MG Tab*] 4 - 8 mg PO Q8HR PRN 07/13/19 [History Confirmed 07/13/19] Sodium Chloride Flush* [Saline Flush*] 10 ml IV BID PRN 07/13/19 [History Confirmed 07/13/19] PMH/Surg Hx/FS Hx/Imm Hx Previously Healthy: No Endocrine/Hematology History: Reports: Hx Diabetes, Hx Thyroid Disease - hypothyroidism Denies: Hx Anticoagulant Therapy Cardiovascular History: Reports: Hx Cardiomegaly, Hx Hypertension - AT TIMES USUALLY WHEN ANXIOUS NOT ON MEDS Denies: Hx Pacemaker/ICD, Other Cardiovascular Problems/Disorders Respiratory History: Reports: Hx Asthma - prn inhaler, Hx Chronic Obstructive Pulmonary Disease (COPD), Hx Sleep Apnea - suspected, not confirmed, Other Respiratory Problems/Disorders - uses nebulizer prn GI History: Reports: Hx Gastroesophageal Reflux Disease, Hx Hiatal Hernia, Hx Obstructive Bowel - 04/18/17, Hx Ileostomy, Other GI Disorders - hiatal hernia, cervical ca History: Reports: Hx Kidney Infection, Hx Kidney Stones, Hx Renal Disease - LEFT KIDNEY REMOVED & PARTIAL Rt NEPHRECTOMY, Other Problems/Disorders - Nephrectomy, stents Denies: Hx Dialysis Musculoskeletal History: Reports: Hx Arthritis - back, neck and knees, Hx Back Problems, Other Musculoskeletal History - gout, on meds, disc disease, spinal stenosis Sensory History: Reports: Hx Contacts or Glasses, Other Sensory Impairments - Psorisis Denies: Hx Hearing Aid Opthamlomology History: Reports: Hx Contacts or Glasses, Other Sensory Impairments - Psorisis Neurological History: Reports: Hx Headaches - pcp following, Hx Nerve Disease - reports nerve damage in legs, Hx Seizures, Other Neuro Impairments/Disorders - 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 left cysto, stents x5 2007. [place] 1999 - CERVICAL CANCER. ectopic preg 1986- [place]. [place] [facility] [place]. 2016 URETERAL STENT [facility] [place]. 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 [facility] [place] bladder removal w/ urostomy 03/2018. abdominal I&D w/ stoma 04/2018. kidney stents removed & replaced 01/2018. muscles removed from legs for stomach Hx Anesthesia Reactions: No - Immunization History Date of Tetanus Vaccine: Unk Date of Influenza Vaccine: None Infectious Disease History: No Infectious Disease History: Denies: History Other Infectious Disease, Traveled Outside the [place] in Last 30 Days - Family History Known Family History: Negative: Seizure Disorder, Other - breast cancer Family History: No FHx of Breast CA - Social History Alcohol Use: None Substance Use Type: Reports: None Smoking Status (MU): Current Every Day Smoker Type: Cigarettes Amount Used/How Often: 1 ppd for 37 years; 1/4PPD Length of Time of Smoking/Using Tobacco: 30+ yrs Have You Smoked in the Last Year: Yes Review of Systems Positive: Chills. Negative: Fever Positive: Vomiting, Nausea Genitourinary: Other - POSITIVE: decreased urine output since 07/10/19 which has resolved. Positive: flank pain - R, other - yellow and green drainage from the nephrostomy and stoma tubings All Other Systems Reviewed And Are Negative: Yes Physical Exam - Summary Physical Exam Summary: Constitutional: Obese, and unhealthy appearing, Alert. (-) Distressed Skin: Warm, Dry HENT: Normocephalic; Atraumatic Eyes: Conjunctiva normal Neck: Musculoskeletal ROM normal neck. (-) JVD, (-) Stridor, (-) Nuchal rigidity Cardio: Rhythm regular, rate normal, Heart sounds normal; Intact distal pulses; Radial pulses are 2+ and symmetric. (-) Murmur Pulmonary/Chest wall: Effort normal. (-) Respiratory distress, (-) Wheezes, (-) Rales Abd: Soft, (-) tenderness, (-) Distension, (-) Guarding, (-) Rebound, Yulee, well perfused and healthy, no tendernous on the nephrostomy tube or around. Musculoskeletal: (-) Edema Lymph: (-) Cervical adenopathy Neuro: Alert, Oriented x3 Psych: Mood and affect Normal Triage Information Reviewed: Yes Vital Signs On Initial Exam: Initial Vitals Temp Pulse Resp BP Pulse Ox 97.2 F 84 20 120/71 97 07/13/19 16:51 07/13/19 16:51 07/13/19 16:51 07/13/19 16:51 07/13/19 16:51 Vital Signs Reviewed: Yes Diagnostics - Vital Signs Vital Signs Temp Pulse Resp BP Pulse Ox 07/13/19 18:34 98.3 F 80 18 112/77 98 07/13/19 16:51 97.2 F 84 20 120/71 97 - Laboratory Result Diagrams: 07/13/19 20:04 07/13/19 20:04 Lab Statement: Any lab studies that have been ordered have been reviewed, and results considered in the medical decision making process. Re-Evaluation - Re-Evaluation First Eval Re-Evaluation Time: 21:08 Change: Unchanged Comment: The urine culture from the last time returned and showed that she currently has 2 different microorganisms present in her urine. They are both are sensitive to Rocephine. The pt needs to be admitted. Abdominal Pain Fem Course/Dx - Course Course Of Treatment: This pt is a 54 Y/O F presenting to [facility] accompanied by her family with a CC of right flank abdominal pain since 07/11/19 last week. She states that she has been having N/V, chills, and sweats. She also states that she has been having green and yellow thick drainage from her bladder stoma. She states that the drainage had an odor which occurred on the onset. She currently rates her pain a 7/10 in severity. Her PE found that she had Yulee, well perfused and healthy, no tenderness on the nephrostomy tube or around, she is Obese, and unhealthy appearing, her nephrostomy tube has Clear yellow dischrage with sediment, and there is Yellow/green collection from the stoma with cloudy urine. The urine culture from the last time returned and showed that she currently has 2 different microorganisms present in her urine. They are both are sensitive to Rocephine. The pt needs to be admitted. The hospitalist will be informed of the pt's curernt condition and discuss the possibility of a follow up with nephrology in the morning. She will be admitted with a Dx of pyelonephritis. - Diagnoses Provider Diagnoses: Pyelonephritis - Provider Notifications Discussed Care Of Patient With: Avila Bradshaw Time Discussed With Above Provider: 23:13 Instructed by Provider To: Admit As Inpatient Admit/Transition Orders Completed By ED Provider: Yes Discharge ED - Sign-Out/Discharge Documenting (check all that apply): Patient Departure - admitted Patient Received Moderate/Deep Sedation with Procedure: No - Discharge Plan Condition: Stable Disposition: ADMITTED TO [facility] - Billing Disposition and Condition Condition: STABLE Disposition: Admitted to [facility] - Attestation Statements Document Initiated by Scribe: Yes Documenting Scribe: Josue Frausto Provider For Whom Stacey is Documenting (Include Credential): Ze Galicia MD Scribe Attestation: Josue Anderson, scribed for Ze Galicia MD on 07/14/19 at 0753. Scribe Documentation Reviewed: Yes Provider Attestation: The documentation as recorded by the Josue fontanez accurately reflects the service I personally performed and the decisions made by me, Ze Galicia MD Status of Scribe Document: Viewed
[2019-07-13 20:15] LABS: Urine Appearance Cloudy; Urine Bacteria 3+ (Absent); Urine Bilirubin Negative (Negative); Urine Blood 2+ (Negative); Urine Glucose Negative (Negative); Urine Ketones Negative (Negative); Urine Nitrite Negative (Negative); Urine Protein 2+(100 mg/dL) (Negative); Urine Red Blood Cell 3+(>10/hpf) (Absent); Urine Squamous Epithelial Cell Present (Absent); Urine Urobilinogen Negative (Negative); Urine White Blood Cell 3+(>20/hpf) (Absent)
[2019-07-13 20:16] LABS: Urine Bacteria 2+ (Absent); Urine Red Blood Cell 3+(>10/hpf) (Absent); Urine White Blood Cell 3+(>20/hpf) (Absent)
[2019-07-13 20:17] LABS: Urine Appearance Cloudy; Urine Color Yellow
[2019-07-13 20:17] LABS: Urine Color Yellow
[2019-07-13 20:23] LABS: Urine Bilirubin Negative (Negative); Urine Blood 2+ (Negative); Urine Glucose Negative (Negative); Urine Ketones Negative (Negative); Urine Nitrite Positive (Negative); Urine Protein 2+(100 mg/dL) (Negative); Urine Specific Gravity 1.013 (1.010-1.030); Urine Urobilinogen Negative (Negative)
[2019-07-13] MEDS ORDERED: cefTRIAXone(*) 1 GM in NS 0.9% 50 ML* 50 ML IVPB ONE (20:32)
[2019-07-13 20:33] LABS: Albumin/Globulin Ratio 0.9 (1-3); BUN/Creatinine Ratio 9.7 (8-20); Calcium 8.7 mg/dL (8.6-10.3); EGFR African American 12.8 (>60); EGFR Non-African American 10.6 (>60); Globulin 4.7 g/dL (2-4); Indirect Bilirubin 0.2 mg/dL (0.3-1.0); Magnesium 1.7 mg/dL (1.9-2.7); Total Bilirubin 0.3 mg/dL (0.2-1.0); Total Protein 8.7 g/dL (6.4-8.9)
[2019-07-13] MEDS ORDERED: cefTRIAXone VIAL(*) 1,000 MG VIAL ONE (20:56)
[2019-07-13] MEDS ORDERED: NS 0.9% 50 ML* 50 ML ONE (20:56)
[2019-07-13] MEDS ORDERED: Lactated Ringers 1000 ML Bag* 1,000 ML IV ONE (21:00)
[2019-07-14] MEDS ORDERED: Acetaminophen TAB* 325 MG PO PRN (06:00)
[2019-07-14] MEDS ORDERED: Albuterol HFA INHALER* 8 gm MDI INH PRN (06:00)
[2019-07-14] MEDS ORDERED: Mometasone/Formoter 100/5 MDI INH PRN (06:00)
[2019-07-14] MEDS ORDERED: Sodium Chloride FLUSH* 10 ML SYRINGE IV PRN (06:00)
[2019-07-14] MEDS ORDERED: Ondansetron TAB* 4 MG PO PRN (06:00)
--- NOTE | 2019-07-14 08:09 | HP ---
CC: Dr. Gladys Tolliver * ADMISSION HISTORY AND PHYSICAL: DATE OF ADMISSION: 07/14/19 CHIEF COMPLAINT: Worsening abdominal pain and nephrostomy site pain with chills and vomiting. HISTORY OF PRESENT ILLNESS: This is a 54-year-old female with an unfortunate history of bladder cancer, status post cystectomy; history of left nephrectomy for hydronephrosis and after multiple failed stenting; history of type 2 diabetes, not on any medication; history of hypothyroidism; asthma/COPD, came in with intermittent onset of chills, malaise, nausea, vomiting since yesterday. The patient has had previous episodes of such events which ended up the patient having some severe infections including UTI, osteomyelitis, so decided to come to the ER. Her only new pain symptom is the nephrostomy site pain, and she also noticed that her urine was much darker than usual and had some purulent material especially the ileostomy conduit that she has in the anterior abdomen. Her nephrostomy tube was still draining more clear urine. However, her nephrostomy site itself is more tender at this time. She also has pain in the pelvic region, but she states that is her chronic pain due to her bladder cancer and cervical cancer. The patient otherwise denies any chest pain , any shortness of breath, any diarrhea. PAST MEDICAL HISTORY: As mentioned: 1. Bladder cancer, status post cystectomy, ileal conduit, and urostomy in August 2017. 2. History of cervical cancer, status post treatment in 1999. 3. History of osteomyelitis. 4. Recurrent UTIs and pyelonephritis. 5. History of chronic kidney disease, stage 5. 6. History of hypertension, not on any medication. 7. History of asthma. 8. Gastroesophageal reflux disease. 9. Hiatal hernia. 10. Previous history of small bowel obstruction. 11. History of kidney stones, status post multiple stenting. 12. History of left nephrectomy secondary to recurrent hydronephrosis with ureteral stricture and failed left kidney. 13. Generalized osteoarthritis. 14. Gout. 15. Psoriasis. 16. Anxiety. 17. Depression. 18. Chronic low back pain due to fractured and slipped disks in the lumbar region. PAST SURGICAL HISTORY: Includes: 1. Cystectomy with ileal conduit and urostomy. 2. Left nephrectomy. 3. Previous numerous ureteral stents. 4. Hysterectomy. 5. Ectopic excision. 6. Left salivary gland mass excision and right nephrostomy placement. HOME MEDICATIONS: 1. Senna 2 tablets p.o. daily. 2. Vitamin B12 1000 mcg oral daily. 3. Docusate sodium 200 mg oral daily. 4. Protonix 40 mg every morning. 5. Ondansetron 4 mg q.8 hours p.r.n. 6. Nicotine patch 20 mg every 24 hours. 7. Levothyroxine 175 mcg every morning. 8. Flexeril 10 mg t.i.d. p.r.n. 9. Iron sulfate 325 mg oral daily. 10. Colchicine 0.3 mg p.o. daily p.r.n. 11. Zyrtec 10 mg oral daily. 12. 1 tablet oral daily. 13. Allopurinol 200 mg daily. 14. Loratadine 10 mg oral daily. 15. Ventolin HFA 2 puffs by inhalation q.6 hours p.r.n. 16. Advair 100/50 two puffs by inhalation daily. 17. Tylenol 650 mg q.6 hours p.r.n. ALLERGIES: The patient is known to have LATEX, PENICILLIN, CIPROFLOXACIN, CLINDAMYCIN, NITROFURANTOIN, and environmental allergies. FAMILY HISTORY: Mother at age 53 due to second ovarian cancer, and father in his 60s due to second heart attack. SOCIAL HISTORY: The patient has a history of smoking about a pack a day for over 36 years, although she has been trying to quit over the last 1 week. Denies any recreational drug use. Rarely uses alcohol. Currently lives at home and uses a walker to ambulate. She is a full code and her daughter Jeanie is her healthcare proxy. REVIEW OF SYSTEMS: A 14-point review of systems did not reveal any new information other than what is mentioned in the HPI. PHYSICAL EXAMINATION GENERAL: The patient is awake, alert, oriented x3, does not appear to be in any acute respiratory distress. VITAL SIGNS: In the ER, temperature max was noted to be 99 degrees Fahrenheit. In the ER, BP was noted to be 142/78, heart rate 70, respiration rate 20, saturating 99% on room air. HEAD AND NECK: Atraumatic, normocephalic. Bilateral pupils are reactive. Oral mucosa was moist. Neck supple. No jugular venous distention. LUNGS: Clear to auscultation bilaterally. No wheezing, rhonchi, or rales. HEART: S1, S2. Regular rate and rhythm. ABDOMEN: The patient has purulent material coming from the ileal conduit urostomy in the anterior abdomen. The nephrostomy site was clean but tender. I did not appreciate any purulent material expressed from the nephrostomy site and the urine itself from the nephrostomy site looked clear during my evaluation. EXTREMITIES: No cyanosis. DIAGNOSTIC STUDIES/LAB DATA: CBC was unremarkable except for the mild anemia. Comprehensive metabolic panel shows elevated creatinine compared to her baseline at 4.34. Urinalysis from the nephrostomy site suggests positive for nitrite and leuk esterase, and urinalysis from the ostomy was positive for leuk esterase but negative for nitrite and had multiple bacteria present. CT abdomen and pelvis shows status post left nephrectomy and cystectomy with urinary diversion or ileal loop of the right kidney. There is a right renal percutaneous nephrostomy ureteral stent which extends through the ileal loop and towards the ostomy opening to a point just superficial to the muscle veneer layer the right abdominal wall. Ostomy hernia contains small bowel segments with no strangulation or obstruction. Marked degenerative changes of the right hip with bone on bone articulation, prominent diastasis of the symphysis pubis with probable residue of right sacral fracture, status post hysterectomy. IMPRESSION: This is a 54-year-old female here due to right nephrectomy site tenderness and pain with chills and noted to have worsening urine odor and urinary tract infection. ASSESSMENT AND PLAN: 1. Urinary tract infection. Started on ceftriaxone, follow up cultures and titrate antibiotics accordingly. 2. History of hypertension, not on any home medications. We will continue to monitor her blood pressure. 3. Acute on chronic kidney disease. We will start the patient on gentle IV hydration. 4. History of type 2 diabetes, not on any medications. We will monitor fingersticks. 5. History of asthma/chronic obstructive pulmonary disease. Continue home medications. 6. History of gastroesophageal reflux disease. Continue home medications. 7. DVT prophylaxis with subcu heparin. 8. Code status: The patient is full code. [id number]/CPS #: [id number] [facility]
[2019-07-14] MEDS ORDERED: Allopurinol TAB* 100 MG PO SCH (09:00)
[2019-07-14] MEDS ORDERED: Cetirizine* 10 MG TAB PO SCH (09:00)
[2019-07-14] MEDS: NS 0.9% 1000 ML** 1,000 ML IV SCH (09:05)
[2019-07-14] MEDS: Cetirizine* 10 MG TAB PO SCH (09:09)
[2019-07-14] MEDS: Cyanocobalamin TAB* 500 MCG PO SCH (09:09)
[2019-07-14] MEDS: Levothyroxine TAB* 175 MCG TAB PO SCH (09:09)
[2019-07-14] MEDS: Pantoprazole TAB * 40 MG TAB PO SCH (09:10)
[2019-07-14] MEDS: Multivitamins/Minerals TAB PO SCH (09:10)
[2019-07-14] MEDS: Cyclobenzaprine TAB* 10 MG PO PRN ×2 (09:10→14:47)
[2019-07-14] MEDS: Allopurinol TAB* 100 MG PO SCH (09:10)
[2019-07-14] MEDS: Heparin VIAL(*) 5000 UNITS/ML VIAL (FIVE THOUSAND) SUBCUT SCH ×2 (09:11→20:57)
[2019-07-14] MEDS: Nicotine PATCH 21 MG/24 HR* PATCH TRANSDERM SCH (09:11)
[2019-07-14] MEDS: Docusate CAP* 100 MG PO SCH (09:12)
[2019-07-14] MEDS: Senna TAB 8.6 mg* TAB PO SCH (09:13)
[2019-07-14] MEDS: Ferrous Sulfate TAB* 325 MG PO SCH (09:13)
[2019-07-14] MEDS: cefTRIAXone(*) 1 GM in NS 0.9% 50 ML* 50 ML IVPB SCH (20:57)
[2019-07-14] MEDS: Nicotine Patch Removal NOTE PATCH OFF SCH (21:00)
[2019-07-15] MEDS: NS 0.9% 1000 ML** 1,000 ML IV SCH (05:25)
[2019-07-15] MEDS: Levothyroxine TAB* 175 MCG TAB PO SCH (05:53)
[2019-07-15] MEDS: Heparin VIAL(*) 5000 UNITS/ML VIAL (FIVE THOUSAND) SUBCUT SCH ×2 (08:11→21:05)
[2019-07-15] MEDS: Cyanocobalamin TAB* 500 MCG PO SCH (08:13)
[2019-07-15] MEDS: Allopurinol TAB* 100 MG PO SCH (08:13)
[2019-07-15] MEDS: Cetirizine* 10 MG TAB PO SCH (08:13)
[2019-07-15] MEDS: Multivitamins/Minerals TAB PO SCH (08:13)
[2019-07-15] MEDS: Pantoprazole TAB * 40 MG TAB PO SCH (08:14)
[2019-07-15] MEDS: Ferrous Sulfate TAB* 325 MG PO SCH (08:14)
[2019-07-15] MEDS: Nicotine PATCH 21 MG/24 HR* PATCH TRANSDERM SCH (08:16)
[2019-07-15] MEDS ORDERED: Influenza VAC *QUAD* 2019-20* 0.5 ML SYRINGE IM ONE (09:00)
[2019-07-15] MEDS ORDERED: Pneumococcal *Vac Polyvalent 0.5 ML VIAL IM ONE (09:00)
[2019-07-15] MEDS: Senna TAB 8.6 mg* TAB PO SCH (09:03)
[2019-07-15] MEDS: Docusate CAP* 100 MG PO SCH (09:03)
[2019-07-15 15:03] LABS: BUN/Creatinine Ratio 9.8 (8-20); Calcium 8.5 mg/dL (8.6-10.3); EGFR African American 14.2 (>60); EGFR Non-African American 11.8 (>60); Potassium 4.5 mmol/L (3.5-5.0)
[2019-07-15] MEDS ORDERED: Magnesium Sulfate 2 GM IV* 2 GM/50 ML BAG IVPB ONE (15:09)
[2019-07-15] MEDS: Cyclobenzaprine TAB* 10 MG PO PRN (16:30)
--- NOTE | 2019-07-15 18:49 | CONS ---
CONSULTATION REPORT: DATE OF CONSULT: 07/15/19 PRIMARY CARE PROVIDER: Dr. Gladys Tolliver. PROVIDER REQUESTING CONSULTATION: FIDENCIO Fernandez CONSULTING SERVICE: Infectious Disease. PROVIDER: Collin Malcolm NP ATTENDING PROVIDER: Dr. Kirk Luz.* (DICTATED BY COLLIN MALCOLM NP) REASON FOR CONSULT: Suspected pyelonephritis in a patient with a unilateral kidney and history of ileal conduit and right nephrostomy tube. IMPRESSION: 1. Urinary tract infection in the setting of an ileal conduit and right-sided nephrostomy tube. Urinalysis on admission from the nephrostomy with 3+ leukocyte esterase, 2+ blood, nitrite positive, 2+ bacteria, 3+ wbc's; ostomy site with 3+ leukocyte esterase, 2+ blood, negative for nitrites, 3+ wbc's, 3+ bacteria. She has been afebrile since her admission. No leukocytosis. She currently has clear urine and she has been receiving ceftriaxone during her hospitalization. She had a CT of her abdomen and pelvis showing a right renal percutaneous nephrostomy tube, ureteral stent, status post left-sided nephrectomy, cystectomy. 2. Diabetes mellitus type 2. 3. History of bladder cancer, status post cystectomy, ileal conduit, and left nephrectomy. 4. History of pelvic osteomyelitis, status post resection, completed a course of extended antibiotics. 5. History of Fernanda's gangrene, status post flap reconstruction. 6. Allergies to PENICILLIN, CIPRO, CLINDAMYCIN, NITROFURANTOIN. PLAN/RECOMMENDATIONS: Recommend continuing ceftriaxone for now, which she is tolerating. The lab did not run her previous urine cultures due to multiple organisms and concern for contamination. There is gram negative-bacilli and enterococcus currently in the culture. They have been asked to further work this up so that we can better evaluate the cause of her UTI. Recommend obtaining 2 sets of blood cultures, these have been ordered. Further recommendations will be based on the culture results and the patient's clinical course. HISTORY OF PRESENT ILLNESS: Ms. Bender is a 54-year-old female with past medical history significant for bladder and cervical cancer, osteomyelitis, recurrent urinary tract infections, history of pyelonephritis, chronic kidney disease, hypertension, asthma, hiatal hernia, renal calculi, osteoarthritis, gout, psoriasis, anxiety, depression, low back pain, and diet-controlled diabetes mellitus type 2. Ms. Bender states that she had been in her usual state of health. She states that last week on Friday, she was seen by her urologist, Dr. Mcghee at [facility] and he placed a right-sided nephrostomy tube due to "leaking from her urostomy." She saw him in followup the following and he stated everything looked well and she was not placed on antibiotics at that time. She states that last week after her procedure she had noticed a foul smell and had not been noticing a foul smell since approximately 2 years prior when she had last had issues with urine infection. She reports having fevers, chills, and sweats. She continued to have foul- smelling urine and reporting "green stuff" from her urostomy. She has been in touch with her urologist's office, who stated that he was not concerned with her symptoms. She then developed fatigue, nausea, and vomiting. This continued and she decided to present to the emergency room for further evaluation of her symptoms. While in the emergency room, she was reporting increased nephrostomy tenderness and discomfort in her left pelvic region. She has chronic pain due to her past surgeries and procedures. Occasionally reports a cough with white mucus production, has some baseline shortness of breath. Denies chest pain, muscle pain, diarrhea. Denies any rash other than her baseline psoriasis. Denies any recent travel. She does report feeling "cramps" in her bowels. This has been going on for a few months and happens intermittently. She also reports right- sided sciatic pain that is near her baseline. While in the emergency room, she had an unremarkable CBC. CMP showed an elevated creatinine compared to her baseline. Urinalysis from her nephrostomy site positive for nitrites and leukocyte esterase and urinalysis from her ostomy positive for leukocyte esterase and negative for nitrites with multiple bacteria present. She underwent a CT of her abdomen and pelvis showing a left nephrostomy and cystectomy with urinary diversion of an ileal loop of the right kidney, also noted a right renal percutaneous nephrostomy tube. She was referred to the hospitalist service for possible urinary tract infection. While in the hospital she states that her nausea and vomiting is resolving. She feels that she may be having some nausea secondary to the antibiotics. PAST MEDICAL HISTORY: 1. Bladder cancer, status post cystectomy, ileal conduit. 2. History of cervical cancer, status post hysterectomy. 3. Osteomyelitis. 4. Recurrent urinary tract infections. 5. History of pyelonephritis. 6. Chronic kidney disease, stage 5. 7. Hypertension. 8. Asthma. 9. Hiatal hernia. 10. Renal calculi. 11. Osteoarthritis. 12. Gout. 13. Psoriasis. 14. Anxiety. 15. Depression. 16. Chronic low back pain. 17. Diet-controlled diabetes mellitus type 2. 18. History of Fernanda's gangrene. PAST SURGICAL HISTORY: 1. Status post cystectomy and ileal conduit. 2. Status post left nephrectomy. 3. Status post multiple ureteral stents. 4. Status post hysterectomy. 5. Status post excision of ectopic . 6. Status post excision of left salivary gland mass. 7. Status post right nephrostomy. 8. Status post resection of component of the pelvis and cartilage. MEDICATIONS: Home medications: 1. Senna 2 tablets by mouth daily. 2. Vitamin B12 1000 mcg by mouth daily. 3. Colace 200 mg by mouth daily. 4. Protonix 40 mg by mouth daily. 5. Zofran 4 to 8 mg by mouth every 8 hours as needed for nausea. 6. Saline flush 10 mL IV twice daily as needed. 7. Nicotine patch 21 mg transdermal daily. 8. Levothyroxine 175 mcg by mouth daily. 9. Flexeril 10 mg by mouth 3 times daily as needed for muscle spasms. 10. Ferrous sulfate 325 mg by mouth daily. 11. Colchicine 0.3 mg by mouth daily as needed for gout flare. 12. Zyrtec 10 mg by mouth daily. 13. Certa Plus 1 capsule by mouth daily. 14. Allopurinol 200 mg by mouth daily. 15. Claritin 10 mg by mouth daily. 16. Albuterol HFA inhaler 2 puffs inhalation every 6 hours as needed for shortness of breath or wheeze. 17. Advair Diskus 100/50 two puffs inhalation daily as needed for shortness of breath. 18. Acetaminophen 650 mg by mouth every 6 hours as needed for pain. Hospital medications: 1. Acetaminophen 650 mg by mouth every 6 hours as needed for pain. 2. Albuterol HFA inhaler 2 puffs inhalation every 6 hours as needed. 3. Allopurinol 100 mg by mouth daily. 4. Ceftriaxone 1 g IV daily. 5. Zyrtec 10 mg by mouth daily. 6. Vitamin B12 1000 mcg by mouth daily. 7. Cyclobenzaprine 10 mg by mouth 3 times daily as needed for muscle spasms. 8. Colace 200 mg by mouth daily. 9. Ferrous sulfate 325 mg by mouth daily. 10. Heparin sodium 5000 units subcutaneous every 12 hours. 11. Levothyroxine 175 mcg by mouth daily. 12. Magnesium sulfate 2 g IV once. 13. Dulera 100/5 two puffs inhalation twice daily as needed for shortness of breath. 14. Multivitamin 1 tablet by mouth daily. 15. Nicotine patch 21 mg transdermal daily. 16. Zofran 4 mg by mouth every 8 hours as needed for nausea. 17. Protonix 40 mg by mouth daily. 18. Senna 2 tablets by mouth daily. 19. Sodium chloride 75 mL intravenously. 20. Sodium chloride flush 10 mL flush IV twice daily. ALLERGIES: LATEX, PENICILLIN causes hives, CIPRO and NITROFURANTOIN causing nausea and vomiting, CLINDAMYCIN causing vomiting, and environmental allergies. FAMILY HISTORY: Father with a history of GA in his 60s. Sister with a history of diabetes mellitus. Mother with a history of ovarian cancer at age 53 and passed at age 53. SOCIAL HISTORY: Rarely drinks alcohol. Has a 36-year 1 pack a day smoking history. She is working on quitting and is down to 4 to 5 cigarettes daily. Denies recreational drug use. REVIEW OF SYSTEMS: I performed a 10-point review of systems. All the pertinent positives and negatives are mentioned in the history of present illness. The remaining review of systems are negative. PHYSICAL EXAM: Vital Signs: Temperature 97.6, heart rate 71, respiratory rate 22, O2 sat 100% on room air, blood pressure 107/64. General Appearance: She is alert, appears to be in no acute distress. Head: Normocephalic, atraumatic. EENT: Extraocular movements intact. Moist mucous membranes. Neurological: Alert and oriented x4. Cranial nerves II through XII are grossly intact. Cardiovascular: Regular rate and rhythm. S1, S2 present. No murmurs, rubs, or gallops heard. Respiratory: No accessory muscle use. The lungs are clear to auscultation bilaterally. Abdomen: Bowel sounds present. Abdomen is soft, nontender, nondistended. She has right-sided CVA tenderness and she is noted to have a urostomy to the right side of her abdomen with clear yellow urine. Additionally, she has a right-sided nephrostomy tube with clear yellow urine. Extremities: Mild bilateral lower extremity edema. Musculoskeletal: No clubbing or cyanosis noted. Exhibits good strength in all extremities. Psychological: Calm and cooperative. Skin: She has multiple psoriasis plaques scattered on her torso and arms. DIAGNOSTIC STUDIES/LAB DATA: From 07/13/19: Sodium 136, potassium 4.0, chloride 109, CO2 of 19, BUN 42, creatinine 4.34, glucose 95. White blood cell count 8.8, hemoglobin 11.2, hematocrit 34, platelet count 497. Please see impression and recommendations outlined above, recommendations have been discussed with FIDENCIO Fernandez. Thank you for asking us to see Ms. Bender in consultation. The case has been reviewed with my attending, Dr. Kirk Luz, who agrees with the plan of care. Reviewed by JENNIE WEBB 07/19/19 09 [id number]/[facility] #: [id number] CJ
--- NOTE | 2019-07-15 18:58 | PN ---
Subjective Date of Service: 07/15/19 Interval History: Pt is feeling better today, but continues to have R flank pain that is relieved with Tylenol. She admits to sweats, chills overnight, but none today. She has a depressed mood, as she was looking forward to discharge; granddaughter has a birthday on Friday. She has no other complaints today. Objective Active Medications: Acetaminophen (Tylenol Tab*) 650 mg PO Q6H PRN Albuterol (Ventolin Hfa Inhaler*) 2 puff INH Q6H PRN Allopurinol (Zyloprim Tab*) 100 mg PO DAILY [facility] Cetirizine HCl (Zyrtec*) 10 mg PO DAILY [facility] Cyanocobalamin (Vitamin B12 Tab*) 1,000 mcg PO DAILY [facility] Cyclobenzaprine HCl (Flexeril Tab*) 10 mg PO TID PRN Docusate Sodium (Colace Cap*) 200 mg PO DAILY [facility] Ferrous Sulfate (Ferrous Sulfate Tab*) 325 mg PO DAILY [facility] Heparin Sodium (Porcine) (Heparin Vial(*)) 5,000 units SUBCUT Q12HR [facility] Sodium Chloride (Ns 0.9% 1000 Ml) 1,000 mls @ 75 mls/hr IV PER RATE [facility] Ceftriaxone Sodium 1 gm/ (Sodium Chloride) 50 mls @ 100 mls/hr IVPB Q24H [facility] Levothyroxine Sodium (Synthroid Tab*) 175 mcg PO DAILY@0600 [facility] Mometasone Furoate/Formoterol Fumar (Dulera 100/5 Mdi*) 2 puff INH BID PRN Multivitamins/Minerals (Theragran/Minerals Tab*) 1 tab PO DAILY [facility] Nicotine (Nicotine Patch 21 Mg/24 Hr*) 1 patch TRANSDERM DAILY [facility] Ondansetron HCl (Zofran Tab*) 4 mg PO Q8HR PRN Pantoprazole Sodium (Protonix Tab*) 40 mg PO QAM [facility] Pharmacy Profile Note (Nicotine Patch Removal Note*) 1 note PATCH OFF 2100 [facility] Senna (Senokot 8.6 Mg Tab*) 2 tab PO DAILY [facility] Sodium Chloride (Saline Flush*) 10 ml IV BID PRN Vital Signs: Temp Pulse Resp BP Pulse Ox 98.4 F 75 16 136/87 99 07/15/19 15:15 07/15/19 15:15 07/15/19 16:30 07/15/19 15:15 07/15/19 15:15 Oxygen Devices in Use Now: None Appearance: Pt is sitting up in bed. She has some pain in R flank with movement and grimaces. She is intermittently tearful. Eyes: No Scleral Icterus, PERRLA Ears/Nose/Mouth/Throat: NL Teeth, Lips, Gums, Clear Oropharnyx, Mucous Membranes Moist Neck: NL Appearance and Movements; NL JVP, Trachea Midline Respiratory: Symmetrical Chest Expansion and Respiratory Effort, Clear to Auscultation Cardiovascular: NL Sounds; No Murmurs; No JVD, RRR, No Edema Abdominal: NL Sounds; No Tenderness; No Distention, - - R CVA tenderness. R nephrostomy site with small amount of purulent discharge; clear yellow urine in attached diaz bag. R iliostomy without erythema, drainage from site; clear yellow urine with sediment in urostomy pouch. Extremities: No Edema, No Clubbing, Cyanosis Neurological: Alert and Oriented x 3, NL Muscle Strength and Tone Result Diagrams: 07/13/19 20:04 07/15/19 14:39 Microbiology and Other Data: Microbiology 07/13/19 19:55 Urine Culture - Preliminary Urine Gram Negative Bacilli Enterococcus Faecalis Assess/Plan/Problems-Billing Assessment: - Patient Problems (1) Pyelonephritis of right kidney Comment: -Pt presents with R flank pain -UA from ileostomy with 3+ LE, + nitrates, 2+ bacteria; culture pending -UA from nephrostomy with 3+ LE, - nitrates, 3+ bacteria; culture pending -ID following -Continue ceftriaxone and await cultures (2) Acute kidney injury superimposed on chronic kidney disease Comment: -Pt with CKD -Cr improving -Continue IVF (3) Diabetes mellitus Comment: -HA1C ordered -No home medications with record of DM (4) Hypertension Comment: -BP well controlled -Currently on no home medications -Continue to monitor (5) Asthma with COPD Comment: -Continue inhalers (6) GERD (gastroesophageal reflux disease) Comment: -Continue pantoprazole (7) DVT prophylaxis Comment: -SQ heparin (8) Full code status
[2019-07-15] MEDS: cefTRIAXone(*) 1 GM in NS 0.9% 50 ML* 50 ML IVPB SCH (21:05)
[2019-07-15] MEDS: Nicotine Patch Removal NOTE PATCH OFF SCH (21:36)
[2019-07-16] MEDS: NS 0.9% 1000 ML** 1,000 ML IV SCH ×4 (00:08→17:49)
[2019-07-16] MEDS: Levothyroxine TAB* 175 MCG TAB PO SCH (06:07)
[2019-07-16] MEDS: Ferrous Sulfate TAB* 325 MG PO SCH (08:19)
[2019-07-16] MEDS: Docusate CAP* 100 MG PO SCH (08:19)
[2019-07-16] MEDS: Heparin VIAL(*) 5000 UNITS/ML VIAL (FIVE THOUSAND) SUBCUT SCH ×2 (08:19→21:26)
[2019-07-16] MEDS: Cetirizine* 10 MG TAB PO SCH (08:19)
[2019-07-16] MEDS: Nicotine PATCH 21 MG/24 HR* PATCH TRANSDERM SCH (08:20)
[2019-07-16] MEDS: Cyanocobalamin TAB* 500 MCG PO SCH (08:20)
[2019-07-16] MEDS: Senna TAB 8.6 mg* TAB PO SCH (08:20)
[2019-07-16] MEDS: Pantoprazole TAB * 40 MG TAB PO SCH (08:20)
[2019-07-16] MEDS: Multivitamins/Minerals TAB PO SCH (08:20)
[2019-07-16] MEDS: Allopurinol TAB* 100 MG PO SCH (08:20)
[2019-07-16 08:21] LABS: ABS Basophils 0.1 10^3/ul (0-0.2); ABS Eosinophils 0.2 10^3/ul (0-0.6); ABS Lymphocytes 1.1 10^3/ul (1.0-4.8); ABS Monocytes 0.5 10^3/ul (0-0.8); ABS Neutrophils 4.9 10^3/ul (1.5-7.7); Eosinophil % 2.9 %; Hematocrit 28 % (35-47); Hemoglobin 9.1 g/dL (12.0-16.0); Lymphocyte % 16.7 %; Mean Corpuscular HGB Conc 32 g/dL (31-36); Mean Corpuscular Hemoglobin 32 pg (27-31); Mean Corpuscular Volume 100 fL (80-97); Mean Platelet Volume 7.6 fL (7.4-10.4); Nucleated Red Blood Cells % 0.1; Platelet Count 399 10^3/uL (150-450); Red Blood Count 2.83 10^6 /uL (3.70-4.87); Red Cell Distribution Width 16 % (10-15); White Blood Count 6.7 10^3/uL (3.5-10.8)
[2019-07-16 08:31] LABS: BUN/Creatinine Ratio 11.1 (8-20); Calcium 8.4 mg/dL (8.6-10.3); EGFR African American 13.9 (>60); EGFR Non-African American 11.5 (>60); Potassium 4.8 mmol/L (3.5-5.0)
[2019-07-16 10:11] LABS: Folate 7.28 ng/mL (>3.99)
[2019-07-16 14:49] LABS: Urine Creatinine Concentration 33.24 mg/dL
--- NOTE | 2019-07-16 17:31 | PN ---
Subjective Date of Service: 07/16/19 Interval History: Pt states that flank pain is resolved. She denies abd pain, although noted LLQ pain yesterday, since resolved. She is feeling well, with occasional sweats, no fevers, chills. She has no other complaints. H/o L nephrectomy d/t failure, stones, infection; this occurred in [place] 2008. Cystectomy d/t bladder cancer 2017. Has urology oncologist in [place]. Has appointment scheduled with nephrology, but has never been seen. Objective Active Medications: Acetaminophen (Tylenol Tab*) 650 mg PO Q6H PRN Albuterol (Ventolin Hfa Inhaler*) 2 puff INH Q6H PRN Allopurinol (Zyloprim Tab*) 100 mg PO DAILY [facility] Cetirizine HCl (Zyrtec*) 10 mg PO DAILY [facility] Cyanocobalamin (Vitamin B12 Tab*) 1,000 mcg PO DAILY [facility] Cyclobenzaprine HCl (Flexeril Tab*) 10 mg PO TID PRN Docusate Sodium (Colace Cap*) 200 mg PO DAILY [facility] Ferrous Sulfate (Ferrous Sulfate Tab*) 325 mg PO DAILY [facility] Heparin Sodium (Porcine) (Heparin Vial(*)) 5,000 units SUBCUT Q12HR [facility] Ceftriaxone Sodium 1 gm/ (Sodium Chloride) 50 mls @ 100 mls/hr IVPB Q24H [facility] Sodium Chloride (Ns 0.9% 1000 Ml) 1,000 mls @ 125 mls/hr IV PER RATE [facility] Levothyroxine Sodium (Synthroid Tab*) 175 mcg PO DAILY@0600 [facility] Mometasone Furoate/Formoterol Fumar (Dulera 100/5 Mdi*) 2 puff INH BID PRN Multivitamins/Minerals (Theragran/Minerals Tab*) 1 tab PO DAILY [facility] Nicotine (Nicotine Patch 21 Mg/24 Hr*) 1 patch TRANSDERM DAILY [facility] Ondansetron HCl (Zofran Tab*) 4 mg PO Q8HR PRN Pantoprazole Sodium (Protonix Tab*) 40 mg PO QAM [facility] Pharmacy Profile Note (Nicotine Patch Removal Note*) 1 note PATCH OFF 2100 [facility] Senna (Senokot 8.6 Mg Tab*) 2 tab PO DAILY [facility] Sodium Chloride (Saline Flush*) 10 ml IV BID PRN Vital Signs: Temp Pulse Resp BP Pulse Ox 98.1 F 74 18 122/60 99 07/16/19 15:15 07/16/19 15:15 07/16/19 15:15 07/16/19 15:15 07/16/19 15:15 Oxygen Devices in Use Now: None Appearance: Pt is sitting up in bed. She is in no acute distress. She appears well, comfortable. Eyes: No Scleral Icterus, PERRLA Ears/Nose/Mouth/Throat: NL Teeth, Lips, Gums, Clear Oropharnyx, Mucous Membranes Moist Neck: NL Appearance and Movements; NL JVP, Trachea Midline Respiratory: Symmetrical Chest Expansion and Respiratory Effort, Clear to Auscultation Cardiovascular: NL Sounds; No Murmurs; No JVD, RRR, No Edema Abdominal: NL Sounds; No Tenderness; No Distention, No Hepatosplenomegaly, - - R ileostomy with clear yellow urine with some sediment; R nephrostomy in place, CDI dressing in place, output is clear yellow urine. Result Diagrams: 07/16/19 07:55 07/16/19 07:55 Microbiology and Other Data: Microbiology 07/13/19 19:55 Urine Culture - Preliminary Urine Gram Negative Bacilli Enterococcus Faecalis Assess/Plan/Problems-Billing Assessment: - Patient Problems (1) Pyelonephritis of right kidney Comment: -Pt presents with R flank pain; has h/o L nephrectomy, R nephrostomy, R ileal conduit -Ileostomy UA: 3+ LE, + nitrates, 2+ bacteria; culture: Klebsiella, enterococcus faecalis -Nephrostomy UA: 3+ LE, - nitrates, 3+ bacteria; culture: enterococcus faecalis -ID following -Continue ceftriaxone and await cultures -Nephrology consulted (2) Acute kidney injury superimposed on chronic kidney disease Comment: -Pt with CKD -Cr with slight increase -Increase IVF to 125cc/d -Nephrology consulted (3) Diabetes mellitus Comment: -HA1C 6.0 -Diet controlled (4) Hypertension Comment: -BP well controlled -Currently on no home medications -Continue to monitor (5) Asthma with COPD Comment: -Continue inhalers (6) GERD (gastroesophageal reflux disease) Comment: -Continue pantoprazole (7) DVT prophylaxis Comment: -SQ heparin (8) Full code status
--- NOTE | 2019-07-16 20:26 | CONS ---
INITIAL CONSULTATION NOTE: DATE OF CONSULT: 07/16/19 REQUESTING PROVIDER: FIDENCIO Fernandez SERVICE: [facility] Nephrology. REASON FOR CONSULT: TUNDE on CKD. CHIEF COMPLAINT: Worsening kidney failure, nausea, vomiting, HISTORY OF PRESENT ILLNESS: A 54-year-old female with history of multiple medical problems including history of cervical cancer in 1999, status post cervix removal; history of bladder cancer in 2016, status post cystectomy and urostomy placement. The patient also reports history of left nephrectomy in 2006 after multiple failed attempts at stenting. The patient reports that she does recollect that she had renal artery stenosis and reports that her stents were in the renal artery at that time, but notes suggest that she had a left nephrectomy for hydronephrosis after multiple failed stents. The patient reports that her most recent nephrostomy tube was placed 2 weeks ago at [facility]. The patient follows with Urologic Oncology, Dr. Sekou Mcghee, at [facility]. The patient was going to be established with a song lyricist at [facility] , Dr. Swanson, but prefers to see somebody locally. Other than this, the patient has a history of type 2 diabetes over the last 3 years, not on medication; hypothyroidism; COPD; the patient presented with chills, malaise, nausea, vomiting on initial presentation; history of multiple urinary tract infections. The patient also reported pain at the nephrostomy site and darker than usual urine with some purulent material. The patient was noted to have a urinary tract infection and the patient is currently being treated for pyelonephritis, is followed by ID and Medicine. With respect to her renal function, the patient's creatinine noted to be 4. When she came to the hospital on 07/13/19, her creatinine was 4.34. Previously , in December, her creatinine was 2.14 and the patient was noted to be obstructed as described above, recently status post nephrostomy placement a couple of weeks ago at [facility]. We will need to get records from [facility]. It also appears that the patient had a recent nuclear scan and reports that she only has 3% function in the right kidney. We will request records from [facility]. PAST MEDICAL HISTORY: 1. Bladder cancer, status post cystectomy, ileal conduit and urostomy in August 2017. 2. History of cervical cancer, status post treatment in 1999. 3. History of osteomyelitis. 4. Recurrent UTIs and pyelonephritis. 5. Chronic kidney disease, stage 4, with worsening. 6. Hypertension. 7. Asthma. 8. GERD. 9. Hiatal hernia. 10. History of SBO. 11. History of kidney stones with stenting in the past. 12. History of left nephrectomy secondary to recurrent hydronephrosis with ureteral stricture and failed left kidney. 13. Osteoarthritis. 14. Gout. 15. Psoriasis. 16. Anxiety. 17. Depression. 18. Chronic low back pain due to fractured and slipped disks in the lumbar region. PAST SURGICAL HISTORY: 1. Cystectomy with ileal conduit and urostomy. 2. Left nephrectomy. 3. Previous numerous ureteral stents. 4. Hysterectomy. 5. Ectopic excision. 6. Left salivary gland mass excision and right nephrostomy placement. MEDICATIONS: Home medications prior to admission: 1. Senna 2 tabs p.o. daily. 2. Vitamin B12 1000 mcg daily. 3. Docusate sodium 200 mg daily. 4. Protonix 40 mg every morning. 5. Zofran 4 mg every 8 hours p.r.n. 6. Nicotine patch 21 mg every 24 hours. 7. Levothyroxine 175 mcg every morning. 8. Flexeril 10 mg t.i.d. p.r.n. 9. Iron sulfate 325 mg p.o. daily. 10. Colchicine 0.3 mg p.o. daily p.r.n. 11. Zyrtec 10 mg daily. 12. Allopurinol 200 mg daily. 13. Loratadine 10 mg daily. 14. Ventolin 2 puffs inhalation every 6 hours p.r.n. 15. Advair 2 puffs inhalation daily. 16. Tylenol 650 mg q.6 hours p.r.n. ALLERGIES: To LATEX, PENICILLIN, CIPROFLOXACIN, CLINDAMYCIN, NITROFURANTOIN, and environmental allergies. FAMILY HISTORY: Mother passed at age 53 due to ovarian cancer. Father passed in his 60s due to heart attack. SOCIAL HISTORY: History of smoking pack a day for over 36 years and has been trying to quit over the last week. Denies recreational drug use. Rarely uses alcohol. REVIEW OF SYSTEMS: The patient reports that her nausea and vomiting and pain at the nephrostomy tube site has improved. Otherwise, a 14-point review of systems noted to be negative except those mentioned above. PHYSICAL EXAM: Vitals: Temperature 98.1, pulse is 74, respiratory rate 18, oxygen saturation 99%, blood pressure 122/60. HEENT: NC/AT. Heart: S1, S2 present. Regular at the time of exam. Lungs: Clear to auscultation bilaterally. Abdomen: Not distended. No rebound. No guarding. Urostomy in place. Nephrostomy on the right side in place. Extremities noted to have some edema. Neuro: Alert, oriented x3 with no focal deficits. DIAGNOSTIC STUDIES/LAB DATA: Sodium 136, potassium 4, chloride 109, CO2 of 19, BUN 42, creatinine 4.34, magnesium 1.7. Imaging: CT abdomen/pelvis: 1. Status post left nephrectomy and cystectomy. 2. Urinary diversion or ileal loop for the right kidney. There is a right renal percutaneous nephrostomy/ureteral stent, which extends through the ileal loop towards the ostomy opening to a point just superficial to the muscle layer of the right abdominal wall. 3. Ostomy hernia containing small bowel segments with no strangulation or obstruction. 4. Marked degenerative changes of the right hip with [id number] articulation. 5. Prominent diastasis of the symphysis pubis with probable residue of right sacral fracture. 6. Status post hysterectomy. ASSESSMENT AND PLAN: A 54-year-old female with history of multiple medical problems, here with pyelonephritis, being treated with ceftriaxone, being evaluated for acute kidney injury on chronic kidney disease. 1. Acute kidney injury on chronic kidney disease. The patient has had recent worsening in her kidney function in the setting of right hydronephrosis with nephrostomy placement 2 weeks ago per discussion with the patient. The patient also noted to have pyelonephritis, which is being treated currently. On top of this, the patient has poor renal reserve with history of left nephrectomy and multiple structural/anatomic problems with poor function in her right kidney. 2. The patient's creatinine in December noted to be 2.14, but this has steadily increased and in March this was noted to be 3, then in May noted to be 3.98 and on 07/08/19 noted to be 4.46. With the obstruction relieved with a nephrostomy and further treatment of her pyelonephritis, we will need to see where her kidney function settles. 3. Recommend increasing the IV fluids as she can get pretty dehydrated with her ileal conduit and ostomies, can also lose a lot of bicarb through this. 4. Metabolic acidosis. Recommend starting her on sodium bicarb 650 mg t.i.d. and can increase this to 1300 p.o. t.i.d. as needed. 5. Recommend checking calcium, phosphorus, PTH on her for long-term management. 6. With respect to her acute kidney injury on chronic kidney disease, recommend IV hydration, recommend also checking kidney ultrasound to rule out further hydronephrosis or other obstructive pathology that could be contributing to her kidney dysfunction. Also recommend checking urine electrolytes including urine sodium, creatinine, urea to evaluate prerenal versus acute tubular necrosis physiology. Also recommend checking serum electrophoresis, urine electrophoresis, kappa/lambda light chains, and a 24- hour urine for protein and creatinine to evaluate for paraproteinemia or other etiology that can be treated. We will also check an DUC on the patient and recommend checking a CPK for completion. 7. It would be important to also assess the patient's blood supply to the right kidney due to her history of reported renal artery stenosis, which I am not fully sure of. It appears that the patient had some recent testing at [facility] and it appears that the patient also had possibly a nuclear scan of her kidneys done there. Recommend requesting records from [facility] and this can be pursued further as an outpatient. We will follow with the primary medical team. [id number]/[facility] #: [id number] CJ
[2019-07-16] MEDS: cefTRIAXone(*) 1 GM in NS 0.9% 50 ML* 50 ML IVPB SCH (21:24)
[2019-07-16] MEDS: Sodium Bicarbonate (ANTACID)* 650 MG TAB PO SCH (21:25)
[2019-07-16] MEDS: Nicotine Patch Removal NOTE PATCH OFF SCH (21:27)
[2019-07-17] MEDS: NS 0.9% 1000 ML** 1,000 ML IV SCH (02:10)
[2019-07-17 07:01] LABS: ABS Basophils 0.1 10^3/ul (0-0.2); ABS Eosinophils 0.3 10^3/ul (0-0.6); ABS Lymphocytes 1.4 10^3/ul (1.0-4.8); ABS Monocytes 0.4 10^3/ul (0-0.8); ABS Neutrophils 3.8 10^3/ul (1.5-7.7); Eosinophil % 4.6 %; Hematocrit 26 % (35-47); Hemoglobin 8.6 g/dL (12.0-16.0); Lymphocyte % 23.4 %; Mean Corpuscular HGB Conc 33 g/dL (31-36); Mean Corpuscular Hemoglobin 33 pg (27-31); Mean Corpuscular Volume 99 fL (80-97); Mean Platelet Volume 7.8 fL (7.4-10.4); Platelet Count 369 10^3/uL (150-450); Red Blood Count 2.63 10^6 /uL (3.70-4.87); Red Cell Distribution Width 16 % (10-15)
[2019-07-17 07:05] LABS: BUN/Creatinine Ratio 12.6 (8-20); Calcium 8.4 mg/dL (8.6-10.3); EGFR African American 14.2 (>60); EGFR Non-African American 11.8 (>60); Phosphorus 4.2 mg/dL (2.5-5.0); Potassium 4.9 mmol/L (3.5-5.0)
[2019-07-17 07:53] LABS: Magnesium 1.8 mg/dL (1.9-2.7)
[2019-07-17] MEDS: Levothyroxine TAB* 175 MCG TAB PO SCH (08:10)
[2019-07-17] MEDS ORDERED: Magnesium Sulfate 2 GM IV* 2 GM/50 ML BAG IVPB ONE (08:12)
[2019-07-17] MEDS: Heparin VIAL(*) 5000 UNITS/ML VIAL (FIVE THOUSAND) SUBCUT SCH ×2 (08:16→21:02)
[2019-07-17] MEDS: Sodium Bicarbonate (ANTACID)* 650 MG TAB PO SCH ×3 (08:19→20:59)
[2019-07-17] MEDS: Cetirizine* 10 MG TAB PO SCH (08:19)
[2019-07-17] MEDS: Cyanocobalamin TAB* 500 MCG PO SCH (08:20)
[2019-07-17] MEDS: Multivitamins/Minerals TAB PO SCH (08:20)
[2019-07-17] MEDS: Pantoprazole TAB * 40 MG TAB PO SCH (08:20)
[2019-07-17] MEDS: Ferrous Sulfate TAB* 325 MG PO SCH (08:20)
[2019-07-17] MEDS: Allopurinol TAB* 100 MG PO SCH (08:20)
[2019-07-17] MEDS: Docusate CAP* 100 MG PO SCH (08:21)
[2019-07-17] MEDS: Nicotine PATCH 21 MG/24 HR* PATCH TRANSDERM SCH (08:22)
[2019-07-17] MEDS: Senna TAB 8.6 mg* TAB PO SCH (08:23)
[2019-07-17 08:47] LABS: Hepatitis B Surface Antigen Nonreactive (Nonreactive)
[2019-07-17 09:04] LABS: Hepatitis C Antibody Negative (Negative)
[2019-07-17 14:34] LABS: Creatinine, Serum 3.96 mg/dL (0.51-0.95)
[2019-07-17 15:06] LABS: Urine Creatinine Concentration 32.82 mg/dL
[2019-07-17 15:08] LABS: Urine Creatinine Concentration 33.07 mg/dL
--- NOTE | 2019-07-17 16:10 | PN ---
Subjective Date of Service: 07/17/19 Interval History: Pt feeling well with no complaints today. She had BM today, without melena, hematochezia. Nephrostomy and ileal conduit ostomy are putting out clear urine. Pt has no abdominal or flank pain. She is tearful with depressed mood, as she was hoping for discharge prior to Friday so she could attend her granddaughter's birthday green party. Objective Active Medications: Acetaminophen (Tylenol Tab*) 650 mg PO Q6H PRN Albuterol (Ventolin Hfa Inhaler*) 2 puff INH Q6H PRN Allopurinol (Zyloprim Tab*) 100 mg PO DAILY [facility] Cetirizine HCl (Zyrtec*) 10 mg PO DAILY [facility] Cyanocobalamin (Vitamin B12 Tab*) 1,000 mcg PO DAILY [facility] Cyclobenzaprine HCl (Flexeril Tab*) 10 mg PO TID PRN Docusate Sodium (Colace Cap*) 200 mg PO DAILY [facility] Ferrous Sulfate (Ferrous Sulfate Tab*) 325 mg PO DAILY [facility] Heparin Sodium (Porcine) (Heparin Vial(*)) 5,000 units SUBCUT Q12HR [facility] Ceftriaxone Sodium 1 gm/ (Sodium Chloride) 50 mls @ 100 mls/hr IVPB Q24H [facility] Sodium Chloride (Ns 0.9% 1000 Ml) 1,000 mls @ 125 mls/hr IV PER RATE [facility] Levothyroxine Sodium (Synthroid Tab*) 175 mcg PO DAILY@0600 [facility] Mometasone Furoate/Formoterol Fumar (Dulera 100/5 Mdi*) 2 puff INH BID PRN Multivitamins/Minerals (Theragran/Minerals Tab*) 1 tab PO DAILY [facility] Nicotine (Nicotine Patch 21 Mg/24 Hr*) 1 patch TRANSDERM DAILY [facility] Ondansetron HCl (Zofran Tab*) 4 mg PO Q8HR PRN Pantoprazole Sodium (Protonix Tab*) 40 mg PO QAM [facility] Pharmacy Profile Note (Nicotine Patch Removal Note*) 1 note PATCH OFF 2100 [facility] Senna (Senokot 8.6 Mg Tab*) 2 tab PO DAILY [facility] Sodium Bicarbonate (Sodium Bicarbonate (Antacid)*) 650 mg PO TID [facility] Sodium Chloride (Saline Flush*) 10 ml IV BID PRN Vital Signs: Temp Pulse Resp BP Pulse Ox 97.7 F 65 22 122/73 98 07/17/19 07:15 07/17/19 07:15 07/17/19 08:00 07/17/19 07:15 07/17/19 07:15 Oxygen Devices in Use Now: None Appearance: Pt is sitting up in bed, HOB elevated. She is intermittently tearful, but in no acute distress. Ears/Nose/Mouth/Throat: NL Teeth, Lips, Gums, Clear Oropharnyx, Mucous Membranes Moist Neck: NL Appearance and Movements; NL JVP, Trachea Midline Respiratory: Symmetrical Chest Expansion and Respiratory Effort, Clear to Auscultation Cardiovascular: NL Sounds; No Murmurs; No JVD, RRR, No Edema Abdominal: NL Sounds; No Tenderness; No Distention, No Hepatosplenomegaly, - - R nephrostomy with clear yellow urine output, CDI dressing in place. R-sided ileal conduit ostomy with clear yellow urine output and some sediment. No CVA tenderness Extremities: No Edema, No Clubbing, Cyanosis Neurological: Alert and Oriented x 3 Result Diagrams: 07/17/19 06:11 07/17/19 14:00 Microbiology and Other Data: Microbiology 07/13/19 19:55 Urine Culture - Preliminary Urine Gram Negative Bacilli Enterococcus Faecalis Assess/Plan/Problems-Billing Assessment: - Patient Problems (1) Pyelonephritis of right kidney Comment: -Pt presents with R flank pain; has h/o L nephrectomy, R nephrostomy, R ileal conduit -Ostomy UA: 3+ LE, + nitrates, 2+ bacteria; culture: Klebsiella, enterococcus faecalis -Nephrostomy UA: 3+ LE, - nitrates, 3+ bacteria; culture: enterococcus faecalis -ID following -Continue ceftriaxone and await cultures -Nephrology consulted (2) Acute kidney injury superimposed on chronic kidney disease Comment: -Pt with CKD -Cr with very mild decrease -Increase IVF to 125cc/d -Nephrology consulted; thank you for recommendations -Continue fluids, bicarb -Renal US: R stent in place, no hydronephrosis -Labs pending -Await[facility] medical records [facility] -Will need outpatient renal artery ultrasound (3) Anemia Comment: -Acute on chronic anemia -Likely partially dilutional -Low end of normal Fe, on ferrous sulfate (continue) -B12, folate WNL -Continue to monitor (4) Diabetes mellitus Comment: -HA1C 6.0 -Diet controlled (5) Hypertension Comment: -BP well controlled -Currently without home medications -Continue to monitor (6) Asthma with COPD Comment: -Continue inhalers (7) GERD (gastroesophageal reflux disease) Comment: -Continue pantoprazole (8) DVT prophylaxis Comment: -SQ heparin (9) Full code status
[2019-07-17] MEDS: cefTRIAXone(*) 1 GM in NS 0.9% 50 ML* 50 ML IVPB SCH (20:59)
[2019-07-17] MEDS: Nicotine Patch Removal NOTE PATCH OFF SCH (21:04)
[2019-07-18] MEDS: NS 0.9% 1000 ML** 1,000 ML IV SCH ×2 (03:47→19:12)
[2019-07-18] MEDS: Levothyroxine TAB* 175 MCG TAB PO SCH (05:40)
[2019-07-18 08:21] LABS: Hematocrit 27 % (35-47)
[2019-07-18 08:29] LABS: BUN/Creatinine Ratio 13.8 (8-20); Calcium 8.6 mg/dL (8.6-10.3); EGFR African American 15.4 (>60); EGFR Non-African American 12.8 (>60); Magnesium 2.2 mg/dL (1.9-2.7)
[2019-07-18 08:32] LABS: Potassium 5.3 mmol/L (3.5-5.0)
[2019-07-18 09:17] LABS: Phosphorus 4.3 mg/dL (2.5-5.0)
[2019-07-18] MEDS: Cetirizine* 10 MG TAB PO SCH (10:01)
[2019-07-18] MEDS: Allopurinol TAB* 100 MG PO SCH (10:01)
[2019-07-18] MEDS: Ferrous Sulfate TAB* 325 MG PO SCH (10:01)
[2019-07-18] MEDS: Nicotine PATCH 21 MG/24 HR* PATCH TRANSDERM SCH (10:01)
[2019-07-18] MEDS: Cyanocobalamin TAB* 500 MCG PO SCH (10:02)
[2019-07-18] MEDS: Multivitamins/Minerals TAB PO SCH (10:02)
[2019-07-18] MEDS: Sodium Polystyrene ORAL.SOL* 15 GM/60 ML BTL PO SCH ×3 (10:02→21:48)
[2019-07-18] MEDS: Heparin VIAL(*) 5000 UNITS/ML VIAL (FIVE THOUSAND) SUBCUT SCH ×2 (10:02→21:49)
[2019-07-18] MEDS: Sodium Bicarbonate (ANTACID)* 650 MG TAB PO SCH ×3 (10:02→21:49)
[2019-07-18] MEDS: Pantoprazole TAB * 40 MG TAB PO SCH (10:11)
[2019-07-18] MEDS: Senna TAB 8.6 mg* TAB PO SCH (11:10)
[2019-07-18] MEDS: Docusate CAP* 100 MG PO SCH (11:10)
[2019-07-18] MEDS ORDERED: Alteplase (CATHFLO)* 2 MG VIAL IV ONE (11:45)
--- NOTE | 2019-07-18 11:58 | PN ---
Subjective Date of Service: 07/18/19 Interval History: Patient tells me she was experiencing chills yesterday which have since resolved. Denies symptomatic fever. Denies flank pain, abd pain, nausea/vomiting , chest pain, difficulty breathing. She tells me she had reaction of hives to penicillin as an infant, but in her adulthood had amoxicillin and her reaction was only vomiting and GI upset. Objective Active Medications: Acetaminophen (Tylenol Tab*) 650 mg PO Q6H PRN PRN Reason: PAIN - MODERATE Last Admin: 07/15/19 16:31 Dose: 650 mg Albuterol (Ventolin Hfa Inhaler*) 2 puff INH Q6H PRN PRN Reason: SOB/WHEEZING Allopurinol (Zyloprim Tab*) 100 mg PO DAILY [facility] Last Admin: 07/18/19 10:01 Dose: 100 mg Alteplase, Recombinant (Cathflo Activase*) 2 mg IV ONCE ONE Stop: 07/18/19 11:46 Amoxicillin/Clavulanate Potassium (Augmentin Tab*) 500 mg PO BID [facility] Cetirizine HCl (Zyrtec*) 10 mg PO DAILY [facility] Last Admin: 07/18/19 10:01 Dose: 10 mg Cyanocobalamin (Vitamin B12 Tab*) 1,000 mcg PO DAILY [facility] Last Admin: 07/18/19 10:02 Dose: 1,000 mcg Cyclobenzaprine HCl (Flexeril Tab*) 10 mg PO TID PRN PRN Reason: SPASMS - MUSCLE Last Admin: 07/15/19 16:30 Dose: 10 mg Docusate Sodium (Colace Cap*) 200 mg PO DAILY [facility] Last Admin: 07/18/19 11:10 Dose: Not Given Ferrous Sulfate (Ferrous Sulfate Tab*) 325 mg PO DAILY [facility] Last Admin: 07/18/19 10:01 Dose: 325 mg Heparin Sodium (Porcine) (Heparin Vial(*)) 5,000 units SUBCUT Q12HR [facility] Last Admin: 07/18/19 10:02 Dose: 5,000 units Sodium Chloride (Ns 0.9% 1000 Ml) 1,000 mls @ 125 mls/hr IV PER RATE [facility] Last Admin: 07/18/19 03:47 Dose: 125 mls/hr Levothyroxine Sodium (Synthroid Tab*) 175 mcg PO DAILY@0600 [facility] Last Admin: 07/18/19 05:40 Dose: 175 mcg Mometasone Furoate/Formoterol Fumar (Dulera 100/5 Mdi*) 2 puff INH BID PRN PRN Reason: SHORTNESS OF BREATH Multivitamins/Minerals (Theragran/Minerals Tab*) 1 tab PO DAILY [facility] Last Admin: 07/18/19 10:02 Dose: 1 tab Nicotine (Nicotine Patch 21 Mg/24 Hr*) 1 patch TRANSDERM DAILY [facility] Last Admin: 07/18/19 10:01 Dose: 1 patch Ondansetron HCl (Zofran Tab*) 4 mg PO Q8HR PRN PRN Reason: NAUSEA/VOMITING Pantoprazole Sodium (Protonix Tab*) 40 mg PO QAM [facility] Last Admin: 07/18/19 10:11 Dose: 40 mg Pharmacy Profile Note (Nicotine Patch Removal Note*) 1 note PATCH OFF 2100 [facility] Last Admin: 07/17/19 21:04 Dose: 1 note Senna (Senokot 8.6 Mg Tab*) 2 tab PO DAILY [facility] Last Admin: 07/18/19 11:10 Dose: Not Given Sodium Bicarbonate (Sodium Bicarbonate (Antacid)*) 650 mg PO TID [facility] Last Admin: 07/18/19 10:02 Dose: 650 mg Sodium Chloride (Saline Flush*) 10 ml IV BID PRN PRN Reason: PER PROTOCOL Sodium Polystyrene Sulfonate (Kayexalate Oral.Che*) 15 gm PO Q6H [facility] Last Admin: 07/18/19 10:02 Dose: 15 gm Oxygen Devices in Use Now: None Appearance: Obese, white female, appears older than stated age, laying upright in bed appearing in NAD Eyes: No Scleral Icterus, PERRLA Ears/Nose/Mouth/Throat: Mucous Membranes Moist Neck: NL Appearance and Movements; NL JVP Respiratory: Symmetrical Chest Expansion and Respiratory Effort, Clear to Auscultation Cardiovascular: NL Sounds; No Murmurs; No JVD, RRR Abdominal: - - abd soft, nontender, nondistended; urostomy bag in place Extremities: No Edema, No Clubbing, Cyanosis Skin: No Rash or Ulcers Neurological: Alert and Oriented x 3, NL Muscle Strength and Tone Result Diagrams: 07/18/19 07:42 07/18/19 07:42 Microbiology and Other Data: Microbiology 09/17/19 19:55 Urine Culture - Preliminary Urine Gram Negative Bacilli Enterococcus Faecalis Assess/Plan/Problems-Billing Assessment: 54 yo female with PMHx CKD stage 5, cystostomy, R nephrostomy in place s/p R nephrectomy, HTN, depression/anxiety, DMT2, and chronic low back pain presents with flank pain, found to have TUNDE and UTI. - Patient Problems (1) UTI (urinary tract infection) Current Visit: No Status: Acute Comment: -Initial urine cultures thought to be contamination due to 4 pathogens present including: acinetobacter species, klebsiella pneumoniae, enterococcus faecalis, stenotrophomonas maltophilia. Possibility of contamination is quite high given it sounds the initial sample was drawn from the patient's nephrostomy bag -Repeat urine culture taken on day 3 of admission demonstrates just enterococcus faecalis, though at this point patient was already receiving ceftriaxone -Given that ceftriaxone is not covering the enterococcus which appears to not be a contamination, I will treat this. Patient tells me her reaction to PCN was as a and she had only GI upset to amoxicillin as an adult. Changing ceftriaxone to augmentin to cover both klebsiella and enterococcus. Appreciate any input from ID team tomorrow, who is following -afebrile and without leukocytosis throughout this hospital stay. Flank pain resolved. Overall improving. (2) Acute kidney injury superimposed on chronic kidney disease Current Visit: Yes Status: Acute Code(s): N17.9 - ACUTE KIDNEY FAILURE, UNSPECIFIED; N18.9 - CHRONIC KIDNEY DISEASE, UNSPECIFIED SNOMED Code(s): 24625806 Comment: -Renal US: R stent in place, no hydronephrosis -Likely 2/2 infection -Pt with CKD stage 4 in December -Cr with mild downtrend today -Continue 125cc IVF per nephrology rec -Continue Bicarb per nephrology rec -Phos wnl today. Hyperkalemia to 5.3 today. Ordered kayexalate and telemetry. Will continue to monitior. -Awaiting medical records from [facility] -Will need outpatient renal artery ultrasound (3) Diabetes mellitus Current Visit: Yes Status: Acute Code(s): E11.9 - TYPE 2 DIABETES MELLITUS WITHOUT COMPLICATIONS SNOMED Code(s): 11524401 Comment: -HA1C 6.0 -Diet controlled (4) Hypertension Current Visit: Yes Status: Acute Code(s): I10 - ESSENTIAL (PRIMARY) HYPERTENSION SNOMED Code(s): 80180128 Comment: -Normotensive -Currently without home medications -Continue to monitor (5) History of depression Current Visit: No Status: Chronic Priority: Low Code(s): Z86.59 - PERSONAL HISTORY OF OTHER MENTAL AND BEHAVIORAL DISORDERS SNOMED Code(s): 314416613 Comment: -patient's PCP, Dr. Tolliver, called me today to discuss that the patient was previously on cymbalta which needed to be stopped due to TUNDE -starting zoloft, patient will follow up with Dr. Tolliver (6) DVT prophylaxis Current Visit: No Status: Acute Code(s): BFZ6606 - SNOMED Code(s): 517940754 Comment: -SQ heparin (7) Full code status Current Visit: No Status: Acute Code(s): Z78.9 - OTHER SPECIFIED HEALTH STATUS SNOMED Code(s): 735090709
[2019-07-18] MEDS ORDERED: diPHENhydraMINE IV* 50 MG/ML 1 ml VIAL (BENADRYL) IV PRN (11:59)
[2019-07-18] MEDS: Sertraline* 25 MG TAB PO SCH (14:00)
[2019-07-18 17:16] LABS: BUN/Creatinine Ratio 14.4 (8-20); Calcium 8.4 mg/dL (8.6-10.3); EGFR African American 15.5 (>60); EGFR Non-African American 12.8 (>60)
[2019-07-18 17:18] LABS: Potassium 5.3 mmol/L (3.5-5.0)
[2019-07-18] MEDS: Amoxicillin/Clavulanate TAB* 500 MG PO SCH (21:49)
[2019-07-18] MEDS: Nicotine Patch Removal NOTE PATCH OFF SCH (21:49)
[2019-07-19] MEDS: NS 0.9% 1000 ML** 1,000 ML IV SCH (03:07)
[2019-07-19] MEDS: Sodium Polystyrene ORAL.SOL* 15 GM/60 ML BTL PO SCH ×2 (03:07→08:30)
[2019-07-19] MEDS: Levothyroxine TAB* 175 MCG TAB PO SCH (06:19)
[2019-07-19] MEDS: Heparin VIAL(*) 5000 UNITS/ML VIAL (FIVE THOUSAND) SUBCUT SCH (07:46)
[2019-07-19] MEDS: Multivitamins/Minerals TAB PO SCH (07:49)
[2019-07-19] MEDS: Ferrous Sulfate TAB* 325 MG PO SCH (07:49)
[2019-07-19] MEDS: Sertraline* 25 MG TAB PO SCH (07:49)
[2019-07-19] MEDS: Allopurinol TAB* 100 MG PO SCH (07:50)
[2019-07-19] MEDS: Pantoprazole TAB * 40 MG TAB PO SCH (07:50)
[2019-07-19] MEDS: Sodium Bicarbonate (ANTACID)* 650 MG TAB PO SCH (07:51)
[2019-07-19] MEDS: Cetirizine* 10 MG TAB PO SCH (07:51)
[2019-07-19] MEDS: Amoxicillin/Clavulanate TAB* 500 MG PO SCH (07:51)
[2019-07-19] MEDS: Cyanocobalamin TAB* 500 MCG PO SCH (07:51)
[2019-07-19] MEDS: Docusate CAP* 100 MG PO SCH (07:52)
[2019-07-19] MEDS: Nicotine PATCH 21 MG/24 HR* PATCH TRANSDERM SCH (07:52)
[2019-07-19] MEDS: Senna TAB 8.6 mg* TAB PO SCH (07:57)
[2019-07-19 09:27] LABS: ABS Basophils 0.1 10^3/ul (0-0.2); ABS Eosinophils 0.3 10^3/ul (0-0.6); ABS Lymphocytes 1.3 10^3/ul (1.0-4.8); ABS Monocytes 0.4 10^3/ul (0-0.8); ABS Neutrophils 3.4 10^3/ul (1.5-7.7); Eosinophil % 4.7 %; Hematocrit 28 % (35-47); Hemoglobin 9.2 g/dL (12.0-16.0); Lymphocyte % 23.4 %; Mean Corpuscular HGB Conc 32 g/dL (31-36); Mean Corpuscular Hemoglobin 32 pg (27-31); Mean Corpuscular Volume 100 fL (80-97); Mean Platelet Volume 7.6 fL (7.4-10.4); Platelet Count 381 10^3/uL (150-450); Red Blood Count 2.85 10^6 /uL (3.70-4.87); Red Cell Distribution Width 16 % (10-15); White Blood Count 5.4 10^3/uL (3.5-10.8)
[2019-07-19 10:06] LABS: Calcium 8.3 mg/dL (8.6-10.3)
[2019-07-19 10:07] LABS: Potassium 5.1 mmol/L (3.5-5.0)
[2019-07-19 10:12] LABS: BUN/Creatinine Ratio 15.2 (8-20); EGFR African American 17.2 (>60); EGFR Non-African American 14.2 (>60)
[2019-07-19 11:45] VITALS: BP 158/71
--- NOTE | 2019-07-19 12:09 | TRS ---
CC: Dr. Tolliver; Dr. Sarah Taylor; Ya Figueroa NP * DATE OF ADMISSION: 07/14/2019. DATE OF TRANSFER: 07/19/2019. ATTENDING PHYSICIAN WHILE IN THE HOSPITAL: Dr. Jo Arrington * (dictated by FIDENCIO Tyson). PRIMARY CARE PHYSICIAN: Dr. Tolliver. CONSULTING INFECTIOUS DISEASE TEAM: Ya Figueroa NP with Infectious Disease. CONSULTING OIL FURNACE INSTALLER: Dr. Sarah Taylor. PRIMARY DIAGNOSES: 1. Urinary tract infection in the setting of right-sided nephrostomy tube and ureteral stent. 2. TUNDE superimposed on CKD. SECONDARY DIAGNOSES: 1. Diabetes mellitus type 2. 2. Hypertension, on chronic medication. 3. Bladder cancer, status post cystectomy, ileal conduit and urostomy. 4. Cervical cancer, status post therapy in 1999. 5. History of osteomyelitis. 6. CKD, stage 5. 7. Asthma. 8. GERD. 9. History of nephrolithiasis. 10. Status post left nephrectomy secondary to recurrent hydronephrosis and ureteral stricture and left-sided kidney failure. 11. Gout. 12. Psoriasis. 13. Anxiety/depression. 14. Chronic low back pain due to fractures and slipped disk in the lumbar region. PERTINENT LAB DATA: 1. Both urine cultures collected on July 13 are likely drawn from nephrostomy and urostomy bags as opposed to off the nephrostomy tube, unfortunately. 2. July 13 urine demonstrating enterococcus faecalis, Acinetobacter species, Stenotrophomonas maltophilia, and pseudomonas fluorescens. Additional urine culture on 07/13/2019 demonstrated klebsiella pneumoniae, proteus mirabilis, enterococcus faecalis. 3. Urine culture on July 15 at 12:40, positive for enterococcus faecalis sensitive for Ampicillin, Ciprofloxacin, Levofloxacin, Nitrofurantoin, and penicillin, as well as Vancomycin. 4. Urine culture on 07/15/2019 at 1640, positive for enterococcus faecalis, klebsiella oxytoca, serratia liquefaciens, and Acinetobacter species. 5. Creatinine on the date of admission 4.34, creatinine on the date of transfer 3.36. Potassium the day of transfer 5.1. STUDIES WHILE IN THE HOSPITAL: 1. Renal ultrasound on 07/16/2019: Impression: Right ureteral stent in place with no hydronephrosis of the right kidney. 2. CT abdomen and pelvis on 07/14/2019: Impression: Status post left nephrectomy and cystectomy. Urinary diversion or ileal loop of the right kidney. There is a right renal percutaneous nephrostomy/ureteral stent which extends through the ileal loop towards the ostomy opening to a point just superficial to the muscular layer of the right abdominal wall. Ostomy hernia containing a small bowel segment with no strangulation or obstruction. Marked degenerative change of the right hip with [id number] articulation. Prominent diastases of the symphysis pubis with probable residual of right sacral fracture. Status post hysterectomy. HISTORY OF PRESENT ILLNESS/HOSPITAL COURSE: Arjun Bender is a 54-year-old white female with a past medical history significant for status post cystectomy and left nephrectomy, hypertension, diabetes, a right ureteral stent in place, as well as anxiety and depression who presents for admission on 07/14/2019 due to abdominal pain and right flank pain, as well as vomiting and chills. The patient was found to have a urinary tract infection and was treated with IV Ceftriaxone for five days until she was switched to Augmentin when cultures and sensitivities were finalized. The patient was afebrile during the entirety of her hospital stay and without a leukocytosis. While on IV Ceftriaxone, her flank pain resolved and she no longer had abdominal pain, nausea, or symptomatic fevers or chills. The patient was seen in consultation with Infections Disease who recommended the patient have her ureteral stent exchange in the setting of this urinary tract infection. This facility is without Urology coverage for the next four to five days and therefore the patient is in need of transfer to a facility that can provide this level of care. The patient did have an TUNDE superimposed on her stage 4 to 5 CKD upon arrival. This improved with IV hydration. Additionally, the patient was seen in consultation by Dr. Taylor of the Nephrology Service who recommended continuing IV hydration for the patient's kidney injury, as well as sodium bicarb. However, she does have poor peripheral vasculature and lost her IV on the day of transfer. At this time, serum electrophoresis, urine electrophoresis, kappa/lambda light chains are pending. She had a 24 hour urine collection per recommendation of Nephrology and the patient did have a proteinuria to 3,268. It is recommend the patient have renal artery imaging to rule out renal artery stenosis at some point. PHYSICAL EXAMINATION ON THE DAY OF TRANSFER: General: Obese, white female who appears older than stated age, lying upright in the hospital bed, appearing comfortable in no acute distress. HEENT: Eyes: PERRL. Sclerae anicteric. ENT: Mucous membranes moist. Poor dentition. Neck: Supple. Lungs: Clear to auscultation throughout. Cardio: Regular rate and rhythm without murmurs, rubs , or gallops. Abdomen: Soft, nontender, nondistended. Urostomy bag in place. No hepatosplenomegaly appreciated. Extremities: No clubbing, cyanosis, or edema. Neuro: The patient is alert and oriented times. No focal deficits. No tremors. DISCHARGE PLAN: The patient should be evaluated by Urology upon her admission to [facility]. The patient will likely need PICC placement during her time there for continued IV hydration due to her poor peripheral vasculature. She should continue to receive IV hydration and her potassium should continue to be monitored, as well as her phosphorus. ACTIVE MEDICATIONS: 1. Acetaminophen 650 mg p.o. q.6 hours prn pain or fever. 2. Albuterol inhaler two puffs inhaled q.6 hours prn shortness of breath or wheezing. 3. Allopurinol 100 mg p.o. daily. 4. Augmentin 500 mg p.o. b.i.d. 5. Cetirizine 10 mg p.o. daily. 6. Cyanocobalamin 1,000 mcg p.o. daily. 7. Cyclobenzaprine 10 mg p.o. t.i.d. prn muscle spasms. 8. Docusate 200 mg p.o. daily. 9. Ferrous Sulfate 325 mg p.o. daily. 10. Heparin 5,000 units subcu q.12 hours. 11. Synthroid 175 mcg p.o. daily. 12. Dulera 500/5 two puffs inhaled b.i.d. prn. 13. Multivitamin one tab p.o. daily. 14. Nicotine patch 21 mg one transdermal patch daily. 15. Zofran 4 mg p.o. q.8 hours prn nausea or vomiting. 16. Protonix 40 mg p.o. daily. 17. Senna two tabs p.o. daily. 18. Sertraline 25 mg p.o. daily. 19. Sodium Bicarbonate 650 mg p.o. t.i.d. 20. Kayexalate 15 gm p.o. q.6 hours. HOME MEDICATIONS PRIOR TO ADMISSION: 1. Senna two tabs p.o. daily. 2. Cyanocobalamin 1,000 mcg p.o. daily. 3. Docusate 200 mg p.o. daily. 4. Protonix 40 mg p.o. daily. 5. Zofran 4 to 8 mg p.o. q.8 hours prn nausea or vomiting. 6. Saline flush 10 mg IV b.i.d. prn for infusion. 7. Nicotine patch 21 mg transdermally daily. 8. Synthroid 175 mcg p.o. daily. 9. Flexeril 10 mg p.o. t.i.d. prn muscle spasms. 10. Ferrous Sulfate 325 mg p.o. daily. 11. Colchicine 0.3 mg p.o. daily prn moderate pain. 12. Cetirizine 10 mg p.o. daily. 13. Certa one cap p.o. daily. 14. Allopurinol 200 mg p.o. daily. 15. Loratadine 10 mg p.o. daily. 16. Albuterol inhaler two puffs inhaled q.6 hours prn shortness of breath or wheezing. 17. Advair 500/50 two puffs inhaled daily prn shortness of breath. 18. Tylenol 650 mg p.o. q.6 hours prn pain. DIET: Carbohydrate consistent diet. ACTIVITY: Patient may ambulate as tolerated. CONDITION ON TRANSFER: Fair. DISPOSITION: Transfer to a higher level of care. Admitting physician: Dr. Solomon Gutierrez with the Hospitalist Service at [facility]. TIME SPENT: Approximately 60 minutes were spent on this transfer. FIDENCIO TYSON [id number]/[facility] #: [id number] MTDD
[2019-07-19 16:11] LABS: Albumin 37 %; Albumin/Globulin Ratio 0.58 %; Gamma Globulin 22 %; Total Protein(PEP) Urine 64 mg/dL
[2019-07-19 19:52] LABS: Kappa Free Light Chain 22.5 mg/dL
[2019-07-20 16:43] LABS: Albumin 2.7 g/dL (3.4-4.7); Albumin/Globulin Ratio 0.66; Gamma Globulin 2.1 g/dL (0.6-1.6); Total Protein(PEP) 6.8 g/dL (6.3 - 7.9)
== END 2019-07-19 12:30 | disposition short-term general hospital (02) | DRG 469 ==
LOC: ED 16:49 → MED 07-14 05:53
PROVIDERS: ADMIT Internal Medicine; ATTEND Internal Medicine
DX: N17.9 Acute kidney failure, unspecified (principal); T83.512A Infection and inflammatory reaction due to nephrostomy catheter, initial encounter; N39.0 Urinary tract infection, site not specified; I12.0 Hypertensive chronic kidney disease with stage 5 chronic kidney disease or end stage renal disease; E87.2 Acidosis; N12 Tubulo-interstitial nephritis, not specified as acute or chronic; E11.22 Type 2 diabetes mellitus with diabetic chronic kidney disease; N18.5 Chronic kidney disease, stage 5; B95.2 Enterococcus as the cause of diseases classified elsewhere; B96.1 Klebsiella pneumoniae [K. pneumoniae] as the cause of diseases classified elsewhere; J45.909 Unspecified asthma, uncomplicated; B96.5 Pseudomonas (aeruginosa) (mallei) (pseudomallei) as the cause of diseases classified elsewhere; B96.4 Proteus (mirabilis) (morganii) as the cause of diseases classified elsewhere; Z93.6 Other artificial openings of urinary tract status; K21.9 Gastro-esophageal reflux disease without esophagitis; I70.1 Atherosclerosis of renal artery; J44.9 Chronic obstructive pulmonary disease, unspecified; M10.9 Gout, unspecified; L40.9 Psoriasis, unspecified; F41.8 Other specified anxiety disorders; N35.92 Unspecified urethral stricture, female; K44.9 Diaphragmatic hernia without obstruction or gangrene; M15.9 Polyosteoarthritis, unspecified; M54.5 Low back pain; E66.9 Obesity, unspecified; F17.210 Nicotine dependence, cigarettes, uncomplicated; X58.XXXA Exposure to other specified factors, initial encounter; Z87.81 Personal history of (healed) traumatic fracture; Z85.41 Personal history of malignant neoplasm of cervix uteri; Z85.51 Personal history of malignant neoplasm of bladder; Z68.39 Body mass index [BMI] 39.0-39.9, adult; Z79.1 Long term (current) use of non-steroidal anti-inflammatories (NSAID); Z79.899 Other long term (current) drug therapy; Z88.0 Allergy status to penicillin; Z88.8 Allergy status to other drugs, medicaments and biological substances; Z88.1 Allergy status to other antibiotic agents; Z91.040 Latex allergy status; Z80.41 Family history of malignant neoplasm of ovary; Z82.49 Family history of ischemic heart disease and other diseases of the circulatory system; Z90.5 Acquired absence of kidney; Z83.3 Family history of diabetes mellitus
CPT/HCPCS: 36415; 74176; 76775; 80048; 80076; 81003; 81015; 82550; 82570; 82575; 82607; 82746; 83036; 83690; 83735; 83883; 83970; 84100; 84155; 84156; 84165; 84166; 84300; 84540; 85014; 85018; 85025; 86038; 86803; 87040; 87077; 87086; 87088; 87186; 87340; 90686; 90732; 99285; A9270-GY; J0696; J1644; J2997; J3475

== ENCOUNTER 2022-05-30 12:35 | Inpatient (IN) ==
[2022-05-30] MEDS ORDERED: Lactated Ringers 1000 ml BAG 1,000 ML IV ONE (12:54)
[2022-05-30] MEDS ORDERED: Ondansetron 4 mg VIAL 2 MG/ML 2 ml VIAL IV ONE (12:54)
[2022-05-30] MEDS ORDERED: metroNIDAZOLE IV 500 MG/100ML 500 MG/100 ML BAG IVPB ONE (12:55)
[2022-05-30] MEDS ORDERED: Cefepime 2 GM in Dextrose 2 GM/50 ML BAG IV ONE (12:55)
[2022-05-30] MEDS ORDERED: Vancomycin 1,500 MG in NS 0.9% 250 ml 250 ML IVPB ONE (13:15)
[2022-05-30] MEDS ORDERED: Morphine 4 MG/ML VIAL (1 ml) IV ONE (13:21)
[2022-05-30 13:22] LABS: ABS Eosinophils 0.1 10^3/ul (0-0.6); ABS Lymphocytes 0.8 10^3/ul (1.0-4.8); ABS Monocytes 0.7 10^3/ul (0-0.8); ABS Neutrophils 6.8 10^3/ul (1.5-7.7); Eosinophil % 0.8 %; Hematocrit 29 % (35-47); Hemoglobin 9.4 g/dL (12.0-16.0); Lymphocyte % 9.1 %; Mean Corpuscular HGB Conc 32 g/dL (31-36); Mean Corpuscular Hemoglobin 32 pg (27-31); Mean Corpuscular Volume 100 fL (80-97); Platelet Count 295 10^3/uL (150-450); Red Blood Count 2.93 10^6 /uL (3.70-4.87); Red Cell Distribution Width 16 % (10-15); White Blood Count 8.3 10^3/uL (3.5-10.8)
[2022-05-30 13:36] LABS: INR 1.13 (0.89-1.11)
[2022-05-30 14:00] LABS: Albumin 3.6 g/dL (3.2-5.2); Albumin/Globulin Ratio 1.1 (1-3); C Reactive Protein 120.71 mg/L (<8.01); Calcium 8.4 mg/dL (8.6-10.3); Globulin 3.4 g/dL (2-4); Magnesium 1.8 mg/dL (1.9-2.7); Potassium 4.3 mmol/L (3.5-5.0); Total Bilirubin 0.4 mg/dL (0.2-1.0); eGFR CKD-EPI 13.5 (>60)
[2022-05-30] MEDS ORDERED: Albuterol HFA INHALER 8 gm MDI INH PRN (16:33)
[2022-05-30] MEDS ORDERED: Vancomycin per Pharmacy 1 EA NOTE FOLLOW UP SCH (17:00)
[2022-05-30 19:05] LABS: Urine Appearance Slightly Cloudy; Urine Bilirubin Negative (Negative); Urine Color Straw; Urine Glucose Negative (Negative); Urine Ketones Negative (Negative)
[2022-05-30 19:06] LABS: Urine Blood 1+ (Small) (Negative); Urine Nitrite Negative (Negative); Urine Protein 1+ (30 mg/dL) (Negative); Urine Urobilinogen 0.2 (Negative) (Negative)
[2022-05-30 19:19] LABS: Urine Bacteria Absent (Absent); Urine Red Blood Cell Trace(0-2/hpf) (Absent); Urine Squamous Epithelial Cell Present (Absent); Urine White Blood Cell 3+(>20/hpf) (Absent)
[2022-05-30] MEDS ORDERED: cefTRIAXone 1 gm/50 mL D5W 1 GM/50 ML BAG IV SCH (21:00)
[2022-05-30] MEDS: Sodium Bicarb 650 mg (ANTACID) TAB PO SCH (22:53)
[2022-05-30] MEDS: Nystatin TOP POWDER 15 GM BTL TOPICAL SCH (22:56)
[2022-05-30] MEDS: Heparin 5000 UNITS/ML 1 mL VIAL SUBCUT SCH (22:57)
[2022-05-30] MEDS: Clotrimazole 1% CREAM 30 gm TOPICAL SCH (22:57)
[2022-05-31] MEDS ORDERED: Vancomycin Random Level NOTE FOLLOW UP ONE (04:00)
[2022-05-31 05:30] LABS: ABS Eosinophils 0.1 10^3/ul (0-0.6); ABS Lymphocytes 0.9 10^3/ul (1.0-4.8); ABS Monocytes 0.9 10^3/ul (0-0.8); Eosinophil % 1.3 %; Hematocrit 27 % (35-47); Hemoglobin 8.5 g/dL (12.0-16.0); Lymphocyte % 11.3 %; Mean Corpuscular HGB Conc 32 g/dL (31-36); Mean Corpuscular Hemoglobin 32 pg (27-31); Mean Corpuscular Volume 100 fL (80-97); Mean Platelet Volume 7.6 fL (7.4-10.4); Platelet Count 264 10^3/uL (150-450); Red Blood Count 2.64 10^6 /uL (3.70-4.87); Red Cell Distribution Width 16 % (10-15); White Blood Count 7.9 10^3/uL (3.5-10.8)
[2022-05-31 05:35] LABS: INR 1.25 (0.89-1.11)
[2022-05-31 05:50] LABS: Calcium 8.2 mg/dL (8.6-10.3); Magnesium 1.7 mg/dL (1.9-2.7); Potassium 4.4 mmol/L (3.5-5.0); eGFR CKD-EPI 13.2 (>60)
[2022-05-31] MEDS: Mometasone/Formoter 100/5 MDI INH SCH ×2 (07:12→19:41)
[2022-05-31] MEDS ORDERED: Magnesium Sulfate 2 gm BAG 2 GM/50 ML BAG IVPB ONE (07:29)
[2022-05-31] MEDS: Nystatin TOP POWDER 15 GM BTL TOPICAL SCH ×2 (08:21→20:32)
[2022-05-31] MEDS: Clotrimazole 1% CREAM 30 gm TOPICAL SCH ×2 (08:21→20:32)
[2022-05-31] MEDS: Sodium Bicarb 650 mg (ANTACID) TAB PO SCH ×2 (08:22→20:31)
[2022-05-31] MEDS: Heparin 5000 UNITS/ML 1 mL VIAL SUBCUT SCH ×2 (08:22→20:31)
[2022-05-31] MEDS: Nicotine PATCH 21 MG/24 HR PATCH TRANSDERM SCH (09:57)
[2022-05-31] MEDS ORDERED: Buffered Lidocaine 1% SYRIN 1 ml INTRADERM ONE (12:53)
[2022-05-31] MEDS ORDERED: Senna TAB 8.6 mg TAB PO PRN (15:10)
[2022-05-31] MEDS ORDERED: Lidocaine 1% VIAL 10 MG/ML VIAL ONE (15:12)
[2022-05-31] MEDS ORDERED: Heparin 5000 UNITS/ML 1 mL VIAL ONE (15:12)
[2022-05-31] MEDS ORDERED: Bupivacaine 0.25% EPI 200,000 30 ML SDV ONE (15:13)
[2022-05-31] MEDS ORDERED: Heparin 2 UNITS/ML 1000 mls 1,000 ML IV ONE ×2 (15:13→16:15)
[2022-05-31] MEDS ORDERED: Sodium Bicarbonate 8.4% SYR 50 ml SYRINGE ONE (15:13)
[2022-05-31] MEDS ORDERED: fentaNYL 100 mcg/2 ml 50 MCG/ML VIAL ONE ×3 (15:23→18:17)
[2022-05-31] MEDS ORDERED: Dexamethasone IV 4 MG/ML VIAL 1 ml VIAL ONE (15:23)
[2022-05-31] MEDS ORDERED: Propofol 10 MG/ML 20 ML BTL ONE (15:23)
[2022-05-31] MEDS ORDERED: Midazolam 2 mg/2 ml VIAL 1 mg/ml 2 ml VIAL (2 mg) ONE (15:23)
[2022-05-31] MEDS ORDERED: Lidocaine 2% PF 5 ML VIAL ONE (15:23)
[2022-05-31] MEDS ORDERED: Ondansetron 4 mg VIAL 2 MG/ML 2 ml VIAL ONE (15:23)
[2022-05-31] MEDS ORDERED: Naloxone 0.4 mg VIAL 0.4 mg/ml 1 ml VIAL IV PRN (15:38)
[2022-05-31] MEDS ORDERED: Ondansetron 4 mg VIAL 2 MG/ML 2 ml VIAL IV PRN (15:38)
[2022-05-31] MEDS ORDERED: ceFAZolin 1 GM in Dextrose 1 GM/50 ML BAG ONE (15:54)
[2022-05-31] MEDS ORDERED: Phenylephrine IV 10 MG/ML 1 ml VIAL ONE (16:49)
[2022-05-31] MEDS: fentaNYL 100 mcg/2 ml 50 MCG/ML VIAL IV PRN ×4 (18:21→19:13)
[2022-05-31] MEDS ORDERED: HYDROmorphone 0.5 MG/0.5 ML SYRINGE IV SLOW PU ONE (20:40)
[2022-05-31] MEDS: NS 0.9% 1000 ml BAG 1,000 ML IV SCH (23:02)
[2022-06-01] MEDS ORDERED: Nicotine GUM 4MG FRUIT FLAVOR PO PRN (00:43)
[2022-06-01] MEDS: Magnesium Hydroxide LIQ 30 ML UDC PO PRN (00:55)
[2022-06-01 05:25] LABS: ABS Lymphocytes 0.5 10^3/ul (1.0-4.8); ABS Monocytes 0.6 10^3/ul (0-0.8); Hematocrit 27 % (35-47); Hemoglobin 8.4 g/dL (12.0-16.0); Lymphocyte % 6.1 %; Mean Corpuscular HGB Conc 31 g/dL (31-36); Mean Corpuscular Hemoglobin 32 pg (27-31); Mean Corpuscular Volume 102 fL (80-97); Mean Platelet Volume 7.8 fL (7.4-10.4); Platelet Count 277 10^3/uL (150-450); Red Blood Count 2.64 10^6 /uL (3.70-4.87); Red Cell Distribution Width 16 % (10-15); White Blood Count 8.1 10^3/uL (3.5-10.8)
[2022-06-01 05:44] LABS: C Reactive Protein 163.08 mg/L (<8.01); Calcium 8.2 mg/dL (8.6-10.3); eGFR CKD-EPI 13.4 (>60)
[2022-06-01] MEDS: Mometasone/Formoter 100/5 MDI INH SCH ×2 (07:05→19:53)
[2022-06-01] MEDS: Sodium Bicarb 650 mg (ANTACID) TAB PO SCH ×2 (07:53→22:10)
[2022-06-01] MEDS: Heparin 5000 UNITS/ML 1 mL VIAL SUBCUT SCH ×2 (07:53→22:11)
[2022-06-01] MEDS: Clotrimazole 1% CREAM 30 gm TOPICAL SCH ×2 (07:54→23:29)
[2022-06-01] MEDS: Nicotine PATCH 21 MG/24 HR PATCH TRANSDERM SCH (07:55)
[2022-06-01] MEDS: Nystatin TOP POWDER 15 GM BTL TOPICAL SCH ×2 (07:55→23:29)
[2022-06-01] MEDS ORDERED: Vancomycin 1,000 MG - ONCE IVPB ONE (16:00)
[2022-06-02 06:06] LABS: ABS Eosinophils 0.1 10^3/ul (0-0.6); ABS Lymphocytes 1.1 10^3/ul (1.0-4.8); ABS Monocytes 0.4 10^3/ul (0-0.8); ABS Neutrophils 4.2 10^3/ul (1.5-7.7); Hematocrit 27 % (35-47); Hemoglobin 8.8 g/dL (12.0-16.0); Lymphocyte % 18.6 %; Mean Corpuscular HGB Conc 33 g/dL (31-36); Mean Corpuscular Hemoglobin 34 pg (27-31); Mean Corpuscular Volume 102 fL (80-97); Mean Platelet Volume 7.7 fL (7.4-10.4); Platelet Count 317 10^3/uL (150-450); Red Blood Count 2.61 10^6 /uL (3.70-4.87); Red Cell Distribution Width 16 % (10-15); White Blood Count 5.7 10^3/uL (3.5-10.8)
[2022-06-02 06:27] LABS: Calcium 8.2 mg/dL (8.6-10.3); eGFR CKD-EPI 13.2 (>60)
[2022-06-02] MEDS: Mometasone/Formoter 100/5 MDI INH SCH ×2 (07:17→19:11)
[2022-06-02] MEDS: Heparin 5000 UNITS/ML 1 mL VIAL SUBCUT SCH ×2 (09:41→21:15)
[2022-06-02] MEDS: Sodium Bicarb 650 mg (ANTACID) TAB PO SCH ×2 (09:41→21:15)
[2022-06-02] MEDS: Clotrimazole 1% CREAM 30 gm TOPICAL SCH ×2 (09:43→21:47)
[2022-06-02] MEDS: Nicotine PATCH 21 MG/24 HR PATCH TRANSDERM SCH (09:43)
[2022-06-02] MEDS: Nystatin TOP POWDER 15 GM BTL TOPICAL SCH ×2 (09:44→21:47)
[2022-06-02] MEDS: Magnesium Hydroxide LIQ 30 ML UDC PO PRN (09:45)
[2022-06-02] MEDS ORDERED: Senna TAB 8.6 mg TAB PO ONE (14:44)
[2022-06-02] MEDS: NS 0.9% 1000 ml BAG 1,000 ML IV SCH (16:55)
[2022-06-02] MEDS: Polyethylene Glycol 3350 17 GM PACKET PO SCH (21:15)
[2022-06-03] MEDS ORDERED: Vancomycin Random Level NOTE FOLLOW UP ONE (06:00)
[2022-06-03 07:17] LABS: C Reactive Protein 77.42 mg/L (<8.01); Calcium 8.3 mg/dL (8.6-10.3); Vancomycin Random 13.7 mcg/mL; eGFR CKD-EPI 13.7 (>60)
[2022-06-03 07:21] LABS: Potassium 5.1 mmol/L (3.5-5.0)
[2022-06-03] MEDS: Mometasone/Formoter 100/5 MDI INH SCH ×2 (08:09→19:53)
[2022-06-03] MEDS: Polyethylene Glycol 3350 17 GM PACKET PO SCH ×2 (09:06→21:22)
[2022-06-03] MEDS: Nicotine PATCH 21 MG/24 HR PATCH TRANSDERM SCH (09:07)
[2022-06-03] MEDS: Sodium Bicarb 650 mg (ANTACID) TAB PO SCH ×2 (09:07→20:19)
[2022-06-03] MEDS: Heparin 5000 UNITS/ML 1 mL VIAL SUBCUT SCH ×2 (09:15→20:19)
[2022-06-03] MEDS: Nystatin TOP POWDER 15 GM BTL TOPICAL SCH ×2 (09:19→20:31)
[2022-06-03] MEDS: Clotrimazole 1% CREAM 30 gm TOPICAL SCH ×2 (09:20→20:37)
[2022-06-03] MEDS ORDERED: Vancomycin 1000 MG in NS 0.9% 250 ML IVPB SCH (16:00)
[2022-06-04 06:52] LABS: Calcium 8.5 mg/dL (8.6-10.3)
[2022-06-04 06:55] LABS: Potassium 5.4 mmol/L (3.5-5.0)
[2022-06-04 06:58] LABS: eGFR CKD-EPI 14.1 (>60)
[2022-06-04 07:04] LABS: Hematocrit 25 % (35-47); Hemoglobin 8.2 g/dL (12.0-16.0); Mean Corpuscular HGB Conc 33 g/dL (31-36); Mean Corpuscular Hemoglobin 34 pg (27-31); Mean Corpuscular Volume 104 fL (80-97); Red Cell Distribution Width 16 % (10-15); White Blood Count 4.7 10^3/uL (3.5-10.8)
[2022-06-04 07:05] LABS: ABS Eosinophils 0.1 10^3/ul (0-0.6); ABS Lymphocytes 0.9 10^3/ul (1.0-4.8); ABS Monocytes 0.4 10^3/ul (0-0.8); ABS Neutrophils 3.2 10^3/ul (1.5-7.7); Eosinophil % 2.8 %; Lymphocyte % 19.8 %
[2022-06-04] MEDS: Mometasone/Formoter 100/5 MDI INH SCH (07:58)
[2022-06-04] MEDS ORDERED: DALBAVANCIN HCL (NF) 500 MG/25 ML VIAL IVPB ONE (08:00)
[2022-06-04] MEDS: Sodium Bicarb 650 mg (ANTACID) TAB PO SCH (08:44)
[2022-06-04] MEDS: Polyethylene Glycol 3350 17 GM PACKET PO SCH (08:52)
[2022-06-04] MEDS: Heparin 5000 UNITS/ML 1 mL VIAL SUBCUT SCH (08:56)
[2022-06-04] MEDS: Nicotine PATCH 21 MG/24 HR PATCH TRANSDERM SCH (09:00)
[2022-06-04] MEDS: Clotrimazole 1% CREAM 30 gm TOPICAL SCH (09:09)
[2022-06-04] MEDS: Nystatin TOP POWDER 15 GM BTL TOPICAL SCH (09:12)
[2022-06-04 09:26] LABS: Mean Platelet Volume 7.7 fL (7.4-10.4); Platelet Count 281 10^3/uL (150-450)
[2022-06-04 11:52] LABS: Folate 12.87 ng/mL (5.90-24.80)
[2022-06-04] MEDS ORDERED: [UNRECOGNIZED DRUG - REMARK] IVPB ONE (15:00)
[2022-06-04 15:45] VITALS: BP 154/71
[2022-06-04] MEDS ORDERED: SODIUM ZIRCONIUM CYCLOSILICATE 10 GM PACKET PO ONE (16:35)
[2022-06-04 17:34] LABS: Calcium 8.6 mg/dL (8.6-10.3); eGFR CKD-EPI 14.2 (>60)
[2022-06-04 17:35] LABS: Potassium 5.1 mmol/L (3.5-5.0)
[2022-06-05] MEDS ORDERED: Vancomycin Trough Check NOTE FOLLOW UP ONE (15:30)
== END 2022-06-04 18:40 | disposition home health service (06) | DRG 182 ==
LOC: ED 12:35 → EDHOLD 12:35 → MEDTELE 19:44 → SUATTDRO 06-01 18:22
PROVIDERS: ADMIT Hospitalist; ATTEND Internal Medicine
PROC: O.GEAVF (2022-05-31 16:00)

== ENCOUNTER 2023-12-15 14:51 | Inpatient (IN) ==
[2023-12-15] MEDS: Ondansetron 4 mg VIAL 2 MG/ML 2 ml VIAL IV ONE (15:11)
[2023-12-15] MEDS: Morphine 4 MG/ML VIAL (1 ml) IV ONE (15:11)
[2023-12-15 15:17] LABS: ABS Basophils 0.1 10^3/uL (0.0-0.1); ABS Eosinophils 0.3 10^3/uL (0.0-0.5); ABS Monocytes 0.8 10^3/uL (0.0-0.9); ABS Neutrophils 5.7 10^3/uL (1.5-7.6); Eosinophil % 3.6 %; Hematocrit 23.7 % (35-45); Hemoglobin 7.7 g/dL (11.5-14.3); Lymphocyte % 13.3 %; Mean Corpuscular Hemoglobin 33.1 pg (27-33); Mean Corpuscular Hgb Conc 32.6 g/dL (31-36); Mean Corpuscular Volume 101.8 fL (80-97); Mean Platelet Volume 7.2 fL (7.5-11.2); Platelet Count 480 10^3/uL (150-450); Red Blood Count 2.33 10^6/uL (3.63-4.92); Red Cell Distribution Width 15.2 % (12-17); White Blood Count 7.8 10^3/uL (3.8-11.8)
[2023-12-15 15:51] LABS: Albumin 3.9 g/dL (3.2-5.2); C Reactive Protein 126.44 mg/L (<8.01); Calcium 9.1 mg/dL (8.6-10.3); Creatinine, Serum 12.92 mg/dL (0.51-0.95); Globulin 3.9 g/dL (2-4); Potassium 5.2 mmol/L (3.5-5.0); Total Bilirubin 0.3 mg/dL (0.2-1.0); Total Protein 7.8 g/dL (6.4-8.9)
[2023-12-15] MEDS ORDERED: NS 0.9% 1000 ml BAG 200 ML IV PRN (16:14)
[2023-12-15] MEDS ORDERED: NS 0.9% 1000 ml BAG 100 ML IV PRN (16:14)
[2023-12-15] MEDS: Morphine 4 MG/ML VIAL (1 ml) IV PRN (16:39)
[2023-12-15] MEDS: cefTRIAXone 1 gm/50 mL D5W 1 GM/50 ML BAG IV ONE (17:30)
[2023-12-15] MEDS ORDERED: Nystatin TOP POWDER 15 GM BTL TOPICAL PRN (17:55)
[2023-12-15] MEDS ORDERED: Albuterol HFA INHALER 8 gm MDI INH PRN (17:55)
[2023-12-15] MEDS ORDERED: Mometasone/Formoter 100/5 MDI INH PRN (18:21)
[2023-12-15 19:33] LABS: Hepatitis B Surface Antigen Nonreactive (Nonreactive)
[2023-12-15 19:50] LABS: Hepatitis B Surface Ab Not Immune (Immune)
[2023-12-15 20:22] LABS: Activated Partial Thrombo Time 33.4 seconds (26.0-38.0); INR 1.21 (0.83-1.13)
[2023-12-15] MEDS: Sodium Bicarb 650 mg (ANTACID) TAB PO SCH (20:42)
[2023-12-15] MEDS: Heparin 5000 UNITS/ML 1 mL VIAL SUBCUT SCH (20:42)
[2023-12-15 20:48] LABS: Creatinine, Serum 12.88 mg/dL (0.51-0.95)
[2023-12-15] MEDS: Clotrimazole 1% CREAM 30 gm TOPICAL SCH (21:56)
[2023-12-16 01:56] LABS: Urine Appearance Extra Turbid; Urine Bilirubin Negative (Negative); Urine Blood 2+ (Negative); Urine Glucose Negative (Negative); Urine Ketones Negative (Negative); Urine Nitrite Negative (Negative); Urine Protein 3+ (>=300 mg/dL) (Negative); Urine Specific Gravity 1.011 (1.002-1.030); Urine Urobilinogen Negative (Negative); Urine pH 6.5 (5.0-8.0)
[2023-12-16 02:02] LABS: Urine Bacteria Absent /HPF (Absent); Urine Red Blood Cell 3+(>10/hpf) /HPF (0-Trace); Urine White Blood Cell 3+(>20/hpf) /HPF (0-Trace)
[2023-12-16 02:03] LABS: Urine Color Light-Yellow
[2023-12-16 06:32] LABS: ABS Basophils 0.1 10^3/uL (0.0-0.1); ABS Eosinophils 0.3 10^3/uL (0.0-0.5); ABS Monocytes 0.8 10^3/uL (0.0-0.9); ABS Neutrophils 5.4 10^3/uL (1.5-7.6); Eosinophil % 3.8 %; Hemoglobin 6.9 g/dL (11.5-14.3); Mean Corpuscular Hemoglobin 33.5 pg (27-33); Mean Corpuscular Hgb Conc 32.8 g/dL (31-36); Mean Platelet Volume 6.8 fL (7.5-11.2); Platelet Count 396 10^3/uL (150-450); Red Blood Count 2.06 10^6/uL (3.63-4.92); Red Cell Distribution Width 15.1 % (12-17); White Blood Count 7.5 10^3/uL (3.8-11.8)
[2023-12-16 07:19] LABS: Calcium 8.5 mg/dL (8.6-10.3); Creatinine, Serum 13.27 mg/dL (0.51-0.95); Potassium 5.2 mmol/L (3.5-5.0); eGFR CKD-EPI 2.9 (>60)
[2023-12-16 08:46] LABS: Ferritin 89.3 ng/mL (11-307)
[2023-12-16 08:50] LABS: Folate 7.59 ng/mL (5.90-24.80)
[2023-12-16] MEDS: Clindamycin 600 MG/D5W BAG 600 MG/50 ML BAG IV ONE (11:46)
[2023-12-16] MEDS ORDERED: fentaNYL 100 mcg/2 ml 50 MCG/ML VIAL ONE (12:42)
[2023-12-16] MEDS ORDERED: Midazolam 5 mg/5 ml VIAL 1 mg/ml 5 ml VIAL (5 mg) ONE (12:42)
[2023-12-16] MEDS ORDERED: Heparin 2 UNITS/ML IVPREMIX 2,000 UNIT/1,000 ML BAG IV ONE (12:51)
[2023-12-16] MEDS ORDERED: Lidocaine 1% VIAL 10 MG/ML 30 ML VIAL ONE (12:51)
[2023-12-16] MEDS: fentaNYL 100 mcg/2 ml 50 MCG/ML VIAL ONE (13:37)
[2023-12-16] MEDS: Heparin 1,000 UNIT/ML 10 ml (10,000 UNITS) CATHLAB/DIALYSIS DIALYSIS PRN (13:55)
[2023-12-16 14:43] LABS: TSH Ultra Thyroid Stim Horm 45.26 mcIU/mL (0.34-5.60)
[2023-12-16] MEDS ORDERED: cefTRIAXone 1 gm/50 mL D5W 1 GM/50 ML BAG IV SCH (15:00)
[2023-12-16] MEDS: Morphine 2 MG/ML SYRINGE IV PRN (17:52)
[2023-12-16] MEDS: cefTRIAXone 1 gm/50 mL D5W 1 GM/50 ML BAG IV SCH (20:18)
[2023-12-16 20:57] LABS: Hematocrit 25.8 % (35-45); Hemoglobin 8.7 g/dL (11.5-14.3)
[2023-12-17] MEDS: Morphine 2 MG/ML SYRINGE IV ONE (03:17)
[2023-12-17 06:30] LABS: Calcium 8.2 mg/dL (8.6-10.3); Creatinine, Serum 9.13 mg/dL (0.51-0.95); Potassium 4.4 mmol/L (3.5-5.0); eGFR CKD-EPI 4.6 (>60)
[2023-12-17 06:42] LABS: ABS Basophils 0.1 10^3/uL (0.0-0.1); ABS Eosinophils 0.2 10^3/uL (0.0-0.5); ABS Monocytes 0.7 10^3/uL (0.0-0.9); ABS Neutrophils 4.3 10^3/uL (1.5-7.6); ABS Nucleated RBC 0.01 10^3/ul; Eosinophil % 3.1 %; Hematocrit 24.7 % (35-45); Hemoglobin 8.3 g/dL (11.5-14.3); Lymphocyte % 16.6 %; Mean Corpuscular Hemoglobin 32.6 pg (27-33); Mean Corpuscular Hgb Conc 33.5 g/dL (31-36); Mean Corpuscular Volume 97.3 fL (80-97); Mean Platelet Volume 7.4 fL (7.5-11.2); Nucleated Red Blood Cells % 0.1 %/100WBC (0.0-0.8); Platelet Count 383 10^3/uL (150-450); Red Blood Count 2.53 10^6/uL (3.63-4.92); Red Cell Distribution Width 16.4 % (12-17); White Blood Count 6.2 10^3/uL (3.8-11.8)
[2023-12-17] MEDS: Ondansetron 4 mg VIAL 2 MG/ML 2 ml VIAL IV PRN (10:43)
[2023-12-17] MEDS: Influenza vaccine *QUAD* *2023-24* 0.5 ML SYRINGE IM ONE (13:53)
[2023-12-17] MEDS: Prochlorperazine 5 mg/ml 2 ml VIAL (10 mg) IV PRN (17:14)
[2023-12-18] MEDS ORDERED: Prochlorperazine 5 mg/ml 2 ml VIAL (10 mg) IV PRN (04:24)
[2023-12-18 05:45] LABS: ABS Basophils 0.1 10^3/uL (0.0-0.1); ABS Eosinophils 0.2 10^3/uL (0.0-0.5); ABS Lymphocytes 1.2 10^3/uL (1.0-4.8); ABS Monocytes 0.7 10^3/uL (0.0-0.9); ABS Neutrophils 4.3 10^3/uL (1.5-7.6); ABS Nucleated RBC 0.01 10^3/ul; Eosinophil % 2.6 %; Hematocrit 26.7 % (35-45); Lymphocyte % 18.6 %; Mean Corpuscular Hemoglobin 32.8 pg (27-33); Mean Corpuscular Hgb Conc 33.6 g/dL (31-36); Mean Corpuscular Volume 97.4 fL (80-97); Mean Platelet Volume 7.3 fL (7.5-11.2); Nucleated Red Blood Cells % 0.1 %/100WBC (0.0-0.8); Platelet Count 425 10^3/uL (150-450); Red Blood Count 2.74 10^6/uL (3.63-4.92); Red Cell Distribution Width 16.6 % (12-17); White Blood Count 6.5 10^3/uL (3.8-11.8)
[2023-12-18] MEDS: Albumin Human 25% 25 GM/100 ML BTL IV PRN (10:27)
[2023-12-18] MEDS: Iodixanol (CONTRAST) 320 MG/ML 100 ML SDV IV ONE (23:33)
[2023-12-19 08:47] LABS: Hematocrit 26.8 % (35-45); Hemoglobin 8.9 g/dL (11.5-14.3); Mean Corpuscular Hemoglobin 32.3 pg (27-33); Mean Corpuscular Hgb Conc 33.3 g/dL (31-36); Platelet Count 428 10^3/uL (150-450); Red Blood Count 2.76 10^6/uL (3.63-4.92); Red Cell Distribution Width 16.4 % (12-17); White Blood Count 7.1 10^3/uL (3.8-11.8)
[2023-12-19 09:26] LABS: Calcium 9.7 mg/dL (8.6-10.3); Creatinine, Serum 7.51 mg/dL (0.51-0.95); Magnesium 1.7 mg/dL (1.9-2.7); Potassium 4.1 mmol/L (3.5-5.0); eGFR CKD-EPI 5.8 (>60)
[2023-12-19 09:41] LABS: ABS Basophils 0.1 10^3/uL (0.0-0.1); ABS Eosinophils 0.3 10^3/uL (0.0-0.5); ABS Lymphocytes 1.5 10^3/uL (1.0-4.8); ABS Monocytes 0.7 10^3/uL (0.0-0.9); ABS Neutrophils 4.6 10^3/uL (1.5-7.6); ABS Nucleated RBC 0.01 10^3/ul; Eosinophil % 3.7 %; Lymphocyte % 21.2 %; Nucleated Red Blood Cells % 0.1 %/100WBC (0.0-0.8); RBC Morphology Normal (Normal)
[2023-12-19] MEDS: Al Hydrox/Mg Hydrox/Simet LIQ 30 ML UDC PO PRN (22:59)
[2023-12-20] MEDS: Ondansetron 4 mg VIAL 2 MG/ML 2 ml VIAL IV PRN (08:36)
[2023-12-20] MEDS: Cetirizine 5 mg CHEW TAB PO SCH (12:00)
[2023-12-20 12:18] LABS: Calcium 9.5 mg/dL (8.6-10.3); Creatinine, Serum 4.48 mg/dL (0.51-0.95); Magnesium 1.8 mg/dL (1.9-2.7); Potassium 3.3 mmol/L (3.5-5.0); eGFR CKD-EPI 10.7 (>60)
[2023-12-20 12:29] LABS: ABS Basophils 0.1 10^3/uL (0.0-0.1); ABS Eosinophils 0.3 10^3/uL (0.0-0.5); ABS Lymphocytes 1.1 10^3/uL (1.0-4.8); ABS Monocytes 0.6 10^3/uL (0.0-0.9); ABS Neutrophils 6.6 10^3/uL (1.5-7.6); ABS Nucleated RBC 0.02 10^3/ul; Eosinophil % 3.6 %; Hematocrit 29.5 % (35-45); Hemoglobin 9.9 g/dL (11.5-14.3); Mean Corpuscular Hemoglobin 32.6 pg (27-33); Mean Corpuscular Hgb Conc 33.5 g/dL (31-36); Mean Corpuscular Volume 97.2 fL (80-97); Mean Platelet Volume 7.5 fL (7.5-11.2); Nucleated Red Blood Cells % 0.2 %/100WBC (0.0-0.8); Platelet Count 462 10^3/uL (150-450); Red Blood Count 3.03 10^6/uL (3.63-4.92); Red Cell Distribution Width 16.3 % (12-17); White Blood Count 8.7 10^3/uL (3.8-11.8)
[2023-12-20 14:42] VITALS: BP 120/108
== END 2023-12-20 15:15 | disposition home or self-care (01) | DRG 466 ==
LOC: EDHOLD 14:51 → ED 14:51 → MEDTELE 19:26 → SUATTDRO 12-16 14:09
PROVIDERS: ADMIT Internal Medicine; ATTEND Internal Medicine

== ENCOUNTER 2023-12-30 12:36 | Inpatient (IN) ==
[2023-12-30] MEDS ORDERED: Iohexol 350 (CONTRAST) 100 ML PAK IV ONE (14:02)
[2023-12-30] MEDS ORDERED: Heparin 2 UNITS/ML 1000 mls 1,000 ML IV ONE (14:02)
[2023-12-30] MEDS ORDERED: Lidocaine 1% MPF 5 ML VIAL ONE (14:02)
[2023-12-30] MEDS ORDERED: fentaNYL 100 mcg/2 ml 50 MCG/ML VIAL ONE ×2 (14:10→14:29)
[2023-12-30] MEDS ORDERED: Midazolam 5 mg/5 ml VIAL 1 mg/ml 5 ml VIAL (5 mg) ONE (14:10)
[2023-12-30] MEDS ORDERED: Heparin 1,000 UNIT/ML 10 ml (10,000 UNITS) CATHLAB/DIALYSIS ONE (14:33)
[2023-12-30] MEDS ORDERED: Naloxone 0.4 mg VIAL 0.4 mg/ml 1 ml VIAL ONE ×2 (14:50→14:56)
[2023-12-30] MEDS ORDERED: EPINEPHrine SYR 0.1MG/ML 10 ml SYRINGE IV ONE (14:57)
[2023-12-30] MEDS ORDERED: Naloxone 4 mg VIAL 0.4 MG/ML 10 ml VIAL (4 mg) ONE (14:57)
[2023-12-30] MEDS ORDERED: Sodium Bicarbonate 8.4% SYR 50 ml SYRINGE ONE (14:57)
[2023-12-30] MEDS: Norepinephrine 4 MG/250mL D5W 4,000 MCG/250 ML BAG IV SCH (15:15)
[2023-12-30 15:26] LABS: Hemoglobin 8.6 g/dL (11.5-14.3); Mean Corpuscular Hemoglobin 33.4 pg (27-33); Mean Corpuscular Hgb Conc 30.8 g/dL (31-36); Mean Corpuscular Volume 108.5 fL (80-97); Mean Platelet Volume 7.8 fL (7.5-11.2); Platelet Count 323 10^3/uL (150-450); Red Blood Count 2.58 10^6/uL (3.63-4.92); Red Cell Distribution Width 18.2 % (12-17); White Blood Count 10.8 10^3/uL (3.8-11.8)
[2023-12-30] MEDS: Ondansetron 4 mg VIAL 2 MG/ML 2 ml VIAL IV ONE (15:30)
[2023-12-30 15:52] LABS: High Sens Troponin Baseline 127 pg/mL (<15)
[2023-12-30] MEDS: Vancomycin 1000 MG in NS 0.9% 250 ML IVPB ONE (15:55)
[2023-12-30] MEDS: Ondansetron 4 mg VIAL 2 MG/ML 2 ml VIAL ONE (15:56)
[2023-12-30 16:02] LABS: ABS Basophils 0.1 10^3/uL (0.0-0.1); ABS Eosinophils 0.2 10^3/uL (0.0-0.5); ABS Lymphocytes 4.3 10^3/uL (1.0-4.8); ABS Monocytes 1.1 10^3/uL (0.0-0.9); ABS Neutrophils 5.1 10^3/uL (1.5-7.6); ABS Nucleated RBC 0.02 10^3/ul; Anisocytosis 2+; Eosinophil % 1.8 %; Hypochromasia 2+; Macrocytosis 1+; Nucleated Red Blood Cells % 0.2 %/100WBC (0.0-0.8)
[2023-12-30 16:12] LABS: Blood Urea Nitrogen 36 mg/dL (6-24); CO2 Carbon Dioxide 21 mmol/L (22-32); Calcium 9.5 mg/dL (8.6-10.3); Chloride 102 mmol/L (101-111); Creatinine, Serum 7.64 mg/dL (0.51-0.95); Glucose 242 mg/dL (70-100); Sodium 144 mmol/L (135-145); eGFR CKD-EPI 5.7 (>60)
[2023-12-30 16:15] LABS: Anion Gap 21 mmol/L (2-16)
[2023-12-30] MEDS: Norepinephrine 4 MG/250mL D5W 4,000 MCG/250 ML BAG IV ONE (16:28)
[2023-12-30] MEDS: Lactated Ringers 1000 ml BAG 1,000 ML IV ONE (16:41)
[2023-12-30] MEDS ORDERED: Mometasone/Formoter 100/5 MDI INH PRN (16:56)
[2023-12-30] MEDS ORDERED: Acetaminophen IV 1 GM/100ML 1,000 MG/100 ML BAG IV PRN (17:08)
[2023-12-30 17:34] LABS: Phosphorus 8.3 mg/dL (2.5-5.0); Potassium Redraw 4.7 mmol/L (3.5-5.0)
[2023-12-30] MEDS: Mometasone/Formoter 100/5 MDI INH SCH (20:15)
[2023-12-30] MEDS: Nitroglycerin 0.3 mg TAB SL PRN (20:33)
[2023-12-30] MEDS ORDERED: fentaNYL 100 mcg/2 ml 50 MCG/ML VIAL IV SLOW PU PRN (21:00)
[2023-12-30] MEDS: Lidocaine PATCH 5% PATCH TRANSDERM SCH (21:21)
[2023-12-30] MEDS: Acetaminophen IV 1 GM/100ML 1,000 MG/100 ML BAG IV SCH (21:21)
[2023-12-30] MEDS: Heparin 5000 UNITS/ML 1 mL VIAL SUBCUT SCH (21:22)
[2023-12-31 00:28] LABS: High Sensitivity Troponin 1 Hr 570 pg/mL (<15)
[2023-12-31 00:47] LABS: INR 1.07 (0.83-1.13)
[2023-12-31] MEDS: HYDROmorphone 0.5 MG/0.5 ML SYRINGE IV ONE (02:30)
[2023-12-31 05:38] LABS: ABS Basophils 0.1 10^3/uL (0.0-0.1); ABS Eosinophils 0.1 10^3/uL (0.0-0.5); ABS Lymphocytes 0.7 10^3/uL (1.0-4.8); ABS Monocytes 0.9 10^3/uL (0.0-0.9); ABS Neutrophils 6.6 10^3/uL (1.5-7.6); ABS Nucleated RBC 0.01 10^3/ul; Eosinophil % 0.8 %; Hematocrit 22.5 % (35-45); Hemoglobin 7.3 g/dL (11.5-14.3); Lymphocyte % 8.3 %; Mean Corpuscular Hemoglobin 34.1 pg (27-33); Mean Corpuscular Hgb Conc 32.6 g/dL (31-36); Mean Corpuscular Volume 104.5 fL (80-97); Mean Platelet Volume 7.1 fL (7.5-11.2); Nucleated Red Blood Cells % 0.1 %/100WBC (0.0-0.8); Platelet Count 264 10^3/uL (150-450); Red Blood Count 2.15 10^6/uL (3.63-4.92); Red Cell Distribution Width 17.9 % (12-17); White Blood Count 8.4 10^3/uL (3.8-11.8)
[2023-12-31 06:24] LABS: Calcium 9.1 mg/dL (8.6-10.3); Creatinine, Serum 8.46 mg/dL (0.51-0.95); Magnesium 1.8 mg/dL (1.9-2.7); Potassium 5.7 mmol/L (3.5-5.0)
[2023-12-31] MEDS ORDERED: NS 0.9% 1000 ml BAG 200 ML IV PRN (09:11)
[2023-12-31] MEDS ORDERED: NS 0.9% 1000 ml BAG 100 ML IV PRN (09:11)
[2023-12-31] MEDS ORDERED: Sulfur Hexaflouride MICROSPHR 25 MG VIAL ONE (09:33)
[2023-12-31] MEDS: Heparin 1,000 UNIT/ML 10 ml (10,000 UNITS) CATHLAB/DIALYSIS DIALYSIS PRN (09:40)
[2023-12-31] MEDS: Benzocaine/Menthol LOZ MT PRN (11:21)
[2023-12-31 14:09] LABS: Hepatitis B Surface Antigen Nonreactive (Nonreactive)
[2023-12-31 14:26] LABS: Hepatitis B Surface Ab Not Immune (Immune)
[2024-01-01 04:54] LABS: ABS Eosinophils 0.1 10^3/uL (0.0-0.5); ABS Lymphocytes 0.9 10^3/uL (1.0-4.8); ABS Monocytes 0.8 10^3/uL (0.0-0.9); Eosinophil % 1.4 %; Hematocrit 19.4 % (35-45); Hemoglobin 6.4 g/dL (11.5-14.3); Lymphocyte % 13.5 %; Mean Corpuscular Hemoglobin 33.7 pg (27-33); Mean Corpuscular Hgb Conc 32.8 g/dL (31-36); Mean Platelet Volume 7.1 fL (7.5-11.2); Nucleated Red Blood Cells % 0.1 %/100WBC (0.0-0.8); Platelet Count 223 10^3/uL (150-450); Red Blood Count 1.89 10^6/uL (3.63-4.92); White Blood Count 6.9 10^3/uL (3.8-11.8)
[2024-01-01 05:30] LABS: Calcium 8.4 mg/dL (8.6-10.3); Creatinine, Serum 5.78 mg/dL (0.51-0.95); Magnesium 1.6 mg/dL (1.9-2.7); Potassium 4.8 mmol/L (3.5-5.0); eGFR CKD-EPI 7.9 (>60)
[2024-01-01 13:34] LABS: ABS Basophils 0.1 10^3/uL (0.0-0.1); ABS Eosinophils 0.2 10^3/uL (0.0-0.5); ABS Lymphocytes 0.7 10^3/uL (1.0-4.8); ABS Monocytes 0.6 10^3/uL (0.0-0.9); ABS Neutrophils 4.3 10^3/uL (1.5-7.6); ABS Nucleated RBC 0.01 10^3/ul; Eosinophil % 2.6 %; Hematocrit 21.6 % (35-45); Hemoglobin 7.2 g/dL (11.5-14.3); Lymphocyte % 12.3 %; Mean Corpuscular Hemoglobin 33.5 pg (27-33); Mean Corpuscular Hgb Conc 33.2 g/dL (31-36); Mean Corpuscular Volume 101.1 fL (80-97); Mean Platelet Volume 7.1 fL (7.5-11.2); Nucleated Red Blood Cells % 0.1 %/100WBC (0.0-0.8); Platelet Count 224 10^3/uL (150-450); Red Blood Count 2.14 10^6/uL (3.63-4.92); Red Cell Distribution Width 18.1 % (12-17); White Blood Count 5.8 10^3/uL (3.8-11.8)
[2024-01-01] MEDS: Lidocaine 1% MPF 5 ML VIAL INJ ONE (14:15)
[2024-01-02 05:46] LABS: ABS Basophils 0.1 10^3/uL (0.0-0.1); ABS Eosinophils 0.2 10^3/uL (0.0-0.5); ABS Lymphocytes 0.8 10^3/uL (1.0-4.8); ABS Monocytes 0.7 10^3/uL (0.0-0.9); ABS Neutrophils 4.3 10^3/uL (1.5-7.6); ABS Nucleated RBC 0.01 10^3/ul; Eosinophil % 2.7 %; Hematocrit 20.5 % (35-45); Hemoglobin 6.9 g/dL (11.5-14.3); Mean Corpuscular Hgb Conc 33.7 g/dL (31-36); Mean Corpuscular Volume 100.8 fL (80-97); Mean Platelet Volume 7.5 fL (7.5-11.2); Nucleated Red Blood Cells % 0.1 %/100WBC (0.0-0.8); Platelet Count 245 10^3/uL (150-450); Red Blood Count 2.03 10^6/uL (3.63-4.92); Red Cell Distribution Width 17.7 % (12-17); White Blood Count 5.9 10^3/uL (3.8-11.8)
[2024-01-02 06:11] LABS: Calcium 8.3 mg/dL (8.6-10.3); Creatinine, Serum 7.66 mg/dL (0.51-0.95); Magnesium 1.6 mg/dL (1.9-2.7); Potassium 4.3 mmol/L (3.5-5.0); eGFR CKD-EPI 5.6 (>60)
[2024-01-02] MEDS: Senna TAB 8.6 mg TAB PO ONE (12:33)
[2024-01-02] MEDS: Cholecalciferol (VIT D3) 1,000 unit TAB PO SCH (12:33)
[2024-01-02] MEDS: Polyethylene Glycol 3350 17 GM PACKET PO SCH (12:34)
[2024-01-03 07:25] LABS: Hematocrit 23.6 % (35-45); Mean Corpuscular Hemoglobin 33.7 pg (27-33); Mean Corpuscular Hgb Conc 33.9 g/dL (31-36); Mean Corpuscular Volume 99.4 fL (80-97); Mean Platelet Volume 7.6 fL (7.5-11.2); Platelet Count 261 10^3/uL (150-450); Red Blood Count 2.38 10^6/uL (3.63-4.92); Red Cell Distribution Width 17.9 % (12-17); White Blood Count 5.9 10^3/uL (3.8-11.8)
[2024-01-03 07:43] LABS: Calcium 8.3 mg/dL (8.6-10.3); Creatinine, Serum 4.89 mg/dL (0.51-0.95); Potassium 4.1 mmol/L (3.5-5.0); eGFR CKD-EPI 9.7 (>60)
[2024-01-04 06:12] LABS: ABS Eosinophils 0.2 10^3/uL (0.0-0.5); ABS Lymphocytes 0.5 10^3/uL (1.0-4.8); ABS Monocytes 0.7 10^3/uL (0.0-0.9); ABS Neutrophils 5.7 10^3/uL (1.5-7.6); ABS Nucleated RBC 0.01 10^3/ul; Eosinophil % 2.4 %; Hematocrit 23.8 % (35-45); Lymphocyte % 7.6 %; Mean Corpuscular Hemoglobin 33.5 pg (27-33); Mean Corpuscular Hgb Conc 33.6 g/dL (31-36); Mean Corpuscular Volume 99.8 fL (80-97); Mean Platelet Volume 7.6 fL (7.5-11.2); Nucleated Red Blood Cells % 0.1 %/100WBC (0.0-0.8); Platelet Count 311 10^3/uL (150-450); Red Blood Count 2.39 10^6/uL (3.63-4.92); Red Cell Distribution Width 17.6 % (12-17); White Blood Count 7.2 10^3/uL (3.8-11.8)
[2024-01-04 06:37] LABS: Calcium 8.6 mg/dL (8.6-10.3); Creatinine, Serum 6.94 mg/dL (0.51-0.95); Potassium 4.5 mmol/L (3.5-5.0); eGFR CKD-EPI 6.3 (>60)
[2024-01-04] MEDS: Morphine 2 MG/ML SYRINGE IV ONE (09:41)
[2024-01-05 06:36] LABS: Hematocrit 23.9 % (35-45); Mean Corpuscular Hemoglobin 33.5 pg (27-33); Mean Corpuscular Hgb Conc 33.4 g/dL (31-36); Mean Corpuscular Volume 100.1 fL (80-97); Mean Platelet Volume 7.7 fL (7.5-11.2); Platelet Count 296 10^3/uL (150-450); Red Blood Count 2.39 10^6/uL (3.63-4.92); Red Cell Distribution Width 16.9 % (12-17); White Blood Count 6.8 10^3/uL (3.8-11.8)
[2024-01-05 07:12] LABS: Calcium 8.9 mg/dL (8.6-10.3); Creatinine, Serum 8.36 mg/dL (0.51-0.95); Potassium 4.5 mmol/L (3.5-5.0); eGFR CKD-EPI 5.1 (>60)
[2024-01-05 08:25] LABS: Magnesium 1.8 mg/dL (1.9-2.7)
[2024-01-05] MEDS ORDERED: Albuterol HFA INHALER 8 gm MDI INH PRN (08:41)
[2024-01-06] MEDS: Albumin Human 25% 25 GM/100 ML BTL IV PRN (10:13)
[2024-01-06 14:36] VITALS: BP 115/59
== END 2024-01-06 18:26 | disposition home or self-care (01) | DRG 206 ==
LOC: CHICATH 12:36 → INTOOBSV 15:24 → ICU 15:24 → OBSVTOIN 15:24 → SUATTDRO 15:24 → MED 12-31 13:33
PROVIDERS: ADMIT Internal Medicine Nephrology; ATTEND Internal Medicine

== ENCOUNTER 2024-09-25 13:09 | Inpatient (IN) ==
[2024-09-25] MEDS ORDERED: NS 0.9% 1000 ml BAG 100 ML IV PRN (14:19)
[2024-09-25] MEDS ORDERED: NS 0.9% 1000 ml BAG 200 ML IV PRN (14:19)
[2024-09-25] MEDS: Ondansetron 4 mg VIAL 2 MG/ML 2 ml VIAL IV ONE (14:59)
[2024-09-25] MEDS: Lactated Ringers 1000 ml BAG IV.FLUID IV ONE (14:59)
[2024-09-25 15:26] LABS: ABS Basophils 0.1 10^3/uL (0.0-0.1); ABS Eosinophils 0.1 10^3/uL (0.0-0.5); ABS Lymphocytes 0.7 10^3/uL (1.0-4.8); ABS Monocytes 0.8 10^3/uL (0.0-0.9); ABS Neutrophils 7.6 10^3/uL (1.5-7.6); Eosinophil % 1.3 %; Hematocrit 33.6 % (35-45); Hemoglobin 11.5 g/dL (11.5-14.3); Mean Corpuscular Hemoglobin 36.4 pg (27-33); Mean Corpuscular Hgb Conc 34.1 g/dL (31-36); Mean Corpuscular Volume 106.7 fL (80-97); Mean Platelet Volume 6.9 fL (7.5-11.2); Platelet Count 358 10^3/uL (150-450); Red Blood Count 3.15 10^6/uL (3.63-4.92); Red Cell Distribution Width 16.5 % (12-17); White Blood Count 9.3 10^3/uL (3.8-11.8)
[2024-09-25 16:20] LABS: Hepatitis B Surface Antigen Nonreactive (Nonreactive)
[2024-09-25 16:24] LABS: Albumin 4.2 g/dL (3.2-5.2); Albumin/Globulin Ratio 1.1 (1-3); C Reactive Protein 181.74 mg/L (<8.01); Calcium 9.5 mg/dL (8.6-10.3); Creatinine, Serum 10.82 mg/dL (0.51-0.95); Globulin 3.8 g/dL (2-4); Potassium 5.7 mmol/L (3.5-5.0); Total Bilirubin 0.4 mg/dL (0.2-1.0); eGFR CKD-EPI 3.7 (>60)
[2024-09-25 16:37] LABS: Hepatitis B Surface Ab Immune (Immune)
[2024-09-25 17:09] LABS: Urine Appearance Extra Turbid; Urine Bilirubin Negative (Negative); Urine Blood 2+ (Negative); Urine Glucose 1+ (>=70 mg/dL) (Negative); Urine Ketones Negative (Negative); Urine Nitrite 2+ (Negative); Urine Protein 2+ (>=100 mg/dL) (Negative); Urine Specific Gravity 1.014 (1.002-1.030); Urine Urobilinogen Negative (Negative); Urine pH 8.5 (5.0-8.0)
[2024-09-25 17:11] LABS: Urine Color Light-Yellow
[2024-09-25 17:12] LABS: High Sensitivity Troponin 1 Hr 3 pg/mL (<15)
[2024-09-25 17:18] LABS: Urine Bacteria 1+ /HPF (Absent); Urine Red Blood Cell Trace(0-2/hpf) /HPF (0-Trace); Urine White Blood Cell Trace(0-5/hpf) /HPF (0-Trace)
[2024-09-25] MEDS ORDERED: Albuterol HFA INHALER 8 gm MDI INH PRN (18:17)
[2024-09-25] MEDS ORDERED: Nystatin TOP POWDER 15 GM BTL TOPICAL PRN (18:17)
[2024-09-25] MEDS ORDERED: Budesonide/Formote 80/4.5(NF) MDI INH PRN (18:17)
[2024-09-25] MEDS: cefTRIAXone 1 gm/50 mL D5W 1 GM/50 ML BAG IV SCH (19:20)
[2024-09-25] MEDS: Lidocaine PATCH 5% PATCH TRANSDERM SCH (19:20)
[2024-09-25] MEDS: Ondansetron ODT 4 mg TAB 4 MG TAB PO PRN (21:06)
[2024-09-25] MEDS: Heparin 1,000 UNIT/ML 10 ml (10,000 UNITS) CATHLAB/DIALYSIS DIALYSIS PRN (21:35)
[2024-09-26] MEDS: Ondansetron 4 mg VIAL 2 MG/ML 2 ml VIAL IV PRN ×2 (04:59→11:21)
[2024-09-26 06:44] LABS: ABS Basophils 0.1 10^3/uL (0.0-0.1); ABS Eosinophils 0.1 10^3/uL (0.0-0.5); ABS Lymphocytes 0.5 10^3/uL (1.0-4.8); ABS Monocytes 0.7 10^3/uL (0.0-0.9); ABS Neutrophils 9.5 10^3/uL (1.5-7.6); Eosinophil % 0.7 %; Hematocrit 34.6 % (35-45); Hemoglobin 11.9 g/dL (11.5-14.3); Lymphocyte % 4.4 %; Mean Corpuscular Hemoglobin 36.4 pg (27-33); Mean Corpuscular Hgb Conc 34.4 g/dL (31-36); Mean Corpuscular Volume 105.7 fL (80-97); Mean Platelet Volume 7.3 fL (7.5-11.2); Platelet Count 355 10^3/uL (150-450); Red Blood Count 3.27 10^6/uL (3.63-4.92); Red Cell Distribution Width 16.3 % (12-17); White Blood Count 10.9 10^3/uL (3.8-11.8)
[2024-09-26 07:13] LABS: Magnesium 1.8 mg/dL (1.9-2.7)
[2024-09-26 08:07] LABS: Albumin 4.2 g/dL (3.2-5.2); Albumin/Globulin Ratio 1.1 (1-3); Calcium 9.8 mg/dL (8.6-10.3); Creatinine, Serum 7.87 mg/dL (0.51-0.95); Potassium 4.6 mmol/L (3.5-5.0); Total Bilirubin 0.4 mg/dL (0.2-1.0); Total Protein 8.2 g/dL (6.4-8.9); eGFR CKD-EPI 5.4 (>60)
[2024-09-26] MEDS: Al Hydrox/Mg Hydrox/Simet LIQ 30 ML UDC PO SCH (08:21)
[2024-09-26] MEDS: DULoxetine DR 60 mg CAP PO SCH (08:21)
[2024-09-26] MEDS: Vancomycin 1,000 MG in NS 0.9% 250 ml 250 ML IVPB ONE (16:01)
[2024-09-27 07:02] LABS: Calcium 9.6 mg/dL (8.6-10.3); Creatinine, Serum 10.28 mg/dL (0.51-0.95); Magnesium 2.2 mg/dL (1.9-2.7); Potassium 5.1 mmol/L (3.5-5.0); eGFR CKD-EPI 3.9 (>60)
[2024-09-27 07:10] LABS: ABS Basophils 0.1 10^3/uL (0.0-0.1); ABS Eosinophils 0.2 10^3/uL (0.0-0.5); ABS Lymphocytes 0.8 10^3/uL (1.0-4.8); ABS Monocytes 0.5 10^3/uL (0.0-0.9); ABS Neutrophils 4.1 10^3/uL (1.5-7.6); Hematocrit 32.9 % (35-45); Hemoglobin 11.1 g/dL (11.5-14.3); Lymphocyte % 14.1 %; Mean Corpuscular Hemoglobin 36.1 pg (27-33); Mean Corpuscular Hgb Conc 33.7 g/dL (31-36); Mean Corpuscular Volume 107.1 fL (80-97); Mean Platelet Volume 7.2 fL (7.5-11.2); Nucleated Red Blood Cells % 0.1 %/100WBC (0.0-0.8); Platelet Count 339 10^3/uL (150-450); Red Blood Count 3.08 10^6/uL (3.63-4.92); Red Cell Distribution Width 16.4 % (12-17); White Blood Count 5.7 10^3/uL (3.8-11.8)
[2024-09-27] MEDS: Cholecalciferol (VIT D3) 1,000 unit TAB PO SCH (09:35)
[2024-09-27] MEDS ORDERED: Cefepime ADVAN 1 GM in NS 0.9% 50 ML 50 ML IVPB SCH (19:00)
[2024-09-27] MEDS: CEFEPIME 2 GM in Dextrose 50 mL IV SCH (20:30)
[2024-09-28 05:42] LABS: Urine Appearance Extra Turbid; Urine Bilirubin Negative (Negative); Urine Blood 3+ (Negative); Urine Glucose Negative (Negative); Urine Ketones Negative (Negative); Urine Nitrite Negative (Negative); Urine Protein 3+ (>=300 mg/dL) (Negative); Urine Specific Gravity 1.015 (1.002-1.030); Urine Urobilinogen Negative (Negative); Urine pH 7.5 (5.0-8.0)
[2024-09-28 06:21] LABS: Calcium 9.6 mg/dL (8.6-10.3); Creatinine, Serum 7.73 mg/dL (0.51-0.95); Potassium 4.3 mmol/L (3.5-5.0); eGFR CKD-EPI 5.5 (>60)
[2024-09-28 06:37] LABS: Urine Bacteria 2+ /HPF (Absent); Urine Red Blood Cell 2+(6-10/hpf) /HPF (0-Trace); Urine Squamous Epithelial Cell Present /HPF (Absent); Urine Transitional Epithelial Present /HPF (Absent); Urine White Blood Cell 3+(>20/hpf) /HPF (0-Trace)
[2024-09-28 06:39] LABS: Urine Color Dark-Yellow
[2024-09-28 07:38] LABS: ABS Basophils 0.1 10^3/uL (0.0-0.1); ABS Eosinophils 0.2 10^3/uL (0.0-0.5); ABS Lymphocytes 0.8 10^3/uL (1.0-4.8); ABS Monocytes 0.6 10^3/uL (0.0-0.9); ABS Neutrophils 4.3 10^3/uL (1.5-7.6); Hematocrit 32.2 % (35-45); Hemoglobin 10.9 g/dL (11.5-14.3); Lymphocyte % 13.7 %; Mean Corpuscular Hemoglobin 35.7 pg (27-33); Mean Corpuscular Hgb Conc 33.8 g/dL (31-36); Mean Corpuscular Volume 105.6 fL (80-97); Mean Platelet Volume 7.3 fL (7.5-11.2); Nucleated Red Blood Cells % 0.1 %/100WBC (0.0-0.8); Platelet Count 346 10^3/uL (150-450); Red Blood Count 3.05 10^6/uL (3.63-4.92); Red Cell Distribution Width 16.2 % (12-17)
[2024-09-28] MEDS ORDERED: Magnesium Hydroxide LIQ 30 ML UDC PO PRN (14:03)
[2024-09-28] MEDS ORDERED: Sulfur Hexaflouride MICROSPHR 25 MG VIAL IV PRN (14:49)
[2024-09-28] MEDS: Polyethylene Glycol 3350 17 GM PACKET PO SCH (15:47)
[2024-09-28] MEDS: Albumin Human 25% 25 GM/100 ML BTL IV PRN (18:14)
[2024-09-29] MEDS ORDERED: ceFAZolin 2 GM PREMIX 2 GM/50 ML BAG IV ONE (11:35)
[2024-09-29] MEDS: Sodium Phosphate ADULT ENEMA 133 ML BTL PR ONE (11:43)
[2024-09-29] MEDS: ceFAZolin 2 GM/50 ML BAG IV ONE (14:14)
[2024-09-30 06:58] LABS: Calcium 9.3 mg/dL (8.6-10.3); Creatinine, Serum 8.11 mg/dL (0.51-0.95); Magnesium 2.3 mg/dL (1.9-2.7); Potassium 4.8 mmol/L (3.5-5.0); eGFR CKD-EPI 5.2 (>60)
[2024-09-30] MEDS: ceFAZolin 2 GM PREMIX 2 GM/50 ML BAG IV ONE (12:35)
[2024-10-01 14:05] VITALS: BP 114/84
== END 2024-10-01 16:50 | disposition home or self-care (01) | DRG 724 ==
LOC: ED 13:09 → EDHOLD 17:38 → SUATTDRO 17:38 → MED 18:32
PROVIDERS: ADMIT Student in an Organized Health Care Education/Training Program; ATTEND Internal Medicine

== ENCOUNTER 2024-10-29 17:13 | Inpatient (IN) ==
[2024-10-29 19:40] LABS: Venous Bicarbonate HCO3 12.5 mmol/L (24-28)
[2024-10-29] MEDS: Morphine 4 MG/ML VIAL (1 ml) IV ONE (19:40)
[2024-10-29 19:51] LABS: ABS Eosinophils 0.2 10^3/uL (0.0-0.5); ABS Lymphocytes 0.6 10^3/uL (1.0-4.8); ABS Monocytes 0.4 10^3/uL (0.0-0.9); ABS Neutrophils 4.1 10^3/uL (1.5-7.6); Eosinophil % 3.7 %; Hematocrit 30.3 % (35-45); Hemoglobin 9.9 g/dL (11.5-14.3); Lymphocyte % 11.6 %; Mean Corpuscular Hemoglobin 35.4 pg (27-33); Mean Corpuscular Hgb Conc 32.7 g/dL (31-36); Mean Corpuscular Volume 108.4 fL (80-97); Mean Platelet Volume 7.1 fL (7.5-11.2); Nucleated Red Blood Cells % 0.1 %/100WBC (0.0-0.8); Platelet Count 404 10^3/uL (150-450); Red Cell Distribution Width 15.9 % (12-17); White Blood Count 5.4 10^3/uL (3.8-11.8)
[2024-10-29 20:45] LABS: C Reactive Protein 38.13 mg/L (<8.01); Calcium 9.1 mg/dL (8.6-10.3); Creatinine, Serum 10.12 mg/dL (0.51-0.95); Globulin 3.9 g/dL (2-4); Potassium 6.2 mmol/L (3.5-5.0); Total Bilirubin 0.4 mg/dL (0.2-1.0); Total Protein 7.9 g/dL (6.4-8.9)
[2024-10-29] MEDS: Dextrose 50% Syringe 50 ml 25 GM/50 ML SYRINGE IV PUSH ONE (20:55)
[2024-10-29] MEDS: CALCIUM GLUCONATE 1GM/50ML NS 1 GM/50 ML BAG IV ONE (21:05)
[2024-10-29] MEDS ORDERED: NS 0.9% 1000 ml BAG 200 ML IV PRN (21:14)
[2024-10-29] MEDS ORDERED: NS 0.9% 1000 ml BAG 100 ML IV PRN (21:14)
[2024-10-29] MEDS ORDERED: Dextrose 50% Syringe 50 ml 25 GM/50 ML SYRINGE ONE (22:20)
[2024-10-29] MEDS: Dextrose 50% VIAL 50 ml IV PRN (22:20)
[2024-10-29] MEDS: Cefepime 2 GM in Dextrose 2 GM/50 ML BAG IV ONE (22:26)
[2024-10-29 23:28] LABS: Hepatitis B Surface Antigen Nonreactive (Nonreactive)
[2024-10-29] MEDS: Morphine 2 MG/ML SYRINGE IV PRN (23:34)
[2024-10-29 23:45] LABS: Hepatitis B Surface Ab Immune (Immune)
[2024-10-30] MEDS ORDERED: Dextrose 50% Syringe 50 ml 25 GM/50 ML SYRINGE IV PUSH PRN (00:21)
[2024-10-30] MEDS ORDERED: Albuterol HFA INHALER 8 gm MDI INH PRN (01:05)
[2024-10-30] MEDS ORDERED: Mometasone/Formoter 100/5 MDI INH PRN (01:21)
[2024-10-30] MEDS: Heparin 1,000 UNIT/ML 10 ml (10,000 UNITS) CATHLAB/DIALYSIS DIALYSIS PRN (01:40)
[2024-10-30] MEDS: Vancomycin 1,500 MG in NS 0.9% 250 ml 250 ML IVPB ONE (06:18)
[2024-10-30 06:50] LABS: ABS Basophils 0.1 10^3/uL (0.0-0.1); ABS Eosinophils 0.2 10^3/uL (0.0-0.5); ABS Lymphocytes 1.1 10^3/uL (1.0-4.8); ABS Monocytes 0.6 10^3/uL (0.0-0.9); ABS Neutrophils 5.4 10^3/uL (1.5-7.6); ABS Nucleated RBC 0.01 10^3/ul; Eosinophil % 2.5 %; Hematocrit 34.6 % (35-45); Hemoglobin 11.6 g/dL (11.5-14.3); Lymphocyte % 14.7 %; Mean Corpuscular Hemoglobin 35.3 pg (27-33); Mean Corpuscular Hgb Conc 33.4 g/dL (31-36); Mean Corpuscular Volume 105.9 fL (80-97); Mean Platelet Volume 7.7 fL (7.5-11.2); Nucleated Red Blood Cells % 0.1 %/100WBC (0.0-0.8); Platelet Count 471 10^3/uL (150-450); Red Blood Count 3.27 10^6/uL (3.63-4.92); Red Cell Distribution Width 15.7 % (12-17); White Blood Count 7.4 10^3/uL (3.8-11.8)
[2024-10-30 07:23] LABS: Anion Gap 16 mmol/L (2-16); Blood Urea Nitrogen 37 mg/dL (6-24); CO2 Carbon Dioxide 19 mmol/L (22-32); Calcium 9.3 mg/dL (8.6-10.3); Chloride 98 mmol/L (101-111); Glucose 107 mg/dL (70-100); Sodium 133 mmol/L (135-145); eGFR CKD-EPI 9.6 (>60)
[2024-10-30] MEDS: Ondansetron 4 mg VIAL 2 MG/ML 2 ml VIAL IV ONE (08:41)
[2024-10-30] MEDS: Ondansetron 4 mg VIAL 2 MG/ML 2 ml VIAL ONE ×2 (08:44→08:46)
[2024-10-30] MEDS ORDERED: Vancomycin per Pharmacy 1 EA NOTE FOLLOW UP SCH (09:00)
[2024-10-30] MEDS: Nystatin TOP POWDER 15 GM BTL TOPICAL SCH (09:35)
[2024-10-30] MEDS: Cefepime 1 GM in Dextrose 1 GM/50 ML BAG IV SCH (09:35)
[2024-10-30 09:57] LABS: Venous Bicarbonate HCO3 23.5 mmol/L (24-28)
[2024-10-30 11:16] LABS: HIV 4th Generation Nonreactive (Nonreactive)
[2024-10-30 11:24] LABS: Hepatitis C Antibody Negative (Negative)
[2024-10-30] MEDS: Acetaminophen IV 1 GM/100ML 1,000 MG/100 ML BAG IV ONE (22:16)
[2024-10-31 06:09] LABS: ABS Basophils 0.1 10^3/uL (0.0-0.1); ABS Eosinophils 0.2 10^3/uL (0.0-0.5); ABS Lymphocytes 0.6 10^3/uL (1.0-4.8); ABS Monocytes 0.6 10^3/uL (0.0-0.9); ABS Neutrophils 3.1 10^3/uL (1.5-7.6); Eosinophil % 4.8 %; Hematocrit 29.9 % (35-45); Hemoglobin 9.8 g/dL (11.5-14.3); Mean Corpuscular Hemoglobin 35.2 pg (27-33); Mean Corpuscular Hgb Conc 32.7 g/dL (31-36); Mean Corpuscular Volume 107.4 fL (80-97); Mean Platelet Volume 7.5 fL (7.5-11.2); Platelet Count 360 10^3/uL (150-450); Red Blood Count 2.78 10^6/uL (3.63-4.92); Red Cell Distribution Width 15.5 % (12-17); White Blood Count 4.6 10^3/uL (3.8-11.8)
[2024-10-31 06:38] LABS: Calcium 9.1 mg/dL (8.6-10.3); Creatinine, Serum 8.51 mg/dL (0.51-0.95); Potassium 5.2 mmol/L (3.5-5.0); Vancomycin Random 26.7 mcg/mL; eGFR CKD-EPI 4.9 (>60)
[2024-10-31] MEDS: Vancomycin Random Level NOTE FOLLOW UP ONE (08:23)
[2024-11-01 06:38] LABS: Calcium 8.7 mg/dL (8.6-10.3); Creatinine, Serum 9.06 mg/dL (0.51-0.95); Potassium 4.8 mmol/L (3.5-5.0); eGFR CKD-EPI 4.6 (>60)
[2024-11-01 07:09] LABS: ABS Eosinophils 0.2 10^3/uL (0.0-0.5); ABS Lymphocytes 0.7 10^3/uL (1.0-4.8); ABS Monocytes 0.7 10^3/uL (0.0-0.9); Eosinophil % 4.1 %; Hematocrit 28.5 % (35-45); Hemoglobin 9.5 g/dL (11.5-14.3); Lymphocyte % 12.5 %; Mean Corpuscular Hemoglobin 35.8 pg (27-33); Mean Corpuscular Hgb Conc 33.5 g/dL (31-36); Mean Corpuscular Volume 106.7 fL (80-97); Mean Platelet Volume 7.6 fL (7.5-11.2); Nucleated Red Blood Cells % 0.1 %/100WBC (0.0-0.8); Platelet Count 351 10^3/uL (150-450); Red Blood Count 2.67 10^6/uL (3.63-4.92); Red Cell Distribution Width 14.8 % (12-17); White Blood Count 5.6 10^3/uL (3.8-11.8)
[2024-11-01] MEDS: Albumin Human 25% 25 GM/100 ML BTL IV PRN (10:52)
[2024-11-01 11:03] LABS: Vancomycin Random 23.8 mcg/mL
[2024-11-01] MEDS: Cefepime 1 GM in Dextrose 1 GM/50 ML BAG IV SCH (13:02)
[2024-11-01] MEDS: Vancomycin 750 MG in NS 0.9% 250 ML IVPB ONE (17:32)
[2024-11-02 06:17] LABS: ABS Basophils 0.1 10^3/uL (0.0-0.1); ABS Eosinophils 0.3 10^3/uL (0.0-0.5); ABS Lymphocytes 0.9 10^3/uL (1.0-4.8); ABS Monocytes 0.8 10^3/uL (0.0-0.9); ABS Nucleated RBC 0.01 10^3/ul; Eosinophil % 4.3 %; Hematocrit 29.7 % (35-45); Hemoglobin 9.8 g/dL (11.5-14.3); Mean Corpuscular Hemoglobin 34.9 pg (27-33); Mean Corpuscular Hgb Conc 33.1 g/dL (31-36); Mean Corpuscular Volume 105.6 fL (80-97); Mean Platelet Volume 7.5 fL (7.5-11.2); Nucleated Red Blood Cells % 0.1 %/100WBC (0.0-0.8); Platelet Count 378 10^3/uL (150-450); Red Blood Count 2.82 10^6/uL (3.63-4.92); Red Cell Distribution Width 14.8 % (12-17)
[2024-11-02 06:25] LABS: Calcium 9.3 mg/dL (8.6-10.3); Creatinine, Serum 7.03 mg/dL (0.51-0.95); Potassium 4.6 mmol/L (3.5-5.0); eGFR CKD-EPI 6.2 (>60)
[2024-11-02] MEDS: Magnesium Hydroxide LIQ 30 ML UDC PO ONE (10:07)
[2024-11-02] MEDS: Ondansetron ODT 4 mg TAB 4 MG TAB SL PRN (21:10)
[2024-11-02] MEDS: Prochlorperazine 5 mg/ml 2 ml VIAL (10 mg) IV ONE (22:33)
[2024-11-03] MEDS ORDERED: Vancomycin Random Level NOTE FOLLOW UP ONE (06:00)
[2024-11-03 06:38] LABS: Hematocrit 31.1 % (35-45); Hemoglobin 10.4 g/dL (11.5-14.3); Mean Corpuscular Hemoglobin 35.8 pg (27-33); Mean Corpuscular Hgb Conc 33.6 g/dL (31-36); Mean Corpuscular Volume 106.5 fL (80-97); Mean Platelet Volume 7.5 fL (7.5-11.2); Platelet Count 366 10^3/uL (150-450); Red Blood Count 2.92 10^6/uL (3.63-4.92); Red Cell Distribution Width 14.8 % (12-17); White Blood Count 5.7 10^3/uL (3.8-11.8)
[2024-11-03 06:46] LABS: Calcium 9.6 mg/dL (8.6-10.3); Creatinine, Serum 8.57 mg/dL (0.51-0.95); Potassium 5.4 mmol/L (3.5-5.0); eGFR CKD-EPI 4.9 (>60)
[2024-11-03 14:14] VITALS: BP 99/65
== END 2024-11-03 18:20 | disposition home or self-care (01) | DRG 425 ==
LOC: ED 17:13 → EDHOLD 21:40 → SUATTDRO 21:40 → ICU 22:10 → MEDTELE 10-30 13:04
PROVIDERS: ADMIT Internal Medicine; ATTEND Student in an Organized Health Care Education/Training Program